=== PATIENT | female | born 1960 | race American Indian/Alaskan Native ===

== ENCOUNTER 2018-06-15 09:24 | Emergency (ER) | payer OTHER ==
[2018-06-15] MEDS ORDERED: LASIX IV ONE (10:03)
--- NOTE | 2018-06-15 10:17 | Emergency Department Report ---
ED Extremity Problem HPI - General Chief complaint: Extremity Injury, Lower Stated complaint: ABD PAIN/GREEN STOOLS Time Seen by Provider: 06/15/18 09:46 Source: patient, old records reviewed (attempted admission in 2016. pt signed out and refused admission at that time) Mode of arrival: Wheelchair Limitations: No Limitations - History of Present Illness Initial comments: 57-year-old female with a past medical history of hypertension, obesity, and CHF presents to the hospital complaining of bilateral leg edema progressively worsening for the last 2 weeks. Patient has been compliant with Lasix 40 mg daily and occasionally takes 20 mg dose when she begins to have symptoms of worsening orthopnea or PND. Patient states that she has had slightly worsening orthopnea the last 2 weeks. She has been sleeping on 4 pillows instead of 3. She is also having worsening dyspnea and exertion is significant bilateral leg edema and abdominal wall edema. Patient has been noncompliant with her hydralazine and metoprolol for the last 3 weeks. She felt like the metoprolol was causing muscle loss/atrophy and that the hydralazine was causing her varicose veins. Pt does have a primary care doctor. Pt does not know her ejection fraction. Pt did take lasix this am. Pt also c/o green stools for last several days. No fever - Related Data Home Medications Medication Instructions Recorded Confirmed Last Taken Furosemide [Lasix] mg PO 05/09/15 Unknown Verapamil [Calan] mg PO 05/09/15 Unknown Allergies Allergy/AdvReac Type Severity Reaction Status Date / Time carvedilol [From Coreg] AdvReac Unknown Verified 06/15/18 09:32 metoprolol AdvReac Unknown Verified 06/15/18 10:05 ED Review of Systems ROS: Stated complaint: ABD PAIN/GREEN STOOLS Other details as noted in HPI Comment: All other systems reviewed and negative ED Past Medical Hx - Past Medical History Hx Hypertension: Yes Hx Congestive Heart Failure: Yes - Surgical History Additional Surgical History: knee surgery - Social History Smoking Status: Never Smoker Substance Use Type: None - Medications Home Medications: Home Medications Medication Instructions Recorded Confirmed Last Taken Type Furosemide [Lasix] mg PO 05/09/15 Unknown History Verapamil [Calan] mg PO 05/09/15 Unknown History ED Physical Exam - General Limitations: No Limitations - Other Other exam information: General: No limitations, patient is alert in no acute distress Head exam: Atraumatic, normocephalic Eyes exam: Normal appearance, pupils equal reactive to light, extraocular movements intact ENT: Moist mucous membrane, normal oropharynx Neck exam: Normal inspection, full range of motion, no meningismus nontender Respiratory exam: Clear to auscultation bilateral, no wheezes, rales, crackles Cardiovascular: Normal rate and rhythm, normal heart sounds Abdomen: Soft, nondistended, and nontender, with normal bowel sounds, no rebound, or guarding Extremity: Left knee replacement surgical scar noted. Bilateral pitting with b/l tense legs. edema extends to abdominal wall Back: Normal Inspection, full range of motion, no tenderness Neurologic: Alert, oriented x3, cranial nerves intact, no motor or sensory deficit Psychiatric: normal affect, normal mood Skin: Warm, dry, intact ED Course Vital Signs 06/15/18 06/15/18 06/15/18 09:35 10:12 11:23 Temperature 97.8 F Pulse Rate 106 H 87 91 H Respiratory 16 17 17 Rate Blood Pressure 195/120 Blood Pressure 163/100 152/95 [Right] O2 Sat by Pulse 95 100 95 Oximetry ED Medical Decision Making - Lab Data Result diagrams: 06/15/18 10:15 06/15/18 10:15 Lab Results 06/15/18 06/15/18 06/15/18 Range/Units 10:15 10:15 10:42 WBC 4.6 (4.5-11.0) K/mm3 RBC 5.12 H (3.65-5.03) M/mm3 Hgb 13.4 (10.1-14.3) gm/dl Hct 42.5 (30.3-42.9) % MCV 83 (79-97) fl MCH 26 L (28-32) pg MCHC 31 (30-34) % RDW 17.3 H (13.2-15.2) % Plt Count 202 (140-440) K/mm3 Lymph % (Auto) 37.7 H (13.4-35.0) % [place] % (Auto) 8.3 H (0.0-7.3) % Eos % (Auto) 1.2 (0.0-4.3) % Baso % (Auto) 1.1 (0.0-1.8) % Lymph # 1.7 (1.2-5.4) K/mm3 [place] # 0.4 (0.0-0.8) K/mm3 Eos # 0.1 (0.0-0.4) K/mm3 Baso # 0.1 (0.0-0.1) K/mm3 Seg Neutrophils % 51.7 (40.0-70.0) % Seg Neutrophils # 2.4 (1.8-7.7) K/mm3 D-Dimer (0-234) ng/mlDDU Sodium 141 (137-145) mmol/L Potassium 4.1 (3.6-5.0) mmol/L Chloride 96.5 L (98-107) mmol/L Carbon Dioxide 35 H (22-30) mmol/L Anion Gap 14 mmol/L BUN 16 (7-17) mg/dL Creatinine 0.7 (0.7-1.2) mg/dL Estimated GFR > 60 ml/min BUN/Creatinine Ratio 23 % Glucose 104 H (65-100) mg/dL Hemoglobin A1c 6.8 H (4-6) % Calcium 8.8 (8.4-10.2) mg/dL Magnesium (1.7-2.3) mg/dL Total Bilirubin 0.50 (0.1-1.2) mg/dL AST 46 H (5-40) units/L ALT 47 (7-56) units/L Alkaline Phosphatase 92 (35-129) units/L Total Creatine Kinase 33 (30-135) units/L CK-MB (CK-2) 2.2 (0.0-4.0) ng/mL CK-MB (CK-2) Rel Index 6.6 H (0-4) Troponin T < 0.010 (0.00-0.029) ng/mL NT-Pro-B Natriuret Pep 6715 H (0-900) pg/mL Total Protein 6.7 (6.3-8.2) g/dL Albumin 3.1 L (3.9-5) g/dL Albumin/Globulin Ratio 0.9 % TSH (0.270-4.200) mlU/mL Free T4 (0.76-1.46) ng/dL 06/15/18 06/15/18 06/15/18 Range/Units 12:34 12:35 12:35 WBC (4.5-11.0) K/mm3 RBC (3.65-5.03) M/mm3 Hgb (10.1-14.3) gm/dl Hct (30.3-42.9) % MCV (79-97) fl MCH (28-32) pg MCHC (30-34) % RDW (13.2-15.2) % Plt Count (140-440) K/mm3 Lymph % (Auto) (13.4-35.0) % [place] % (Auto) (0.0-7.3) % Eos % (Auto) (0.0-4.3) % Baso % (Auto) (0.0-1.8) % Lymph # (1.2-5.4) K/mm3 [place] # (0.0-0.8) K/mm3 Eos # (0.0-0.4) K/mm3 Baso # (0.0-0.1) K/mm3 Seg Neutrophils % (40.0-70.0) % Seg Neutrophils # (1.8-7.7) K/mm3 D-Dimer 875.34 H (0-234) ng/mlDDU Sodium (137-145) mmol/L Potassium (3.6-5.0) mmol/L Chloride (98-107) mmol/L Carbon Dioxide (22-30) mmol/L Anion Gap mmol/L BUN (7-17) mg/dL Creatinine (0.7-1.2) mg/dL Estimated GFR ml/min BUN/Creatinine Ratio % Glucose (65-100) mg/dL Hemoglobin A1c (4-6) % Calcium (8.4-10.2) mg/dL Magnesium 1.90 (1.7-2.3) mg/dL Total Bilirubin (0.1-1.2) mg/dL AST (5-40) units/L ALT (7-56) units/L Alkaline Phosphatase (35-129) units/L Total Creatine Kinase (30-135) units/L CK-MB (CK-2) (0.0-4.0) ng/mL CK-MB (CK-2) Rel Index (0-4) Troponin T (0.00-0.029) ng/mL NT-Pro-B Natriuret Pep (0-900) pg/mL Total Protein (6.3-8.2) g/dL Albumin (3.9-5) g/dL Albumin/Globulin Ratio % TSH 1.940 (0.270-4.200) mlU/mL Free T4 1.13 (0.76-1.46) ng/dL - EKG Data -: EKG Interpreted by Me EKG shows normal: sinus rhythm, axis (qrs -17), QRS complexes (qrsd 104), ST-T waves (no stemi) Rate: tachycardia (100) - EKG Data When compared to previous EKG there are: no significant change - Radiology Data Radiology results: report reviewed PROCEDURE: XR CHEST ROUTINE 2V TECHNIQUE: PA and lateral chest radiographs were obtained. HISTORY: sob, leg edema COMPARISONS: None. FINDINGS: Heart: Prominent cardiac silhouette. Mediastinum/Vessels: Normal. Lungs/Pleural space: No infiltrate, effusion, or pneumothorax. Bony thorax: No acute osseous abnormality. IMPRESSION: Prominent cardiac silhouette. - Medical Decision Making pt tx with lasix 40mg iv and clonidine 0.1 mg PO in ed + uop (mild) + bp reduction Plan to admit for further tx pt seen by Dr Murry hospitalist pt signed ama after discussion with hospitalist and states she will come back after the weekend - Differential Diagnosis chf, liver failure, kidney failure, nephrotic syndrome Critical Care Time: No Critical care attestation.: If time is entered above; I have spent that time in minutes in the direct care of this critically ill patient, excluding procedure time. ED Disposition Clinical Impression: Nonadherence to medication, Obesities, morbid, Hypertension CHF exacerbation Qualifiers: Heart failure type: systolic Qualified Code(s): I50.23 - Acute on chronic systolic (congestive) heart failure Disposition: DC-07 LEFT AGAINST MED ADVICE Is pt being admited?: Yes Condition: Stable Referrals: PRIMARY CARE, [Primary Care Provider] - 3-5 Days Forms: AMA Form Time of Disposition: 12:22
[2018-06-15] MEDS ORDERED: CATAPRES PO ONE (10:18)
[2018-06-15 10:25] LABS: Basophils # (Auto) 0.1 K/mm3 (0.0-0.1); Basophils % (Auto) 1.1 % (0.0-1.8); Eosinophils # (Auto) 0.1 K/mm3 (0.0-0.4); Eosinophils % (Auto) 1.2 % (0.0-4.3); Hematocrit 42.5 % (30.3-42.9); Hemoglobin 13.4 gm/dl (10.1-14.3); Lymphocytes # (Auto) 1.7 K/mm3 (1.2-5.4); Lymphocytes % (Auto) 37.7 % (13.4-35.0); Mean Corpuscular HGB Conc 31 % (30-34); Mean Corpuscular Volume 83 fl (79-97); Monocytes # (Auto) 0.4 K/mm3 (0.0-0.8); Monocytes % (Auto) 8.3 % (0.0-7.3); Platelet Count 202 K/mm3 (140-440); Red Blood Count 5.12 M/mm3 (3.65-5.03); Red Cell Distribution Width 17.3 % (13.2-15.2)
[2018-06-15 10:49] LABS: Creatine Kinase MB 2.2 ng/mL (0.0-4.0)
[2018-06-15 10:50] LABS: Alanine Aminotransferase 47 units/L (7-56); Albumin 3.1 g/dL (3.9-5); BUN/Creatinine Ratio 23; Blood Urea Nitrogen 16 mg/dL (7-17); Calcium 8.8 mg/dL (8.4-10.2); Hemolysis Index 10
[2018-06-15 11:23] VITALS: BP 152/95
--- NOTE | 2018-06-15 12:01 | History and Physical Report ---
History of Present Illness Chief complaint: My legs feel tight History of present illness: 57 YO Female with Systolic CHF, HTN, MO, Obesity Hypoventilation, Nicotine Dependence, Medication Noncompliance presents to ED for evaluation. Pt states that she has experienced leg swelling, shortness of breath, over the past 2 weeks, with worsening symptoms over the past 2 days. Pt acknowledges Orthopnea/PND, Dypsnea on Exertion, Dypsnea at rest, Decreased exercise tolerance, 10-15lbs weight gain over the past 2-3 weeks, as well as elevated blood pressure. Pt acknowledges noncompliance with all her medication for the past 5 weeks. Pt denies fever, chills, CP, Palpitations, NVD, Trauma, prolonged travel/immobility, unilateral leg swelling, calf pain, hemoptysis, productive cough, individual/family history of DVT/PE/Blood Clotting Disorders, or recent ill contacts. Pt also acknowledges dietary noncompliance. Pt transported to [facility] via private vehicle. Pt seen and evaluated in ED and found to have CHF Decompensation, Obesity Hypoventilation, and RLE Cellulitis. Pt admitted to Telemetry and initiated on CHF protocol. Cardiology team consulted in ED. Pt counseled regarding medication/dietary noncompliance. No prior admission for review. All listed medication reconciled at time of admission. Past History Past Medical History: heart failure, hypertension, other (Obesity Hy poventilation) Past Surgical History: , total knee replacement, Other (Breast reduction) Social history: , lives with family, smoking. denies: alcohol abuse, prescription drug abuse Family history: CAD, hypertension Medications and Allergies Allergies Allergy/AdvReac Type Severity Reaction Status Date / Time carvedilol [From Coreg] AdvReac Unknown Verified 06/15/18 09:32 metoprolol AdvReac Unknown Verified 06/15/18 10:05 Home Medications Medication Instructions Recorded Confirmed Last Taken Type Furosemide [Lasix] mg PO 05/09/15 Unknown History Verapamil [Calan] mg PO 05/09/15 Unknown History Review of Systems Constitutional: weight gain, no weight loss, no fever, no chills Ears, nose, mouth and throat: no ear pain, no ear discharge, no tinnitis, no decreased hearing, no nose pain, no nasal congestion Breasts: no change in shape, no swelling, no mass Cardiovascular: orthopnea, edema, shortness of breath, dyspnea on exertion, paroxysmal nocturnal dyspnea, high blood pressure, leg edema, decreased exercise tolerance, no chest pain, no palpitations, no syncope Respiratory: no cough, no cough with sputum, no excessive sputum, no hemoptysis Gastrointestinal: no nausea, no vomiting, no diarrhea, no constipation, no change in bowel habits Genitourinary Female: no pelvic pain, no flank pain, no menorrhagia, no dysuria, no urinary frequency, no post void dribbling, no incomplete emptying, no urge incontinence Rectal: no pain, no incontinence, no bleeding Musculoskeletal: no neck stiffness, no neck pain, no shooting arm pain, no arm numbness/tingling, no low back pain, no shooting leg pain Integumentary: redness, no sores, no wounds, no jaundice, no boils, no dryness Neurological: no transient paralysis, no paralysis, no weakness, no parathesias, no numbness, no tingling, no seizures Psychiatric: no anxiety, no memory loss, no change in sleep habits, no sleep disturbances, no insomnia, no hypersomnia, no change in appetite, no change in libido Endocrine: no cold intolerance, no heat intolerance, no polyphagia, no excessive thirst, no polydipsia Hematologic/Lymphatic: no easy bruising, no easy bleeding, no lymphadenopathy Allergic/Immunologic: no urticaria, no allergic rhinitis, no wheezing, no persistent infections, no anaphylaxis Exam - Constitutional Vitals: Temp Pulse Resp BP Pulse Ox 97.8 F 91 H 17 152/95 95 06/15/18 09:35 06/15/18 11:23 06/15/18 11:23 06/15/18 11:23 06/15/18 11:23 General appearance: Present: mild distress, obese - EENT Eyes: Present: PERRL ENT: hearing intact, clear oral mucosa - Neck Neck: Present: supple, normal ROM - Respiratory Respiratory effort: labored Respiratory: bilateral: diminished, rales - Cardiovascular Heart Sounds: Present: S1 & S2. Absent: rub, click - Extremities Extremities: pulses symmetrical Extremity abnormal: edema Peripheral Pulses: within normal limits - Abdominal General gastrointestinal: Present: soft, non-tender, non-distended, normal bowel sounds Female genitourinary: Present: normal - Integumentary Integumentary: Present: clear, dry, erythema - Musculoskeletal Musculoskeletal: generalized weakness - Psychiatric Psychiatric: appropriate mood/affect, intact judgment & insight - Neurologic Neurologic: CNII-XII intact, moves all extremities Results - Labs CBC & Chem 7: 06/15/18 10:15 06/15/18 10:15 Labs: Abnormal lab results 06/15/18 06/15/18 Range/Units 10:15 10:15 RBC 5.12 H (3.65-5.03) M/mm3 MCH 26 L (28-32) pg RDW 17.3 H (13.2-15.2) % Lymph % (Auto) 37.7 H (13.4-35.0) % [place] % (Auto) 8.3 H (0.0-7.3) % Chloride 96.5 L (98-107) mmol/L Carbon Dioxide 35 H (22-30) mmol/L Glucose 104 H (65-100) mg/dL AST 46 H (5-40) units/L CK-MB (CK-2) Rel Index 6.6 H (0-4) NT-Pro-B Natriuret Pep 6715 H (0-900) pg/mL Albumin 3.1 L (3.9-5) g/dL Assessment and Plan - Patient Problems (1) CHF exacerbation Current Visit: Yes Status: Acute Qualifiers: Heart failure type: systolic Qualified Code(s): I50.23 - Acute on chronic systolic (congestive) heart failure Plan to address problem: Admit to telemetry, Strict I/O, daily weight, blood pressure control with target SBP 125-140, Echo, Thyroid panel, magnesium level, BNP,D dimer, cardiology consulted in ED, Afterload reduction, lipid panel, monitor uop q shift to assess fluid balance. Negative fluid balance. (2) Obesity hypoventilation syndrome Current Visit: Yes Status: Acute Plan to address problem: Supplemental oxygen, pulse oximetry, balanced diet, increased physical activity at discharge, NIPPV as clinically indicated, pulmonary toilet, incentive spirometry. Outpatient sleep study. (3) Cellulitis Current Visit: Yes Status: Acute Qualifiers: Site of cellulitis of extremity: lower extremity Laterality: right Plan to address problem: IV antibiotic therapy, CBC, supportive care. (4) Nicotine dependence with withdrawal Current Visit: Yes Status: Acute Qualifiers: Nicotine product type: cigarettes Qualified Code(s): F17.213 - Nicotine dependence, cigarettes, with withdrawal Plan to address problem: Smoking cessation counseling, supportive care. (5) Hypertensive urgency, malignant Current Visit: Yes Status: Acute Plan to address problem: IV hydralazine q4hrs prn, monitor bp q shift, resume prehospital antihypertensive therapy, (6) Nonadherence to medication Current Visit: Yes Status: Acute Plan to address problem: Pt counseled regarding medication noncompliance, Pt acknowledges understanding risk of worsening symptoms and . (7) DVT prophylaxis Current Visit: Yes Status: Acute Plan to address problem: SCD to BLE while in bed, prophylactic lovenox.
[2018-06-15] MEDS ORDERED: TYLENOL PO PRN (12:23)
[2018-06-15] MEDS ORDERED: SODIUM CHLORIDE FLUSH SYRINGE 10 ML IV PRN (12:23)
[2018-06-15] MEDS ORDERED: PROVENTIL IH PRN (12:23)
[2018-06-15] MEDS ORDERED: NITROSTAT SL PRN (12:23)
[2018-06-15] MEDS ORDERED: ZOFRAN IV PRN (12:23)
[2018-06-15] MEDS ORDERED: APRESOLINE IV PRN (12:42)
[2018-06-15] MEDS ORDERED: VANCOMYCIN/NS 1 GM/250 ML 1 GM/250 ML BAG IV ONE (12:49)
[2018-06-15 13:12] LABS: Free T4 (Free Thyroxine) 1.13 ng/dL (0.76-1.46)
--- NOTE | 2018-06-15 13:24 | XRay Report ---
PROCEDURE: XR CHEST ROUTINE 2V TECHNIQUE: PA and lateral chest radiographs were obtained. HISTORY: sob, leg edema COMPARISONS: None. FINDINGS: Heart: Prominent cardiac silhouette. Mediastinum/Vessels: Normal. Lungs/Pleural space: No infiltrate, effusion, or pneumothorax. Bony thorax: No acute osseous abnormality. IMPRESSION: Prominent cardiac silhouette. This document is electronically signed by Criselda Starr MD., Jun 15 2018 01:21:59 PM ET
[2018-06-15] MEDS ORDERED: VANCOMYCIN 2,000 MG in NACL 0.9% 500 ML 500 ML IV ONE (14:00)
[2018-06-15] MEDS ORDERED: LASIX IV SCH (18:00)
[2018-06-15] MEDS ORDERED: SODIUM CHLORIDE FLUSH SYRINGE 10 ML IV SCH (22:00)
[2018-06-15] MEDS ORDERED: LOVENOX SUB-Q SCH (22:00)
== END 2018-06-15 13:20 | disposition left against medical advice (07) ==
LOC: ED 09:24
DX: I11.0 Hypertensive heart disease with heart failure (principal); I50.23 Acute on chronic systolic (congestive) heart failure; E66.01 Morbid (severe) obesity due to excess calories; Z91.14 Patient's other noncompliance with medication regimen
CPT/HCPCS: 36415; 71046; 80053; 82550; 82553; 83036; 83735; 83880; 84439; 84443; 84484; 85025; 85379; 93005; 93010; 93306; 96374; 99284; J1940; J3370; J7040

== ENCOUNTER 2018-08-09 05:47 | Emergency (ER) | payer MEDICARE, OTHER ==
[2018-08-09] MEDS ORDERED: VICKS SINEX NS ONE (06:20)
[2018-08-09 07:48] LABS: Basophils # (Auto) 0.1 K/mm3 (0.0-0.1); Basophils % (Auto) 1.8 % (0.0-1.8); Eosinophils # (Auto) 0.1 K/mm3 (0.0-0.4); Eosinophils % (Auto) 1.5 % (0.0-4.3); Hematocrit 40.3 % (30.3-42.9); Lymphocytes # (Auto) 1.4 K/mm3 (1.2-5.4); Lymphocytes % (Auto) 30.9 % (13.4-35.0); Mean Corpuscular HGB Conc 32 % (30-34); Mean Corpuscular Volume 81 fl (79-97); Monocytes # (Auto) 0.3 K/mm3 (0.0-0.8); Monocytes % (Auto) 7.1 % (0.0-7.3); Platelet Count 210 K/mm3 (140-440); Red Blood Count 5.01 M/mm3 (3.65-5.03); Red Cell Distribution Width 17.5 % (13.2-15.2)
[2018-08-09 07:57] LABS: INR 1.06 (0.87-1.13)
[2018-08-09 07:58] LABS: Partial Thromboplastin Time 26.9 Sec. (24.2-36.6)
[2018-08-09 07:59] LABS: BUN/Creatinine Ratio 20; Blood Urea Nitrogen 14 mg/dL (7-17); Calcium 8.6 mg/dL (8.4-10.2); Hemolysis Index 13
[2018-08-09] MEDS ORDERED: DILAUDID IV ONE (08:21)
[2018-08-09] MEDS ORDERED: ZOFRAN IV ONE (08:21)
[2018-08-09] MEDS ORDERED: VICKS SINEX ONE (08:27)
[2018-08-09] MEDS ORDERED: WATER FOR INJ Sterile (PF) 30 ML ONE (08:46)
[2018-08-09 09:07] VITALS: BP 124/87
[2018-08-09] MEDS ORDERED: WATER FOR IRRIG STERILE IR ONE ×2 (09:14→09:30)
--- NOTE | 2018-08-09 09:27 | Emergency Department Report ---
ED ENT HPI - General Chief complaint: Nosebleed Stated complaint: NOSE BLEED Time Seen by Provider: 08/09/18 06:19 Source: patient Mode of arrival: Ambulatory Limitations: No Limitations - History of Present Illness Initial comments: 57-year-old female with a past medical history of CHF and hypertension presents to the hospital complaining of epistaxis from left nare that started 1 hour prior to arrival. Patient has a history of chronic joint pain secondary to arthritis. She said ibuprofen, Excedrin which included Tylenol, caffeine, and aspirin, and she took an aspirin after that. She took all the meds within 1 hour of each other. Patient is holding pressure to the nose without relief. No other symptoms reported. No history of nasal trauma. Patient has not yet taken her blood pressure medication. - Related Data Home Medications Medication Instructions Recorded Confirmed Last Taken Furosemide [Lasix] mg PO 05/09/15 Unknown Verapamil [Calan] mg PO 05/09/15 Unknown Previous Rx's Medication Instructions Recorded Last Taken Type cephALEXin [Keflex] 250 mg PO Q6HR #8 capsule 08/09/18 Unknown Rx traMADol [Ultram 50 MG tab] 50 mg PO Q6HR PRN #15 tablet 08/09/18 Unknown Rx Allergies Allergy/AdvReac Type Severity Reaction Status Date / Time carvedilol [From Coreg] AdvReac Unknown Verified 06/15/18 09:32 metoprolol AdvReac Unknown Verified 06/15/18 10:05 ED Dental HPI - General Chief complaint: Nosebleed Stated complaint: NOSE BLEED Time Seen by Provider: 08/09/18 06:19 Source: patient Mode of arrival: Ambulatory Limitations: No Limitations - Related Data Home Medications Medication Instructions Recorded Confirmed Last Taken Furosemide [Lasix] mg PO 05/09/15 Unknown Verapamil [Calan] mg PO 05/09/15 Unknown Previous Rx's Medication Instructions Recorded Last Taken Type cephALEXin [Keflex] 250 mg PO Q6HR #8 capsule 08/09/18 Unknown Rx traMADol [Ultram 50 MG tab] 50 mg PO Q6HR PRN #15 tablet 08/09/18 Unknown Rx Allergies Allergy/AdvReac Type Severity Reaction Status Date / Time carvedilol [From Coreg] AdvReac Unknown Verified 06/15/18 09:32 metoprolol AdvReac Unknown Verified 06/15/18 10:05 ED Review of Systems ROS: Stated complaint: NOSE BLEED Other details as noted in HPI Comment: All other systems reviewed and negative ED Past Medical Hx - Past Medical History Previous Medical History?: Yes Hx Hypertension: Yes Hx Congestive Heart Failure: Yes - Surgical History Past Surgical History?: Yes Additional Surgical History: knee surgery - Social History Smoking Status: Current Every Day Smoker Substance Use Type: None - Medications Home Medications: Home Medications Medication Instructions Recorded Confirmed Last Taken Type Furosemide [Lasix] mg PO 05/09/15 Unknown History Verapamil [Calan] mg PO 05/09/15 Unknown History cephALEXin [Keflex] 250 mg PO Q6HR #8 capsule 08/09/18 Unknown Rx traMADol [Ultram 50 MG tab] 50 mg PO Q6HR PRN #15 tablet 08/09/18 Unknown Rx ED Physical Exam - General Limitations: No Limitations - Other Other exam information: General: No limitations, patient is alert in no acute distress Head exam: Atraumatic, normocephalic Eyes exam: Normal appearance ENT: Patient has a clot in the left nostril. After clot removal mild epistaxis noted which appears to be anterior Neck exam: Normal inspection, full range of motion, no meningismus nontender Respiratory exam: Clear to auscultation bilateral, no wheezes, rales, crackles Cardiovascular: Normal rate and rhythm, normal heart sounds Abdomen: Soft, nondistended, and nontender, with normal bowel sounds, no rebound, or guarding Extremity: Full range of motion normal inspection no deformity Back: Normal Inspection, full range of motion, no tenderness Neurologic: Alert, oriented x3, cranial nerves intact, no motor or sensory deficit Psychiatric: normal affect, normal mood Skin: Warm, dry, intact ED Course Vital Signs 08/09/18 08/09/18 08/09/18 05:59 07:07 07:22 Temperature 97.9 F Pulse Rate 106 H 103 H Respiratory 20 18 Rate Blood Pressure 170/107 185/123 Blood Pressure 181/118 [Left] O2 Sat by Pulse 92 93 Oximetry 08/09/18 08/09/18 08/09/18 08:07 08:48 09:02 Temperature Pulse Rate Respiratory 16 Rate Blood Pressure 192/131 162/96 Blood Pressure 124/87 [Left] O2 Sat by Pulse Oximetry - Procedure Description Procedures done: Nasal packing for epistaxis. Patient blew out the clot that was in the left nostril. Mild bleeding restarted. 2 nasal sprays of Afrin provided. 4.5 cm anterior Rhino Rocket nasal packing placed. 7 mL of air inj ected into Rhino Rocket with cessation of bleeding. Packing string secured with tape to the face ED Medical Decision Making - Lab Data Result diagrams: 08/09/18 07:24 08/09/18 07:24 Lab Results 08/09/18 08/09/18 08/09/18 Range/Units 07:24 07:24 07:24 WBC 4.4 L (4.5-11.0) K/mm3 RBC 5.01 (3.65-5.03) M/mm3 Hgb 13.0 (10.1-14.3) gm/dl Hct 40.3 (30.3-42.9) % MCV 81 (79-97) fl MCH 26 L (28-32) pg MCHC 32 (30-34) % RDW 17.5 H (13.2-15.2) % Plt Count 210 (140-440) K/mm3 Lymph % (Auto) 30.9 (13.4-35.0) % [place] % (Auto) 7.1 (0.0-7.3) % Eos % (Auto) 1.5 (0.0-4.3) % Baso % (Auto) 1.8 (0.0-1.8) % Lymph # 1.4 (1.2-5.4) K/mm3 [place] # 0.3 (0.0-0.8) K/mm3 Eos # 0.1 (0.0-0.4) K/mm3 Baso # 0.1 (0.0-0.1) K/mm3 Seg Neutrophils % 58.7 (40.0-70.0) % Seg Neutrophils # 2.6 (1.8-7.7) K/mm3 PT 13.5 (12.2-14.9) Sec. INR 1.06 (0.87-1.13) APTT 26.9 (24.2-36.6) Sec. Sodium 141 (137-145) mmol/L Potassium 4.2 (3.6-5.0) mmol/L Chloride 98.3 (98-107) mmol/L Carbon Dioxide 33 H (22-30) mmol/L Anion Gap 14 mmol/L BUN 14 (7-17) mg/dL Creatinine 0.7 (0.7-1.2) mg/dL Estimated GFR > 60 ml/min BUN/Creatinine Ratio 20 % Glucose 100 (65-100) mg/dL Calcium 8.6 (8.4-10.2) mg/dL - Medical Decision Making pt observed for 1 hr after packing without recurrent bleeding bp elevated, pt states she did not take her BP meds yesterday. 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 She was noncompliant prior to that He denies headache, chest pain, shortness of breath. States her blood pressures "always high". ENT and PMD follow-up advised - Differential Diagnosis coagulopathy, anemia, epistaxis Critical Care Time: No Critical care attestation.: If time is entered above; I have spent that time in minutes in the direct care of this critically ill patient, excluding procedure time. ED Disposition Clinical Impression: Epistaxis, Uncontrolled hypertension, Noncompliance with medication regimen, Adverse effect of aspirin Disposition: DC- TO HOME OR SELFCARE Is pt being admited?: No Does the pt Need Aspirin: No Condition: Stable Instructions: Epistaxis (ED), Hypertension (ED) Additional Instructions: Do not take aspirin for the next 3 days. Have your nasal packing removed in 2 days. Follow up with ENT for packing removal or you may return to the ER. Return if symptoms worsen as indicated by your discharge instructions. Make sure that nasal packing is secured with tape to your face especially while sleeping to prevent it from slipping backwards towards your throat. Take your blood pressure medicine as prescribed and try not to miss any doses. It is very important that you take the antibiotics prescribed while the packing is in place. Prescriptions: cephALEXin [Keflex] 250 mg PO Q6HR #8 capsule traMADol [Ultram 50 MG tab] 50 mg PO Q6HR PRN #15 tablet PRN Reason: Pain Referrals: MIGUEL STEPHENS MD [Staff Physician] - 3-5 Days HORTENCIA ROJAS MD [Staff Physician] - 2-3 Days (ENT) JOHANNY HANCOCK MD [Staff Physician] - 2-3 Days (ENT) Time of Disposition: 10:12
[2018-08-09] MEDS ORDERED: WATER FOR INJ Sterile (PF) IV ONE (09:30)
== END 2018-08-09 10:24 | disposition home or self-care (01) ==
LOC: ED 05:47
DX: R04.0 Epistaxis (principal); T39.015A Adverse effect of aspirin, initial encounter; Z91.14 Patient's other noncompliance with medication regimen; I11.0 Hypertensive heart disease with heart failure; I50.9 Heart failure, unspecified; F17.200 Nicotine dependence, unspecified, uncomplicated; Z98.890 Other specified postprocedural states; Z79.899 Other long term (current) drug therapy; Z88.8 Allergy status to other drugs, medicaments and biological substances; Y92.89 Other specified places as the place of occurrence of the external cause
CPT/HCPCS: 30901; 36415; 80048; 85025; 85610; 85730; 96374; 96375; 99284; J1170; J2405

== ENCOUNTER 2018-08-12 09:04 | Emergency (ER) | payer OTHER, MEDICARE ==
--- NOTE | 2018-08-12 10:27 | Emergency Department Report ---
ED ENT HPI - General Chief complaint: Nosebleed Stated complaint: NASAL DEPACKING Time Seen by Provider: 08/12/18 09:57 Source: patient Mode of arrival: Wheelchair Limitations: No Limitations - History of Present Illness Initial comments: 57-year-old female with a past medical history of hypertension and CHF is the hospital for nasal tampon removed. I saw patient on August 09 for epistaxis requiring nasal packing. Patient was supposed to return in 2 days which shows up today requesting nasal packing removal. She has been compliant with her blood pressure medication was last dosed this a.m. She denies any persistent bleeding or pain. - Related Data Home Medications Medication Instructions Recorded Confirmed Last Taken Furosemide [Lasix] mg PO 05/09/15 Unknown Verapamil [Calan] mg PO 05/09/15 Unknown Previous Rx's Medication Instructions Recorded Last Taken Type cephALEXin [Keflex] 250 mg PO Q6HR #8 capsule 08/09/18 Unknown Rx traMADol [Ultram 50 MG tab] 50 mg PO Q6HR PRN #15 tablet 08/09/18 Unknown Rx Allergies Allergy/AdvReac Type Severity Reaction Status Date / Time latex Allergy Rash Verified 08/12/18 09:10 carvedilol [From Coreg] AdvReac Unknown Verified 06/15/18 09:32 metoprolol AdvReac Unknown Verified 06/15/18 10:05 ED Dental HPI - General Chief complaint: Nosebleed Stated complaint: NASAL DEPACKING Time Seen by Provider: 08/12/18 09:57 Source: patient Mode of arrival: Wheelchair Limitations: No Limitations - Related Data Home Medications Medication Instructions Recorded Confirmed Last Taken Furosemide [Lasix] mg PO 05/09/15 Unknown Verapamil [Calan] mg PO 05/09/15 Unknown Previous Rx's Medication Instructions Recorded Last Taken Type cephALEXin [Keflex] 250 mg PO Q6HR #8 capsule 08/09/18 Unknown Rx traMADol [Ultram 50 MG tab] 50 mg PO Q6HR PRN #15 tablet 08/09/18 Unknown Rx Allergies Allergy/AdvReac Type Severity Reaction Status Date / Time latex Allergy Rash Verified 08/12/18 09:10 carvedilol [From Coreg] AdvReac Unknown Verified 06/15/18 09:32 metoprolol AdvReac Unknown Verified 06/15/18 10:05 ED Review of Systems ROS: Stated complaint: NASAL DEPACKING Other details as noted in HPI Comment: All other systems reviewed and negative ED Past Medical Hx - Past Medical History Previous Medical History?: Yes Hx Hypertension: Yes Hx Congestive Heart Failure: Yes - Surgical History Past Surgical History?: Yes Additional Surgical History: knee surgery - Social History Smoking Status: Current Some Day Smoker Substance Use Type: None - Medications Home Medications: Home Medications Medication Instructions Recorded Confirmed Last Taken Type Furosemide [Lasix] mg PO 05/09/15 Unknown History Verapamil [Calan] mg PO 05/09/15 Unknown History cephALEXin [Keflex] 250 mg PO Q6HR #8 capsule 08/09/18 Unknown Rx traMADol [Ultram 50 MG tab] 50 mg PO Q6HR PRN #15 tablet 08/09/18 Unknown Rx ED Physical Exam - General Limitations: No Limitations - Other Other exam information: General: No limitations, patient is alert in no acute distress Head exam: Atraumatic, normocephalic Eyes exam: Normal appearance, pupils equal reactive to light, extraocular movements intact ENT: Moist mucous membrane, left nasal packing Neck exam: Normal inspection, full range of motion, no meningismus nontender Respiratory exam: Clear to auscultation bilateral, no wheezes, rales, crackles Cardiovascular: Normal rate and rhythm, normal heart sounds Abdomen: Soft, nondistended, and nontender, with normal bowel sounds, no rebound, or guarding Extremity: Full range of motion normal inspection no deformity Back: Normal Inspection, full range of motion, no tenderness Neurologic: Alert, oriented x3, cranial nerves intact, no motor or sensory deficit Psychiatric: normal affect, normal mood Skin: Warm, dry, intact ED Course Vital Signs 08/12/18 08/12/18 09:10 09:51 Temperature 98.3 F Pulse Rate 98 H Respiratory 18 18 Rate Blood Pressure 144/68 O2 Sat by Pulse 94 100 Oximetry ED Medical Decision Making - Medical Decision Making Patient had left nasal packing removed without incidence. No further bleeding noted. Blood pressure is good today. Patient will be discharged home and ENT follow-up will be encouraged - Differential Diagnosis epistaxis Critical Care Time: No Critical care attestation.: If time is entered above; I have spent that time in minutes in the direct care of this critically ill patient, excluding procedure time. ED Disposition Clinical Impression: Epistaxis, Encounter for removal of nasal packing Disposition: DC-01 TO HOME OR SELFCARE Is pt being admited?: No Condition: Stable Instructions: Epistaxis (ED) Additional Instructions: It is still very important that you follow up with the ear nose and throat doc tor for further evaluation of your nasal bleeding. Your packing was removed here today. Please return if symptoms worsen as indicated by your discharge instructions. Referrals: SEE MEJIA MD [Primary Care Provider] - 3-5 Days HORTENCIA ROJAS MD [Staff Physician] - 3-5 Days (ent ) JOHANNY HANCOCK MD [Staff Physician] - 3-5 Days Time of Disposition: 10:28
[2018-08-12 12:19] VITALS: BP 142/88
== END 2018-08-12 10:42 | disposition home or self-care (01) ==
LOC: ED 09:04
DX: Z48.00 Encounter for change or removal of nonsurgical wound dressing (principal); R04.0 Epistaxis; I11.0 Hypertensive heart disease with heart failure; I50.9 Heart failure, unspecified; F17.200 Nicotine dependence, unspecified, uncomplicated; Z91.040 Latex allergy status; Z88.5 Allergy status to narcotic agent; Z79.899 Other long term (current) drug therapy

== ENCOUNTER 2018-08-13 12:11 | Emergency (ER) | payer MEDICARE, OTHER ==
[2018-08-13 12:30] VITALS: BP 182/95
--- NOTE | 2018-08-13 12:38 | Emergency Department Report ---
ED Rash HPI - HPI Chief Complaint: Skin Rash Stated Complaint: RASH Time Seen by Provider: 08/13/18 12:27 Duration: 2 weeks Location: Upper Extremities Rash Symptoms: Yes Itching, No Facial Swelling, No Tongue/Oral Swelling, No Breathing Difficulties, No Choking Sensation, No Wheezing/Dyspnea, No Peeling, No Blistering, No Fever, No Lightheaded, No Malaise, No Myalgias Severity: mild Other History: This is a 57-year-old female that presents with itching with some redness and crusting scabies. PAtient stated has been for 2 weeks and itching it. Denies any fever, chills, headache, numbness, tingling, chest pain or SOB. Deneis any recent travels. ED Review of Systems ROS: Stated complaint: RASH Other details as noted in HPI Constitutional: denies: chills, fever Eyes: denies: eye pain, eye discharge, vision change ENT: denies: ear pain, throat pain Respiratory: denies: cough, shortness of breath, wheezing Cardiovascular: denies: chest pain, palpitations Endocrine: no symptoms reported Gastrointestinal: denies: abdominal pain, nausea, diarrhea Genitourinary: denies: urgency, dysuria, discharge Musculoskeletal: denies: back pain, joint swelling, arthralgia Skin: rash. denies: lesions Neurological: denies: headache, weakness, paresthesias Psychiatric: denies: anxiety, depression Hematological/Lymphatic: denies: easy bleeding, easy bruising ED Past Medical Hx - Past Medical History Previous Medical History?: Yes Hx Hypertension: Yes Hx Congestive Heart Failure: Yes - Surgical History Past Surgical History?: Yes Additional Surgical History: knee surgery - Social History Smoking Status: Current Every Day Smoker Substance Use Type: None - Medications Home Medications: Home Medications Medication Instructions Recorded Confirmed Last Taken Type Furosemide [Lasix] mg PO 05/09/15 Unknown History Verapamil [Calan] mg PO 05/09/15 Unknown History cephALEXin [Keflex] 250 mg PO Q6HR #8 capsule 08/09/18 Unknown Rx traMADol [Ultram 50 MG tab] 50 mg PO Q6HR PRN #15 tablet 08/09/18 Unknown Rx Clindamycin [Clindamycin CAP] 300 mg PO Q8H #21 cap 08/13/18 Unknown Rx Prednisone [predniSONE 10 mg 10 mg PO .TAPER #1 tab.ds.pk 08/13/18 Unknown Rx (6-Day Pack, 21 Tabs)] diphenhydrAMINE [Benadryl CAP] 25 mg PO Q6HR PRN #20 capsule 08/13/18 Unknown R x Rash Exam - Exam General: Vital signs noted. No distress. Alert and acting appropriately. HEENT: No Periorbital Edema, No Conjuctival Injection, No Chemosis, No Perioral Edema, No Tongue Edema, No Uvular Edema, No Compromised Airway, No Drooling Lungs: Yes Good Air Exchange (Normal Breath Sounds), No Wheezes, No Ronchi, No Stridor, No Cough, No Labored Respirations, No Retractions, No Use of Accessory Muscles, No Other Abnormal Lung Sounds Heart: Yes Regular, No Murmur Skin: Yes Other (crusting with itching and redness), No Urticarial Rash, No Maculopapular Rash, No Morbilliform rash, No Bulla(e), No Excoriations, No We eping, No Tenderness, No Erythema, No Edema, No Encrustations Other: Positive: Abdomen Normal, Neurologic Normal, Musculoskeletal Normal ED Course Vital Signs 08/13/18 12:28 Temperature 98 F Pulse Rate 101 H Respiratory 16 Rate Blood Pressure 182/95 O2 Sat by Pulse 95 Oximetry - Reevaluation(s) Reevaluation #1: 08/13/18 12:37 Patient is speaking in full sentences witih no signs of distress noted. ED Medical Decision Making - Medical Decision Making 57-year-old female that presents with cellulitis from scrashing the area which now has scabies with crusting. Patient will be discharged with Clinda. Patient was instructed to Follow-up with a primary care doctor in 3-5 days or if symptoms worsen and continue return to emergency room as soon as possible. At time of discharge, the patient does not seem toxic or ill in appearance. No acute signs of distress noted. Patient agrees to discharge treatment plan of care. No further questions noted by the patient. Critical care attestation.: If time is entered above; I have spent that time in minutes in the direct care of this critically ill patient, excluding procedure time. ED Disposition Clinical Impression: Cellulitis Qualifiers: Site of cellulitis: extremity Site of cellulitis of extremity: upper extremity Laterality: right Qualified Code(s): L03.113 - Cellulitis of right upper limb Disposition: DC-01 TO HOME OR SELFCARE Is pt being admited?: No Does the pt Need Aspirin: No Condition: Stable Instructions: Cellulitis (ED), Diphenhydramine (By mouth) Additional Instructions: Follow-up with a primary care doctor in 3-5 days or if symptoms worsen and continue return to emergency room as soon as possible. Prescriptions: diphenhydrAMINE [Benadryl CAP] 25 mg PO Q6HR PRN #20 capsule PRN Reason: Itching Clindamycin [Clindamycin CAP] 300 mg PO Q8H #21 cap Prednisone [predniSONE 10 mg (6-Day Pack, 21 Tabs)] 10 mg PO .TAPER #1 tab.ds.pk Referrals: PRIMARY CARE, [Referring] - 3-5 Days AYESHA LYNN MD [Staff Physician] - 3-5 Days [facility] [Outside] - 3-5 Days
== END 2018-08-13 13:02 | disposition home or self-care (01) ==
LOC: ED 12:11
DX: L03.113 Cellulitis of right upper limb (principal); I11.0 Hypertensive heart disease with heart failure; I50.9 Heart failure, unspecified; F17.200 Nicotine dependence, unspecified, uncomplicated; Z98.890 Other specified postprocedural states; Z88.8 Allergy status to other drugs, medicaments and biological substances; Z91.040 Latex allergy status
CPT/HCPCS: 99281

== ENCOUNTER 2018-11-10 03:20 | Emergency (ER) | payer OTHER ==
[2018-11-10] MEDS ORDERED: cloNIDine 0.2 MG TAB PO ONE (04:37)
[2018-11-10 04:39] LABS: Basophils # (Auto) 0.1 K/mm3 (0.0-0.1); Basophils % (Auto) 1.1 % (0.0-1.8); Eosinophils # (Auto) 0.2 K/mm3 (0.0-0.4); Lymphocytes # (Auto) 1.8 K/mm3 (1.2-5.4); Lymphocytes % (Auto) 32.1 % (13.4-35.0); Mean Corpuscular HGB Conc 31 % (30-34); Mean Corpuscular Volume 82 fl (79-97); Monocytes # (Auto) 0.4 K/mm3 (0.0-0.8); Monocytes % (Auto) 6.9 % (0.0-7.3); Red Blood Count 5.42 M/mm3 (3.65-5.03); Red Cell Distribution Width 19.5 % (13.2-15.2)
[2018-11-10 04:40] LABS: Hematocrit 44.3 % (30.3-42.9); Hemoglobin 13.7 gm/dl (10.1-14.3); Platelet Count 224 K/mm3 (140-440)
[2018-11-10 04:48] LABS: INR 1.14 (0.87-1.13)
[2018-11-10 04:54] LABS: Creatine Kinase MB 2.2 ng/mL (0.0-4.0)
[2018-11-10 04:56] LABS: BUN/Creatinine Ratio 20; Blood Urea Nitrogen 14 mg/dL (7-17); Calcium 8.7 mg/dL (8.4-10.2); Hemolysis Index 13
--- NOTE | 2018-11-10 06:22 | Emergency Department Report ---
ED Shortness of Breath HPI - General Chief Complaint: Dyspnea/Respdistress Stated Complaint: AMANDA Time Seen by Provider: 11/10/18 06:15 Source: patient Mode of arrival: Ambulatory Limitations: No Limitations - History of Present Illness Initial Comments: 57-year-old female with history of CHF presents to ED with shortness of breath, bilateral lower extremity edema. Patient states she has experienced worsening edema over the last 2 weeks. Patient reports difficulty breathing times one day. Patient states it feels as if she has fluid on her lungs. Patient reports taken Lasix 40 mg once a day. MD Complaint: shortness of breath -: days(s) (1) Severity: moderate Consistency: intermittent Improves With: rest, upright position Worsens With: lying flat, exertion Known History Of: congestive heart failure Treatments Prior to Arrival: none - Related Data Home Oxygen Therapy: No Home Medications Medication Instructions Recorded Confirmed Last Taken Furosemide [Lasix] mg PO 05/09/15 Unknown Verapamil [Calan] mg PO 05/09/15 Unknown Previous Rx's Medication Instructions Recorded Last Taken Type cephALEXin [Keflex] 250 mg PO Q6HR #8 capsule 08/09/18 Unknown Rx traMADol [Ultram 50 MG tab] 50 mg PO Q6HR PRN #15 tablet 08/09/18 Unknown Rx Clindamycin [Clindamycin CAP] 300 mg PO Q8H #21 cap 08/13/18 Unknown Rx Prednisone [predniSONE 10 mg 10 mg PO .TAPER #1 tab.ds.pk 08/13/18 Unknown Rx (6-Day Pack, 21 Tabs)] diphenhydrAMINE [Benadryl CAP] 25 mg PO Q6HR PRN #20 capsule 08/13/18 Unknown Rx Allergies Allergy/AdvReac Type Severity Reaction Status Date / Time latex Allergy Rash Verified 08/12/18 09:10 carvedilol [From Coreg] AdvReac Unknown Verified 06/15/18 09:32 metoprolol AdvReac Unknown Verified 06/15/18 10:05 ED Review of Systems ROS: Stated complaint: AMANDA Other details as noted in HPI Comment: All other systems reviewed and negative Constitutional: denies: chills, fever Respiratory: shortness of breath, SOB with exertion Cardiovascular: dyspnea on exertion, orthopnea, edema. denies: chest pain ED Past Medical Hx - Past Medical History Previous Medical History?: Yes Hx Hypertension: Yes Hx Congestive Heart Failure: Yes - Surgical History Past Surgical History?: Yes Additional Surgical History: knee surgery - Social History Smoking Status: Current Every Day Smoker Substance Use Type: None - Medications Home Medications: Home Medications Medication Instructions Recorded Confirmed Last Taken Type Furosemide [Lasix] mg PO 05/09/15 Unknown History Verapamil [Calan] mg PO 05/09/15 Unknown History cephALEXin [Keflex] 250 mg PO Q6HR #8 capsule 08/09/18 Unknown Rx traMADol [Ultram 50 MG tab] 50 mg PO Q6HR PRN #15 tablet 08/09/18 Unknown Rx Clindamycin [Clindamycin CAP] 300 mg PO Q8H #21 cap 08/13/18 Unknown Rx Prednisone [predniSONE 10 mg 10 mg PO .TAPER #1 tab.ds.pk 08/13/18 Unknown Rx (6-Day Pack, 21 Tabs)] diphenhydrAMINE [Benadryl CAP] 25 mg PO Q6HR PRN #20 capsule 08/13/18 Unknown Rx ED Physical Exam - General Limitations: No Limitations General appearance: alert, in no apparent distress - Head Head exam: Present: atraumatic, normocephalic - Eye Eye exam: Present: normal appearance - ENT ENT exam: Present: mucous membranes moist - Neck Neck exam: Present: normal inspection - Respiratory Respiratory exam: Present: rales - Cardiovascular Cardiovascular Exam: Present: normal rhythm, tachycardia - GI/Abdominal GI/Abdominal exam: Present: soft. Absent: distended, tenderness - Extremities Exam Extremities exam: Present: other (3+ pitting edema BLE) - Neurological Exam Neurological exam: Present: alert, oriented X3 - Psychiatric Psychiatric exam: Present: normal affect, normal mood - Skin Skin exam: Present: warm, dry, intact, normal color ED Course Vital Signs 11/10/18 11/10/18 11/10/18 03:23 04:15 04:40 Temperature 97.8 F 97.8 F Pulse Rate 112 H 113 H 109 H Respiratory 18 18 Rate Blood Pressure 171/121 175/110 Blood Pressure 170/113 [Left] O2 Sat by Pulse 95 97 Oximetry 11/10/18 11/10/18 11/10/18 05:01 05:30 05:45 Temperature Pulse Rate 109 H 106 H 105 H Respiratory 20 21 15 Rate Blood Pressure 168/117 150/109 153/111 Blood Pressure [Left] O2 Sat by Pulse 96 92 94 Oximetry 11/10/18 11/10/18 11/10/18 05:50 06:00 06:15 Temperature Pulse Rate 105 H 102 H 101 H Respiratory 16 15 18 Rate Blood Pressure 152/110 147/97 Blood Pressure 150/100 [Left] O2 Sat by Pulse 88 96 99 Oximetry 11/10/18 11/10/18 11/10/18 06:45 07:15 07:30 Temperature Pulse Rate 102 H 98 H 94 H Respiratory 17 20 15 Rate Blood Pressure 151/105 145/101 152/104 Blood Pressure [Left] O2 Sat by Pulse 100 100 100 Oximetry ED Medical Decision Making - Lab Data Result diagrams: 11/10/18 04:17 11/10/18 04:17 - EKG Data -: EKG Interpreted by Me EKG shows normal: sinus rhythm, intervals, QRS complexes, ST-T waves Rate: normal - EKG Data Interpretation: no acute changes, other (right axis deviation) - Radiology Data Radiology results: report reviewed, image reviewed - Medical Decision Making Pt w/ CHF exacerbation. EKG, troponin normal. Refusing admission for diuresis. Pt reports orthopnea, dyspnea on exertion, has BLE pitting edema, elevated BNP, congestion which appears to be edema on CXR and O2 sats as low as 88% RA. Risks of leaving, including , worsening respiratory status, discussed with patient. Patient states, "I've had CHF for 13 years, I don't need to be admitted." Pt instructed to double her lasix for a total of 40 mg BID. Outpt f/u advised. Return precautions given. Critical Care Time: Yes Critical care time in (mins) excluding proc time.: 35 Critical care attestation.: If time is entered above; I have spent that time in minutes in the direct care of this critically ill patient, excluding procedure time. Critical Care Time: 35 min ED Disposition Clinical Impression: CHF exacerbation, Hypoxia Disposition: LEFT AGAINST MED ADVICE Is pt being admited?: No Condition: Stable Instructions: Heart Failure (ED) Additional Instructions: Take your lasix twice a day over the next 3-4 days. Return to the ER if symptoms worsen. Referrals: MIGUEL YATES MD [Staff Physician] - 24 Hours PRIMARY CARE, [Referring] - 3-5 Days Forms: AMA Form Time of Disposition: 07:42
--- NOTE | 2018-11-10 06:45 | XRay Report ---
CHEST 1 VIEW 11/10/2018 6:23 AM INDICATION / CLINICAL INFORMATION: shortness of breath. COMPARISON: 06/15/18 FINDINGS: SUPPORT DEVICES: None. HEART / MEDIASTINUM: Heart is enlarged but stable. Mild pulmonary venous congestion is unchanged. LUNGS / PLEURA: No significant pulmonary or pleural abnormality. No pneumothorax. ADDITIONAL FINDINGS: No significant additional findings. IMPRESSION: 1. Cardiac megaly with mild pulmonary venous congestion. No overt pulmonary edema or pneumonia. Signer Name: Darin Brown MD Signed: 11/10/2018 6:40 AM Workstation Name: [id number]
[2018-11-10] MEDS ORDERED: FUROSEMIDE 40 MG/4 ML INJ IV ONE (07:05)
[2018-11-10 07:36] VITALS: BP 152/104
== END 2018-11-10 08:03 | disposition left against medical advice (07) ==
LOC: ED 03:20
DX: R09.02 Hypoxemia (principal); I11.0 Hypertensive heart disease with heart failure; I50.9 Heart failure, unspecified; R60.0 Localized edema; F17.200 Nicotine dependence, unspecified, uncomplicated; Z98.890 Other specified postprocedural states; Z79.899 Other long term (current) drug therapy; Z91.040 Latex allergy status; Z88.8 Allergy status to other drugs, medicaments and biological substances
CPT/HCPCS: 36415; 71045; 80048; 82550; 82553; 83880; 84484; 85025; 85610; 93005; 93010; 96374; 99284; J1940

== ENCOUNTER 2018-12-10 08:13 | Outpatient (CLI) | payer OTHER ==
--- NOTE | 2018-12-10 10:10 | Mammography Report ---
BILATERAL DIGITAL DIAGNOSTIC MAMMOGRAM WITH CAD -- 12/10/2018 LEFT COMPLETE BREAST ULTRASOUND INDICATION: Left breast swelling and lump. 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 TECHNIQUE: Digital bilateral mammographic imaging was performed. Spot compression views were obtaine d. This examination was interpreted with the benefit of Computer-Aided Detection (CAD) analysis. COMPARISON: None available. FINDINGS: Breast Density: The breasts are heterogeneously dense, which may obscure small masses. MAMMOGRAPHIC FINDINGS: Bilateral pronounced skin thickening, greater on the left side than the right. The left breast is more dense than the right. Bilateral benign calcifications with morphology typica l of benign fat process. A large mass of benign fat necrosis with calcifications in the inner left br east correlates with the palpable lump and it measures approximately 8 x 5 x 2 cm. ULTRASOUND FINDINGS: Complete sonographic evaluation of all 4 quadrants and retroareolar region was p erformed. A solid heterogeneous hypoechoic shadowing mass with an irregular margin at 12:30 o'clock 6 cm from the nipple measures 1.9 x 1.4 x 1.6 cm. A calcified mass at 11:00 7 cm from the nipple is only imaged in the near field and correlates with the large calcified mass on the mammogram. No other suspicious mass. Ultrasound of the left axilla demonstrated at least one abnormal lymph node with th ickened cortex. IMPRESSION: 1. A suspicious 1.9 cm left breast mass at 12:30 o'clock 6 cm from the nipple and a suspicious left a xillary lymph node. Recommend ultrasound-guided needle biopsies. 2. An 8 cm heavily calcified mass of the left breast is consistent with benign fat necrosis and corre lates with the palpable lump. 3. Bilateral nonspecific skin thickening and breast edema, worse on the left than the right. Follow up recommendation: Routine yearly BI-RADS Category 4: Suspicious for Malignancy. A "normal" or negative report should not discourage follow up or biopsy of a clinically significant f inding. A written summary of these findings will be mailed to the patient. The patient will be entered into a mammography reporting system which will generate a reminder letter for the patient's next appointmen t at the appropriate interval. According to the [employer], yearly mammograms are recommended starting at age 40 and continuing as long as a woman is in good health. Breast MRI is recommended for women with an sandee roximately 20-25% or greater lifetime risk of breast cancer, including women with a strong family his tory of breast or ovarian cancer and women who have been treated for Hodgkin's disease. Signer Name: Young Garcia MD Signed: 12/10/2018 10:06 AM Workstation Name: [id number]
== END 2018-12-10 08:14 | disposition home or self-care (01) ==
LOC: SPVWC 08:13
PROVIDERS: ATTEND Surgery
DX: N63.22 Unspecified lump in the left breast, upper inner quadrant (principal); R92.1 Mammographic calcification found on diagnostic imaging of breast; I11.0 Hypertensive heart disease with heart failure; I50.9 Heart failure, unspecified
CPT/HCPCS: 77066

== ENCOUNTER 2018-12-30 14:46 | Outpatient (CLI) | payer OTHER ==
--- NOTE | 2018-12-30 16:27 | Ultrasound Report ---
ULTRASOUND-GUIDED NEEDLE CORE BIOPSY LEFT BREAST WITH CLIP PLACEMENT CLINICAL: Diffuse left breast swelling and shadowing mass at 12:30 o'clock 6 cm from the nipple. COMPARISON: 12/10/2018 FINDINGS: The procedure was explained to the patient and informed consent was obtained. Ultrasound demonstrated the previously identified shadowing mass.. I marked the breast with a felt tip marker and a timeout was called. The skin was prepped with Chloro -Prep and anesthetized with 1% lidocaine. Needle core biopsy was performed through small dermatotomy using ultrasound guidance, 2% lidocaine wi th epinephrine for deep anesthesia and a 14-gauge Achieve biopsy device. 5 cores were obtained and pl aced in formalin. A clip was deployed within the lesion. The patient tolerated the procedure well and there were no apparent complications. Hemostasis was ach ieved with minimal effort and a sterile dressing was applied. A post procedure mammogram demonstrated concordant clip deployment. She left the department in good c ondition and was given instructions for wound care and follow-up. IMPRESSION: Uncomplicated ultrasound guided needle core biopsy with clip placement left breast. Signer Name: Young Garcia MD Signed: 12/30/2018 4:23 PM Workstation Name: [id number]
--- NOTE | 2018-12-30 16:28 | Mammography Report ---
LEFT DIGITAL DIAGNOSTIC MAMMOGRAM CLINICAL: For clip placement after ultrasound guided needle biopsy. COMPARISON: 12/10/2018 FINDINGS: A HIDA mihaela clip is identified in the upper outer quadrant and correlates with the site of biopsy. Diffuse skin edema is unchanged compared to the last mammogram. IMPRESSION: Concordant clip deployment. Signer Name: Young Garcia MD Signed: 12/30/2018 4:23 PM Workstation Name: [id number]
--- NOTE | 2018-12-30 16:29 | Ultrasound Report ---
ULTRASOUND-GUIDED NEEDLE CORE BIOPSY LEFT AXILLARY LYMPH NODE WITH CLIP PLACEMENT CLINICAL: Left breast mass and abnormal axillary lymph node. FINDINGS: The procedure was explained to the patient and informed consent was obtained. Ultrasound demonstrated an abnormal lymph node. I marked the breast with a felt tip marker and a timeout was called. The skin was prepped with Chloro -Prep and anesthetized with 1% lidocaine. Needle core biopsy was performed through small dermatotomy using ultrasound guidance, 2% lidocaine wi th epinephrine for deep anesthesia and a 18-gauge Achieve biopsy device. 2 cores were obtained and pl aced in formalin. A clip was deployed within the lymph node. The patient tolerated the procedure well and there were no apparent complications. Hemostasis was ach ieved with minimal effort and a sterile dressing was applied. IMPRESSION: Uncomplicated ultrasound guided needle core biopsy with clip placement left axillary lymp h node. Signer Name: Young Garcia MD Signed: 12/30/2018 4:25 PM Workstation Name: [id number]
== END 2018-12-30 14:47 | disposition home or self-care (01) ==
LOC: SPVWC 14:46
PROVIDERS: ATTEND Surgery
DX: N63.21 Unspecified lump in the left breast, upper outer quadrant (principal); I89.8 Other specified noninfective disorders of lymphatic vessels and lymph nodes; N60.32 Fibrosclerosis of left breast; R92.8 Other abnormal and inconclusive findings on diagnostic imaging of breast; I11.0 Hypertensive heart disease with heart failure; I50.9 Heart failure, unspecified; F17.210 Nicotine dependence, cigarettes, uncomplicated; E66.2 Morbid (severe) obesity with alveolar hypoventilation; Z79.899 Other long term (current) drug therapy; Z91.040 Latex allergy status; Z88.8 Allergy status to other drugs, medicaments and biological substances
CPT/HCPCS: 38505; 76942; 88305

== ENCOUNTER 2019-01-05 22:41 | Inpatient (IN) | payer OTHER, MEDICARE ==
[2019-01-05] MEDS ORDERED: CLINDAMYCIN 600 MG/50 mL 600 MG/50 ML BAG IV SCH (23:45)
[2019-01-05] MEDS ORDERED: oxyCODONE /ACETAMINOPHEN 5-325MG TAB PO ONE (23:49)
--- NOTE | 2019-01-05 23:56 | XRay Report ---
CHEST 2 VIEWS INDICATION / CLINICAL INFORMATION: shortness of breath. COMPARISON: 11/10/2018 chest FINDINGS: SUPPORT DEVICES: None. HEART / MEDIASTINUM: Stable, marked cardiomegaly. LUNGS / PLEURA: No identifiable parenchymal consolidation. No pleural fluid. Prominence of the centra l pulmonary vasculature is unchanged. No pneumothorax. ADDITIONAL FINDINGS: No significant additional findings. IMPRESSION: 1. No significant change. Cardiomegaly with chronic pulmonary venous hypertension. No overt pulmonary edema. Signer Name: Terell Sanchez MD Signed: 01/05/2019 11:51 PM Workstation Name: [id number]
--- NOTE | 2019-01-06 | Emergency Department Report ---
ED General Adult HPI - General Chief complaint: Dyspnea/Respdistress Stated complaint: ABD PAIN,AMANDA Time Seen by Provider: 01/05/19 23:11 Source: patient Mode of arrival: Ambulatory Limitations: No Limitations - History of Present Illness Initial comments: 58-year-old -[place] female patient with history of CHF, hypertension, and obesity with complaints of diffuse abdominal and bilateral upper thigh skin pain and swelling 1 week. Patient also states worsening shortness of breath for the past 3 days. She denies any fever/chills/sweats. She denies any stool changes, but admits to pressure with urination. Severity scale (0 -10): 10 - Related Data Home Medications Medication Instructions Recorded Confirmed Last Taken Furosemide [Lasix] mg PO 05/09/15 Unknown Verapamil [Calan] mg PO 05/09/15 Unknown Previous Rx's Medication Instructions Recorded Last Taken Type cephALEXin [Keflex] 250 mg PO Q6HR #8 capsule 08/09/18 Unknown Rx traMADoL [Ultram 50 MG tab] 50 mg PO Q6HR PRN #15 tablet 08/09/18 Unknown Rx Clindamycin [Clindamycin CAP] 300 mg PO Q8H #21 cap 08/13/18 Unknown Rx Prednisone [predniSONE 10 mg 10 mg PO .TAPER #1 tab.ds.pk 08/13/18 Unknown Rx (6-Day Pack, 21 Tabs)] diphenhydrAMINE [Benadryl CAP] 25 mg PO Q6HR PRN #20 capsule 08/13/18 Unknown Rx Allergies Allergy/AdvReac Type Severity Reaction Status Date / Time latex Allergy Rash Verified 08/12/18 09:10 carvedilol [From Coreg] AdvReac Unknown Verified 06/15/18 09:32 metoprolol AdvReac Unknown Verified 06/15/18 10:05 ED Review of Systems ROS: Stated complaint: ABD PAIN,AMANDA Other details as noted in HPI ED Past Medical Hx - Past Medical History Previous Medical History?: Yes Hx Hypertension: Yes Hx Congestive Heart Failure: Yes - Surgical History Past Surgical History?: Yes Additional Surgical History: knee surgery - Social History Smoking Status: Never Smoker Substance Use Type: None - Medications Home Medications: Home Medications Medication Instructions Recorded Confirmed Last Taken Type Furosemide [Lasix] mg PO 05/09/15 Unknown History Verapamil [Calan] mg PO 03/27/16 Unknown History cephALEXin [Keflex] 250 mg PO Q6HR #8 capsule 08/09/18 Unknown Rx traMADoL [Ultram 50 MG tab] 50 mg PO Q6HR PRN #15 tablet 08/09/18 Unknown Rx Clindamycin [Clindamycin CAP] 300 mg PO Q8H #21 cap 08/13/18 Unknown Rx Prednisone [predniSONE 10 mg 10 mg PO .TAPER #1 tab.ds.pk 08/13/18 Unknown Rx (6-Day Pack, 21 Tabs)] diphenhydrAMINE [Benadryl CAP] 25 mg PO Q6HR PRN #20 capsule 08/13/18 Unknown Rx ED Physical Exam - General Limitations: No Limitations General appearance: alert, in no apparent distress - Head Head exam: Present: atraumatic, normocephalic - Eye Eye exam: Present: normal appearance - Neck Neck exam: Present: full ROM - Respiratory Respiratory exam: Present: decreased breath sounds. Absent: respiratory distress, wheezes, rales, rhonchi, chest wall tenderness - Cardiovascular Cardiovascular Exam: Present: normal rhythm, tachycardia - GI/Abdominal GI/Abdominal exam: Present: tenderness (generalized superficial tenderness of skin with induration, erythema, and warmth noted to touch). Absent: guarding, rebound - Neurological Exam Neurological exam: Present: alert, oriented X3 - Psychiatric Psychiatric exam: Present: normal affect, normal mood - Skin Skin exam: Present: dry, intact, erythema. Absent: cyanosis, diaphoretic, ecchymosis ED Course Vital Signs 01/05/19 01/05/19 01/05/19 22:52 22:58 23:52 Temperature 98.4 F 98.4 F Pulse Rate 116 H 116 H 120 H Respiratory 24 22 22 Rate Blood Pressure 141/89 Blood Pressure 141/89 117/86 [Left] O2 Sat by Pulse 89 88 98 Oximetry 01/06/19 01:26 Temperature Pulse Rate 105 H Respiratory 20 Rate Blood Pressure Blood Pressure 139/79 [Left] O2 Sat by Pulse 98 Oximetry ED Medical Decision Making - Lab Data Result diagrams: 01/05/19 23:41 01/06/19 00:12 Lab Results 01/05/19 01/05/19 01/05/19 Range/Units 23:41 23:41 23:41 WBC 5.1 (4.5-11.0) K/mm3 RBC 5.00 (3.65-5.03) M/mm3 Hgb 14.1 (10.1-14.3) gm/dl Hct 44.7 H (30.3-42.9) % MCV 89 (79-97) fl MCH 28 (28-32) pg MCHC 32 (30-34) % RDW 23.7 H (13.2-15.2) % Plt Count 163 (140-440) K/mm3 Add Manual Diff Complete Total Counted 100 Seg Neuts % (Manual) 72.0 H (40.0-70.0) % Band Neutrophils % 0 % Lymphocytes % (Manual) 16.0 (13.4-35.0) % Reactive Lymphs % (Man) 0 % Monocytes % (Manual) 9.0 H (0.0-7.3) % Eosinophils % (Manual) 2.0 (0.0-4.3) % Basophils % (Manual) 1.0 (0.0-1.8) % Metamyelocytes % 0 % Myelocytes % 0 % Promyelocytes % 0 % Blast Cells % 0 % Nucleated RBC % Not Reportable Seg Neutrophils # Man 3.7 (1.8-7.7) K/mm3 Band Neutrophils # 0.0 K/mm3 Lymphocytes # (Manual) 0.8 L (1.2-5.4) K/mm3 Abs React Lymphs (Man) 0.0 K/mm3 Monocytes # (Manual) 0.5 (0.0-0.8) K/mm3 Eosinophils # (Manual) 0.1 (0.0-0.4) K/mm3 Basophils # (Manual) 0.1 (0.0-0.1) K/mm3 Metamyelocytes # 0.0 K/mm3 Myelocytes # 0.0 K/mm3 Promyelocytes # 0.0 K/mm3 Blast Cells # 0.0 K/mm3 WBC Morphology Not Reportable Hypersegmented Neuts Not Reportable Hyposegmented Neuts Not Reportable Hypogranular Neuts Not Reportable Smudge Cells Not Reportable Toxic Granulation Not Reportable Toxic Vacuolation Not Reportable Dohle Bodies Not Reportable Pelger-Huet Anomaly Not Reportable Clarissa Rods Not Reportable Platelet Estimate Not Reportable Clumped Platelets Not Reportable Plt Clumps, EDTA Not Reportable Large Platelets Not Reportable Giant Platelets Not Reportable Platelet Satelliting Not Reportable Plt Morphology Comment Not Reportable RBC Morphology Not Reportable Dimorphic RBCs Not Reportable Polychromasia Not Reportable Hypochromasia Not Reportable Poikilocytosis Not Reportable Anisocytosis 2+ Microcytosis Not Reportable Macrocytosis Not Reportable Spherocytes Not Reportable Pappenheimer Bodies Not Reportable Sickle Cells Not Reportable Target Cells Not Reportable Tear Drop Cells Not Reportable Ovalocytes Not Reportable Helmet Cells Not Reportable Boudreaux-Ringling Bodies Not Reportable [place] Rings Not Reportable [place] Cells Not Reportable Bite Cells Not Reportable Crenated Cell Not Reportable Elliptocytes Not Reportable Acanthocytes (Spur) Not Reportable Rouleaux Not Reportable Hemoglobin C Crystals Not Reportable Schistocytes Not Reportable Malaria parasites Not Reportable Dieter Bodies Not Reportable Hem Pathologist Commnt No Sodium (137-145) mmol/L Potassium (3.6-5.0) mmol/L Chloride (98-107) mmol/L Carbon Dioxide (22-30) mmol/L Anion Gap mmol/L BUN (7-17) mg/dL Creatinine (0.7-1.2) mg/dL Estimated GFR ml/min BUN/Creatinine Ratio % Glucose (65-100) mg/dL Lactic Acid (0.7-2.0) mmol/L Calcium (8.4-10.2) mg/dL Total Bilirubin (0.1-1.2) mg/dL AST (5-40) units/L ALT (7-56) units/L Alkaline Phosphatase (35-129) units/L Troponin T < 0.010 (0.00-0.029) ng/mL NT-Pro-B Natriuret Pep 4050 H (0-900) pg/mL Total Protein (6.3-8.2) g/dL Albumin (3.9-5) g/dL Albumin/Globulin Ratio % 01/06/19 01/06/19 Range/Units 00:12 00:12 WBC (4.5-11.0) K/mm3 RBC (3.65-5.03) M/mm3 Hgb (10.1-14.3) gm/dl Hct (30.3-42.9) % MCV (79-97) fl MCH (28-32) pg MCHC (30-34) % RDW (13.2-15.2) % Plt Count (140-440) K/mm3 Add Manual Diff Total Counted Seg Neuts % (Manual) (40.0-70.0) % Band Neutrophils % % Lymphocytes % (Manual) (13.4-35.0) % Reactive Lymphs % (Man) % Monocytes % (Manual) (0.0-7.3) % Eosinophils % (Manual) (0.0-4.3) % Basophils % (Manual) (0.0-1.8) % Metamyelocytes % % Myelocytes % % Promyelocytes % % Blast Cells % % Nucleated RBC % Seg Neutrophils # Man (1.8-7.7) K/mm3 Band Neutrophils # K/mm3 Lymphocytes # (Manual) (1.2-5.4) K/mm3 Abs React Lymphs (Man) K/mm3 Monocytes # (Manual) (0.0-0.8) K/mm3 Eosinophils # (Manual) (0.0-0.4) K/mm3 Basophils # (Manual) (0.0-0.1) K/mm3 Metamyelocytes # K/mm3 Myelocytes # K/mm3 Promyelocytes # K/mm3 Blast Cells # K/mm3 WBC Morphology Hypersegmented Neuts Hyposegmented Neuts Hypogranular Neuts Smudge Cells Toxic Granulation Toxic Vacuolation Dohle Bodies Pelger-Huet Anomaly Clarissa Rods Platelet Estimate Clumped Platelets Plt Clumps, EDTA Large Platelets Giant Platelets Platelet Satelliting Plt Morphology Comment RBC Morphology Dimorphic RBCs Polychromasia Hypochromasia Poikilocytosis Anisocytosis Microcytosis Macrocytosis Spherocytes Pappenheimer Bodies Sickle Cells Target Cells Tear Drop Cells Ovalocytes Helmet Cells Boudreaux-Ringling Bodies [place] Rings Ramesh Cells Bite Cells Crenated Cell Elliptocytes Acanthocytes (Spur) Rouleaux Hemoglobin C Crystals Schistocytes Malaria parasites Dieter Bodies Hem Pathologist Commnt Sodium 144 (137-145) mmol/L Potassium 3.7 (3.6-5.0) mmol/L Chloride 98.0 (98-107) mmol/L Carbon Dioxide 34 H (22-30) mmol/L Anion Gap 16 mmol/L BUN 16 (7-17) mg/dL Creatinine 0.7 (0.7-1.2) mg/dL Estimated GFR > 60 ml/min BUN/Creatinine Ratio 23 % Glucose 86 (65-100) mg/dL Lactic Acid 1.00 (0.7-2.0) mmol/L Calcium 8.7 (8.4-10.2) mg/dL Total Bilirubin 0.80 (0.1-1.2) mg/dL AST 46 H (5-40) units/L ALT 35 (7-56) units/L Alkaline Phosphatase 140 H (35-129) units/L Troponin T (0.00-0.029) ng/mL NT-Pro-B Natriuret Pep (0-900) pg/mL Total Protein 7.3 (6.3-8.2) g/dL Albumin 2.8 L (3.9-5) g/dL Albumin/Globulin Ratio 0.6 % - Radiology Data Radiology results: report reviewed CHEST 2 VIEWS INDICATION / CLINICAL INFORMATION: shortness of breath. COMPARISON: 11/10/2018 chest FINDINGS: SUPPORT DEVICES: None. HEART / MEDIASTINUM: Stable, marked cardiomegaly. LUNGS / PLEURA: No identifiable parenchymal consolidation. No pleural fluid. Prominence of the central pulmonary vasculature is unchanged. No pneumothorax. ADDITIONAL FINDINGS: No significant additional findings. IMPRESSION: 1. No significant change. Cardiomegaly with chronic pulmonary venous hypert ension. No overt pulmonary edema. - Medical Decision Making 58-year-old female patient with history of CHF and hypertension here today with complaints of skin pain and swelling across her abdomen and upper thighs. Patient is afebrile. She also states shortness of breath for the past few days. Patient was initially 88% on room air, now satting 97% with 2 L oxygen nasal cannula. Wbc's are normal. Chest x-ray is without acute findings. Lactic acid is negative. Patient given dose of clindamycin IV. BNP is 4000. Lasix 40 mg IV ordered. Discussed patient with Dr. Zavaleta, hospitalist, who will admit for further treatment and evaluation. Critical care attestation.: If time is entered above; I have spent that time in minutes in the direct care of this critically ill patient, excluding procedure time. ED Disposition Clinical Impression: CHF exacerbation Qualifiers: Heart failure type: unspecified Qualified Code(s): I50.9 - Heart failure, unspecified Cellulitis Qualifiers: Site of cellulitis: trunk Site of cellulitis of trunk: abdominal wall Qualified Code(s): L03.311 - Cellulitis of abdominal wall Disposition: - OP ADMIT IP TO THIS HOSP Is pt being admited?: Yes Condition: Stable Referrals: SEE MEJIA MD [Primary Care Provider] - 3-5 Days
[2019-01-06 00:18] LABS: Hematocrit 44.7 % (30.3-42.9); Hemoglobin 14.1 gm/dl (10.1-14.3); Mean Corpuscular HGB Conc 32 % (30-34); Mean Corpuscular Volume 89 fl (79-97); Platelet Count 163 K/mm3 (140-440)
[2019-01-06 00:21] LABS: Red Cell Distribution Width 23.7 % (13.2-15.2)
[2019-01-06 01:02] LABS: Alanine Aminotransferase 35 units/L (7-56); Albumin 2.8 g/dL (3.9-5); BUN/Creatinine Ratio 23; Blood Urea Nitrogen 16 mg/dL (7-17); Calcium 8.7 mg/dL (8.4-10.2); Hemolysis Index 8
[2019-01-06 01:55] LABS: Anisocytosis 2+; Total Cells Counted 100
[2019-01-06] MEDS ORDERED: FUROSEMIDE 40 MG/4 ML INJ IV ONE (02:17)
[2019-01-06] MEDS ORDERED: ONDANSETRON 4 MG/2 ML INJ IV PRN (02:30)
[2019-01-06] MEDS ORDERED: ALBUTEROL 2.5 MG/3 ML NEBU IH PRN (02:30)
--- NOTE | 2019-01-06 03:11 | History and Physical Report ---
<DESTINY BARNEY - Last Filed: 01/06/19 03:06> History of Present Illness Date of examination: 01/06/19 Date of admission: 01/06/2019 Chief complaint: SOB, abdominal pain History of present illness: 58-year-old -[place] female with history of CHF with EF 20-25%, hypertension, obesity, and nicotine dependence who presents to [facility] ED with complaints worsening SOB, edema, abdominal pain, and BLE wounds. Pt states that she has been experiencing worsening SOB over the past 3 days. She is unable to walk more than 5 steps without becoming SOB. At baseline pt does not use home oxygen. Additional pt complains of worsening BLE pitting edema which has begun to move up her legs to her abdomen. She complains of diffuse abdominal pain with ??mass (hardened large knots to RLQ and LUQ). She rates her pain 7/10 and describes it as achy. Pt has erythema to BLE with wounds. Pt states she is complaint with HR meds and follows Dr. Stephens (technical training manager) as outpatients.Denies n/v//d, fever, cough, or hemoptysis. Past History Past Medical History: heart failure (EF 20-25% seen on Echo 06/15/18), hypertension, other (obesity, cellulitis BLE) Past Surgical History: Other (right knee surgery) Social history: , smoking Family history: no significant family history Medications and Allergies Allergies Allergy/AdvReac Type Severity Reaction Status Date / Time latex Allergy Rash Verified 08/12/18 09:10 carvedilol [From Coreg] AdvReac Unknown Verified 06/15/18 09:32 metoprolol AdvReac Unknown Verified 06/15/18 10:05 Home Medications Medication Instructions Recorded Confirmed Last Taken Type Furosemide [Lasix] 40 mg PO BID 05/09/15 01/06/19 01/05/19 History Verapamil [Calan] mg PO 05/09/15 Unknown History cephALEXin [Keflex] 250 mg PO Q6HR #8 capsule 08/09/18 01/06/19 01/05/19 Rx traMADoL [Ultram 50 MG tab] 50 mg PO Q6HR PRN #15 tablet 08/09/18 01/06/19 Unknown Rx Clindamycin [Clindamycin CAP] 300 mg PO Q8H #21 cap 08/13/18 01/06/19 01/05/19 Rx diphenhydrAMINE [Benadryl CAP] 25 mg PO Q6HR PRN #20 capsule 08/13/18 01/06/19 Unknown Rx Active Meds: Active Medications Acetaminophen (Tylenol) 650 mg PO Q4H PRN PRN Reason: Pain MILD(1-3)/Fever >100.5/BENITEZ Albuterol (Proventil) 2.5 mg IH Q3HRT PRN PRN Reason: Shortness Of Breath Docusate Sodium (Colace) 100 mg PO BID JIMI Furosemide (Lasix) 40 mg IV 0600,1800 [facility] Heparin Sodium (Porcine) (Heparin) 5,000 unit SUB-Q Q12HR JIMI Clindamycin HCl (Cleocin 600 Mg/50 Ml) 600 mg in 50 mls @ 100 mls/hr IV Q8HR [facility]; Protocol Last Admin: 01/06/19 00:18 Dose: 100 mls/hr Documented by: Ampicillin Sodium/Sulbactam Sodium (Unasyn/Ns 1.5 Gm/50 Ml) 1.5 gm in 50 mls @ 100 mls/hr IV Q6HR [facility]; Protocol Ondansetron HCl (Zofran) 4 mg IV Q8H PRN PRN Reason: Nausea And Vomiting Oxycodone/Acetaminophen (Percocet 5/325) 1 tab PO Q6H PRN PRN Reason: Pain, Moderate (4-6) Sodium Chloride (Sodium Chloride Flush Syringe 10 Ml) 10 ml IV BID JIMI Sodium Chloride (Sodium Chloride Flush Syringe 10 Ml) 10 ml IV PRN PRN PRN Reason: LINE FLUSH Review of Systems All systems: negative Cardiovascular: shortness of breath, leg edema Gastrointestinal: abdominal pain Integumentary: sores, wounds (scattered sores in various stages of healing process to chest, arms and ble) Exam - Physical Exam Narrative exam: Physical exam General appearance: Present: No acute distress, alert and oriented 3, obese, anxious, adult female - EENT Eyes: Present: PERRL, EOM intact ENT: hearing intact, normal dentition - Neck Neck: Present: supple, normal ROM - Respiratory Respiratory effort: Non-labored, on supplemental oxygen Respiratory: Diminished bases - Cardiovascular Heart rate: 105 (bpm) Rhythm: Sinus tachycardia Heart Sounds: Present: S1 & S2. Absent: rub, click - Extremities Extremities: no ischemia, pulses intact, bilateral lower extremity erythema scattered bruises in various raises of the healing stage - Peripheral Assessment Peripheral Pulses: within normal limits - Abdominal General gastrointestinal: hardened, non-tender, normal bowel sounds - Integumentary Integumentary: Present: warm, dry, scattered bruising to chest bilateral upper extremities - Musculoskeletal Musculoskeletal: Able to move all extremities -Neurological Neurological: CN II-XII intact - Psychiatric Psychiatric: Appropriate for situation ,cooperative - Constitutional Vitals: Temp Pulse Resp BP Pulse Ox 98.4 F 105 H 20 139/79 98 01/05/19 22:58 01/06/19 01:26 01/06/19 01:26 01/06/19 01:26 01/06/19 01:26 Results - Labs CBC & Chem 7: 01/05/19 23:41 01/06/19 00:12 Labs: Laboratory Last Values WBC 5.1 K/mm3 (4.5-11.0) 01/05/19 23:41 RBC 5.00 M/mm3 (3.65-5.03) 01/05/19 23:41 Hgb 14.1 gm/dl (10.1-14.3) 01/05/19 23:41 Hct 44.7 % (30.3-42.9) H 01/05/19 23:41 MCV 89 fl (79-97) 01/05/19 23:41 MCH 28 pg (28-32) 01/05/19 23:41 MCHC 32 % (30-34) 01/05/19 23:41 RDW 23.7 % (13.2-15.2) H 01/05/19 23:41 Plt Count 163 K/mm3 (140-440) 01/05/19 23:41 Add Manual Diff Complete 01/05/19 23:41 Total Counted 100 01/05/19 23:41 Seg Neuts % (Manual) 72.0 % (40.0-70.0) H 01/05/19 23:41 Band Neutrophils % 0 % 01/05/19 23:41 Lymphocytes % (Manual) 16.0 % (13.4-35.0) 01/05/19 23:41 Reactive Lymphs % (Man) 0 % 01/05/19 23:41 Monocytes % (Manual) 9.0 % (0.0-7.3) H 01/05/19 23:41 Eosinophils % (Manual) 2.0 % (0.0-4.3) 01/05/19 23:41 Basophils % (Manual) 1.0 % (0.0-1.8) 01/05/19 23:41 Metamyelocytes % 0 % 01/05/19 23:41 Myelocytes % 0 % 01/05/19 23:41 Promyelocytes % 0 % 01/05/19 23:41 Blast Cells % 0 % 01/05/19 23:41 Nucleated RBC % Not Reportable 01/05/19 23:41 Seg Neutrophils # Man 3.7 K/mm3 (1.8-7.7) 01/05/19 23:41 Band Neutrophils # 0.0 K/mm3 01/05/19 23:41 Lymphocytes # (Manual) 0.8 K/mm3 (1.2-5.4) L 01/05/19 23:41 Abs React Lymphs (Man) 0.0 K/mm3 01/05/19 23:41 Monocytes # (Manual) 0.5 K/mm3 (0.0-0.8) 01/05/19 23:41 Eosinophils # (Manual) 0.1 K/mm3 (0.0-0.4) 01/05/19 23:41 Basophils # (Manual) 0.1 K/mm3 (0.0-0.1) 01/05/19 23:41 Metamyelocytes # 0.0 K/mm3 01/05/19 23:41 Myelocytes # 0.0 K/mm3 01/05/19 23:41 Promyelocytes # 0.0 K/mm3 01/05/19 23:41 Blast Cells # 0.0 K/mm3 01/05/19 23:41 WBC Morphology Not Reportable 01/05/19 23:41 Hypersegmented Neuts Not Reportable 01/05/19 23:41 Hyposegmented Neuts Not Reportable 01/05/19 23:41 Hypogranular Neuts Not Reportable 01/05/19 23:41 Smudge Cells Not Reportable 01/05/19 23:41 Toxic Granulation Not Reportable 01/05/19 23:41 Toxic Vacuolation Not Reportable 01/05/19 23:41 Dohle Bodies Not Reportable 01/05/19 23:41 Pelger-Huet Anomaly Not Reportable 01/05/19 23:41 Clarissa Rods Not Reportable 01/05/19 23:41 Platelet Estimate Not Reportable 01/05/19 23:41 Clumped Platelets Not Reportable 01/05/19 23:41 Plt Clumps, EDTA Not Reportable 01/05/19 23:41 Large Platelets Not Reportable 01/05/19 23:41 Giant Platelets Not Reportable 01/05/19 23:41 Platelet Satelliting Not Reportable 01/05/19 23:41 Plt Morphology Comment Not Reportable 01/05/19 23:41 RBC Morphology Not Reportable 01/05/19 23:41 Dimorphic RBCs Not Reportable 01/05/19 23:41 Polychromasia Not Reportable 01/05/19 23:41 Hypochromasia Not Reportable 01/05/19 23:41 Poikilocytosis Not Reportable 01/05/19 23:41 Anisocytosis 2+ 01/05/19 23:41 Microcytosis Not Reportable 01/05/19 23:41 Macrocytosis Not Reportable 01/05/19 23:41 Spherocytes Not Reportable 01/05/19 23:41 Pappenheimer Bodies Not Reportable 01/05/19 23:41 Sickle Cells Not Reportable 01/05/19 23:41 Target Cells Not Reportable 01/05/19 23:41 Tear Drop Cells Not Reportable 01/05/19 23:41 Ovalocytes Not Reportable 01/05/19 23:41 Helmet Cells Not Reportable 01/05/19 23:41 Boudreaux-Mcgrew Bodies Not Reportable 01/05/19 23:41 [place] Rings Not Reportable 01/05/19 23:41 Vivian Cells Not Reportable 01/05/19 23:41 Bite Cells Not Reportable 01/05/19 23:41 Crenated Cell Not Reportable 01/05/19 23:41 Elliptocytes Not Reportable 01/05/19 23:41 Acanthocytes (Spur) Not Reportable 01/05/19 23:41 Rouleaux Not Reportable 01/05/19 23:41 Hemoglobin C Crystals Not Reportable 01/05/19 23:41 Schistocytes Not Reportable 01/05/19 23:41 Malaria parasites Not Reportable 01/05/19 23:41 Dieter Bodies Not Reportable 01/05/19 23:41 Hem Pathologist Commnt No 01/05/19 23:41 POC ABG pH 7.337 (7.35-7.45) L 01/06/19 02:31 POC ABG pCO2 63.5 (35-45) H 01/06/19 02:31 POC ABG pO2 52 (80-105) L 01/06/19 02:31 POC ABG HCO3 34.0 (22-26 mml/L) 01/06/19 02:31 POC ABG Total CO2 36 (23-27mmol/L) 01/06/19 02:31 POC ABG O2 Sat 83 01/06/19 02:31 POC ABG Base Excess 8 ((-2) - (+3)mmol/L) 01/06/19 02:31 FiO2 21 % 01/06/19 02:31 Sodium 144 mmol/L (137-145) 01/06/19 00:12 Potassium 3.7 mmol/L (3.6-5.0) 01/06/19 00:12 Chloride 98.0 mmol/L (98-107) 01/06/19 00:12 Carbon Dioxide 34 mmol/L (22-30) H 01/06/19 00:12 Anion Gap 16 mmol/L 01/06/19 00:12 BUN 16 mg/dL (7-17) 01/06/19 00:12 Creatinine 0.7 mg/dL (0.7-1.2) 01/06/19 00:12 Estimated GFR > 60 ml/min 01/06/19 00:12 BUN/Creatinine Ratio 23 % 01/06/19 00:12 Glucose 86 mg/dL (65-100) 01/06/19 00:12 Lactic Acid 1.00 mmol/L (0.7-2.0) 01/06/19 00:12 Calcium 8.7 mg/dL (8.4-10.2) 01/06/19 00:12 Total Bilirubin 0.80 mg/dL (0.1-1.2) 01/06/19 00:12 AST 46 units/L (5-40) H 01/06/19 00:12 ALT 35 units/L (7-56) 01/06/19 00:12 Alkaline Phosphatase 140 units/L (35-129) H 01/06/19 00:12 Troponin T < 0.010 ng/mL (0.00-0.029) 01/05/19 23:41 NT-Pro-B Natriuret Pep 4050 pg/mL (0-900) H 01/05/19 23:41 Total Protein 7.3 g/dL (6.3-8.2) 01/06/19 00:12 Albumin 2.8 g/dL (3.9-5) L 01/06/19 00:12 Albumin/Globulin Ratio 0.6 % 01/06/19 00:12 - Imaging and Cardiology Imaging and Cardiology: CXR: FINDINGS: SUPPORT DEVICES: None. HEART / MEDIASTINUM: Stable, marked cardiomegaly. LUNGS / PLEURA: No identifiable parenchymal consolidation. No pleural fluid. Prominence of the central pulmonary vasculature is unchanged. No pneumothorax. ADDITIONAL FINDINGS: No significant additional findings. IMPRESSION: 1. No significant change. Cardiomegaly with chronic pulmonary venous hypertension. No overt pulmonary edema. Assessment and Plan Assessment and plan: 58-year-old -[place] female with history of CHF with EF 20-25%, hypertension, obesity, and nicotine dependence who presents to [facility] ED with complaints worsening SOB, edema, abdominal pain, and BLE wounds. Pt states that she has been experiencing worsening SOB over the past 3 days. She is unable to walk more than 5 steps without becoming SOB. At baseline pt does not use home oxygen. Additional pt complains of worsening BLE pitting edema which has begun to move up her legs to her abdomen. She complains of diffuse abdominal pain with ??mass (hardened large knots to RLQ and LUQ). She rates her pain 7/10 and describes it as achy. Pt has erythema to BLE with wounds. Pt states she is complaint with HR meds and follows Dr. Stephens (technical training manager) as outpatients. Acute Exacerbation CHF -EF 20-25% seen on Echo (06/15/18) -BNP elevated at 4050 -Troponin negative -CXR revealed for acute cardiopulmonary abnormalities -Continue IV Lasix twice a day -Follows Dr. Stephens as outpatient -Cardiology consulted Bilateral lower extremity cellulitis - Erythema with weeping wounds -On IV ABX Abdominal pain -C/O of mass like feeling to RLQ and LUQ -CT abdomen pelvis pending; follow up on results -Continue supportive care Tobacco abuse -Current every day smoker -Counseled for cessation -Nicotine patch when necessary Obesity -BMI 47.okg -Diet and lifestyle modifications -May benefit from OP weight mgmt program DVT PPX -On heparin Advance Directives: No VTE prophylaxis?: Chemical Plan of care discussed with patient/family: Yes <PAUL GALICIA - Last Filed: 01/06/19 05:56> History of Present Illness Date of admission: 01/06/19 02:30 Medications and Allergies Active Meds: Active Medications Acetaminophen (Tylenol) 650 mg PO Q4H PRN PRN Reason: Pain MILD(1-3)/Fever >100.5/BENITEZ Albuterol (Proventil) 2.5 mg IH Q3HRT PRN PRN Reason: Shortness Of Breath Docusate Sodium (Colace) 100 mg PO BID JIMI Furosemide (Lasix) 40 mg IV 0600,1800 JIMI Heparin Sodium (Porcine) (Heparin) 5,000 unit SUB-Q Q12HR JIMI Clindamycin HCl (Cleocin 600 Mg/50 Ml) 600 mg in 50 mls @ 100 mls/hr IV Q8HR [facility]; Protocol Last Admin: 01/06/19 00:18 Dose: 100 mls/hr Documented by: Ampicillin Sodium/Sulbactam Sodium (Unasyn/Ns 1.5 Gm/50 Ml) 1.5 gm in 50 mls @ 100 mls/hr IV Q6HR [facility]; Protocol Nicotine (Habitrol) 14 mg TD QDAY JIMI Ondansetron HCl (Zofran) 4 mg IV Q8H PRN PRN Reason: Nausea And Vomiting Oxycodone/Acetaminophen (Percocet 5/325) 1 tab PO Q6H PRN PRN Reason: Pain, Moderate (4-6) Sodium Chloride (Sodium Chloride Flush Syringe 10 Ml) 10 ml IV BID JIMI Sodium Chloride (Sodium Chloride Flush Syringe 10 Ml) 10 ml IV PRN PRN PRN Reason: LINE FLUSH Exam - Constitutional Vitals: Temp Pulse Resp BP Pulse Ox 98.0 F 114 H 18 137/71 95 01/06/19 05:00 01/06/19 05:00 01/06/19 05:00 01/06/19 05:00 01/06/19 05:00 Results - Labs CBC & Chem 7: 01/05/19 23:41 01/06/19 00:12 Labs: Laboratory Last Values WBC 5.1 K/mm3 (4.5-11.0) 01/05/19 23:41 RBC 5.00 M/mm3 (3.65-5.03) 01/05/19 23:41 Hgb 14.1 gm/dl (10.1-14.3) 01/05/19 23:41 Hct 44.7 % (30.3-42.9) H 01/05/19 23:41 MCV 89 fl (79-97) 01/05/19 23:41 MCH 28 pg (28-32) 01/05/19 23:41 MCHC 32 % (30-34) 01/05/19 23:41 RDW 23.7 % (13.2-15.2) H 01/05/19 23:41 Plt Count 163 K/mm3 (140-440) 01/05/19 23:41 Add Manual Diff Complete 01/05/19 23:41 Total Counted 100 01/05/19 23:41 Seg Neuts % (Manual) 72.0 % (40.0-70.0) H 01/05/19 23:41 Band Neutrophils % 0 % 01/05/19 23:41 Lymphocytes % (Manual) 16.0 % (13.4-35.0) 01/05/19 23:41 Reactive Lymphs % (Man) 0 % 01/05/19 23:41 Monocytes % (Manual) 9.0 % (0.0-7.3) H 01/05/19 23:41 Eosinophils % (Manual) 2.0 % (0.0-4.3) 01/05/19 23:41 Basophils % (Manual) 1.0 % (0.0-1.8) 01/05/19 23:41 Metamyelocytes % 0 % 01/05/19 23:41 Myelocytes % 0 % 01/05/19 23:41 Promyelocytes % 0 % 01/05/19 23:41 Blast Cells % 0 % 01/05/19 23:41 Nucleated RBC % Not Reportable 01/05/19 23:41 Seg Neutrophils # Man 3.7 K/mm3 (1.8-7.7) 01/05/19 23:41 Band Neutrophils # 0.0 K/mm3 01/05/19 23:41 Lymphocytes # (Manual) 0.8 K/mm3 (1.2-5.4) L 01/05/19 23:41 Abs React Lymphs (Man) 0.0 K/mm3 01/05/19 23:41 Monocytes # (Manual) 0.5 K/mm3 (0.0-0.8) 01/05/19 23:41 Eosinophils # (Manual) 0.1 K/mm3 (0.0-0.4) 01/05/19 23:41 Basophils # (Manual) 0.1 K/mm3 (0.0-0.1) 01/05/19 23:41 Metamyelocytes # 0.0 K/mm3 01/05/19 23:41 Myelocytes # 0.0 K/mm3 01/05/19 23:41 Promyelocytes # 0.0 K/mm3 01/05/19 23:41 Blast Cells # 0.0 K/mm3 01/05/19 23:41 WBC Morphology Not Reportable 01/05/19 23:41 Hypersegmented Neuts Not Reportable 01/05/19 23:41 Hyposegmented Neuts Not Reportable 01/05/19 23:41 Hypogranular Neuts Not Reportable 01/05/19 23:41 Smudge Cells Not Reportable 01/05/19 23:41 Toxic Granulation Not Reportable 01/05/19 23:41 Toxic Vacuolation Not Reportable 01/05/19 23:41 Dohle Bodies Not Reportable 01/05/19 23:41 Pelger-Huet Anomaly Not Reportable 01/05/19 23:41 Clarissa Rods Not Reportable 01/05/19 23:41 Platelet Estimate Not Reportable 01/05/19 23:41 Clumped Platelets Not Reportable 01/05/19 23:41 Plt Clumps, EDTA Not Reportable 01/05/19 23:41 Large Platelets Not Reportable 01/05/19 23:41 Giant Platelets Not Reportable 01/05/19 23:41 Platelet Satelliting Not Reportable 01/05/19 23:41 Plt Morphology Comment Not Reportable 01/05/19 23:41 RBC Morphology Not Reportable 01/05/19 23:41 Dimorphic RBCs Not Reportable 01/05/19 23:41 Polychromasia Not Reportable 01/05/19 23:41 Hypochromasia Not Reportable 01/05/19 23:41 Poikilocytosis Not Reportable 01/05/19 23:41 Anisocytosis 2+ 01/05/19 23:41 Microcytosis Not Reportable 01/05/19 23:41 Macrocytosis Not Reportable 01/05/19 23:41 Spherocytes Not Reportable 01/05/19 23:41 Pappenheimer Bodies Not Reportable 01/05/19 23:41 Sickle Cells Not Reportable 01/05/19 23:41 Target Cells Not Reportable 01/05/19 23:41 Tear Drop Cells Not Reportable 01/05/19 23:41 Ovalocytes Not Reportable 01/05/19 23:41 Helmet Cells Not Reportable 01/05/19 23:41 Boudreaux-Mcgrew Bodies Not Reportable 01/05/19 23:41 [place] Rings Not Reportable 01/05/19 23:41 Vivian Cells Not Reportable 01/05/19 23:41 Bite Cells Not Reportable 01/05/19 23:41 Crenated Cell Not Reportable 01/05/19 23:41 Elliptocytes Not Reportable 01/05/19 23:41 Acanthocytes (Spur) Not Reportable 01/05/19 23:41 Rouleaux Not Reportable 01/05/19 23:41 Hemoglobin C Crystals Not Reportable 01/05/19 23:41 Schistocytes Not Reportable 01/05/19 23:41 Malaria parasites Not Reportable 01/05/19 23:41 Dieter Bodies Not Reportable 01/05/19 23:41 Hem Pathologist Commnt No 01/05/19 23:41 POC ABG pH 7.337 (7.35-7.45) L 01/06/19 02:31 POC ABG pCO2 63.5 (35-45) H 01/06/19 02:31 POC ABG pO2 52 (80-105) L 01/06/19 02:31 POC ABG HCO3 34.0 (22-26 mml/L) 01/06/19 02:31 POC ABG Total CO2 36 (23-27mmol/L) 01/06/19 02:31 POC ABG O2 Sat 83 01/06/19 02:31 POC ABG Base Excess 8 ((-2) - (+3)mmol/L) 01/06/19 02:31 FiO2 21 % 01/06/19 02:31 Sodium 144 mmol/L (137-145) 01/06/19 00:12 Potassium 3.7 mmol/L (3.6-5.0) 01/06/19 00:12 Chloride 98.0 mmol/L (98-107) 01/06/19 00:12 Carbon Dioxide 34 mmol/L (22-30) H 01/06/19 00:12 Anion Gap 16 mmol/L 01/06/19 00:12 BUN 16 mg/dL (7-17) 01/06/19 00:12 Creatinine 0.7 mg/dL (0.7-1.2) 01/06/19 00:12 Estimated GFR > 60 ml/min 01/06/19 00:12 BUN/Creatinine Ratio 23 % 01/06/19 00:12 Glucose 86 mg/dL (65-100) 01/06/19 00:12 Lactic Acid 1.30 mmol/L (0.7-2.0) 01/06/19 03:20 Calcium 8.7 mg/dL (8.4-10.2) 01/06/19 00:12 Total Bilirubin 0.80 mg/dL (0.1-1.2) 01/06/19 00:12 AST 46 units/L (5-40) H 01/06/19 00:12 ALT 35 units/L (7-56) 01/06/19 00:12 Alkaline Phosphatase 140 units/L (35-129) H 01/06/19 00:12 Troponin T < 0.010 ng/mL (0.00-0.029) 01/05/19 23:41 NT-Pro-B Natriuret Pep 4050 pg/mL (0-900) H 01/05/19 23:41 Total Protein 7.3 g/dL (6.3-8.2) 01/06/19 00:12 Albumin 2.8 g/dL (3.9-5) L 01/06/19 00:12 Albumin/Globulin Ratio 0.6 % 01/06/19 00:12 Urine Color Yellow (Yellow) 01/06/19 05:00 Urine Turbidity Clear (Clear) 01/06/19 05:00 Urine pH 5.0 (5.0-7.0) 01/06/19 05:00 Ur Specific [place] 1.011 (1.003-1.030) 01/06/19 05:00 Urine Protein 30 mg/dl mg/dL (Negative) 01/06/19 05:00 Urine Glucose (UA) Neg mg/dL (Negative) 01/06/19 05:00 Urine Ketones Neg mg/dL (Negative) 01/06/19 05:00 Urine Blood Sm (Negative) 01/06/19 05:00 Urine Nitrite Neg (Negative) 01/06/19 05:00 Urine Bilirubin Neg (Negative) 01/06/19 05:00 Urine Urobilinogen < 2.0 mg/dL (<2.0) 01/06/19 05:00 Ur Leukocyte Esterase Sm (Negative) 01/06/19 05:00 Urine WBC (Auto) 4.0 /HPF (0.0-6.0) 01/06/19 05:00 Urine RBC (Auto) 4.0 /HPF (0.0-6.0) 01/06/19 05:00 U Epithel Cells (Auto) 2.0 /HPF (0-13.0) 01/06/19 05:00 Urine Bacteria (Auto) 2+ /HPF (Negative) 01/06/19 05:00 Urine Mucus Few /HPF 01/06/19 05:00 Assessment and Plan Assessment and plan: 58 year old woman with history of CHF, hypertension comes emergency room with complaints of shortness of breath, increased edema in her legs, thighs and stomach. She was seen at [facility] 2 weeks ago for the same, she was given increase dose of Lasix, unknown antibiotic for 10 days, prednisone. She some blisters on the legs also, evaluated by improvement spec. She complain of abdominal pain this is most likely secondary to anasarca. Patient with acute on chronic systolic heart failure, cellulitis. Agree weight IV Lasix and cardiology consult, a dose of vancomycin. Patient had a biopsy done on the left breast, the results were benign. D/c clindamycin. Add aspirin, ACEi, patient allergic to BB
--- NOTE | 2019-01-06 04:28 | Cat Scan Report ---
CT ABDOMEN AND PELVIS WITHOUT CONTRAST INDICATION: Generalized abdominal pain. TECHNICAL: Multiple axial CT images of the abdomen were acquired without intravenous contrast. Sagit devan and coronal reformats were obtained. All CTs at this facility utilize dose reduction techniques including automated exposure control, iterative reconstruction and weight based dosing when appropria te to reduce patient radiation dose to as low as reasonable achievable. COMPARISON: No prior abdominal imaging is available for comparison. FINDINGS: Limited imaging of the bilateral lung bases demonstrates diffuse edema of the visualized left chest a nd breast. The heart is enlarged. Abdomen: There is a trace amount of free fluid throughout the upper abdomen. Given the limitations of today's noncontrast study, the liver, gallbladder, spleen, pancreas and bilateral kidneys show no ev idence of acute abnormality. The visualized large and small bowel appear grossly normal in caliber. Bones and Soft Tissues: Evaluation of bony structures demonstrates no evidence of destructive bony l esion. There are degenerative changes of the lumbar spine. Evaluation of soft tissue structures demon strates diffuse generalized anasarca. IMPRESSION: 1. Small amount of free fluid throughout the upper abdomen which may be secondary to a volume overloa ded state. 2. Cardiomegaly. 3. Diffuse body wall edema/anasarca. This edema appears to significantly involve the left breast and clinical correlation is recommended. Please note that imaging of the pelvis was not performed nor requested. Signer Name: Dalia Abraham MD Signed: 01/06/2019 4:24 AM Workstation Name: [id number]
[2019-01-06 05:33] LABS: Bacteria,Urine 2+ /HPF (Negative); Bilirubin,Urine NEG (Negative); Blood,Urine SM (Negative); Color,Urine Yellow (Yellow); Mucus,Urine FEW /HPF; Urobilinogen,Urine < 2.0 mg/dL (<2.0)
[2019-01-06] MEDS ORDERED: VANCOMYCIN/NS 1 GM/250 ML 1 GM/250 ML BAG IV ONE (05:49)
[2019-01-06] MEDS ORDERED: VANCOMYCIN 2,000 MG in SODIUM CHLORIDE 0.9% 500 ML 500 ML IV ONE (06:00)
[2019-01-06] MEDS: oxyCODONE /ACETAMINOPHEN 5-325MG TAB PO PRN ×2 (06:12→21:07)
[2019-01-06] MEDS: AMPICILLIN/SULBACTA 1.5GM/50ML 1.5 GM/50 ML BAG IV SCH ×4 (06:19→23:05)
[2019-01-06 10:02] LABS: Creatine Kinase MB 3.4 ng/mL (0.0-4.0)
[2019-01-06] MEDS: NICOTINE 14 MG/24 HR PATCH TD SCH ×2 (10:51→10:54)
[2019-01-06] MEDS: LISINOPRIL 5 MG TAB PO SCH ×2 (10:54→10:58)
[2019-01-06] MEDS: HEPARIN 5,000 UNIT/1 ML VIAL SUB-Q SCH ×2 (10:54→23:06)
[2019-01-06] MEDS: DOCUSATE SODIUM 100 MG CAP PO SCH ×2 (10:54→23:05)
[2019-01-06 13:53] LABS: Creatine Kinase MB 3.1 ng/mL (0.0-4.0)
[2019-01-06] MEDS ORDERED: LORazepam 2 MG/ML VIAL IV ONE (14:11)
--- NOTE | 2019-01-06 14:30 | Consultation ---
History of Present Illness Consult date: 01/06/19 Requesting physician: DESTINY BARNEY Consult reason: congestive heart failure History of present illness: The pt is a 58 YO female with a past medical history of HFrEF, HTN, HLP, morbid obesity. She was seen once in our office in 07/2018 for evaluation of SOB and palpitations by Dr. Stephens. She presented with c/o progressively worsening SOB, generalized edema, BUE and BLE wounds. Pt states that she has been experiencing progressively worsening SOB and orthopnea over the past 3 days. She is unable to walk more than 5 steps without becoming SOB. At baseline pt does not use home oxygen. Additional pt complains of worsening BLE pitting edema which has begun to move up her legs to her abdomen. Pt has erythema and scattered wounds to BLE and has subsequently been diagnosed with cellulitis. She recently underwent biopsy of left breast mass per Dr. Shukla and she states the biopsy results were negative. She denies any chest pain, palpitations, n/v, diaphoresis, dizziness or syncope. Echo done at [facility] in 06/2018 showed EF 20-25%, mild LVH, LA mod dilated, RV systolic function mod reduced. Past History Past Medical History: heart failure (EF 20-25% seen on Echo 06/15/18), hypertension, hyperlipidemia, other (obesity, cellulitis BLE) Past Surgical History: Other (right knee surgery) Social history: , smoking Family history: no significant family history Medications and Allergies Allergies Allergy/AdvReac Type Severity Reaction Status Date / Time latex Allergy Rash Verified 08/12/18 09:10 carvedilol [From Coreg] AdvReac Unknown Verified 06/15/18 09:32 metoprolol AdvReac Unknown Verified 06/15/18 10:05 Home Medications Medication Instructions Recorded Confirmed Last Taken Type Furosemide [Lasix] 40 mg PO BID 05/09/15 01/06/19 01/05/19 History cephALEXin [Keflex] 250 mg PO Q6HR #8 capsule 08/09/18 01/06/19 01/05/19 Rx traMADoL [Ultram 50 MG tab] 50 mg PO Q6HR PRN #15 tablet 08/09/18 01/06/19 Unknown Rx Clindamycin [Clindamycin CAP] 300 mg PO Q8H #21 cap 08/13/18 01/06/19 01/05/19 Rx diphenhydrAMINE [Benadryl CAP] 25 mg PO Q6HR PRN #20 capsule 08/13/18 01/06/19 Unknown Rx Benicar 40 mg PO DAILY 01/06/19 01/06/19 01/05/19 10:00 History Active Meds: Active Medications Acetaminophen (Tylenol) 650 mg PO Q4H PRN PRN Reason: Pain MILD(1-3)/Fever >100.5/BENITEZ Albuterol (Proventil) 2.5 mg IH Q3HRT PRN PRN Reason: Shortness Of Breath Docusate Sodium (Colace) 100 mg PO BID [facility] Last Admin: 01/06/19 10:54 Dose: 100 mg Documented by: Furosemide (Lasix) 40 mg IV 0600,1800 [facility] Heparin Sodium (Porcine) (Heparin) 5,000 unit SUB-Q Q12HR [facility] Last Admin: 01/06/19 10:54 Dose: 5,000 unit Documented by: Ampicillin Sodium/Sulbactam Sodium (Unasyn/Ns 1.5 Gm/50 Ml) 1.5 gm in 50 mls @ 100 mls/hr IV Q6HR [facility]; Protocol Last Admin: 01/06/19 13:30 Dose: 100 mls/hr Documented by: Lisinopril (Zestril) 2.5 mg PO QDAY [facility] Last Admin: 01/06/19 10:58 Dose: Not Given Documented by: Nicotine (Habitrol) 14 mg TD QDAY [facility] Last Admin: 01/06/19 10:54 Dose: Not Given Documented by: Ondansetron HCl (Zofran) 4 mg IV Q8H PRN PRN Reason: Nausea And Vomiting Oxycodone/Acetaminophen (Percocet 5/325) 1 tab PO Q6H PRN PRN Reason: Pain, Moderate (4-6) Last Admin: 01/06/19 06:12 Dose: 1 tab Documented by: Sodium Chloride (Sodium Chloride Flush Syringe 10 Ml) 10 ml IV BID [facility] Last Admin: 01/06/19 10:55 Dose: 10 ml Documented by: Sodium Chloride (Sodium Chloride Flush Syringe 10 Ml) 10 ml IV PRN PRN PRN Reason: LINE FLUSH Review of Systems Constitutional: weight gain, no fever, no chills, no sweats Ears, nose, mouth and throat: no ear pain, no nose pain, no sinus pressure, no sinus pain Cardiovascular: orthopnea, edema, shortness of breath, dyspnea on exertion, paroxysmal nocturnal dyspnea, high blood pressure, leg edema, decreased exercise tolerance, no chest pain, no palpitations, no rapid/irregular heart beat, no syncope, no lightheadedness Respiratory: shortness of breath, dyspnea on exertion, no cough, no congestion, no wheezing, no pain on inspiration Gastrointestinal: no abdominal pain, no nausea, no vomiting, no diarrhea, no constipation, no change in bowel habits Genitourinary Female: no pelvic pain, no flank pain, no dysuria, no urinary frequency, no urgency Musculoskeletal: no neck stiffness, no neck pain, no shooting arm pain, no arm numbness/tingling, no low back pain, no shooting leg pain Integumentary: rash, pruritis, redness, sores, wounds Neurological: no head injury, no paralysis, no weakness, no parathesias, no numbness, no tingling, no seizures, no syncope Psychiatric: anxiety Endocrine: no cold intolerance, no heat intolerance Hematologic/Lymphatic: no easy bruising, no easy bleeding Allergic/Immunologic: no urticaria, no wheezing Physical Examination Vital Signs Temp Pulse Resp BP Pulse Ox 98.4 F 116 H 24 141/89 89 01/05/19 22:52 01/05/19 22:52 01/05/19 22:52 01/05/19 22:52 01/05/19 22:52 General appearance: no acute distress HEENT: Positive: PERRL, Normocephaly, Mucus Membranes Moist Neck: Positive: neck supple, trachea midline Cardiac: Positive: Reg Rate and Rhythm, S1/S2 Lungs: Positive: Decreased Breath Sounds Neuro: Positive: Grossly Intact Abdomen: Negative: Tender Skin: Positive: Other (BUE and BLE scattered wounds) Extremities: Present: +4 Edema (BLE into thighs and buttocks) Results 01/05/19 23:41 01/06/19 00:12 Cardiac Enzymes 01/06/19 01/06/19 01/06/19 Range/Units 00:12 07:53 13:18 AST 46 H (5-40) units/L CK-MB (CK-2) 3.4 3.1 (0.0-4.0) ng/mL CBC 01/05/19 Range/Units 23:41 WBC 5.1 (4.5-11.0) K/mm3 RBC 5.00 (3.65-5.03) M/mm3 Hgb 14.1 (10.1-14.3) gm/dl Hct 44.7 H (30.3-42.9) % Plt Count 163 (140-440) K/mm3 Comprehensive Metabolic Panel 01/06/19 Range/Units 00:12 Sodium 144 (137-145) mmol/L Potassium 3.7 (3.6-5.0) mmol/L Chloride 98.0 (98-107) mmol/L Carbon Dioxide 34 H (22-30) mmol/L BUN 16 (7-17) mg/dL Creatinine 0.7 (0.7-1.2) mg/dL Glucose 86 (65-100) mg/dL Calcium 8.7 (8.4-10.2) mg/dL AST 46 H (5-40) units/L ALT 35 (7-56) units/L Alkaline Phosphatase 140 H (35-129) units/L Total Protein 7.3 (6.3-8.2) g/dL Albumin 2.8 L (3.9-5) g/dL - Imaging and Cardiology Echo: report reviewed (06/2018 showed EF 20-25%, mild LVH, LA mod dilated, RV systolic function mod reduced. ) EKG: report reviewed, image reviewed EKG interpretations - Telemetry EKG Rhythm: Sinus Rhythm - EKG Sinus rhythms and dysrhythmias: sinus rhythm Assessment and Plan Agree with GDMT and IV diuretics as tolerated. Will add low dose zaroxolyn. Treatment of cellulitis per primary team. Pt is noted to have EF 20-25%. She states that she has had "heart failure" since 1997 with no prior ischemic evaluation. We will consider ischemic evaluation to r/o ischemic CMP once medically stabilized. The patient has been seen in conjunction with Dr. Gordon who agrees with the assessment and plan of care. - Patient Problems (1) Acute HFrEF (heart failure with reduced ejection fraction) Current Visit: Yes Status: Acute (2) Cellulitis Current Visit: Yes Status: Acute Qualifiers: Site of cellulitis: trunk Site of cellulitis of trunk: abdominal wall Qualified Code(s): L03.311 - Cellulitis of abdominal wall (3) HTN (hypertension) Current Visit: Yes Status: Chronic (4) Morbid obesity Current Visit: Yes Status: Chronic
[2019-01-06] MEDS: FUROSEMIDE 40 MG/4 ML INJ IV SCH (17:46)
[2019-01-06] MEDS: carvediloL 6.25 MG TAB PO SCH ×2 (17:49→23:05)
--- NOTE | 2019-01-06 18:56 | Progress Note ---
Assessment and Plan Assessment and plan: 58 years old presents with profound edema and ascites most likely secondary to congestive heart failure. - Patient Problems (1) Acute HFrEF (heart failure with reduced ejection fraction) Current Visit: Yes Status: Acute Plan to address problem: Patient last known ejection fraction several months ago 20%. Patient has marked ascites bilateral lower extremities as well as abdomen, breast, back, thighs appears this ascites has progressively gotten worse. I think patient will need more than 40 Lasix IV daily. Zaroxolyn has been added will see us she responds to this. I think hospitalization maybe longer than previously thought secondary to the amount of ascites. Patient clearly is uncomfortable. An ascites is the reason patient has shortness of breath and the breast edema and the cellulitis as well. (2) Cellulitis Current Visit: Yes Status: Acute Qualifiers: Site of cellulitis: trunk Site of cellulitis of trunk: abdominal wall Qualified Code(s): L03.311 - Cellulitis of abdominal wall Plan to address problem: Secondary to severe ascites and lower extremity edema. Will require diuresis. Treat cellulitis with IV antibiotics. Follow culture data. Strict elevation of legs bed rest for the most part with leg elevation for the next several days. (3) Nicotine dependence with withdrawal Current Visit: No Status: Acute Qualifiers: Nicotine product type: cigarettes Qualified Code(s): F17.213 - Nicotine dependence, cigarettes, with withdrawal Plan to address problem: Add nicotine patch. (4) Obesity hypoventilation syndrome Current Visit: No Status: Acute Plan to address problem: Patient with obesity hypertension syndrome. Weight loss dietary modifications have been discussed. (5) Ascites Current Visit: Yes Status: Acute Plan to address problem: Marked ascites no clear etiology. I 3 with ischemic evaluation right discharge. (6) HTN (hypertension) Current Visit: Yes Status: Chronic Plan to address problem: Patient very well-controlled on current antihypertensives. (7) Morbid obesity Current Visit: Yes Status: Chronic Plan to address problem: Diet weight education History Interval history: Patient 58 years old with a history of CHF last known ejection fraction 20-25%, hypertension, obesity, tobacco dependency presents with worsening shortness of breath and edema with abdominal pain and lower extremity wounds over approximate 2 week period of time. Patient states she swallow also much that she can only walk a few steps without becoming short of breath. During evaluation today patient was found to be miserable very upset agitated because of condition. Was able to talk to me clearly and tell me how everything transpired. Patient initially started with soreness on the neck back arms and over approximately 2 months. He time started developed swelling on the legs with abdomen. Patient also developed what appeared to be a breast lesion breast swelling had a biopsy which was negative. Patient today mild to moderate distress Hospitalist Physical - Constitutional Vitals: Temp Pulse Resp BP Pulse Ox 97.9 F 128 H 18 119/76 99 01/06/19 17:09 01/06/19 17:49 01/06/19 17:09 01/06/19 17:49 01/06/19 17:09 General appearance: Present: mild distress - EENT Eyes: Present: PERRL, EOM intact ENT: hearing intact, clear oral mucosa, dentition normal, oropharyngeal erythema, no poor dentition, no thrush - Neck Neck: Present: supple, normal ROM - Respiratory Respiratory: bilateral: diminished, rhonchi - Cardiovascular Rhythm: regular Heart Sounds: Present: S1 & S2 - Extremities Extremities: no ischemia, Full ROM Extremity abnormal: edema, erythema, tenderness Peripheral Pulses: within normal limits - Abdominal General gastrointestinal: soft, tender, non-distended, hypoactive bowel sounds, other (marked ascites), no hepatomegaly, no splenomegaly - Integumentary Integumentary: Present: erythema. Absent: jaundice, rash, clammy, normal turgor - Psychiatric Psychiatric: appropriate mood/affect, intact judgment & insight, cooperative - Neurologic Neurologic: CNII-XII intact, moves all extremities Results - Labs CBC & Chem 7: 01/05/19 23:41 01/06/19 00:12 Labs: Laboratory Last Values WBC 5.1 K/mm3 (4.5-11.0) 01/05/19 23:41 RBC 5.00 M/mm3 (3.65-5.03) 01/05/19 23:41 Hgb 14.1 gm/dl (10.1-14.3) 01/05/19 23:41 Hct 44.7 % (30.3-42.9) H 01/05/19 23:41 MCV 89 fl (79-97) 01/05/19 23:41 MCH 28 pg (28-32) 01/05/19 23:41 MCHC 32 % (30-34) 01/05/19 23:41 RDW 23.7 % (13.2-15.2) H 01/05/19 23:41 Plt Count 163 K/mm3 (140-440) 01/05/19 23:41 Add Manual Diff Complete 01/05/19 23:41 Total Counted 100 01/05/19 23:41 Seg Neuts % (Manual) 72.0 % (40.0-70.0) H 01/05/19 23:41 Band Neutrophils % 0 % 01/05/19 23:41 Lymphocytes % (Manual) 16.0 % (13.4-35.0) 01/05/19 23:41 Reactive Lymphs % (Man) 0 % 01/05/19 23:41 Monocytes % (Manual) 9.0 % (0.0-7.3) H 01/05/19 23:41 Eosinophils % (Manual) 2.0 % (0.0-4.3) 01/05/19 23:41 Basophils % (Manual) 1.0 % (0.0-1.8) 01/05/19 23:41 Metamyelocytes % 0 % 01/05/19 23:41 Myelocytes % 0 % 01/05/19 23:41 Promyelocytes % 0 % 01/05/19 23:41 Blast Cells % 0 % 01/05/19 23:41 Nucleated RBC % Not Reportable 01/05/19 23:41 Seg Neutrophils # Man 3.7 K/mm3 (1.8-7.7) 01/05/19 23:41 Band Neutrophils # 0.0 K/mm3 01/05/19 23:41 Lymphocytes # (Manual) 0.8 K/mm3 (1.2-5.4) L 01/05/19 23:41 Abs React Lymphs (Man) 0.0 K/mm3 01/05/19 23:41 Monocytes # (Manual) 0.5 K/mm3 (0.0-0.8) 01/05/19 23:41 Eosinophils # (Manual) 0.1 K/mm3 (0.0-0.4) 01/05/19 23:41 Basophils # (Manual) 0.1 K/mm3 (0.0-0.1) 01/05/19 23:41 Metamyelocytes # 0.0 K/mm3 01/05/19 23:41 Myelocytes # 0.0 K/mm3 01/05/19 23:41 Promyelocytes # 0.0 K/mm3 01/05/19 23:41 Blast Cells # 0.0 K/mm3 01/05/19 23:41 WBC Morphology Not Reportable 01/05/19 23:41 Hypersegmented Neuts Not Reportable 01/05/19 23:41 Hyposegmented Neuts Not Reportable 01/05/19 23:41 Hypogranular Neuts Not Reportable 01/05/19 23:41 Smudge Cells Not Reportable 01/05/19 23:41 Toxic Granulation Not Reportable 01/05/19 23:41 Toxic Vacuolation Not Reportable 01/05/19 23:41 Dohle Bodies Not Reportable 01/05/19 23:41 Pelger-Huet Anomaly Not Reportable 01/05/19 23:41 Clarissa Rods Not Reportable 01/05/19 23:41 Platelet Estimate Not Reportable 01/05/19 23:41 Clumped Platelets Not Reportable 01/05/19 23:41 Plt Clumps, EDTA Not Reportable 01/05/19 23:41 Large Platelets Not Reportable 01/05/19 23:41 Giant Platelets Not Reportable 01/05/19 23:41 Platelet Satelliting Not Reportable 01/05/19 23:41 Plt Morphology Comment Not Reportable 01/05/19 23:41 RBC Morphology Not Reportable 01/05/19 23:41 Dimorphic RBCs Not Reportable 01/05/19 23:41 Polychromasia Not Reportable 01/05/19 23:41 Hypochromasia Not Reportable 01/05/19 23:41 Poikilocytosis Not Reportable 01/05/19 23:41 Anisocytosis 2+ 01/05/19 23:41 Microcytosis Not Reportable 01/05/19 23:41 Macrocytosis Not Reportable 01/05/19 23:41 Spherocytes Not Reportable 01/05/19 23:41 Pappenheimer Bodies Not Reportable 01/05/19 23:41 Sickle Cells Not Reportable 01/05/19 23:41 Target Cells Not Reportable 01/05/19 23:41 Tear Drop Cells Not Reportable 01/05/19 23:41 Ovalocytes Not Reportable 01/05/19 23:41 Helmet Cells Not Reportable 01/05/19 23:41 [place] Bodies Not Reportable 01/05/19 23:41 [place] Rings Not Reportable 01/05/19 23:41 Ramesh Cells Not Reportable 01/05/19 23:41 Bite Cells Not Reportable 01/05/19 23:41 Crenated Cell Not Reportable 01/05/19 23:41 Elliptocytes Not Reportable 01/05/19 23:41 Acanthocytes (Spur) Not Reportable 01/05/19 23:41 Rouleaux Not Reportable 01/05/19 23:41 Hemoglobin C Crystals Not Reportable 01/05/19 23:41 Schistocytes Not Reportable 01/05/19 23:41 Malaria parasites Not Reportable 01/05/19 23:41 Dieter Bodies Not Reportable 01/05/19 23:41 Hem Pathologist Commnt No 01/05/19 23:41 POC ABG pH 7.337 (7.35-7.45) L 01/06/19 02:31 POC ABG pCO2 63.5 (35-45) H 01/06/19 02:31 POC ABG pO2 52 (80-105) L 01/06/19 02:31 POC ABG HCO3 34.0 (22-26 mml/L) 01/06/19 02:31 POC ABG Total CO2 36 (23-27mmol/L) 01/06/19 02:31 POC ABG O2 Sat 83 01/06/19 02:31 POC ABG Base Excess 8 ((-2) - (+3)mmol/L) 01/06/19 02:31 FiO2 21 % 01/06/19 02:31 Sodium 144 mmol/L (137-145) 01/06/19 00:12 Potassium 3.7 mmol/L (3.6-5.0) 01/06/19 00:12 Chloride 98.0 mmol/L (98-107) 01/06/19 00:12 Carbon Dioxide 34 mmol/L (22-30) H 01/06/19 00:12 Anion Gap 16 mmol/L 01/06/19 00:12 BUN 16 mg/dL (7-17) 01/06/19 00:12 Creatinine 0.7 mg/dL (0.7-1.2) 01/06/19 00:12 Estimated GFR > 60 ml/min 01/06/19 00:12 BUN/Creatinine Ratio 23 % 01/06/19 00:12 Glucose 86 mg/dL (65-100) 01/06/19 00:12 Lactic Acid 1.30 mmol/L (0.7-2.0) 01/06/19 03:20 Calcium 8.7 mg/dL (8.4-10.2) 01/06/19 00:12 Total Bilirubin 0.80 mg/dL (0.1-1.2) 01/06/19 00:12 AST 46 units/L (5-40) H 01/06/19 00:12 ALT 35 units/L (7-56) 01/06/19 00:12 Alkaline Phosphatase 140 units/L (35-129) H 01/06/19 00:12 Total Creatine Kinase 117 units/L (30-135) 01/06/19 13:18 CK-MB (CK-2) 3.1 ng/mL (0.0-4.0) 01/06/19 13:18 CK-MB (CK-2) Rel Index 2.6 (0-4) 01/06/19 13:18 Troponin T < 0.010 ng/mL (0.00-0.029) 01/06/19 13:18 NT-Pro-B Natriuret Pep 4050 pg/mL (0-900) H 01/05/19 23:41 Total Protein 7.3 g/dL (6.3-8.2) 01/06/19 00:12 Albumin 2.8 g/dL (3.9-5) L 01/06/19 00:12 Albumin/Globulin Ratio 0.6 % 01/06/19 00:12 Urine Color Yellow (Yellow) 01/06/19 05:00 Urine Turbidity Clear (Clear) 01/06/19 05:00 Urine pH 5.0 (5.0-7.0) 01/06/19 05:00 Ur Specific [place] 1.011 (1.003-1.030) 01/06/19 05:00 Urine Protein 30 mg/dl mg/dL (Negative) 01/06/19 05:00 Urine Glucose (UA) Neg mg/dL (Negative) 01/06/19 05:00 Urine Ketones Neg mg/dL (Negative) 01/06/19 05:00 Urine Blood Sm (Negative) 01/06/19 05:00 Urine Nitrite Neg (Negative) 01/06/19 05:00 Urine Bilirubin Neg (Negative) 01/06/19 05:00 Urine Urobilinogen < 2.0 mg/dL (<2.0) 01/06/19 05:00 Ur Leukocyte Esterase Sm (Negative) 01/06/19 05:00 Urine WBC (Auto) 4.0 /HPF (0.0-6.0) 01/06/19 05:00 Urine RBC (Auto) 4.0 /HPF (0.0-6.0) 01/06/19 05:00 U Epithel Cells (Auto) 2.0 /HPF (0-13.0) 01/06/19 05:00 Urine Bacteria (Auto) 2+ /HPF (Negative) 01/06/19 05:00 Urine Mucus Few /HPF 01/06/19 05:00 - Imaging and Cardiology Chest x-ray: report reviewed, image reviewed CT scan - abdomen: report reviewed, image reviewed CT scan - chest: report reviewed, image reviewed Active Medications - Current Medications Current Medications: Generic Name Dose Route Start Last Admin Trade Name Freq PRN Reason Stop Dose Admin Acetaminophen 650 mg 01/06/19 02:30 Tylenol PO Q4H PRN Pain MILD(1-3)/Fever >100.5/BENITEZ Albuterol 2.5 mg 01/06/19 02:30 Proventil IH Q3HRT PRN Shortness Of Breath Carvedilol 6.25 mg 01/06/19 16:00 01/06/19 17:49 Coreg PO Not Given BID JIMI Docusate Sodium 100 mg 01/06/19 10:00 01/06/19 10:54 Colace PO 100 mg BID JIMI Administration Furosemide 40 mg 01/06/19 18:00 01/06/19 17:46 Lasix IV 40 mg 0600,1800 JIMI Administration Heparin Sodium (Porcine) 5,000 unit 01/06/19 10:00 01/06/19 10:54 Heparin SUB-Q 5,000 unit Q12HR JIMI Administration Ampicillin Sodium/Sulbactam Sodium 1.5 gm in 50 mls @ 100 mls/hr 01/06/19 06:00 01/06/19 17:46 Unasyn/Ns 1.5 Gm/50 Ml IV 100 mls/hr Q6HR JIMI Administration Protocol Lisinopril 2.5 mg 01/06/19 10:00 01/06/19 10:58 Zestril PO Not Given QDAY JIMI Metolazone 2.5 mg 01/07/19 05:30 Zaroxolyn PO QDAY [facility] Nicotine 14 mg 01/06/19 10:00 01/06/19 10:54 Habitrol TD Not Given QDAY [facility] Ondansetron HCl 4 mg 01/06/19 02:30 Zofran IV Q8H PRN Nausea And Vomiting Oxycodone/Acetaminophen 1 tab 01/06/19 02:30 01/06/19 06:12 Percocet 5/325 PO 1 tab Q6H PRN Administration Pain, Moderate (4-6) Sodium Chloride 10 ml 01/06/19 10:00 01/06/19 10:55 Sodium Chloride Flush Syringe 10 Ml IV 10 ml BID JIMI Administration Sodium Chloride 10 ml 01/06/19 02:30 Sodium Chloride Flush Syringe 10 Ml IV PRN PRN LINE FLUSH
[2019-01-06] MEDS ORDERED: carvediloL 3.125 MG TAB PO SCH (22:00)
[2019-01-07 05:56] LABS: Hematocrit 41.5 % (30.3-42.9); Hemoglobin 13.2 gm/dl (10.1-14.3); Mean Corpuscular HGB Conc 32 % (30-34); Mean Corpuscular Volume 89 fl (79-97); Platelet Count 165 K/mm3 (140-440); Red Blood Count 4.64 M/mm3 (3.65-5.03)
[2019-01-07 06:07] LABS: BUN/Creatinine Ratio 19; Blood Urea Nitrogen 17 mg/dL (7-17); Hemolysis Index 3
[2019-01-07 06:13] LABS: Calcium 8.3 mg/dL (8.4-10.2)
[2019-01-07 06:33] LABS: Red Cell Distribution Width 22.8 % (13.2-15.2)
[2019-01-07] MEDS: metOLazone 2.5 MG TAB PO SCH ×2 (06:37→11:31)
[2019-01-07] MEDS: AMPICILLIN/SULBACTA 1.5GM/50ML 1.5 GM/50 ML BAG IV SCH ×4 (06:37→22:59)
[2019-01-07] MEDS: FUROSEMIDE 40 MG/4 ML INJ IV SCH ×2 (06:37→17:56)
[2019-01-07 07:48] LABS: Basophils % (Manual) 0 % (0.0-1.8); Total Cells Counted 100
[2019-01-07 07:49] LABS: Anisocytosis 1+; Platelet Estimate Consistent w Auto
[2019-01-07 09:44] LABS: Hemoglobin 12.7 gm/dl (10.1-14.3); Mean Corpuscular HGB Conc 31 % (30-34); Mean Corpuscular Volume 91 fl (79-97); Platelet Count 165 K/mm3 (140-440); Red Blood Count 4.49 M/mm3 (3.65-5.03)
[2019-01-07 09:52] LABS: Red Cell Distribution Width 23.3 % (13.2-15.2)
[2019-01-07 10:01] LABS: BUN/Creatinine Ratio 21; Blood Urea Nitrogen 19 mg/dL (7-17); Calcium 8.1 mg/dL (8.4-10.2); Hemolysis Index 30
[2019-01-07 11:23] LABS: Total Cells Counted 100
[2019-01-07 11:24] LABS: Basophils % (Manual) 0 % (0.0-1.8); Eosinophils % (Manual) 0 % (0.0-4.3)
[2019-01-07] MEDS: carvediloL 6.25 MG TAB PO SCH (11:27)
[2019-01-07 11:28] LABS: Anisocytosis 2+; Poikilocytosis Few
[2019-01-07 11:29] LABS: Large Platelets Few; Platelet Estimate Consistent w Auto
[2019-01-07] MEDS: DOCUSATE SODIUM 100 MG CAP PO SCH ×2 (11:29→21:59)
[2019-01-07] MEDS: NICOTINE 14 MG/24 HR PATCH TD SCH (11:29)
[2019-01-07] MEDS: LISINOPRIL 5 MG TAB PO SCH (11:30)
[2019-01-07] MEDS: HEPARIN 5,000 UNIT/1 ML VIAL SUB-Q SCH ×2 (11:32→22:05)
--- NOTE | 2019-01-07 11:58 | Progress Note ---
Assessment and Plan Pt reports an allergy to coreg - states it causes muscle spasms. We will initiate lopressor and observe response. Pt is agreeable. Cont IV diuretics and zaroxolyn. Obtain strict I&Os and daily weights. Initiate 1500mL fluid restriction. Treatment of cellulitis per primary team. Pt is noted to have EF 20-25%. She states that she has had "heart failure" since 1997 with no prior ischemic evaluation. We will consider ischemic evaluation to r/o ischemic CMP once medically stabilized. The patient has been seen in conjunction with Dr. Gordon who agrees with the assessment and plan of care. - Patient Problems (1) Acute HFrEF (heart failure with reduced ejection fraction) Current Visit: Yes Status: Acute (2) Cardiomyopathy Current Visit: Yes Status: Chronic (3) Anasarca Current Visit: Yes Status: Acute (4) Cellulitis Current Visit: Yes Status: Acute Qualifiers: Site of cellulitis: trunk Site of cellulitis of trunk: abdominal wall Qualified Code(s): L03.311 - Cellulitis of abdominal wall (5) HTN (hypertension) Current Visit: Yes Status: Chronic (6) Morbid obesity Current Visit: Yes Status: Chronic Subjective Date of service: 01/07/19 Principal diagnosis: hf Interval history: pt resting in bed, feeling a little better, edema gradually improving. in ST on tele with HR 100s. Objective Last Vital Signs Temp 98.3 F 01/07/19 03:56 Pulse 101 H 01/07/19 11:30 Resp 20 01/07/19 03:56 BP 114/61 01/07/19 11:30 Pulse Ox 94 01/07/19 03:56 - Physical Examination General: No Apparent Distress HEENT: Positive: PERRL, Normocephaly, Mucus Membranes Moist Neck: Positive: neck supple, trachea midline Cardiac: Positive: Regular Rhythm, S1/S2 Lungs: Positive: Decreased Breath Sounds Neuro: Positive: Grossly Intact Abdomen: Negative: Tender Skin: Positive: Other (BUE and BLE scattered wounds) Extremities: Present: +4 Edema (BLE into thighs and buttocks) - Labs and Meds Cardiac Enzymes 01/06/19 Range/Units 13:18 CK-MB (CK-2) 3.1 (0.0-4.0) ng/mL CBC 01/07/19 01/07/19 Range/Units 04:43 08:50 WBC 4.8 5.1 (4.5-11.0) K/mm3 RBC 4.64 4.49 (3.65-5.03) M/mm3 Hgb 13.2 12.7 (10.1-14.3) gm/dl Hct 41.5 41.0 (30.3-42.9) % Plt Count 165 165 (140-440) K/mm3 Comprehensive Metabolic Panel 01/07/19 01/07/19 Range/Units 04:43 08:50 Sodium 139 141 (137-145) mmol/L Potassium 3.9 4.0 (3.6-5.0) mmol/L Chloride 96.1 L 97.5 L (98-107) mmol/L Carbon Dioxide 30 27 (22-30) mmol/L BUN 17 19 H (7-17) mg/dL Creatinine 0.9 0.9 (0.7-1.2) mg/dL Glucose 82 125 H (65-100) mg/dL Calcium 8.3 L 8.1 L (8.4-10.2) mg/dL - Imaging and Cardiology EKG: report reviewed, image reviewed Echo: report reviewed (06/2018 showed EF 20-25%, mild LVH, LA mod dilated, RV systolic function mod reduced. ) - Telemetry EKG Rhythm: Sinus Rhythm - EKG Sinus rhythms and dysrhythmias: sinus rhythm
[2019-01-07] MEDS: METOPROLOL TARTRATE 25 MG TAB PO SCH ×2 (12:26→21:59)
--- NOTE | 2019-01-07 18:36 | Progress Note ---
Assessment and Plan Assessment and plan: 58 years old presents with profound edema and ascites most likely secondary to congestive heart failure. - Patient Problems (1) Acute HFrEF (heart failure with reduced ejection fraction) Current Visit: Yes Status: Acute Plan to address problem: Patient last known ejection fraction several months ago 20%. Patient has marked edema bilateral lower extremities as well as abdomen, breast, back, thighs appears this edema has progressively gotten worse. LASIX 60MG IV BID. PER PATIENT THIS HELPS WHENEVER SHE IS HOSPITALIZED. Zaroxolyn has been added will see us she responds to this. I think hospitalization maybe longer than previously thought secondary to the amount of edema Patient clearly is uncomfortable. An ascites is the reason patient has shortness of breath and the breast edema and the cellulitis as well. Ischemic work up planned by cardiology for the am (2) Cellulitis Current Visit: Yes Status: Acute Qualifiers: Site of cellulitis: trunk Site of cellulitis of trunk: abdominal wall Qualified Code(s): L03.311 - Cellulitis of abdominal wall Plan to address problem: Secondary to severe ascites and lower extremity edema. Will require diuresis. Treat cellulitis with IV antibiotics. Follow culture data. Strict elevation of legs bed rest for the most part with leg elevation for the next several days. (3) Nicotine dependence with withdrawal Current Visit: No Status: Acute Qualifiers: Nicotine product type: cigarettes Qualified Code(s): F17.213 - Nicotine dependence, cigarettes, with withdrawal Plan to address problem: Add nicotine patch. (4) Obesity hypoventilation syndrome Current Visit: No Status: Acute Plan to address problem: Patient with obesity hypertension syndrome. Weight loss dietary modifications have been discussed. (5) ANASCAR/Ascites Current Visit: Yes Status: Acute Plan to address problem: ANASCAR LIKELY SECONDARY TO SEVERE FLUID OVERLOAD. SMALL ASCITES IS NOTED (6) HTN (hypertension) Current Visit: Yes Status: Chronic Plan to address problem: Patient very well-controlled on current antihypertensives. (7) Morbid obesity Current Visit: Yes Status: Chronic Plan to address problem: Diet weight education History Interval history: Patient 58 years old with a history of CHF last known ejection fraction 20-25%, hypertension, obesity, tobacco dependency presents with worsening shortness of breath and edema with abdominal pain and lower extremity wounds over approximate 2 week period of time. Patient states she swallow also much that she can only walk a few steps without becoming short of breath. Patient initially started with soreness on the neck back arms and over approximately 2 months. He time started developed swelling on the legs with abdomen. Patient also developed wh at appeared to be a breast lesion breast swelling had a biopsy which was negative. Patient today mild to moderate distress Hospitalist Physical - Physical exam Narrative exam: General appearance: Present: mild distress, Otherwise stable - EENT Eyes: Present: PERRL, EOM intact ENT: hearing intact, clear oral mucosa, dentition normal, oropharyngeal erythema, no poor dentition, no thrush - Neck Neck: Present: supple, normal ROM - Respiratory Respiratory: bilateral: diminished, rhonchi - Cardiovascular Rhythm: regular Heart Sounds: Present: S1 & S2 - Extremities Extremities: no ischemia, Full ROM Extremity abnormal: edema, erythema, tenderness Peripheral Pulses: within normal limits - Abdominal General gastrointestinal: soft, tender, non-distended, hypoactive bowel sounds, other (marked edema), no hepatomegaly, no splenomegaly - Integumentary Integumentary: Present: erythema. Absent: jaundice, rash, clammy, normal turgor +3 pitting edema and generalized anasacar - Psychiatric Psychiatric: appropriate mood/affect, intact judgment & insight, cooperative - Neurologic Neurologic: CNII-XII intact, moves all extremities - Constitutional Vitals: Temp Pulse Resp BP Pulse Ox 99.8 F H 107 H 18 114/61 92 01/07/19 11:22 01/07/19 13:00 01/07/19 11:22 01/07/19 12:26 01/07/19 13:56 General appearance: Present: mild distress Results - Labs CBC & Chem 7: 01/07/19 08:50 01/07/19 08:50 Labs: Laboratory Last Values WBC 5.1 K/mm3 (4.5-11.0) 01/07/19 08:50 RBC 4.49 M/mm3 (3.65-5.03) 01/07/19 08:50 Hgb 12.7 gm/dl (10.1-14.3) 01/07/19 08:50 Hct 41.0 % (30.3-42.9) 01/07/19 08:50 MCV 91 fl (79-97) 01/07/19 08:50 MCH 28 pg (28-32) 01/07/19 08:50 MCHC 31 % (30-34) 01/07/19 08:50 RDW 23.3 % (13.2-15.2) H 01/07/19 08:50 Plt Count 165 K/mm3 (140-440) 01/07/19 08:50 Baso % (Auto) Electrolysis Operator 01/07/19 08:50 Add Manual Diff Complete 01/07/19 08:50 Total Counted 100 01/07/19 08:50 Seg Neuts % (Manual) 84.0 % (40.0-70.0) H 01/07/19 08:50 Band Neutrophils % 0 % 01/07/19 08:50 Lymphocytes % (Manual) 15.0 % (13.4-35.0) 01/07/19 08:50 Reactive Lymphs % (Man) 0 % 01/07/19 08:50 Monocytes % (Manual) 1.0 % (0.0-7.3) 01/07/19 08:50 Eosinophils % (Manual) 0 % (0.0-4.3) 01/07/19 08:50 Basophils % (Manual) 0 % (0.0-1.8) 01/07/19 08:50 Metamyelocytes % 0 % 01/07/19 08:50 Myelocytes % 0 % 01/07/19 08:50 Promyelocytes % 0 % 01/07/19 08:50 Blast Cells % 0 % 01/07/19 08:50 Nucleated RBC % 5.0 % (0.0-0.9) H 01/07/19 08:50 Seg Neutrophils # Man 4.3 K/mm3 (1.8-7.7) 01/07/19 08:50 Band Neutrophils # 0.0 K/mm3 01/07/19 08:50 Lymphocytes # (Manual) 0.8 K/mm3 (1.2-5.4) L 01/07/19 08:50 Abs React Lymphs (Man) 0.0 K/mm3 01/07/19 08:50 Monocytes # (Manual) 0.1 K/mm3 (0.0-0.8) 01/07/19 08:50 Eosinophils # (Manual) 0.0 K/mm3 (0.0-0.4) 01/07/19 08:50 Basophils # (Manual) 0.0 K/mm3 (0.0-0.1) 01/07/19 08:50 Metamyelocytes # 0.0 K/mm3 01/07/19 08:50 Myelocytes # 0.0 K/mm3 01/07/19 08:50 Promyelocytes # 0.0 K/mm3 01/07/19 08:50 Blast Cells # 0.0 K/mm3 01/07/19 08:50 WBC Morphology Not Reportable 01/07/19 08:50 Hypersegmented Neuts Not Reportable 01/07/19 08:50 Hyposegmented Neuts Not Reportable 01/07/19 08:50 Hypogranular Neuts Not Reportable 01/07/19 08:50 Smudge Cells Not Reportable 01/07/19 08:50 Toxic Granulation Not Reportable 01/07/19 08:50 Toxic Vacuolation Not Reportable 01/07/19 08:50 Dohle Bodies Not Reportable 01/07/19 08:50 Pelger-Huet Anomaly Not Reportable 01/07/19 08:50 Clarissa Rods Not Reportable 01/07/19 08:50 Platelet Estimate Consistent w auto 01/07/19 08:50 Clumped Platelets Not Reportable 01/07/19 08:50 Plt Clumps, EDTA Not Reportable 01/07/19 08:50 Large Platelets Few 01/07/19 08:50 Giant Platelets Not Reportable 01/07/19 08:50 Platelet Satelliting Not Reportable 01/07/19 08:50 Plt Morphology Comment Not Reportable 01/07/19 08:50 RBC Morphology Not Reportable 01/07/19 08:50 Dimorphic RBCs Not Reportable 01/07/19 08:50 Polychromasia Not Reportable 01/07/19 08:50 Hypochromasia Not Reportable 01/07/19 08:50 Poikilocytosis Few 01/07/19 08:50 Anisocytosis 2+ 01/07/19 08:50 Microcytosis Rare 01/07/19 08:50 Macrocytosis Not Reportable 01/07/19 08:50 Spherocytes Not Reportable 01/07/19 08:50 Pappenheimer Bodies Not Reportable 01/07/19 08:50 Sickle Cells Not Reportable 01/07/19 08:50 Target Cells Not Reportable 01/07/19 08:50 Tear Drop Cells Not Reportable 01/07/19 08:50 Ovalocytes Not Reportable 01/07/19 08:50 Helmet Cells Not Reportable 01/07/19 08:50 Boudreaux[employer] Bodies Not Reportable 01/07/19 08:50 [place] Rings Not Reportable 01/07/19 08:50 [place] Cells Not Reportable 01/07/19 08:50 Bite Cells Not Reportable 01/07/19 08:50 Crenated Cell Not Reportable 01/07/19 08:50 Elliptocytes Not Reportable 01/07/19 08:50 Acanthocytes (Spur) Not Reportable 01/07/19 08:50 Rouleaux Not Reportable 01/07/19 08:50 Hemoglobin C Crystals Not Reportable 01/07/19 08:50 Schistocytes Not Reportable 01/07/19 08:50 Malaria parasites Not Reportable 01/07/19 08:50 Dieter Bodies Not Reportable 01/07/19 08:50 Hem Pathologist Commnt No 01/07/19 08:50 POC ABG pH 7.337 (7.35-7.45) L 01/06/19 02:31 POC ABG pCO2 63.5 (35-45) H 01/06/19 02:31 POC ABG pO2 52 (80-105) L 01/06/19 02:31 POC ABG HCO3 34.0 (22-26 mml/L) 01/06/19 02:31 POC ABG Total CO2 36 (23-27mmol/L) 01/06/19 02:31 POC ABG O2 Sat 83 01/06/19 02:31 POC ABG Base Excess 8 ((-2) - (+3)mmol/L) 01/06/19 02:31 FiO2 21 % 01/06/19 02:31 Sodium 141 mmol/L (137-145) 01/07/19 08:50 Potassium 4.0 mmol/L (3.6-5.0) 01/07/19 08:50 Chloride 97.5 mmol/L (98-107) L 01/07/19 08:50 Carbon Dioxide 27 mmol/L (22-30) 01/07/19 08:50 Anion Gap 21 mmol/L 01/07/19 08:50 BUN 19 mg/dL (7-17) H 01/07/19 08:50 Creatinine 0.9 mg/dL (0.7-1.2) 01/07/19 08:50 Estimated GFR > 60 ml/min 01/07/19 08:50 BUN/Creatinine Ratio 21 % 01/07/19 08:50 Glucose 125 mg/dL (65-100) H 01/07/19 08:50 Lactic Acid 1.30 mmol/L (0.7-2.0) 01/06/19 03:20 Calcium 8.1 mg/dL (8.4-10.2) L 01/07/19 08:50 Total Bilirubin 0.80 mg/dL (0.1-1.2) 01/06/19 00:12 AST 46 units/L (5-40) H 01/06/19 00:12 ALT 35 units/L (7-56) 01/06/19 00:12 Alkaline Phosphatase 140 units/L (35-129) H 01/06/19 00:12 Total Creatine Kinase 117 units/L (30-135) 01/06/19 13:18 CK-MB (CK-2) 3.1 ng/mL (0.0-4.0) 01/06/19 13:18 CK-MB (CK-2) Rel Index 2.6 (0-4) 01/06/19 13:18 Troponin T < 0.010 ng/mL (0.00-0.029) 01/06/19 13:18 NT-Pro-B Natriuret Pep 4050 pg/mL (0-900) H 01/05/19 23:41 Total Protein 7.3 g/dL (6.3-8.2) 01/06/19 00:12 Albumin 2.8 g/dL (3.9-5) L 01/06/19 00:12 Albumin/Globulin Ratio 0.6 % 01/06/19 00:12 Urine Color Yellow (Yellow) 01/06/19 05:00 Urine Turbidity Clear (Clear) 01/06/19 05:00 Urine pH 5.0 (5.0-7.0) 01/06/19 05:00 Ur Specific [place] 1.011 (1.003-1.030) 01/06/19 05:00 Urine Protein 30 mg/dl mg/dL (Negative) 01/06/19 05:00 Urine Glucose (UA) Neg mg/dL (Negative) 01/06/19 05:00 Urine Ketones Neg mg/dL (Negative) 01/06/19 05:00 Urine Blood Sm (Negative) 01/06/19 05:00 Urine Nitrite Neg (Negative) 01/06/19 05:00 Urine Bilirubin Neg (Negative) 01/06/19 05:00 Urine Urobilinogen < 2.0 mg/dL (<2.0) 01/06/19 05:00 Ur Leukocyte Esterase Sm (Negative) 01/06/19 05:00 Urine WBC (Auto) 4.0 /HPF (0.0-6.0) 01/06/19 05:00 Urine RBC (Auto) 4.0 /HPF (0.0-6.0) 01/06/19 05:00 U Epithel Cells (Auto) 2.0 /HPF (0-13.0) 01/06/19 05:00 Urine Bacteria (Auto) 2+ /HPF (Negative) 01/06/19 05:00 Urine Mucus Few /HPF 01/06/19 05:00 Active Medications - Current Medications Current Medications: Generic Name Dose Route Start Last Admin Trade Name Freq PRN Reason Stop Dose Admin Acetaminophen 650 mg 01/06/19 02:30 Tylenol PO Q4H PRN Pain MILD(1-3)/Fever >100.5/BENITEZ Albuterol 2.5 mg 01/06/19 02:30 Proventil IH Q3HRT PRN Shortness Of Breath Docusate Sodium 100 mg 01/06/19 10:00 01/07/19 11:29 Colace PO 100 mg BID IJMI Administration Furosemide 60 mg 01/07/19 12:47 01/07/19 17:56 Lasix IV 60 mg 0600,1800 JIMI Administration Heparin Sodium (Porcine) 5,000 unit 01/06/19 10:00 01/07/19 11:32 Heparin SUB-Q 5,000 unit Q12HR JIMI Administration Ampicillin Sodium/Sulbactam Sodium 1.5 gm in 50 mls @ 100 mls/hr 01/06/19 06:00 01/07/19 17:56 Unasyn/Ns 1.5 Gm/50 Ml IV 100 mls/hr Q6HR JIMI Administration Protocol Lisinopril 2.5 mg 01/06/19 10:00 01/07/19 11:30 Zestril PO Not Given QDAY JIMI Metolazone 2.5 mg 01/08/19 05:30 Zaroxolyn PO 0530 [facility] Metoprolol Tartrate 12.5 mg 01/07/19 12:00 01/07/19 12:26 Metoprolol PO 12.5 mg BID [facility] Administration Nicotine 14 mg 01/06/19 10:00 01/07/19 11:29 Habitrol TD Not Given QDAY [facility] Ondansetron HCl 4 mg 01/06/19 02:30 Zofran IV Q8H PRN Nausea And Vomiting Oxycodone/Acetaminophen 1 tab 01/06/19 02:30 01/06/19 21:07 Percocet 5/325 PO 1 tab Q6H PRN Administration Pain, Moderate (4-6) Sodium Chloride 10 ml 01/06/19 10:00 01/07/19 11:32 Sodium Chloride Flush Syringe 10 Ml IV 10 ml BID JIMI Administration Sodium Chloride 10 ml 01/06/19 02:30 Sodium Chloride Flush Syringe 10 Ml IV PRN PRN LINE FLUSH
[2019-01-07 19:50] LABS: INR 1.2 (0.87-1.13)
[2019-01-08] MEDS: AMPICILLIN/SULBACTA 1.5GM/50ML 1.5 GM/50 ML BAG IV SCH ×4 (05:19→23:05)
[2019-01-08] MEDS ORDERED: metOLazone 2.5 MG TAB PO SCH (05:30)
[2019-01-08] MEDS: FUROSEMIDE 40 MG/4 ML INJ IV SCH ×2 (06:09→17:32)
[2019-01-08 06:18] LABS: BUN/Creatinine Ratio 20; Blood Urea Nitrogen 20 mg/dL (7-17); Calcium 8.2 mg/dL (8.4-10.2); Hemolysis Index 18
[2019-01-08] MEDS: oxyCODONE /ACETAMINOPHEN 5-325MG TAB PO PRN ×2 (08:05→15:30)
[2019-01-08] MEDS: DOCUSATE SODIUM 100 MG CAP PO SCH ×2 (09:27→21:36)
[2019-01-08] MEDS: HEPARIN 5,000 UNIT/1 ML VIAL SUB-Q SCH ×2 (09:28→21:36)
[2019-01-08] MEDS: LISINOPRIL 5 MG TAB PO SCH (09:30)
[2019-01-08] MEDS: METOPROLOL TARTRATE 25 MG TAB PO SCH ×2 (09:32→21:37)
[2019-01-08] MEDS: NICOTINE 14 MG/24 HR PATCH TD SCH (09:32)
--- NOTE | 2019-01-08 09:48 | Cat Scan Report ---
CT BRAIN: 01/07/2019 INDICATION / CLINICAL INFORMATION: Fall. COMPARISON: None available. FINDINGS: BRAIN/INTRACRANIAL STRUCTURES: Unenhanced CT images of the brain demonstrate no evidence of acute int racranial abnormality. Ventricles and sulci are prominent in size, consistent with some mild diffuse cerebral atrophy for ag e. There is no evidence of acute hemorrhage or mass. There are no abnormal extra-axial fluid collections . EXTRACRANIAL STRUCTURES: Unremarkable. IMPRESSION: No acute abnormality. All CT scans at this location are performed using dose reduction to ALARA by means of automated expos ure control. Signer Name: Mk Mary MD Signed: 01/07/2019 10:01 PM Workstation Name: [id number]
--- NOTE | 2019-01-08 11:24 | Progress Note ---
Assessment and Plan Cont present cardiac management. Cont IV diuretics and increase zaroxolyn dosage. Cont strict I&Os and daily weights and 1500mL fluid restriction. Treatment of cellulitis per primary team. Pt is noted to have EF 20-25%. She states that she has had "heart failure" since 1997 with no prior ischemic evaluation. We will consider ischemic evaluation to r/o ischemic CMP once medically stabilized. The patient has been seen in conjunction with Dr. Gordon who agrees with the assessment and plan of care. - Patient Problems (1) Acute HFrEF (heart failure with reduced ejection fraction) Current Visit: Yes Status: Acute (2) Cardiomyopathy Current Visit: Yes Status: Chronic (3) Anasarca Current Visit: Yes Status: Acute (4) Cellulitis Current Visit: Yes Status: Acute Qualifiers: Site of cellulitis: trunk Site of cellulitis of trunk: abdominal wall Qualified Code(s): L03.311 - Cellulitis of abdominal wall (5) HTN (hypertension) Current Visit: Yes Status: Chronic (6) Morbid obesity Current Visit: Yes Status: Chronic Subjective Date of service: 01/08/19 Principal diagnosis: hf Interval history: pt resting in bed, feeling a little better, edema gradually improving. in ST on tele with HR 100s. Objective Last Vital Signs Temp 98.7 F 01/08/19 07:53 Pulse 74 01/08/19 09:44 Resp 18 01/08/19 07:53 BP 115/73 01/08/19 07:53 Pulse Ox 98 01/08/19 07:53 - Physical Examination General: No Apparent Distress HEENT: Positive: PERRL, Normocephaly, Mucus Membranes Moist Neck: Positive: neck supple, trachea midline Cardiac: Positive: Regular Rhythm, S1/S2 Lungs: Positive: Decreased Breath Sounds Neuro: Positive: Grossly Intact Abdomen: Negative: Tender Skin: Positive: Other (BUE and BLE scattered wounds) Extremities: Present: +4 Edema (BLE into thighs and buttocks) - Labs and Meds Coagulation 01/07/19 Range/Units 19:15 PT 15.1 H (12.2-14.9) Sec. INR 1.20 H (0.87-1.13) Comprehensive Metabolic Panel 01/08/19 Range/Units 04:27 Sodium 141 (137-145) mmol/L Potassium 3.6 (3.6-5.0) mmol/L Chloride 93.5 L (98-107) mmol/L Carbon Dioxide 32 H (22-30) mmol/L BUN 20 H (7-17) mg/dL Creatinine 1.0 (0.7-1.2) mg/dL Glucose 78 (65-100) mg/dL Calcium 8.2 L (8.4-10.2) mg/dL - Imaging and Cardiology EKG: report reviewed, image reviewed Echo: report reviewed (06/2018 showed EF 20-25%, mild LVH, LA mod dilated, RV systolic function mod reduced. ) - Telemetry EKG Rhythm: Sinus Rhythm - EKG Sinus rhythms and dysrhythmias: sinus rhythm
--- NOTE | 2019-01-08 12:10 | Progress Note ---
Assessment and Plan Assessment and plan: 58 years old presents with profound edema and ascites most likely secondary to congestive heart failure. - Patient Problems (1) Acute HFrEF (heart failure with reduced ejection fraction) Current Visit: Yes Status: Acute Plan to address problem: Patient last known ejection fraction several months ago 20%. Patient has marked edema bilateral lower extremities as well as abdomen, breast, back, thighs appears this edema has progressively gotten worse. LASIX 60MG IV BID. PER PATIENT THIS HELPS WHENEVER SHE IS HOSPITALIZED. Zaroxolyn has been added will see us she responds to this. I think hospitalization maybe longer than previously thought secondary to the amount of edema Patient clearly is uncomfortable. An ascites is the reason patient has shortness of breath and the breast edema and the cellulitis as well. Ischemic work up planned by cardiology for the am * Fell overnight * Some confusion reported but now resloved * Complains of Itch in the leg (2) Cellulitis Current Visit: Yes Status: Acute Qualifiers: Site of cellulitis: trunk Site of cellulitis of trunk: abdominal wall Qualified Code(s): L03.311 - Cellulitis of abdominal wall Plan to address problem: Secondary to severe ascites and lower extremity edema. Will require diuresis. Treat cellulitis with IV antibiotics. Follow culture data. Strict elevation of legs bed rest for the most part with leg elevation for the next several days. (3) Nicotine dependence with withdrawal Current Visit: No Status: Acute Qualifiers: Nicotine product type: cigarettes Qualified Code(s): F17.213 - Nicotine dependence, cigarettes, with withdrawal Plan to address problem: Add nicotine patch. (4) Obesity hypoventilation syndrome Current Visit: No Status: Acute Plan to address problem: Patient with obesity hypertension syndrome. Weight loss dietary modifications have been discussed. (5) ANASCAR/Ascites Current Visit: Yes Status: Acute Plan to address problem: ANASCAR LIKELY SECONDARY TO SEVERE FLUID OVERLOAD. SMALL ASCITES IS NOTED (6) HTN (hypertension) Current Visit: Yes Status: Chronic Plan to address problem: Patient very well-controlled on current antihypertensives. (7) Morbid obesity Current Visit: Yes Status: Chronic Plan to address problem: Diet weight education Multiple ulceration in the bilateral legs. POA. wound care consult FALL- HEAD CT PENDING History Interval history: Patient 58 years old with a history of CHF last known ejection fraction 20-25%, hypertension, obesity, tobacco dependency presents with worsening shortness of breath and edema with abdominal pain and lower extremity wounds over approximate 2 week period of time. some improvement but overnight was reported to have had a fall and was intermittently confused although prior to the fall. The patient at this time shows no changes in mental status, and reports itiching bilateral lower ext. Hospitalist Physical - Physical exam Narrative exam: General appearance: Present: mild distress, Otherwise stable - EENT Eyes: Present: PERRL, EOM intact ENT: hearing intact, clear oral mucosa, dentition normal, oropharyngeal erythema, no poor dentition, no thrush - Neck Neck: Present: supple, normal ROM - Respiratory Respiratory: bilateral: diminished, rhonchi - Cardiovascular Rhythm: regular Heart Sounds: Present: S1 & S2 - Extremities Extremities: no ischemia, Full ROM Extremity abnormal: edema, erythema, tenderness Peripheral Pulses: within normal limits - Abdominal General gastrointestinal: soft, tender, non-distended, hypoactive bowel sounds, other (marked edema), no hepatomegaly, no splenomegaly - Integumentary Integumentary: Present: erythema. Absent: jaundice, rash, clammy, normal turgor +3 pitting edema and generalized anasacar with ulceration - Psychiatric Psychiatric: appropriate mood/affect, intact judgment & insight, cooperative - Neurologic Neurologic: CNII-XII intact, moves all extremities - Constitutional Vitals: Temp Pulse Resp BP Pulse Ox 98.7 F 74 18 115/73 98 01/08/19 07:53 01/08/19 09:44 01/08/19 07:53 01/08/19 07:53 01/08/19 07:53 General appearance: Present: mild distress Results - Labs CBC & Chem 7: 01/09/19 04:19 01/09/19 04:19 Labs: Laboratory Last Values WBC 5.1 K/mm3 (4.5-11.0) 01/07/19 08:50 RBC 4.49 M/mm3 (3.65-5.03) 01/07/19 08:50 Hgb 12.7 gm/dl (10.1-14.3) 01/07/19 08:50 Hct 41.0 % (30.3-42.9) 01/07/19 08:50 MCV 91 fl (79-97) 01/07/19 08:50 MCH 28 pg (28-32) 01/07/19 08:50 MCHC 31 % (30-34) 01/07/19 08:50 RDW 23.3 % (13.2-15.2) H 01/07/19 08:50 Plt Count 165 K/mm3 (140-440) 01/07/19 08:50 Baso % (Auto) Accounts Payable Bookkeeper 01/07/19 08:50 Add Manual Diff Complete 01/07/19 08:50 Total Counted 100 01/07/19 08:50 Seg Neuts % (Manual) 84.0 % (40.0-70.0) H 01/07/19 08:50 Band Neutrophils % 0 % 01/07/19 08:50 Lymphocytes % (Manual) 15.0 % (13.4-35.0) 01/07/19 08:50 Reactive Lymphs % (Man) 0 % 01/07/19 08:50 Monocytes % (Manual) 1.0 % (0.0-7.3) 01/07/19 08:50 Eosinophils % (Manual) 0 % (0.0-4.3) 01/07/19 08:50 Basophils % (Manual) 0 % (0.0-1.8) 01/07/19 08:50 Metamyelocytes % 0 % 01/07/19 08:50 Myelocytes % 0 % 01/07/19 08:50 Promyelocytes % 0 % 01/07/19 08:50 Blast Cells % 0 % 01/07/19 08:50 Nucleated RBC % 5.0 % (0.0-0.9) H 01/07/19 08:50 Seg Neutrophils # Man 4.3 K/mm3 (1.8-7.7) 01/07/19 08:50 Band Neutrophils # 0.0 K/mm3 01/07/19 08:50 Lymphocytes # (Manual) 0.8 K/mm3 (1.2-5.4) L 01/07/19 08:50 Abs React Lymphs (Man) 0.0 K/mm3 01/07/19 08:50 Monocytes # (Manual) 0.1 K/mm3 (0.0-0.8) 01/07/19 08:50 Eosinophils # (Manual) 0.0 K/mm3 (0.0-0.4) 01/07/19 08:50 Basophils # (Manual) 0.0 K/mm3 (0.0-0.1) 01/07/19 08:50 Metamyelocytes # 0.0 K/mm3 01/07/19 08:50 Myelocytes # 0.0 K/mm3 01/07/19 08:50 Promyelocytes # 0.0 K/mm3 01/07/19 08:50 Blast Cells # 0.0 K/mm3 01/07/19 08:50 WBC Morphology Not Reportable 01/07/19 08:50 Hypersegmented Neuts Not Reportable 01/07/19 08:50 Hyposegmented Neuts Not Reportable 01/07/19 08:50 Hypogranular Neuts Not Reportable 01/07/19 08:50 Smudge Cells Not Reportable 01/07/19 08:50 Toxic Granulation Not Reportable 01/07/19 08:50 Toxic Vacuolation Not Reportable 01/07/19 08:50 Dohle Bodies Not Reportable 01/07/19 08:50 Pelger-Huet Anomaly Not Reportable 01/07/19 08:50 Clarissa Rods Not Reportable 01/07/19 08:50 Platelet Estimate Consistent w auto 01/07/19 08:50 Clumped Platelets Not Reportable 01/07/19 08:50 Plt Clumps, EDTA Not Reportable 01/07/19 08:50 Large Platelets Few 01/07/19 08:50 Giant Platelets Not Reportable 01/07/19 08:50 Platelet Satelliting Not Reportable 01/07/19 08:50 Plt Morphology Comment Not Reportable 01/07/19 08:50 RBC Morphology Not Reportable 01/07/19 08:50 Dimorphic RBCs Not Reportable 01/07/19 08:50 Polychromasia Not Reportable 01/07/19 08:50 Hypochromasia Not Reportable 01/07/19 08:50 Poikilocytosis Few 01/07/19 08:50 Anisocytosis 2+ 01/07/19 08:50 Microcytosis Rare 01/07/19 08:50 Macrocytosis Not Reportable 01/07/19 08:50 Spherocytes Not Reportable 01/07/19 08:50 Pappenheimer Bodies Not Reportable 01/07/19 08:50 Sickle Cells Not Reportable 01/07/19 08:50 Target Cells Not Reportable 01/07/19 08:50 Tear Drop Cells Not Reportable 01/07/19 08:50 Ovalocytes Not Reportable 01/07/19 08:50 Helmet Cells Not Reportable 01/07/19 08:50 [place] Bodies Not Reportable 01/07/19 08:50 [place] Rings Not Reportable 01/07/19 08:50 [place] Cells Not Reportable 01/07/19 08:50 Bite Cells Not Reportable 01/07/19 08:50 Crenated Cell Not Reportable 01/07/19 08:50 Elliptocytes Not Reportable 01/07/19 08:50 Acanthocytes (Spur) Not Reportable 01/07/19 08:50 Rouleaux Not Reportable 01/07/19 08:50 Hemoglobin C Crystals Not Reportable 01/07/19 08:50 Schistocytes Not Reportable 01/07/19 08:50 Malaria parasites Not Reportable 01/07/19 08:50 Dieter Bodies Not Reportable 01/07/19 08:50 Hem Pathologist Commnt No 01/07/19 08:50 PT 15.1 Sec. (12.2-14.9) H 01/07/19 19:15 INR 1.20 (0.87-1.13) H 01/07/19 19:15 POC ABG pH 7.337 (7.35-7.45) L 01/06/19 02:31 POC ABG pCO2 63.5 (35-45) H 01/06/19 02:31 POC ABG pO2 52 (80-105) L 01/06/19 02:31 POC ABG HCO3 34.0 (22-26 mml/L) 01/06/19 02:31 POC ABG Total CO2 36 (23-27mmol/L) 01/06/19 02:31 POC ABG O2 Sat 83 01/06/19 02:31 POC ABG Base Excess 8 ((-2) - (+3)mmol/L) 01/06/19 02:31 FiO2 21 % 01/06/19 02:31 Sodium 141 mmol/L (137-145) 01/08/19 04:27 Potassium 3.6 mmol/L (3.6-5.0) 01/08/19 04:27 Chloride 93.5 mmol/L (98-107) L 01/08/19 04:27 Carbon Dioxide 32 mmol/L (22-30) H 01/08/19 04:27 Anion Gap 19 mmol/L 01/08/19 04:27 BUN 20 mg/dL (7-17) H 01/08/19 04:27 Creatinine 1.0 mg/dL (0.7-1.2) 01/08/19 04:27 Estimated GFR > 60 ml/min 01/08/19 04:27 BUN/Creatinine Ratio 20 % 01/08/19 04:27 Glucose 78 mg/dL (65-100) 01/08/19 04:27 Lactic Acid 1.30 mmol/L (0.7-2.0) 01/06/19 03:20 Calcium 8.2 mg/dL (8.4-10.2) L 01/08/19 04:27 Total Bilirubin 0.80 mg/dL (0.1-1.2) 01/06/19 00:12 AST 46 units/L (5-40) H 01/06/19 00:12 ALT 35 units/L (7-56) 01/06/19 00:12 Alkaline Phosphatase 140 units/L (35-129) H 01/06/19 00:12 Total Creatine Kinase 117 units/L (30-135) 01/06/19 13:18 CK-MB (CK-2) 3.1 ng/mL (0.0-4.0) 01/06/19 13:18 CK-MB (CK-2) Rel Index 2.6 (0-4) 01/06/19 13:18 Troponin T < 0.010 ng/mL (0.00-0.029) 01/06/19 13:18 NT-Pro-B Natriuret Pep 4050 pg/mL (0-900) H 01/05/19 23:41 Total Protein 7.3 g/dL (6.3-8.2) 01/06/19 00:12 Albumin 2.8 g/dL (3.9-5) L 01/06/19 00:12 Albumin/Globulin Ratio 0.6 % 01/06/19 00:12 Urine Color Yellow (Yellow) 01/06/19 05:00 Urine Turbidity Clear (Clear) 01/06/19 05:00 Urine pH 5.0 (5.0-7.0) 01/06/19 05:00 Ur Specific Sharps 1.011 (1.003-1.030) 01/06/19 05:00 Urine Protein 30 mg/dl mg/dL (Negative) 01/06/19 05:00 Urine Glucose (UA) Neg mg/dL (Negative) 01/06/19 05:00 Urine Ketones Neg mg/dL (Negative) 01/06/19 05:00 Urine Blood Sm (Negative) 01/06/19 05:00 Urine Nitrite Neg (Negative) 01/06/19 05:00 Urine Bilirubin Neg (Negative) 01/06/19 05:00 Urine Urobilinogen < 2.0 mg/dL (<2.0) 01/06/19 05:00 Ur Leukocyte Esterase Sm (Negative) 01/06/19 05:00 Urine WBC (Auto) 4.0 /HPF (0.0-6.0) 01/06/19 05:00 Urine RBC (Auto) 4.0 /HPF (0.0-6.0) 01/06/19 05:00 U Epithel Cells (Auto) 2.0 /HPF (0-13.0) 01/06/19 05:00 Urine Bacteria (Auto) 2+ /HPF (Negative) 01/06/19 05:00 Urine Mucus Few /HPF 01/06/19 05:00 Active Medications - Current Medications Current Medications: Generic Name Dose Route Start Last Admin Trade Name Freq PRN Reason Stop Dose Admin Acetaminophen 650 mg 01/06/19 02:30 Tylenol PO Q4H PRN Pain MILD(1-3)/Fever >100.5/BENITEZ Albuterol 2.5 mg 01/06/19 02:30 Proventil IH Q3HRT PRN Shortness Of Breath Docusate Sodium 100 mg 01/06/19 10:00 01/08/19 09:27 Colace PO 100 mg BID JIMI Administration Furosemide 60 mg 01/07/19 12:47 01/08/19 06:09 Lasix IV 60 mg 0600,1800 JIMI Administration Heparin Sodium (Porcine) 5,000 unit 01/06/19 10:00 01/08/19 09:28 Heparin SUB-Q 5,000 unit Q12HR JIMI Administration Ampicillin Sodium/Sulbactam Sodium 1.5 gm in 50 mls @ 100 mls/hr 01/06/19 06:00 01/08/19 05:19 Unasyn/Ns 1.5 Gm/50 Ml IV 100 mls/hr Q6HR JIMI Administration Protocol Lisinopril 2.5 mg 01/06/19 10:00 01/08/19 09:30 Zestril PO Not Given QDAY [facility] Metolazone 5 mg 01/09/19 05:[address] [facility] Metoprolol Tartrate 12.5 mg 01/07/19 12:00 01/08/19 09:32 Metoprolol PO Not Given BID [facility] Nicotine 14 mg 01/06/19 10:00 01/08/19 09:32 Habitrol TD Not Given QDAY [facility] Ondansetron HCl 4 mg 01/06/19 02:30 Zofran IV Q8H PRN Nausea And Vomiting Oxycodone/Acetaminophen 1 tab 01/06/19 02:30 01/08/19 08:05 Percocet 5/325 PO 1 tab Q6H PRN Administration Pain, Moderate (4-6) Sodium Chloride 10 ml 01/06/19 10:00 01/08/19 09:44 Sodium Chloride Flush Syringe 10 Ml IV Not Given BID JIMI Sodium Chloride 10 ml 01/06/19 02:30 Sodium Chloride Flush Syringe 10 Ml IV PRN PRN LINE FLUSH
[2019-01-08] MEDS: diphenhydrAMINE/ZINC ACET 2% CREAM 28.4 GM TP PRN (13:56)
[2019-01-09] MEDS: diphenhydrAMINE 25 MG CAP PO PRN (00:17)
[2019-01-09 04:41] LABS: Hematocrit 40.7 % (30.3-42.9); Hemoglobin 12.6 gm/dl (10.1-14.3); Mean Corpuscular HGB Conc 31 % (30-34); Mean Corpuscular Volume 92 fl (79-97); Platelet Count 187 K/mm3 (140-440); Red Blood Count 4.45 M/mm3 (3.65-5.03)
[2019-01-09 04:43] LABS: Red Cell Distribution Width 22.3 % (13.2-15.2)
[2019-01-09] MEDS: metOLazone 2.5 MG TAB PO SCH (05:05)
[2019-01-09 05:06] LABS: BUN/Creatinine Ratio 22; Blood Urea Nitrogen 24 mg/dL (7-17); Calcium 8.2 mg/dL (8.4-10.2); Hemolysis Index 44
[2019-01-09] MEDS: AMPICILLIN/SULBACTA 1.5GM/50ML 1.5 GM/50 ML BAG IV SCH ×3 (05:06→17:49)
[2019-01-09] MEDS: FUROSEMIDE 40 MG/4 ML INJ IV SCH ×2 (05:06→17:42)
[2019-01-09] MEDS: LISINOPRIL 5 MG TAB PO SCH (09:43)
[2019-01-09] MEDS: DOCUSATE SODIUM 100 MG CAP PO SCH ×2 (09:43→21:10)
[2019-01-09] MEDS: NICOTINE 14 MG/24 HR PATCH TD SCH (09:44)
[2019-01-09] MEDS: METOPROLOL TARTRATE 25 MG TAB PO SCH (09:45)
[2019-01-09] MEDS: HEPARIN 5,000 UNIT/1 ML VIAL SUB-Q SCH ×2 (09:46→21:10)
--- NOTE | 2019-01-09 10:43 | Progress Note ---
Assessment and Plan The patient remains fluid overloaded. Encouraged compliance with prescribed medication regimen, and patient agreed. Tachycardia likely physiologic. Continue current management - avoid beta blockers d/t allergy. The patient has been seen in conjunction with Dr. Cyndi Isbell, who agrees with the assessment and plan. - Patient Problems (1) Acute HFrEF (heart failure with reduced ejection fraction) Current Visit: Yes Status: Acute (2) Anasarca Current Visit: Yes Status: Acute (3) Cellulitis Current Visit: Yes Status: Acute Qualifiers: Qualified Code(s): L03.311 - Cellulitis of abdominal wall (4) Cardiomyopathy Current Visit: Yes Status: Chronic (5) HTN (hypertension) Current Visit: Yes Status: Chronic (6) Morbid obesity Current Visit: Yes Status: Chronic Subjective Date of service: 01/09/19 Principal diagnosis: hf Interval history: The patient is sitting up in bed in NAD. She c/o fluid overload. Per RN, she refused zaroxolyn this morning. Telemetry reviewed - ST in 100s with PACs. Objective Last Vital Signs Temp 98.7 F 01/09/19 07:35 Pulse 102 H 01/09/19 10:00 Resp 18 01/09/19 07:35 BP 105/64 01/09/19 07:35 Pulse Ox 96 01/09/19 09:04 - Physical Examination General: Appears Well, No Apparent Distress HEENT: Positive: PERRL, Normocephaly, Mucus Membranes Moist Neck: Positive: neck supple, trachea midline Cardiac: Positive: Regular Rhythm Lungs: Positive: Normal Exam Neuro: Positive: Grossly Intact Abdomen: Positive: Unremarkable. Negative: Tender /Rectal: Other (deferred) Skin: Positive: Other (BUE and BLE scattered wounds) Musculoskeletal: No Pain Extremities: Present: +3 Edema - Labs and Meds CBC 01/09/19 Range/Units 04:19 WBC 6.0 (4.5-11.0) K/mm3 RBC 4.45 (3.65-5.03) M/mm3 Hgb 12.6 (10.1-14.3) gm/dl Hct 40.7 (30.3-42.9) % Plt Count 187 (140-440) K/mm3 Comprehensive Metabolic Panel 01/09/19 Range/Units 04:19 Sodium 134 L (137-145) mmol/L Potassium 4.2 (3.6-5.0) mmol/L Chloride 95.2 L (98-107) mmol/L Carbon Dioxide 27 (22-30) mmol/L BUN 24 H (7-17) mg/dL Creatinine 1.1 (0.7-1.2) mg/dL Glucose 98 (65-100) mg/dL Calcium 8.2 L (8.4-10.2) mg/dL - Imaging and Cardiology EKG: report reviewed, image reviewed Echo: report reviewed (06/2018 showed EF 20-25%, mild LVH, LA mod dilated, RV systolic function mod reduced. ) - Telemetry EKG Rhythm: Sinus Tachycardia (with PACs) - EKG Sinus rhythms and dysrhythmias: sinus rhythm
--- NOTE | 2019-01-09 12:32 | Progress Note ---
Assessment and Plan Assessment and plan: 58 years old presents with profound edema and ascites most likely secondary to congestive heart failure. - Patient Problems (1) Acute HFrEF (heart failure with reduced ejection fraction) Current Visit: Yes Status: Acute Plan to address problem: Patient last known ejection fraction several months ago 20%. Patient has marked edema bilateral lower extremities as well as abdomen, breast, back, thighs appears this edema has progressively gotten worse. LASIX 60MG IV BID. PER PATIENT THIS HELPS WHENEVER SHE IS HOSPITALIZED. Zaroxolyn has been added will see us she responds to this. I think hospitalization maybe longer than previously thought secondary to the amount of edema Patient clearly is uncomfortable. An ascites is the reason patient has shortness of breath and the breast edema and the cellulitis as well. Ischemic work up planned by cardiology for the am * Fell overnight 01/08/19 * Some confusion reported but now resolved * Complains of Itch in the leg * BB stopped due to allergy * ischemic work up prior to discharged (2) Cellulitis Current Visit: Yes Status: Acute Qualifiers: Site of cellulitis: trunk Site of cellulitis of trunk: abdominal wall Qualified Code(s): L03.311 - Cellulitis of abdominal wall Plan to address problem: Secondary to severe ascites and lower extremity edema. Will require diuresis. Treat cellulitis with IV antibiotics. Follow culture data. Strict elevation of legs bed rest for the most part with leg elevation for the next several days. (3) Nicotine dependence with withdrawal Current Visit: No Status: Acute Qualifiers: Nicotine product type: cigarettes Qualified Code(s): F17.213 - Nicotine dependence, cigarettes, with withdrawal Plan to address problem: Add nicotine patch. (4) Obesity hypoventilation syndrome Current Visit: No Status: Acute Plan to address problem: Patient with obesity hypertension syndrome. Weight loss dietary modifications have been discussed. (5) ANASCAR/Ascites Current Visit: Yes Status: Acute Plan to address problem: ANASCAR LIKELY SECONDARY TO SEVERE FLUID OVERLOAD. SMALL ASCITES IS NOTED (6) HTN (hypertension) Current Visit: Yes Status: Chronic Plan to address problem: Patient very well-controlled on current antihypertensives. (7) Morbid obesity Current Visit: Yes Status: Chronic Plan to address problem: Diet weight education Multiple ulceration in the bilateral legs. POA. wound care consult FALL- HEAD CT PENDING History Interval history: Patient 58 years old with a history of CHF last known ejection fraction 20-25%, hypertension, obesity, tobacco dependency presents with worsening shortness of breath and edema with abdominal pain and lower extremity wounds over approximate 2 week period of time. No new complaints Hospitalist Physical - Physical exam Narrative exam: General appearance: Present: mild distress, Otherwise stable - EENT Eyes: Present: PERRL, EOM intact ENT: hearing intact, clear oral mucosa, dentition normal, oropharyngeal erythema, no poor dentition, no thrush - Neck Neck: Present: supple, normal ROM - Respiratory Respiratory: bilateral: diminished, rhonchi - Cardiovascular Rhythm: regular Heart Sounds: Present: S1 & S2 - Extremities Extremities: no ischemia, Full ROM Extremity abnormal: edema, erythema, tenderness Peripheral Pulses: within normal limits - Abdominal General gastrointestinal: soft, tender, non-distended, hypoactive bowel sounds, other (marked edema), no hepatomegaly, no splenomegaly - Integumentary Integumentary: Present: erythema. Absent: jaundice, rash, clammy, normal turgor +3 pitting edema and generalized anasacar with ulceration - Psychiatric Psychiatric: appropriate mood/affect, intact judgment & insight, cooperative - Neurologic Neurologic: CNII-XII intact, moves all extremities - Constitutional Vitals: Temp Pulse Resp BP Pulse Ox 98.7 F 102 H 18 105/64 96 01/09/19 07:35 01/09/19 10:00 01/09/19 07:35 01/09/19 07:35 01/09/19 09:04 General appearance: Present: mild distress Results - Labs CBC & Chem 7: 01/09/19 04:19 01/10/19 06:36 Labs: Laboratory Last Values WBC 6.0 K/mm3 (4.5-11.0) 01/09/19 04:19 RBC 4.45 M/mm3 (3.65-5.03) 01/09/19 04:19 Hgb 12.6 gm/dl (10.1-14.3) 01/09/19 04:19 Hct 40.7 % (30.3-42.9) 01/09/19 04:19 MCV 92 fl (79-97) 01/09/19 04:19 MCH 28 pg (28-32) 01/09/19 04:19 MCHC 31 % (30-34) 01/09/19 04:19 RDW 22.3 % (13.2-15.2) H 01/09/19 04:19 Plt Count 187 K/mm3 (140-440) 01/09/19 04:19 Baso % (Auto) Jointer Machine 01/07/19 08:50 Add Manual Diff Complete 01/07/19 08:50 Total Counted 100 01/07/19 08:50 Seg Neuts % (Manual) 84.0 % (40.0-70.0) H 01/07/19 08:50 Band Neutrophils % 0 % 01/07/19 08:50 Lymphocytes % (Manual) 15.0 % (13.4-35.0) 01/07/19 08:50 Reactive Lymphs % (Man) 0 % 01/07/19 08:50 Monocytes % (Manual) 1.0 % (0.0-7.3) 01/07/19 08:50 Eosinophils % (Manual) 0 % (0.0-4.3) 01/07/19 08:50 Basophils % (Manual) 0 % (0.0-1.8) 01/07/19 08:50 Metamyelocytes % 0 % 01/07/19 08:50 Myelocytes % 0 % 01/07/19 08:50 Promyelocytes % 0 % 01/07/19 08:50 Blast Cells % 0 % 01/07/19 08:50 Nucleated RBC % 5.0 % (0.0-0.9) H 01/07/19 08:50 Seg Neutrophils # Man 4.3 K/mm3 (1.8-7.7) 01/07/19 08:50 Band Neutrophils # 0.0 K/mm3 01/07/19 08:50 Lymphocytes # (Manual) 0.8 K/mm3 (1.2-5.4) L 01/07/19 08:50 Abs React Lymphs (Man) 0.0 K/mm3 01/07/19 08:50 Monocytes # (Manual) 0.1 K/mm3 (0.0-0.8) 01/07/19 08:50 Eosinophils # (Manual) 0.0 K/mm3 (0.0-0.4) 01/07/19 08:50 Basophils # (Manual) 0.0 K/mm3 (0.0-0.1) 01/07/19 08:50 Metamyelocytes # 0.0 K/mm3 01/07/19 08:50 Myelocytes # 0.0 K/mm3 01/07/19 08:50 Promyelocytes # 0.0 K/mm3 01/07/19 08:50 Blast Cells # 0.0 K/mm3 01/07/19 08:50 WBC Morphology Not Reportable 01/07/19 08:50 Hypersegmented Neuts Not Reportable 01/07/19 08:50 Hyposegmented Neuts Not Reportable 01/07/19 08:50 Hypogranular Neuts Not Reportable 01/07/19 08:50 Smudge Cells Not Reportable 01/07/19 08:50 Toxic Granulation Not Reportable 01/07/19 08:50 Toxic Vacuolation Not Reportable 01/07/19 08:50 Dohle Bodies Not Reportable 01/07/19 08:50 Pelger-Huet Anomaly Not Reportable 01/07/19 08:50 Clarissa Rods Not Reportable 01/07/19 08:50 Platelet Estimate Consistent w auto 01/07/19 08:50 Clumped Platelets Not Reportable 01/07/19 08:50 Plt Clumps, EDTA Not Reportable 01/07/19 08:50 Large Platelets Few 01/07/19 08:50 Giant Platelets Not Reportable 01/07/19 08:50 Platelet Satelliting Not Reportable 01/07/19 08:50 Plt Morphology Comment Not Reportable 01/07/19 08:50 RBC Morphology Not Reportable 01/07/19 08:50 Dimorphic RBCs Not Reportable 01/07/19 08:50 Polychromasia Not Reportable 01/07/19 08:50 Hypochromasia Not Reportable 01/07/19 08:50 Poikilocytosis Few 01/07/19 08:50 Anisocytosis 2+ 01/07/19 08:50 Microcytosis Rare 01/07/19 08:50 Macrocytosis Not Reportable 01/07/19 08:50 Spherocytes Not Reportable 01/07/19 08:50 Pappenheimer Bodies Not Reportable 01/07/19 08:50 Sickle Cells Not Reportable 01/07/19 08:50 Target Cells Not Reportable 01/07/19 08:50 Tear Drop Cells Not Reportable 01/07/19 08:50 Ovalocytes Not Reportable 01/07/19 08:50 Helmet Cells Not Reportable 01/07/19 08:50 [place] Bodies Not Reportable 01/07/19 08:50 [place] Rings Not Reportable 01/07/19 08:50 [place] Cells Not Reportable 01/07/19 08:50 Bite Cells Not Reportable 01/07/19 08:50 Crenated Cell Not Reportable 01/07/19 08:50 Elliptocytes Not Reportable 01/07/19 08:50 Acanthocytes (Spur) Not Reportable 01/07/19 08:50 Rouleaux Not Reportable 01/07/19 08:50 Hemoglobin C Crystals Not Reportable 01/07/19 08:50 Schistocytes Not Reportable 01/07/19 08:50 Malaria parasites Not Reportable 01/07/19 08:50 Dieter Bodies Not Reportable 01/07/19 08:50 Hem Pathologist Commnt No 01/07/19 08:50 PT 15.1 Sec. (12.2-14.9) H 01/07/19 19:15 INR 1.20 (0.87-1.13) H 01/07/19 19:15 POC ABG pH 7.337 (7.35-7.45) L 01/06/19 02:31 POC ABG pCO2 63.5 (35-45) H 01/06/19 02:31 POC ABG pO2 52 (80-105) L 01/06/19 02:31 POC ABG HCO3 34.0 (22-26 mml/L) 01/06/19 02:31 POC ABG Total CO2 36 (23-27mmol/L) 01/06/19 02:31 POC ABG O2 Sat 83 01/06/19 02:31 POC ABG Base Excess 8 ((-2) - (+3)mmol/L) 01/06/19 02:31 FiO2 21 % 01/06/19 02:31 Sodium 134 mmol/L (137-145) L 01/09/19 04:19 Potassium 4.2 mmol/L (3.6-5.0) 01/09/19 04:19 Chloride 95.2 mmol/L (98-107) L 01/09/19 04:19 Carbon Dioxide 27 mmol/L (22-30) 01/09/19 04:19 Anion Gap 16 mmol/L 01/09/19 04:19 BUN 24 mg/dL (7-17) H 01/09/19 04:19 Creatinine 1.1 mg/dL (0.7-1.2) 01/09/19 04:19 Estimated GFR > 60 ml/min 01/09/19 04:19 BUN/Creatinine Ratio 22 % 01/09/19 04:19 Glucose 98 mg/dL (65-100) 01/09/19 04:19 Lactic Acid 1.30 mmol/L (0.7-2.0) 01/06/19 03:20 Calcium 8.2 mg/dL (8.4-10.2) L 01/09/19 04:19 Total Bilirubin 0.80 mg/dL (0.1-1.2) 01/06/19 00:12 AST 46 units/L (5-40) H 01/06/19 00:12 ALT 35 units/L (7-56) 01/06/19 00:12 Alkaline Phosphatase 140 units/L (35-129) H 01/06/19 00:12 Total Creatine Kinase 117 units/L (30-135) 01/06/19 13:18 CK-MB (CK-2) 3.1 ng/mL (0.0-4.0) 01/06/19 13:18 CK-MB (CK-2) Rel Index 2.6 (0-4) 01/06/19 13:18 Troponin T < 0.010 ng/mL (0.00-0.029) 01/06/19 13:18 NT-Pro-B Natriuret Pep 4050 pg/mL (0-900) H 01/05/19 23:41 Total Protein 7.3 g/dL (6.3-8.2) 01/06/19 00:12 Albumin 2.8 g/dL (3.9-5) L 01/06/19 00:12 Albumin/Globulin Ratio 0.6 % 01/06/19 00:12 Urine Color Yellow (Yellow) 01/06/19 05:00 Urine Turbidity Clear (Clear) 01/06/19 05:00 Urine pH 5.0 (5.0-7.0) 01/06/19 05:00 Ur Specific [place] 1.011 (1.003-1.030) 01/06/19 05:00 Urine Protein 30 mg/dl mg/dL (Negative) 01/06/19 05:00 Urine Glucose (UA) Neg mg/dL (Negative) 01/06/19 05:00 Urine Ketones Neg mg/dL (Negative) 01/06/19 05:00 Urine Blood Sm (Negative) 01/06/19 05:00 Urine Nitrite Neg (Negative) 01/06/19 05:00 Urine Bilirubin Neg (Negative) 01/06/19 05:00 Urine Urobilinogen < 2.0 mg/dL (<2.0) 01/06/19 05:00 Ur Leukocyte Esterase Sm (Negative) 01/06/19 05:00 Urine WBC (Auto) 4.0 /HPF (0.0-6.0) 01/06/19 05:00 Urine RBC (Auto) 4.0 /HPF (0.0-6.0) 01/06/19 05:00 U Epithel Cells (Auto) 2.0 /HPF (0-13.0) 01/06/19 05:00 Urine Bacteria (Auto) 2+ /HPF (Negative) 01/06/19 05:00 Urine Mucus Few /HPF 01/06/19 05:00 Active Medications - Current Medications Current Medications: Generic Name Dose Route Start Last Admin Trade Name Freq PRN Reason Stop Dose Admin Acetaminophen 650 mg 01/06/19 02:30 Tylenol PO Q4H PRN Pain MILD(1-3)/Fever >100.5/BENITEZ Albuterol 2.5 mg 01/06/19 02:30 Proventil IH Q3HRT PRN Shortness Of Breath Diphenhydramine HCl 25 mg 01/09/19 00:08 01/09/19 00:17 Benadryl PO 25 mg QHS PRN Administration Sleep Docusate Sodium 100 mg 01/06/19 10:00 01/09/19 09:43 Colace PO 100 mg BID JIMI Administration Furosemide 60 mg 01/07/19 12:47 01/09/19 05:06 Lasix IV 60 mg 0600,1800 JIMI Administration Heparin Sodium (Porcine) 5,000 unit 01/06/19 10:00 01/09/19 09:46 Heparin SUB-Q 5,000 unit Q12HR JIMI Administration Ampicillin Sodium/Sulbactam Sodium 1.5 gm in 50 mls @ 100 mls/hr 01/06/19 06:00 01/09/19 05:06 Unasyn/Ns 1.5 Gm/50 Ml IV 100 mls/hr Q6HR JIMI Administration Protocol Lisinopril 2.5 mg 01/06/19 10:00 01/09/19 09:43 Zestril PO 2.5 mg QDAY JIMI Administration Metolazone 5 mg 01/09/19 05:30 01/09/19 05:05 Zaroxolyn PO Not Given 0530 [facility] Metoprolol Tartrate 12.5 mg 01/07/19 12:00 01/09/19 09:45 Metoprolol PO 12.5 mg BID JIMI Administration Nicotine 14 mg 01/06/19 10:00 01/09/19 09:44 Habitrol TD Not Given QDAY [facility] Ondansetron HCl 4 mg 01/06/19 02:30 Zofran IV Q8H PRN Nausea And Vomiting Oxycodone/Acetaminophen 1 tab 01/06/19 02:30 01/08/19 08:05 Percocet 5/325 PO 1 tab Q6H PRN Administration Pain, Moderate (4-6) Sodium Chloride 10 ml 01/06/19 10:00 01/09/19 09:45 Sodium Chloride Flush Syringe 10 Ml IV 10 ml BID JIMI Administration Sodium Chloride 10 ml 01/06/19 02:30 Sodium Chloride Flush Syringe 10 Ml IV PRN PRN LINE FLUSH Zinc Acetate/Diphenhydramine 1 applic 01/08/19 12:50 01/08/19 13:56 Banophen Anti-Itch TP 1 applic Q8H PRN Administration Itching
[2019-01-09] MEDS: oxyCODONE /ACETAMINOPHEN 5-325MG TAB PO PRN (21:11)
[2019-01-10] MEDS: AMPICILLIN/SULBACTA 1.5GM/50ML 1.5 GM/50 ML BAG IV SCH ×5 (00:26→23:28)
[2019-01-10] MEDS: FUROSEMIDE 40 MG/4 ML INJ IV SCH ×2 (05:27→17:02)
[2019-01-10] MEDS: metOLazone 2.5 MG TAB PO SCH (05:27)
[2019-01-10 07:19] LABS: BUN/Creatinine Ratio 26; Blood Urea Nitrogen 23 mg/dL (7-17); Calcium 8.2 mg/dL (8.4-10.2); Hemolysis Index 3
[2019-01-10] MEDS: LISINOPRIL 5 MG TAB PO SCH (09:54)
[2019-01-10] MEDS: NICOTINE 14 MG/24 HR PATCH TD SCH (09:54)
[2019-01-10] MEDS: DOCUSATE SODIUM 100 MG CAP PO SCH ×2 (09:54→21:55)
[2019-01-10] MEDS: HEPARIN 5,000 UNIT/1 ML VIAL SUB-Q SCH ×2 (09:55→21:56)
[2019-01-10] MEDS ORDERED: POTASSIUM CHLORIDE ER 20 MEQ TAB PO ONE (10:00)
--- NOTE | 2019-01-10 10:31 | Progress Note ---
Assessment and Plan The patient remains fluid overloaded, but urine output is adequate. Will obtain U/S of RUE d/t edema. Tachycardia likely physiologic - avoiding beta blockers d/t allergy. Continue current cardiac management for now. The patient has been seen in conjunction with Dr. Cyndi Isbell, who agrees with the assessment and plan. - Patient Problems (1) Acute HFrEF (heart failure with reduced ejection fraction) Current Visit: Yes Status: Acute (2) Anasarca Current Visit: Yes Status: Acute (3) Cellulitis Current Visit: Yes Status: Acute Qualifiers: Qualified Code(s): L03.311 - Cellulitis of abdominal wall (4) Cardiomyopathy Current Visit: Yes Status: Chronic (5) HTN (hypertension) Current Visit: Yes Status: Chronic (6) Morbid obesity Current Visit: Yes Status: Chronic Subjective Date of service: 01/10/19 Principal diagnosis: hf Interval history: The patient is sitting up in bed in NAD. Anasarca persists. She c/o swelling of RUE. Telemetry reviewed - ST in 100s. Objective Vital Signs Temp Pulse Resp BP Pulse Ox 01/10/19 10:21 96 01/10/19 08:17 98.8 F 116 H 18 118/73 85 01/10/19 03:23 98.2 F 18 116/78 01/09/19 23:08 98.1 F 114 H 18 116/87 96 01/09/19 22:10 96 01/09/19 22:00 112 H 98 01/09/19 20:32 98.1 F 111 H 18 98/41 95 01/09/19 17:13 98.0 F 101 H 18 128/75 87 01/09/19 12:52 100 H 94/65 83 L - Physical Examination General: Appears Well, No Apparent Distress HEENT: Positive: PERRL, Normocephaly, Mucus Membranes Moist Neck: Positive: neck supple, trachea midline Cardiac: Positive: Regular Rhythm Lungs: Positive: Decreased Breath Sounds Neuro: Positive: Grossly Intact Abdomen: Positive: Ascites, Firm. Negative: Tender /Rectal: Other (deferred) Skin: Positive: Other (BUE and BLE scattered wounds) Musculoskeletal: Decreased Range of Motion, No Pain Extremities: Present: edema (RUE - trace), +3 Edema - Labs and Meds Comprehensive Metabolic Panel 11/29/19 Range/Units 06:36 Sodium 138 (137-145) mmol/L Potassium 3.3 L D (3.6-5.0) mmol/L Chloride 90.8 L (98-107) mmol/L Carbon Dioxide 32 H (22-30) mmol/L BUN 23 H (7-17) mg/dL Creatinine 0.9 (0.7-1.2) mg/dL Glucose 85 (65-100) mg/dL Calcium 8.2 L (8.4-10.2) mg/dL - Imaging and Cardiology EKG: report reviewed, image reviewed Echo: report reviewed (06/2018 showed EF 20-25%, mild LVH, LA mod dilated, RV systolic function mod reduced. ) - Telemetry EKG Rhythm: Sinus Tachycardia - EKG Sinus rhythms and dysrhythmias: sinus rhythm
[2019-01-10] MEDS: diphenhydrAMINE/ZINC ACET 2% CREAM 28.4 GM TP PRN (12:11)
--- NOTE | 2019-01-10 14:39 | Vascular Lab Report ---
DUPLEX DOPPLER RIGHT UPPER EXTREMITY VEINS INDICATION: Right upper extremity swelling FINDINGS: There is no thrombus within the deep veins of the right upper extremity from the jugular vein to the forearm veins. There is normal compression and augmentation on spectral analysis. There is superficia l venous thrombosis in the right cephalic vein. IMPRESSION: No sonographic evidence for DVT in the right upper extremity.. Superficial venous thrombosis noted in the right cephalic vein. Signer Name: Chauncey Diggs MD Signed: 01/10/2019 2:34 PM Workstation Name: [id number]
[2019-01-10] MEDS: oxyCODONE /ACETAMINOPHEN 5-325MG TAB PO PRN (16:56)
--- NOTE | 2019-01-10 18:41 | Progress Note ---
Assessment and Plan Assessment and plan: 58 years old presents with profound edema and ascites most likely secondary to congestive heart failure. - Patient Problems (1) Acute HFrEF (heart failure with reduced ejection fraction) Current Visit: Yes Status: Acute Plan to address problem: Patient last known ejection fraction several months ago 20%. Patient has marked edema bilateral lower extremities as well as abdomen, breast, back, thighs appears this edema has progressively gotten worse. LASIX 60MG IV BID. PER PATIENT THIS HELPS WHENEVER SHE IS HOSPITALIZED. Zaroxolyn has been added will see us she responds to this. I think hospitalization maybe longer than previously thought secondary to the amount of edema Patient clearly is uncomfortable. An ascites is the reason patient has shortness of breath and the breast edema and the cellulitis as well. Ischemic work up planned by cardiology for the am * Fell overnight 01/08/19 * Some confusion reported but now resolved * Complains of Itch in the leg * BB stopped due to allergy * ischemic work up prior to discharged (2) Cellulitis Current Visit: Yes Status: Acute Qualifiers: Site of cellulitis: trunk Site of cellulitis of trunk: abdominal wall Qualified Code(s): L03.311 - Cellulitis of abdominal wall Plan to address problem: Secondary to severe ascites and lower extremity edema. Will require diuresis. Treat cellulitis with IV antibiotics. Follow culture data. Strict elevation of legs bed rest for the most part with leg elevation for the next several days. (3) Nicotine dependence with withdrawal Current Visit: No Status: Acute Qualifiers: Nicotine product type: cigarettes Qualified Code(s): F17.213 - Nicotine dependence, cigarettes, with withdrawal Plan to address problem: Add nicotine patch. (4) Obesity hypoventilation syndrome Current Visit: No Status: Acute Plan to address problem: Patient with obesity hypertension syndrome. Weight loss dietary modifications have been discussed. (5) ANASCAR/Ascites Current Visit: Yes Status: Acute Plan to address problem: ANASCAR LIKELY SECONDARY TO SEVERE FLUID OVERLOAD. SMALL ASCITES IS NOTED (6) HTN (hypertension) Current Visit: Yes Status: Chronic Plan to address problem: Patient very well-controlled on current antihypertensives. (7) Morbid obesity Current Visit: Yes Status: Chronic Plan to address problem: Diet weight education Multiple ulceration in the bilateral legs. POA. wound care consult FALL- HEAD CT negative Hypokalemia- Replace History Interval history: Patient 58 years old with a history of CHF last known ejection fraction 20-25%, hypertension, obesity, tobacco dependency presents with worsening shortness of breath and edema with abdominal pain and lower extremity wounds over approximate 2 week period of time. No new complaints, improving , good urine output Hospitalist Physical - Physical exam Narrative exam: General appearance: Present: mild distress, Otherwise stable - EENT Eyes: Present: PERRL, EOM intact ENT: hearing intact, clear oral mucosa, dentition normal, oropharyngeal erythema, no poor dentition, no thrush - Neck Neck: Present: supple, normal ROM - Respiratory Respiratory: bilateral: diminished, rhonchi - Cardiovascular Rhythm: regular Heart Sounds: Present: S1 & S2 - Extremities Extremities: no ischemia, Full ROM Extremity abnormal: edema, erythema, tenderness Peripheral Pulses: within normal limits - Abdominal General gastrointestinal: soft, tender, non-distended, hypoactive bowel sounds, other (marked edema), no hepatomegaly, no splenomegaly - Integumentary Integumentary: Present: erythema. Absent: jaundice, rash, clammy, normal turgor +3 pitting edema and generalized anasacar with ulceration - Psychiatric Psychiatric: appropriate mood/affect, intact judgment & insight, cooperative - Neurologic Neurologic: CNII-XII intact, moves all extremities - Constitutional Vitals: Temp Pulse Resp BP Pulse Ox 98.7 F 70 18 121/68 86 01/10/19 13:56 01/10/19 13:56 01/10/19 13:56 01/10/19 13:56 01/10/19 13:56 General appearance: Present: mild distress Results - Labs CBC & Chem 7: 01/09/19 04:19 01/10/19 06:36 Labs: Laboratory Last Values WBC 6.0 K/mm3 (4.5-11.0) 01/09/19 04:19 RBC 4.45 M/mm3 (3.65-5.03) 01/09/19 04:19 Hgb 12.6 gm/dl (10.1-14.3) 01/09/19 04:19 Hct 40.7 % (30.3-42.9) 01/09/19 04:19 MCV 92 fl (79-97) 01/09/19 04:19 MCH 28 pg (28-32) 01/09/19 04:19 MCHC 31 % (30-34) 01/09/19 04:19 RDW 22.3 % (13.2-15.2) H 01/09/19 04:19 Plt Count 187 K/mm3 (140-440) 01/09/19 04:19 Baso % (Auto) [employer] 01/07/19 08:50 Add Manual Diff Complete 01/07/19 08:50 Total Counted 100 01/07/19 08:50 Seg Neuts % (Manual) 84.0 % (40.0-70.0) H 01/07/19 08:50 Band Neutrophils % 0 % 01/07/19 08:50 Lymphocytes % (Manual) 15.0 % (13.4-35.0) 01/07/19 08:50 Reactive Lymphs % (Man) 0 % 01/07/19 08:50 Monocytes % (Manual) 1.0 % (0.0-7.3) 01/07/19 08:50 Eosinophils % (Manual) 0 % (0.0-4.3) 01/07/19 08:50 Basophils % (Manual) 0 % (0.0-1.8) 01/07/19 08:50 Metamyelocytes % 0 % 01/07/19 08:50 Myelocytes % 0 % 01/07/19 08:50 Promyelocytes % 0 % 01/07/19 08:50 Blast Cells % 0 % 01/07/19 08:50 Nucleated RBC % 5.0 % (0.0-0.9) H 01/07/19 08:50 Seg Neutrophils # Man 4.3 K/mm3 (1.8-7.7) 01/07/19 08:50 Band Neutrophils # 0.0 K/mm3 01/07/19 08:50 Lymphocytes # (Manual) 0.8 K/mm3 (1.2-5.4) L 01/07/19 08:50 Abs React Lymphs (Man) 0.0 K/mm3 01/07/19 08:50 Monocytes # (Manual) 0.1 K/mm3 (0.0-0.8) 01/07/19 08:50 Eosinophils # (Manual) 0.0 K/mm3 (0.0-0.4) 01/07/19 08:50 Basophils # (Manual) 0.0 K/mm3 (0.0-0.1) 01/07/19 08:50 Metamyelocytes # 0.0 K/mm3 01/07/19 08:50 Myelocytes # 0.0 K/mm3 01/07/19 08:50 Promyelocytes # 0.0 K/mm3 01/07/19 08:50 Blast Cells # 0.0 K/mm3 01/07/19 08:50 WBC Morphology Not Reportable 01/07/19 08:50 Hypersegmented Neuts Not Reportable 01/07/19 08:50 Hyposegmented Neuts Not Reportable 01/07/19 08:50 Hypogranular Neuts Not Reportable 01/07/19 08:50 Smudge Cells Not Reportable 01/07/19 08:50 Toxic Granulation Not Reportable 01/07/19 08:50 Toxic Vacuolation Not Reportable 01/07/19 08:50 Dohle Bodies Not Reportable 01/07/19 08:50 Pelger-Huet Anomaly Not Reportable 01/07/19 08:50 Clarissa Rods Not Reportable 01/07/19 08:50 Platelet Estimate Consistent w auto 01/07/19 08:50 Clumped Platelets Not Reportable 01/07/19 08:50 Plt Clumps, EDTA Not Reportable 01/07/19 08:50 Large Platelets Few 01/07/19 08:50 Giant Platelets Not Reportable 01/07/19 08:50 Platelet Satelliting Not Reportable 01/07/19 08:50 Plt Morphology Comment Not Reportable 01/07/19 08:50 RBC Morphology Not Reportable 01/07/19 08:50 Dimorphic RBCs Not Reportable 01/07/19 08:50 Polychromasia Not Reportable 01/07/19 08:50 Hypochromasia Not Reportable 01/07/19 08:50 Poikilocytosis Few 01/07/19 08:50 Anisocytosis 2+ 01/07/19 08:50 Microcytosis Rare 01/07/19 08:50 Macrocytosis Not Reportable 01/07/19 08:50 Spherocytes Not Reportable 01/07/19 08:50 Pappenheimer Bodies Not Reportable 01/07/19 08:50 Sickle Cells Not Reportable 01/07/19 08:50 Target Cells Not Reportable 01/07/19 08:50 Tear Drop Cells Not Reportable 01/07/19 08:50 Ovalocytes Not Reportable 01/07/19 08:50 Helmet Cells Not Reportable 01/07/19 08:50 [place] Bodies Not Reportable 01/07/19 08:50 [place] Rings Not Reportable 01/07/19 08:50 Ramesh Cells Not Reportable 01/07/19 08:50 Bite Cells Not Reportable 01/07/19 08:50 Crenated Cell Not Reportable 01/07/19 08:50 Elliptocytes Not Reportable 01/07/19 08:50 Acanthocytes (Spur) Not Reportable 01/07/19 08:50 Rouleaux Not Reportable 01/07/19 08:50 Hemoglobin C Crystals Not Reportable 01/07/19 08:50 Schistocytes Not Reportable 01/07/19 08:50 Malaria parasites Not Reportable 01/07/19 08:50 Dieter Bodies Not Reportable 01/07/19 08:50 Hem Pathologist Commnt No 01/07/19 08:50 PT 15.1 Sec. (12.2-14.9) H 01/07/19 19:15 INR 1.20 (0.87-1.13) H 01/07/19 19:15 POC ABG pH 7.337 (7.35-7.45) L 01/06/19 02:31 POC ABG pCO2 63.5 (35-45) H 01/06/19 02:31 POC ABG pO2 52 (80-105) L 01/06/19 02:31 POC ABG HCO3 34.0 (22-26 mml/L) 01/06/19 02:31 POC ABG Total CO2 36 (23-27mmol/L) 01/06/19 02:31 POC ABG O2 Sat 83 01/06/19 02:31 POC ABG Base Excess 8 ((-2) - (+3)mmol/L) 01/06/19 02:31 FiO2 21 % 01/06/19 02:31 Sodium 138 mmol/L (137-145) 01/10/19 06:36 Potassium 3.3 mmol/L (3.6-5.0) L D 01/10/19 06:36 Chloride 90.8 mmol/L (98-107) L 01/10/19 06:36 Carbon Dioxide 32 mmol/L (22-30) H 01/10/19 06:36 Anion Gap 19 mmol/L 01/10/19 06:36 BUN 23 mg/dL (7-17) H 01/10/19 06:36 Creatinine 0.9 mg/dL (0.7-1.2) 01/10/19 06:36 Estimated GFR > 60 ml/min 01/10/19 06:36 BUN/Creatinine Ratio 26 % 01/10/19 06:36 Glucose 85 mg/dL (65-100) 01/10/19 06:36 Lactic Acid 1.30 mmol/L (0.7-2.0) 01/06/19 03:20 Calcium 8.2 mg/dL (8.4-10.2) L 01/10/19 06:36 Total Bilirubin 0.80 mg/dL (0.1-1.2) 01/06/19 00:12 AST 46 units/L (5-40) H 01/06/19 00:12 ALT 35 units/L (7-56) 01/06/19 00:12 Alkaline Phosphatase 140 units/L (35-129) H 01/06/19 00:12 Total Creatine Kinase 117 units/L (30-135) 01/06/19 13:18 CK-MB (CK-2) 3.1 ng/mL (0.0-4.0) 01/06/19 13:18 CK-MB (CK-2) Rel Index 2.6 (0-4) 01/06/19 13:18 Troponin T < 0.010 ng/mL (0.00-0.029) 01/06/19 13:18 NT-Pro-B Natriuret Pep 4050 pg/mL (0-900) H 01/05/19 23:41 Total Protein 7.3 g/dL (6.3-8.2) 01/06/19 00:12 Albumin 2.8 g/dL (3.9-5) L 01/06/19 00:12 Albumin/Globulin Ratio 0.6 % 01/06/19 00:12 Urine Color Yellow (Yellow) 01/06/19 05:00 Urine Turbidity Clear (Clear) 01/06/19 05:00 Urine pH 5.0 (5.0-7.0) 01/06/19 05:00 Ur Specific Win[place] 1.011 (1.003-1.030) 01/06/19 05:00 Urine Protein 30 mg/dl mg/dL (Negative) 01/06/19 05:00 Urine Glucose (UA) Neg mg/dL (Negative) 01/06/19 05:00 Urine Ketones Neg mg/dL (Negative) 01/06/19 05:00 Urine Blood Sm (Negative) 01/06/19 05:00 Urine Nitrite Neg (Negative) 01/06/19 05:00 Urine Bilirubin Neg (Negative) 01/06/19 05:00 Urine Urobilinogen < 2.0 mg/dL (<2.0) 01/06/19 05:00 Ur Leukocyte Esterase Sm (Negative) 01/06/19 05:00 Urine WBC (Auto) 4.0 /HPF (0.0-6.0) 01/06/19 05:00 Urine RBC (Auto) 4.0 /HPF (0.0-6.0) 01/06/19 05:00 U Epithel Cells (Auto) 2.0 /HPF (0-13.0) 01/06/19 05:00 Urine Bacteria (Auto) 2+ /HPF (Negative) 01/06/19 05:00 Urine Mucus Few /HPF 01/06/19 05:00 Active Medications - Current Medications Current Medications: Generic Name Dose Route Start Last Admin Trade Name Jaspreetq PRN Reason Stop Dose Admin Acetaminophen 650 mg 01/06/19 02:30 Tylenol PO Q4H PRN Pain MILD(1-3)/Fever >100.5/BENITEZ Albuterol 2.5 mg 01/06/19 02:30 Proventil IH Q3HRT PRN Shortness Of Breath Diphenhydramine HCl 25 mg 01/09/19 00:08 01/09/19 00:17 Benadryl PO 25 mg QHS PRN Administration Sleep Docusate Sodium 100 mg 01/06/19 10:00 01/10/19 09:54 Colace PO 100 mg BID JIMI Administration Furosemide 60 mg 01/07/19 12:47 01/10/19 17:02 Lasix IV 60 mg 0600,1800 JIMI Administration Heparin Sodium (Porcine) 5,000 unit 01/06/19 10:00 01/10/19 09:55 Heparin SUB-Q 5,000 unit Q12HR JIMI Administration Ampicillin Sodium/Sulbactam Sodium 1.5 gm in 50 mls @ 100 mls/hr 01/06/19 06:00 01/10/19 17:03 Unasyn/Ns 1.5 Gm/50 Ml IV 100 mls/hr Q6HR JIMI Administration Protocol Lisinopril 2.5 mg 01/06/19 10:00 01/10/19 09:54 Zestril PO 2.5 mg QDAY JIMI Administration Metolazone 5 mg 01/09/19 05:30 01/10/19 05:27 Zaroxolyn PO 5 mg 0530 JIMI Administration Nicotine 14 mg 01/06/19 10:00 01/10/19 09:54 Habitrol TD Not Given QDAY JIMI Ondansetron HCl 4 mg 01/06/19 02:30 Zofran IV Q8H PRN Nausea And Vomiting Oxycodone/Acetaminophen 1 tab 01/06/19 02:30 01/10/19 16:56 Percocet 5/325 PO 1 tab Q6H PRN Administration Pain, Moderate (4-6) Sodium Chloride 10 ml 01/06/19 10:00 01/10/19 09:55 Sodium Chloride Flush Syringe 10 Ml IV 10 ml BID JIMI Administration Sodium Chloride 10 ml 01/06/19 02:30 Sodium Chloride Flush Syringe 10 Ml IV PRN PRN LINE FLUSH Zinc Acetate/Diphenhydramine 1 applic 01/08/19 12:50 01/10/19 12:11 Banophen Anti-Itch TP 1 applic Q8H PRN Administration Itching
[2019-01-11] MEDS: oxyCODONE /ACETAMINOPHEN 5-325MG TAB PO PRN ×2 (04:37→18:15)
[2019-01-11] MEDS: metOLazone 2.5 MG TAB PO SCH (04:38)
[2019-01-11] MEDS: FUROSEMIDE 40 MG/4 ML INJ IV SCH ×2 (05:48→17:37)
[2019-01-11] MEDS: AMPICILLIN/SULBACTA 1.5GM/50ML 1.5 GM/50 ML BAG IV SCH ×2 (05:48→15:50)
[2019-01-11 07:12] LABS: BUN/Creatinine Ratio 30; Blood Urea Nitrogen 21 mg/dL (7-17); Calcium 8.7 mg/dL (8.4-10.2); Hemolysis Index 7
--- NOTE | 2019-01-11 10:03 | Progress Note ---
Assessment and Plan Cardiac status is improving. Continue current management. Patient counseled on the importance of dietary and medical compliance; numerous questions on lifestyle changes answered. The patient has been seen in conjunction with Dr. Cyndi Isbell, who agrees with the assessment and plan. - Patient Problems (1) Acute HFrEF (heart failure with reduced ejection fraction) Current Visit: Yes Status: Acute (2) Anasarca Current Visit: Yes Status: Acute (3) Cellulitis Current Visit: Yes Status: Acute Qualifiers: Qualified Code(s): L03.311 - Cellulitis of abdominal wall (4) Cardiomyopathy Current Visit: Yes Status: Chronic (5) HTN (hypertension) Current Visit: Yes Status: Chronic (6) Morbid obesity Current Visit: Yes Status: Chronic Subjective Date of service: 01/11/19 Principal diagnosis: hf Interval history: The patient is sitting up in bed in [facility]. She reports her breathing and edema are improved, but significant anasarca/ascites persists. Good UOP noted. Telemetry reviewed - ST in 100s. RUE U/S negative for DVT, but there is superficial thrombosis of cephalic vein. Objective Last Vital Signs Temp 98.8 F 01/11/19 04:57 Pulse 103 H 01/11/19 04:56 Resp 20 01/11/19 04:56 BP 122/73 01/11/19 04:56 Pulse Ox 99 01/11/19 04:56 - Physical Examination General: Appears Well, No Apparent Distress HEENT: Positive: PERRL, Normocephaly, Mucus Membranes Moist Neck: Positive: neck supple, trachea midline Cardiac: Positive: Regular Rhythm Lungs: Positive: Decreased Breath Sounds Neuro: Positive: Grossly Intact Abdomen: Positive: Ascites, Firm. Negative: Tender /Rectal: Other (deferred) Skin: Positive: Other (BUE and BLE scattered wounds) Musculoskeletal: Decreased Range of Motion, No Pain Extremities: Present: edema (RUE - trace), +3 Edema - Labs and Meds Comprehensive Metabolic Panel 01/11/19 Range/Units 06:34 Sodium 140 (137-145) mmol/L Potassium 3.2 L (3.6-5.0) mmol/L Chloride 92.0 L (98-107) mmol/L Carbon Dioxide 34 H (22-30) mmol/L BUN 21 H (7-17) mg/dL Creatinine 0.7 (0.7-1.2) mg/dL Glucose 91 (65-100) mg/dL Calcium 8.7 (8.4-10.2) mg/dL - Imaging and Cardiology EKG: report reviewed, image reviewed Echo: report reviewed (06/2018 showed EF 20-25%, mild LVH, LA mod dilated, RV systolic function mod reduced. ) - Telemetry EKG Rhythm: Sinus Tachycardia - EKG Sinus rhythms and dysrhythmias: sinus rhythm
[2019-01-11] MEDS: DOCUSATE SODIUM 100 MG CAP PO SCH ×2 (10:38→21:00)
[2019-01-11] MEDS: HEPARIN 5,000 UNIT/1 ML VIAL SUB-Q SCH ×2 (10:39→21:00)
[2019-01-11] MEDS: LISINOPRIL 5 MG TAB PO SCH (10:39)
[2019-01-11] MEDS: NICOTINE 14 MG/24 HR PATCH TD SCH (10:40)
--- NOTE | 2019-01-11 16:07 | Progress Note ---
Assessment and Plan Assessment and plan: 58 years old presents with profound edema and ascites most likely secondary to congestive heart failure. - Patient Problems (1) Acute HFrEF (heart failure with reduced ejection fraction) Current Visit: Yes Status: Acute Plan to address problem: Patient last known ejection fraction several months ago 20%. Patient has marked edema bilateral lower extremities as well as abdomen, breast, back, thighs appears this edema has progressively gotten worse. LASIX 60MG IV BID. PER PATIENT THIS HELPS WHENEVER SHE IS HOSPITALIZED. Zaroxolyn has been added will see us she responds to this. I think hospitalization maybe longer than previously thought secondary to the amount of edema Patient clearly is uncomfortable. An ascites is the reason patient has shortness of breath and the breast edema and the cellulitis as well. Ischemic work up planned by cardiology for the am * Fell overnight 01/08/19 * Some confusion reported but now resolved * Complains of Itch in the leg * BB stopped due to allergy * ischemic work up prior to discharged * Awaiting planned ischemic work up per cardiology * will switch to oral antibiotics (2) Cellulitis Current Visit: Yes Status: Acute Qualifiers: Site of cellulitis: trunk Site of cellulitis of trunk: abdominal wall Qualified Code(s): L03.311 - Cellulitis of abdominal wall Plan to address problem: Secondary to severe ascites and lower extremity edema. Will require diuresis. Treat cellulitis with IV antibiotics. Follow culture data. Strict elevation of legs bed rest for the most part with leg elevation for the next several days. (3) Nicotine dependence with withdrawal Current Visit: No Status: Acute Qualifiers: Nicotine product type: cigarettes Qualified Code(s): F17.213 - Nicotine dependence, cigarettes, with withdrawal Plan to address problem: Add nicotine patch. (4) Obesity hypoventilation syndrome Current Visit: No Status: Acute Plan to address problem: Patient with obesity hypertension syndrome. Weight loss dietary modifications have been discussed. (5) ANASCAR/Ascites Current Visit: Yes Status: Acute Plan to address problem: ANASCAR LIKELY SECONDARY TO SEVERE FLUID OVERLOAD. SMALL ASCITES IS NOTED (6) HTN (hypertension) Current Visit: Yes Status: Chronic Plan to address problem: Patient very well-controlled on current antihypertensives. (7) Morbid obesity Current Visit: Yes Status: Chronic Plan to address problem: Diet weight education Multiple ulceration in the bilateral legs. POA. wound care consult FALL- HEAD CT negative Hypokalemia- Replace History Interval history: Patient 58 years old with a history of CHF last known ejection fraction 20-25%, hypertension, obesity, tobacco dependency presents with worsening shortness of breath and edema with abdominal pain and lower extremity wounds over approximate 2 week period of time. No new complaints, improving , good urine output, improvement in pulmonary status but still with lower ext leg excoriations Hospitalist Physical - Physical exam Narrative exam: General appearance: Present: mild distress, Otherwise stable - EENT Eyes: Present: PERRL, EOM intact ENT: hearing intact, clear oral mucosa, dentition normal, oropharyngeal erythema, no poor dentition, no thrush - Neck Neck: Present: supple, normal ROM - Respiratory Respiratory: bilateral: diminished, rhonchi - Cardiovascular Rhythm: regular Heart Sounds: Present: S1 & S2 - Extremities Extremities: no ischemia, Full ROM Extremity abnormal: edema, erythema, tenderness Peripheral Pulses: within normal limits - Abdominal General gastrointestinal: soft, tender, non-distended, hypoactive bowel sounds, other (marked edema), no hepatomegaly, no splenomegaly - Integumentary Integumentary: Present: erythema. Absent: jaundice, rash, clammy, normal turgor +3 pitting edema and generalized anasacar with ulceration - Psychiatric Psychiatric: appropriate mood/affect, intact judgment & insight, cooperative - Neurologic Neurologic: CNII-XII intact, moves all extremities - Constitutional Vitals: Temp Pulse Resp BP Pulse Ox 98.8 F 109 H 20 118/73 92 01/11/19 15:48 01/11/19 15:48 01/11/19 15:48 01/11/19 15:48 01/11/19 15:48 General appearance: Present: mild distress Results - Labs CBC & Chem 7: 01/09/19 04:19 01/11/19 06:34 Labs: Laboratory Last Values WBC 6.0 K/mm3 (4.5-11.0) 01/09/19 04:19 RBC 4.45 M/mm3 (3.65-5.03) 01/09/19 04:19 Hgb 12.6 gm/dl (10.1-14.3) 01/09/19 04:19 Hct 40.7 % (30.3-42.9) 01/09/19 04:19 MCV 92 fl (79-97) 01/09/19 04:19 MCH 28 pg (28-32) 01/09/19 04:19 MCHC 31 % (30-34) 01/09/19 04:19 RDW 22.3 % (13.2-15.2) H 01/09/19 04:19 Plt Count 187 K/mm3 (140-440) 01/09/19 04:19 Baso % (Auto) Digital Imaging Specialist 01/07/19 08:50 Add Manual Diff Complete 01/07/19 08:50 Total Counted 100 01/07/19 08:50 Seg Neuts % (Manual) 84.0 % (40.0-70.0) H 01/07/19 08:50 Band Neutrophils % 0 % 01/07/19 08:50 Lymphocytes % (Manual) 15.0 % (13.4-35.0) 01/07/19 08:50 Reactive Lymphs % (Man) 0 % 01/07/19 08:50 Monocytes % (Manual) 1.0 % (0.0-7.3) 01/07/19 08:50 Eosinophils % (Manual) 0 % (0.0-4.3) 01/07/19 08:50 Basophils % (Manual) 0 % (0.0-1.8) 01/07/19 08:50 Metamyelocytes % 0 % 01/07/19 08:50 Myelocytes % 0 % 01/07/19 08:50 Promyelocytes % 0 % 01/07/19 08:50 Blast Cells % 0 % 01/07/19 08:50 Nucleated RBC % 5.0 % (0.0-0.9) H 01/07/19 08:50 Seg Neutrophils # Man 4.3 K/mm3 (1.8-7.7) 01/07/19 08:50 Band Neutrophils # 0.0 K/mm3 01/07/19 08:50 Lymphocytes # (Manual) 0.8 K/mm3 (1.2-5.4) L 01/07/19 08:50 Abs React Lymphs (Man) 0.0 K/mm3 01/07/19 08:50 Monocytes # (Manual) 0.1 K/mm3 (0.0-0.8) 01/07/19 08:50 Eosinophils # (Manual) 0.0 K/mm3 (0.0-0.4) 01/07/19 08:50 Basophils # (Manual) 0.0 K/mm3 (0.0-0.1) 01/07/19 08:50 Metamyelocytes # 0.0 K/mm3 01/07/19 08:50 Myelocytes # 0.0 K/mm3 01/07/19 08:50 Promyelocytes # 0.0 K/mm3 01/07/19 08:50 Blast Cells # 0.0 K/mm3 01/07/19 08:50 WBC Morphology Not Reportable 01/07/19 08:50 Hypersegmented Neuts Not Reportable 01/07/19 08:50 Hyposegmented Neuts Not Reportable 01/07/19 08:50 Hypogranular Neuts Not Reportable 01/07/19 08:50 Smudge Cells Not Reportable 01/07/19 08:50 Toxic Granulation Not Reportable 01/07/19 08:50 Toxic Vacuolation Not Reportable 01/07/19 08:50 Dohle Bodies Not Reportable 01/07/19 08:50 Pelger-Huet Anomaly Not Reportable 01/07/19 08:50 Clarissa Rods Not Reportable 01/07/19 08:50 Platelet Estimate Consistent w auto 01/07/19 08:50 Clumped Platelets Not Reportable 01/07/19 08:50 Plt Clumps, EDTA Not Reportable 01/07/19 08:50 Large Platelets Few 01/07/19 08:50 Giant Platelets Not Reportable 01/07/19 08:50 Platelet Satelliting Not Reportable 01/07/19 08:50 Plt Morphology Comment Not Reportable 01/07/19 08:50 RBC Morphology Not Reportable 01/07/19 08:50 Dimorphic RBCs Not Reportable 01/07/19 08:50 Polychromasia Not Reportable 01/07/19 08:50 Hypochromasia Not Reportable 01/07/19 08:50 Poikilocytosis Few 01/07/19 08:50 Anisocytosis 2+ 01/07/19 08:50 Microcytosis Rare 01/07/19 08:50 Macrocytosis Not Reportable 01/07/19 08:50 Spherocytes Not Reportable 01/07/19 08:50 Pappenheimer Bodies Not Reportable 01/07/19 08:50 Sickle Cells Not Reportable 01/07/19 08:50 Target Cells Not Reportable 01/07/19 08:50 Tear Drop Cells Not Reportable 01/07/19 08:50 Ovalocytes Not Reportable 01/07/19 08:50 Helmet Cells Not Reportable 01/07/19 08:50 [place] Bodies Not Reportable 01/07/19 08:50 [place] Rings Not Reportable 01/07/19 08:50 [place] Cells Not Reportable 01/07/19 08:50 Bite Cells Not Reportable 01/07/19 08:50 Crenated Cell Not Reportable 01/07/19 08:50 Elliptocytes Not Reportable 01/07/19 08:50 Acanthocytes (Spur) Not Reportable 01/07/19 08:50 Rouleaux Not Reportable 01/07/19 08:50 Hemoglobin C Crystals Not Reportable 01/07/19 08:50 Schistocytes Not Reportable 01/07/19 08:50 Malaria parasites Not Reportable 01/07/19 08:50 Dieter Bodies Not Reportable 01/07/19 08:50 Hem Pathologist Commnt No 01/07/19 08:50 PT 15.1 Sec. (12.2-14.9) H 01/07/19 19:15 INR 1.20 (0.87-1.13) H 01/07/19 19:15 POC ABG pH 7.337 (7.35-7.45) L 01/06/19 02:31 POC ABG pCO2 63.5 (35-45) H 01/06/19 02:31 POC ABG pO2 52 (80-105) L 01/06/19 02:31 POC ABG HCO3 34.0 (22-26 mml/L) 01/06/19 02:31 POC ABG Total CO2 36 (23-27mmol/L) 01/06/19 02:31 POC ABG O2 Sat 83 01/06/19 02:31 POC ABG Base Excess 8 ((-2) - (+3)mmol/L) 01/06/19 02:31 FiO2 21 % 01/06/19 02:31 Sodium 140 mmol/L (137-145) 01/11/19 06:34 Potassium 3.2 mmol/L (3.6-5.0) L 01/11/19 06:34 Chloride 92.0 mmol/L (98-107) L 01/11/19 06:34 Carbon Dioxide 34 mmol/L (22-30) H 01/11/19 06:34 Anion Gap 17 mmol/L 01/11/19 06:34 BUN 21 mg/dL (7-17) H 01/11/19 06:34 Creatinine 0.7 mg/dL (0.7-1.2) 01/11/19 06:34 Estimated GFR > 60 ml/min 01/11/19 06:34 BUN/Creatinine Ratio 30 % 01/11/19 06:34 Glucose 91 mg/dL (65-100) 01/11/19 06:34 Lactic Acid 1.30 mmol/L (0.7-2.0) 01/06/19 03:20 Calcium 8.7 mg/dL (8.4-10.2) 01/11/19 06:34 Total Bilirubin 0.80 mg/dL (0.1-1.2) 01/06/19 00:12 AST 46 units/L (5-40) H 01/06/19 00:12 ALT 35 units/L (7-56) 01/06/19 00:12 Alkaline Phosphatase 140 units/L (35-129) H 01/06/19 00:12 Total Creatine Kinase 117 units/L (30-135) 01/06/19 13:18 CK-MB (CK-2) 3.1 ng/mL (0.0-4.0) 01/06/19 13:18 CK-MB (CK-2) Rel Index 2.6 (0-4) 01/06/19 13:18 Troponin T < 0.010 ng/mL (0.00-0.029) 01/06/19 13:18 NT-Pro-B Natriuret Pep 4050 pg/mL (0-900) H 01/05/19 23:41 Total Protein 7.3 g/dL (6.3-8.2) 01/06/19 00:12 Albumin 2.8 g/dL (3.9-5) L 01/06/19 00:12 Albumin/Globulin Ratio 0.6 % 01/06/19 00:12 Urine Color Yellow (Yellow) 01/06/19 05:00 Urine Turbidity Clear (Clear) 01/06/19 05:00 Urine pH 5.0 (5.0-7.0) 01/06/19 05:00 Ur Specific [place] 1.011 (1.003-1.030) 01/06/19 05:00 Urine Protein 30 mg/dl mg/dL (Negative) 01/06/19 05:00 Urine Glucose (UA) Neg mg/dL (Negative) 01/06/19 05:00 Urine Ketones Neg mg/dL (Negative) 01/06/19 05:00 Urine Blood Sm (Negative) 01/06/19 05:00 Urine Nitrite Neg (Negative) 01/06/19 05:00 Urine Bilirubin Neg (Negative) 01/06/19 05:00 Urine Urobilinogen < 2.0 mg/dL (<2.0) 01/06/19 05:00 Ur Leukocyte Esterase Sm (Negative) 01/06/19 05:00 Urine WBC (Auto) 4.0 /HPF (0.0-6.0) 01/06/19 05:00 Urine RBC (Auto) 4.0 /HPF (0.0-6.0) 01/06/19 05:00 U Epithel Cells (Auto) 2.0 /HPF (0-13.0) 01/06/19 05:00 Urine Bacteria (Auto) 2+ /HPF (Negative) 01/06/19 05:00 Urine Mucus Few /HPF 01/06/19 05:00 Active Medications - Current Medications Current Medications: Generic Name Dose Route Start Last Admin Trade Name Freq PRN Reason Stop Dose Admin Acetaminophen 650 mg 01/06/19 02:30 Tylenol PO Q4H PRN Pain MILD(1-3)/Fever >100.5/BENITEZ Albuterol 2.5 mg 01/06/19 02:30 Proventil IH Q3HRT PRN Shortness Of Breath Diphenhydramine HCl 25 mg 01/09/19 00:08 01/09/19 00:17 Benadryl PO 25 mg QHS PRN Administration Sleep Docusate Sodium 100 mg 01/06/19 10:00 01/11/19 10:38 Colace PO 100 mg BID JIMI Administration Furosemide 60 mg 01/07/19 12:47 01/11/19 05:48 Lasix IV 60 mg 0600,1800 JIMI Administration Heparin Sodium (Porcine) 5,000 unit 01/06/19 10:00 01/11/19 10:39 Heparin SUB-Q 5,000 unit Q12HR JIMI Administration Ampicillin Sodium/Sulbactam Sodium 1.5 gm in 50 mls @ 100 mls/hr 01/06/19 06:00 01/11/19 15:50 Unasyn/Ns 1.5 Gm/50 Ml IV 100 mls/hr Q6HR JIMI Administration Protocol Potassium Chloride 10 meq in 100 mls @ 100 mls/hr 01/11/19 17:00 Kcl 10meq/100ml IV 01/11/19 20:59 Q1H JIMI Lisinopril 2.5 mg 01/06/19 10:00 01/11/19 10:39 Zestril PO 2.5 mg QDAY JIMI Administration Metolazone 5 mg 01/09/19 05:30 01/11/19 04:38 Zaroxolyn PO 5 mg 0530 JIMI Administration Nicotine 14 mg 01/06/19 10:00 01/11/19 10:40 Habitrol TD Not Given QDAY [facility] Ondansetron HCl 4 mg 01/06/19 02:30 Zofran IV Q8H PRN Nausea And Vomiting Oxycodone/Acetaminophen 1 tab 01/06/19 02:30 01/11/19 04:37 Percocet 5/325 PO 1 tab Q6H PRN Administration Pain, Moderate (4-6) Sodium Chloride 10 ml 01/06/19 10:00 01/11/19 10:39 Sodium Chloride Flush Syringe 10 Ml IV 10 ml BID JIMI Administration Sodium Chloride 10 ml 01/06/19 02:30 Sodium Chloride Flush Syringe 10 Ml IV PRN PRN LINE FLUSH Zinc Acetate/Diphenhydramine 1 applic 01/08/19 12:50 01/10/19 12:11 Banophen Anti-Itch TP 1 applic Q8H PRN Administration Itching
[2019-01-11] MEDS: cephALEXin 250 MG CAP PO SCH (17:36)
[2019-01-11] MEDS: POTASSIUM CHLORIDE 10 MEQ 10 MEQ/100 ML BAG IV SCH ×3 (17:38→22:43)
[2019-01-11] MEDS ORDERED: SODIUM CHLORIDE 0.9% 1000 ML 1,000 ML IV ONE (20:17)
[2019-01-11] MEDS: diphenhydrAMINE 25 MG CAP PO PRN (21:00)
[2019-01-11] MEDS ORDERED: cephALEXin ORAL LIQD 500 MG/10 ML ORAL LIQD PO SCH (22:00)
[2019-01-12] MEDS: POTASSIUM CHLORIDE 10 MEQ 10 MEQ/100 ML BAG IV SCH ×5 (00:05→21:46)
[2019-01-12] MEDS: cephALEXin 250 MG CAP PO SCH ×3 (00:08→18:32)
[2019-01-12] MEDS: metOLazone 2.5 MG TAB PO SCH ×3 (04:55→05:12)
[2019-01-12] MEDS: FUROSEMIDE 40 MG/4 ML INJ IV SCH ×2 (05:17→18:33)
[2019-01-12 06:17] LABS: BUN/Creatinine Ratio 30; Blood Urea Nitrogen 18 mg/dL (7-17); Calcium 8.6 mg/dL (8.4-10.2); Hemolysis Index 4
[2019-01-12] MEDS: oxyCODONE /ACETAMINOPHEN 5-325MG TAB PO PRN ×2 (10:13→18:33)
[2019-01-12] MEDS: LISINOPRIL 5 MG TAB PO SCH (10:13)
[2019-01-12] MEDS: NICOTINE 14 MG/24 HR PATCH TD SCH (10:14)
[2019-01-12] MEDS: DOCUSATE SODIUM 100 MG CAP PO SCH ×2 (10:14→21:04)
[2019-01-12] MEDS: HEPARIN 5,000 UNIT/1 ML VIAL SUB-Q SCH ×2 (10:15→21:04)
[2019-01-12] MEDS ORDERED: MAGNESIUM SULFATE 1 GM in SODIUM CHLORIDE 0.9% 50 ML IV ONE (13:00)
[2019-01-12] MEDS ORDERED: POTASSIUM CHLORIDE ER 20 MEQ TAB PO ONE (13:00)
--- NOTE | 2019-01-12 14:01 | Progress Note ---
Assessment and Plan clinically improved, but still w sig edema and orthopnea pt has been somewhat uncooperative w nursing staff regarding meds cont current meds - nearing euvolemia - Patient Problems (1) Acute HFrEF (heart failure with reduced ejection fraction) Current Visit: Yes Status: Acute (2) Anasarca Current Visit: Yes Status: Acute (3) Ascites Current Visit: Yes Status: Acute (4) CHF exacerbation Current Visit: Yes Status: Acute Qualifiers: Heart failure type: unspecified Qualified Code(s): I50.9 - Heart failure, unspecified (5) Cellulitis Current Visit: Yes Status: Acute Qualifiers: Qualified Code(s): L03.311 - Cellulitis of abdominal wall (6) Cardiomyopathy Current Visit: Yes Status: Chronic (7) HTN (hypertension) Current Visit: Yes Status: Chronic (8) Morbid obesity Current Visit: Yes Status: Chronic (9) Hypertensive urgency, malignant Current Visit: No Status: Acute (10) Nicotine dependence with withdrawal Current Visit: No Status: Acute Qualifiers: Nicotine product type: cigarettes Qualified Code(s): F17.213 - Nicotine dependence, cigarettes, with withdrawal (11) Obesity hypoventilation syndrome Current Visit: No Status: Acute Subjective Date of service: 01/12/19 Principal diagnosis: hf Interval history: feels better today Objective Vital Signs Temp Pulse Pulse Resp BP Pulse Ox 01/12/19 11:14 98.2 F 113 H 18 109/70 84 01/12/19 10:13 20 01/12/19 10:00 97 01/12/19 09:08 109 H 01/12/19 07:46 98 01/12/19 07:32 98.4 F 106 H 20 137/78 99 01/12/19 03:35 99.1 F 102 H 19 124/82 94 01/11/19 23:08 98.5 F 104 H 18 121/72 94 01/11/19 22:15 102 H 99 01/11/19 21:46 100 01/11/19 19:46 98.6 F 102 H 18 134/71 99 01/11/19 19:42 112 H 01/11/19 19:15 18 01/11/19 15:48 98.8 F 109 H 20 118/73 92 - Physical Examination General: Appears Well, No Apparent Distress HEENT: Positive: PERRL, Normocephaly, Mucus Membranes Moist Neck: Positive: neck supple, trachea midline Neuro: Positive: Grossly Intact Abdomen: Positive: Ascites, Firm. Negative: Tender /Rectal: Other (deferred) Skin: Positive: Other (BUE and BLE scattered wounds) Musculoskeletal: Decreased Range of Motion, No Pain Extremities: Present: edema (RUE - trace), +3 Edema - Labs and Meds Cardiac Enzymes 01/05/19 01/05/19 01/05/19 Range/Units 23:41 23:41 23:41 WBC 5.1 (4.5-11.0) K/mm3 RBC 5.00 (3.65-5.03) M/mm3 Hgb 14.1 (10.1-14.3) gm/dl Hct 44.7 H (30.3-42.9) % MCV 89 (79-97) fl MCH 28 (28-32) pg MCHC 32 (30-34) % RDW 23.7 H (13.2-15.2) % Plt Count 163 (140-440) K/mm3 Baso % (Auto) Add Manual Diff Complete Total Counted 100 Seg Neuts % (Manual) 72.0 H (40.0-70.0) % Band Neutrophils % 0 % Lymphocytes % (Manual) 16.0 (13.4-35.0) % Reactive Lymphs % (Man) 0 % Monocytes % (Manual) 9.0 H (0.0-7.3) % Eosinophils % (Manual) 2.0 (0.0-4.3) % Basophils % (Manual) 1.0 (0.0-1.8) % Metamyelocytes % 0 % Myelocytes % 0 % Promyelocytes % 0 % Blast Cells % 0 % Nucleated RBC % Not Reportable Seg Neutrophils # Man 3.7 (1.8-7.7) K/mm3 Band Neutrophils # 0.0 K/mm3 Lymphocytes # (Manual) 0.8 L (1.2-5.4) K/mm3 Abs React Lymphs (Man) 0.0 K/mm3 Monocytes # (Manual) 0.5 (0.0-0.8) K/mm3 Eosinophils # (Manual) 0.1 (0.0-0.4) K/mm3 Basophils # (Manual) 0.1 (0.0-0.1) K/mm3 Metamyelocytes # 0.0 K/mm3 Myelocytes # 0.0 K/mm3 Promyelocytes # 0.0 K/mm3 Blast Cells # 0.0 K/mm3 WBC Morphology Not Reportable Hypersegmented Neuts Not Reportable Hyposegmented Neuts Not Reportable Hypogranular Neuts Not Reportable Smudge Cells Not Reportable Toxic Granulation Not Reportable Toxic Vacuolation Not Reportable Dohle Bodies Not Reportable Pelger-Huet Anomaly Not Reportable Clarissa Rods Not Reportable Platelet Estimate Not Reportable Clumped Platelets Not Reportable Plt Clumps, EDTA Not Reportable Large Platelets Not Reportable Giant Platelets Not Reportable Platelet Satelliting Not Reportable Plt Morphology Comment Not Reportable RBC Morphology Not Reportable Dimorphic RBCs Not Reportable Polychromasia Not Reportable Hypochromasia Not Reportable Poikilocytosis Not Reportable Anisocytosis 2+ Microcytosis Not Reportable Macrocytosis Not Reportable Spherocytes Not Reportable Pappenheimer Bodies Not Reportable Sickle Cells Not Reportable Target Cells Not Reportable Tear Drop Cells Not Reportable Ovalocytes Not Reportable Helmet Cells Not Reportable [place] Bodies Not Reportable [place] Rings Not Reportable [place] Cells Not Reportable Bite Cells Not Reportable Crenated Cell Not Reportable Elliptocytes Not Reportable Acanthocytes (Spur) Not Reportable Rouleaux Not Reportable Hemoglobin C Crystals Not Reportable Schistocytes Not Reportable Malaria parasites Not Reportable Dieter Bodies Not Reportable Hem Pathologist Commnt No PT (12.2-14.9) Sec. INR (0.87-1.13) POC ABG pH (7.35-7.45) POC ABG pCO2 (35-45) POC ABG pO2 (80-105) POC ABG HCO3 (22-26 mml/L) POC ABG Total CO2 (23-27mmol/L) POC ABG O2 Sat POC ABG Base Excess ((-2) - (+3)mmol/L) FiO2 % Sodium (137-145) mmol/L Potassium (3.6-5.0) mmol/L Chloride (98-107) mmol/L Carbon Dioxide (22-30) mmol/L Anion Gap mmol/L BUN (7-17) mg/dL Creatinine (0.7-1.2) mg/dL Estimated GFR ml/min BUN/Creatinine Ratio % Glucose (65-100) mg/dL Lactic Acid (0.7-2.0) mmol/L Calcium (8.4-10.2) mg/dL Total Bilirubin (0.1-1.2) mg/dL ALT (7-56) units/L Alkaline Phosphatase (35-129) units/L Total Creatine Kinase (30-135) units/L CK-MB (CK-2) Rel Index (0-4) Troponin T < 0.010 (0.00-0.029) ng/mL NT-Pro-B Natriuret Pep 4050 H (0-900) pg/mL Total Protein (6.3-8.2) g/dL Albumin (3.9-5) g/dL Albumin/Globulin Ratio % Urine Color (Yellow) Urine Turbidity (Clear) Urine pH (5.0-7.0) Ur Specific Merlin (1.003-1.030) Urine Protein (Negative) mg/dL Urine Glucose (UA) (Negative) mg/dL Urine Ketones (Negative) mg/dL Urine Blood (Negative) Urine Nitrite (Negative) Urine Bilirubin (Negative) Urine Urobilinogen (<2.0) mg/dL Ur Leukocyte Esterase (Negative) Urine WBC (Auto) (0.0-6.0) /HPF Urine RBC (Auto) (0.0-6.0) /HPF U Epithel Cells (Auto) (0-13.0) /HPF Urine Bacteria (Auto) (Negative) /HPF Urine Mucus /HPF 01/06/19 01/06/19 01/06/19 Range/Units 00:12 00:12 02:31 WBC (4.5-11.0) K/mm3 RBC (3.65-5.03) M/mm3 Hgb (10.1-14.3) gm/dl Hct (30.3-42.9) % MCV (79-97) fl MCH (28-32) pg MCHC (30-34) % RDW (13.2-15.2) % Plt Count (140-440) K/mm3 Baso % (Auto) Add Manual Diff Total Counted Seg Neuts % (Manual) (40.0-70.0) % Band Neutrophils % % Lymphocytes % (Manual) (13.4-35.0) % Reactive Lymphs % (Man) % Monocytes % (Manual) (0.0-7.3) % Eosinophils % (Manual) (0.0-4.3) % Basophils % (Manual) (0.0-1.8) % Metamyelocytes % % Myelocytes % % Promyelocytes % % Blast Cells % % Nucleated RBC % Seg Neutrophils # Man (1.8-7.7) K/mm3 Band Neutrophils # K/mm3 Lymphocytes # (Manual) (1.2-5.4) K/mm3 Abs React Lymphs (Man) K/mm3 Monocytes # (Manual) (0.0-0.8) K/mm3 Eosinophils # (Manual) (0.0-0.4) K/mm3 Basophils # (Manual) (0.0-0.1) K/mm3 Metamyelocytes # K/mm3 Myelocytes # K/mm3 Promyelocytes # K/mm3 Blast Cells # K/mm3 WBC Morphology Hypersegmented Neuts Hyposegmented Neuts Hypogranular Neuts Smudge Cells Toxic Granulation Toxic Vacuolation Dohle Bodies Pelger-Huet Anomaly Clarissa Rods Platelet Estimate Clumped Platelets Plt Clumps, EDTA Large Platelets Giant Platelets Platelet Satelliting Plt Morphology Comment RBC Morphology Dimorphic RBCs Polychromasia Hypochromasia Poikilocytosis Anisocytosis Microcytosis Macrocytosis Spherocytes Pappenheimer Bodies Sickle Cells Target Cells Tear Drop Cells Ovalocytes Helmet Cells [place] Bodies [place] Rings Ramesh Cells Bite Cells Crenated Cell Elliptocytes Acanthocytes (Spur) Rouleaux Hemoglobin C Crystals Schistocytes Malaria parasites Dieter Bodies Hem Pathologist Commnt PT (12.2-14.9) Sec. INR (0.87-1.13) POC ABG pH 7.337 L (7.35-7.45) POC ABG pCO2 63.5 H (35-45) POC ABG pO2 52 L (80-105) POC ABG HCO3 34.0 (22-26 mml/L) POC ABG Total CO2 36 (23-27mmol/L) POC ABG O2 Sat 83 POC ABG Base Excess 8 ((-2) - (+3)mmol/L) FiO2 21 % Sodium 144 (137-145) mmol/L Potassium 3.7 (3.6-5.0) mmol/L Chloride 98.0 (98-107) mmol/L Carbon Dioxide 34 H (22-30) mmol/L Anion Gap 16 mmol/L BUN 16 (7-17) mg/dL Creatinine 0.7 (0.7-1.2) mg/dL Estimated GFR > 60 ml/min BUN/Creatinine Ratio 23 % Glucose 86 (65-100) mg/dL Lactic Acid 1.00 (0.7-2.0) mmol/L Calcium 8.7 (8.4-10.2) mg/dL Total Bilirubin 0.80 (0.1-1.2) mg/dL ALT 35 (7-56) units/L Alkaline Phosphatase 140 H (35-129) units/L Total Creatine Kinase (30-135) units/L CK-MB (CK-2) Rel Index (0-4) Troponin T (0.00-0.029) ng/mL NT-Pro-B Natriuret Pep (0-900) pg/mL Total Protein 7.3 (6.3-8.2) g/dL Albumin 2.8 L (3.9-5) g/dL Albumin/Globulin Ratio 0.6 % Urine Color (Yellow) Urine Turbidity (Clear) Urine pH (5.0-7.0) Ur Specific Merlin (1.003-1.030) Urine Protein (Negative) mg/dL Urine Glucose (UA) (Negative) mg/dL Urine Ketones (Negative) mg/dL Urine Blood (Negative) Urine Nitrite (Negative) Urine Bilirubin (Negative) Urine Urobilinogen (<2.0) mg/dL Ur Leukocyte Esterase (Negative) Urine WBC (Auto) (0.0-6.0) /HPF Urine RBC (Auto) (0.0-6.0) /HPF U Epithel Cells (Auto) (0-13.0) /HPF Urine Bacteria (Auto) (Negative) /HPF Urine Mucus /HPF 01/06/19 01/06/19 01/06/19 Range/Units 03:20 05:00 07:53 WBC (4.5-11.0) K/mm3 RBC (3.65-5.03) M/mm3 Hgb (10.1-14.3) gm/dl Hct (30.3-42.9) % MCV (79-97) fl MCH (28-32) pg MCHC (30-34) % RDW (13.2-15.2) % Plt Count (140-440) K/mm3 Baso % (Auto) Add Manual Diff Total Counted Seg Neuts % (Manual) (40.0-70.0) % Band Neutrophils % % Lymphocytes % (Manual) (13.4-35.0) % Reactive Lymphs % (Man) % Monocytes % (Manual) (0.0-7.3) % Eosinophils % (Manual) (0.0-4.3) % Basophils % (Manual) (0.0-1.8) % Metamyelocytes % % Myelocytes % % Promyelocytes % % Blast Cells % % Nucleated RBC % Seg Neutrophils # Man (1.8-7.7) K/mm3 Band Neutrophils # K/mm3 Lymphocytes # (Manual) (1.2-5.4) K/mm3 Abs React Lymphs (Man) K/mm3 Monocytes # (Manual) (0.0-0.8) K/mm3 Eosinophils # (Manual) (0.0-0.4) K/mm3 Basophils # (Manual) (0.0-0.1) K/mm3 Metamyelocytes # K/mm3 Myelocytes # K/mm3 Promyelocytes # K/mm3 Blast Cells # K/mm3 WBC Morphology Hypersegmented Neuts Hyposegmented Neuts Hypogranular Neuts Smudge Cells Toxic Granulation Toxic Vacuolation Dohle Bodies Pelger-Huet Anomaly Clarissa Rods Platelet Estimate Clumped Platelets Plt Clumps, EDTA Large Platelets Giant Platelets Platelet Satelliting Plt Morphology Comment RBC Morphology Dimorphic RBCs Polychromasia Hypochromasia Poikilocytosis Anisocytosis Microcytosis Macrocytosis Spherocytes Pappenheimer Bodies Sickle Cells Target Cells Tear Drop Cells Ovalocytes Helmet Cells [place] Bodies [place] Rings Ramesh Cells Bite Cells Crenated Cell Elliptocytes Acanthocytes (Spur) Rouleaux Hemoglobin C Crystals Schistocytes Malaria parasites Dieter Bodies Hem Pathologist Commnt PT (12.2-14.9) Sec. INR (0.87-1.13) POC ABG pH (7.35-7.45) POC ABG pCO2 (35-45) POC ABG pO2 (80-105) POC ABG HCO3 (22-26 mml/L) POC ABG Total CO2 (23-27mmol/L) POC ABG O2 Sat POC ABG Base Excess ((-2) - (+3)mmol/L) FiO2 % Sodium (137-145) mmol/L Potassium (3.6-5.0) mmol/L Chloride (98-107) mmol/L Carbon Dioxide (22-30) mmol/L Anion Gap mmol/L BUN (7-17) mg/dL Creatinine (0.7-1.2) mg/dL Estimated GFR ml/min BUN/Creatinine Ratio % Glucose (65-100) mg/dL Lactic Acid 1.30 (0.7-2.0) mmol/L Calcium (8.4-10.2) mg/dL Total Bilirubin (0.1-1.2) mg/dL ALT (7-56) units/L Alkaline Phosphatase (35-129) units/L Total Creatine Kinase 87 (30-135) units/L CK-MB (CK-2) Rel Index 3.9 (0-4) Troponin T < 0.010 (0.00-0.029) ng/mL NT-Pro-B Natriuret Pep (0-900) pg/mL Total Protein (6.3-8.2) g/dL Albumin (3.9-5) g/dL Albumin/Globulin Ratio % Urine Color Yellow (Yellow) Urine Turbidity Clear (Clear) Urine pH 5.0 (5.0-7.0) Ur Specific Merlin 1.011 (1.003-1.030) Urine Protein 30 mg/dl (Negative) mg/dL Urine Glucose (UA) Neg (Negative) mg/dL Urine Ketones Neg (Negative) mg/dL Urine Blood Sm (Negative) Urine Nitrite Neg (Negative) Urine Bilirubin Neg (Negative) Urine Urobilinogen < 2.0 (<2.0) mg/dL Ur Leukocyte Esterase Sm (Negative) Urine WBC (Auto) 4.0 (0.0-6.0) /HPF Urine RBC (Auto) 4.0 (0.0-6.0) /HPF U Epithel Cells (Auto) 2.0 (0-13.0) /HPF Urine Bacteria (Auto) 2+ (Negative) /HPF Urine Mucus Few /HPF 01/06/19 01/07/19 01/07/19 Range/Units 13:18 04:43 04:43 WBC 4.8 (4.5-11.0) K/mm3 RBC 4.64 (3.65-5.03) M/mm3 Hgb 13.2 (10.1-14.3) gm/dl Hct 41.5 (30.3-42.9) % MCV 89 (79-97) fl MCH 28 (28-32) pg MCHC 32 (30-34) % RDW 22.8 H (13.2-15.2) % Plt Count 165 (140-440) K/mm3 Baso % (Auto) Add Manual Diff Complete Total Counted 100 Seg Neuts % (Manual) 87.0 H (40.0-70.0) % Band Neutrophils % 0 % Lymphocytes % (Manual) 9.0 L (13.4-35.0) % Reactive Lymphs % (Man) 0 % Monocytes % (Manual) 3.0 (0.0-7.3) % Eosinophils % (Manual) 1.0 (0.0-4.3) % Basophils % (Manual) 0 (0.0-1.8) % Metamyelocytes % 0 % Myelocytes % 0 % Promyelocytes % 0 % Blast Cells % 0 % Nucleated RBC % 7.0 H Seg Neutrophils # Man 4.2 (1.8-7.7) K/mm3 Band Neutrophils # 0.0 K/mm3 Lymphocytes # (Manual) 0.4 L (1.2-5.4) K/mm3 Abs React Lymphs (Man) 0.0 K/mm3 Monocytes # (Manual) 0.1 (0.0-0.8) K/mm3 Eosinophils # (Manual) 0.0 (0.0-0.4) K/mm3 Basophils # (Manual) 0.0 (0.0-0.1) K/mm3 Metamyelocytes # 0.0 K/mm3 Myelocytes # 0.0 K/mm3 Promyelocytes # 0.0 K/mm3 Blast Cells # 0.0 K/mm3 WBC Morphology Not Reportable Hypersegmented Neuts Not Reportable Hyposegmented Neuts Not Reportable Hypogranular Neuts Not Reportable Smudge Cells Not Reportable Toxic Granulation Not Reportable Toxic Vacuolation Not Reportable Dohle Bodies Not Reportable Pelger-Huet Anomaly Not Reportable Clarissa Rods Not Reportable Platelet Estimate Consistent w auto Clumped Platelets Not Reportable Plt Clumps, EDTA Not Reportable Large Platelets Not Reportable Giant Platelets Not Reportable Platelet Satelliting Not Reportable Plt Morphology Comment Not Reportable RBC Morphology Not Reportable Dimorphic RBCs Not Reportable Polychromasia Not Reportable Hypochromasia Not Reportable Poikilocytosis Not Reportable Anisocytosis 1+ Microcytosis Not Reportable Macrocytosis Not Reportable Spherocytes Not Reportable Pappenheimer Bodies Not Reportable Sickle Cells Not Reportable Target Cells Not Reportable Tear Drop Cells Not Reportable Ovalocytes Not Reportable Helmet Cells Not Reportable [place] Bodies Not Reportable [place] Rings Not Reportable [place] Cells Not Reportable Bite Cells Not Reportable Crenated Cell Not Reportable Elliptocytes Not Reportable Acanthocytes (Spur) Not Reportable Rouleaux Not Reportable Hemoglobin C Crystals Not Reportable Schistocytes Not Reportable Malaria parasites Not Reportable Dieter Bodies Not Reportable Hem Pathologist Commnt No PT (12.2-14.9) Sec. INR (0.87-1.13) POC ABG pH (7.35-7.45) POC ABG pCO2 (35-45) POC ABG pO2 (80-105) POC ABG HCO3 (22-26 mml/L) POC ABG Total CO2 (23-27mmol/L) POC ABG O2 Sat POC ABG Base Excess ((-2) - (+3)mmol/L) FiO2 % Sodium 139 (137-145) mmol/L Potassium 3.9 (3.6-5.0) mmol/L Chloride 96.1 L (98-107) mmol/L Carbon Dioxide 30 (22-30) mmol/L Anion Gap 17 mmol/L BUN 17 (7-17) mg/dL Creatinine 0.9 (0.7-1.2) mg/dL Estimated GFR > 60 ml/min BUN/Creatinine Ratio 19 % Glucose 82 (65-100) mg/dL Lactic Acid (0.7-2.0) mmol/L Calcium 8.3 L (8.4-10.2) mg/dL Total Bilirubin (0.1-1.2) mg/dL ALT (7-56) units/L Alkaline Phosphatase (35-129) units/L Total Creatine Kinase 117 (30-135) units/L CK-MB (CK-2) Rel Index 2.6 (0-4) Troponin T < 0.010 (0.00-0.029) ng/mL NT-Pro-B Natriuret Pep (0-900) pg/mL Total Protein (6.3-8.2) g/dL Albumin (3.9-5) g/dL Albumin/Globulin Ratio % Urine Color (Yellow) Urine Turbidity (Clear) Urine pH (5.0-7.0) Ur Specific Merlin (1.003-1.030) Urine Protein (Negative) mg/dL Urine Glucose (UA) (Negative) mg/dL Urine Ketones (Negative) mg/dL Urine Blood (Negative) Urine Nitrite (Negative) Urine Bilirubin (Negative) Urine Urobilinogen (<2.0) mg/dL Ur Leukocyte Esterase (Negative) Urine WBC (Auto) (0.0-6.0) /HPF Urine RBC (Auto) (0.0-6.0) /HPF U Epithel Cells (Auto) (0-13.0) /HPF Urine Bacteria (Auto) (Negative) /HPF Urine Mucus /HPF 01/07/19 01/07/19 01/07/19 Range/Units 08:50 08:50 19:15 WBC 5.1 (4.5-11.0) K/mm3 RBC 4.49 (3.65-5.03) M/mm3 Hgb 12.7 (10.1-14.3) gm/dl Hct 41.0 (30.3-42.9) % MCV 91 (79-97) fl MCH 28 (28-32) pg MCHC 31 (30-34) % RDW 23.3 H (13.2-15.2) % Plt Count 165 (140-440) K/mm3 Baso % (Auto) Speech And Hearing Director Add Manual Diff Complete Total Counted 100 Seg Neuts % (Manual) 84.0 H (40.0-70.0) % Band Neutrophils % 0 % Lymphocytes % (Manual) 15.0 (13.4-35.0) % Reactive Lymphs % (Man) 0 % Monocytes % (Manual) 1.0 (0.0-7.3) % Eosinophils % (Manual) 0 (0.0-4.3) % Basophils % (Manual) 0 (0.0-1.8) % Metamyelocytes % 0 % Myelocytes % 0 % Promyelocytes % 0 % Blast Cells % 0 % Nucleated RBC % 5.0 H Seg Neutrophils # Man 4.3 (1.8-7.7) K/mm3 Band Neutrophils # 0.0 K/mm3 Lymphocytes # (Manual) 0.8 L (1.2-5.4) K/mm3 Abs React Lymphs (Man) 0.0 K/mm3 Monocytes # (Manual) 0.1 (0.0-0.8) K/mm3 Eosinophils # (Manual) 0.0 (0.0-0.4) K/mm3 Basophils # (Manual) 0.0 (0.0-0.1) K/mm3 Metamyelocytes # 0.0 K/mm3 Myelocytes # 0.0 K/mm3 Promyelocytes # 0.0 K/mm3 Blast Cells # 0.0 K/mm3 WBC Morphology Not Reportable Hypersegmented Neuts Not Reportable Hyposegmented Neuts Not Reportable Hypogranular Neuts Not Reportable Smudge Cells Not Reportable Toxic Granulation Not Reportable Toxic Vacuolation Not Reportable Dohle Bodies Not Reportable Pelger-Huet Anomaly Not Reportable Clarissa Rods Not Reportable Platelet Estimate Consistent w auto Clumped Platelets Not Reportable Plt Clumps, EDTA Not Reportable Large Platelets Few Giant Platelets Not Reportable Platelet Satelliting Not Reportable Plt Morphology Comment Not Reportable RBC Morphology Not Reportable Dimorphic RBCs Not Reportable Polychromasia Not Reportable Hypochromasia Not Reportable Poikilocytosis Few Anisocytosis 2+ Microcytosis Rare Macrocytosis Not Reportable Spherocytes Not Reportable Pappenheimer Bodies Not Reportable Sickle Cells Not Reportable Target Cells Not Reportable Tear Drop Cells Not Reportable Ovalocytes Not Reportable Helmet Cells Not Reportable [place] Bodies Not Reportable [place] Rings Not Reportable [place] Cells Not Reportable Bite Cells Not Reportable Crenated Cell Not Reportable Elliptocytes Not Reportable Acanthocytes (Spur) Not Reportable Rouleaux Not Reportable Hemoglobin C Crystals Not Reportable Schistocytes Not Reportable Malaria parasites Not Reportable Dieter Bodies Not Reportable Hem Pathologist Commnt No PT 15.1 H (12.2-14.9) Sec. INR 1.20 H (0.87-1.13) POC ABG pH (7.35-7.45) POC ABG pCO2 (35-45) POC ABG pO2 (80-105) POC ABG HCO3 (22-26 mml/L) POC ABG Total CO2 (23-27mmol/L) POC ABG O2 Sat POC ABG Base Excess ((-2) - (+3)mmol/L) FiO2 % Sodium 141 (137-145) mmol/L Potassium 4.0 (3.6-5.0) mmol/L Chloride 97.5 L (98-107) mmol/L Carbon Dioxide 27 (22-30) mmol/L Anion Gap 21 mmol/L BUN 19 H (7-17) mg/dL Creatinine 0.9 (0.7-1.2) mg/dL Estimated GFR > 60 ml/min BUN/Creatinine Ratio 21 % Glucose 125 H (65-100) mg/dL Lactic Acid (0.7-2.0) mmol/L Calcium 8.1 L (8.4-10.2) mg/dL Total Bilirubin (0.1-1.2) mg/dL ALT (7-56) units/L Alkaline Phosphatase (35-129) units/L Total Creatine Kinase (30-135) units/L CK-MB (CK-2) Rel Index (0-4) Troponin T (0.00-0.029) ng/mL NT-Pro-B Natriuret Pep (0-900) pg/mL Total Protein (6.3-8.2) g/dL Albumin (3.9-5) g/dL Albumin/Globulin Ratio % Urine Color (Yellow) Urine Turbidity (Clear) Urine pH (5.0-7.0) Ur Specific Merlin (1.003-1.030) Urine Protein (Negative) mg/dL Urine Glucose (UA) (Negative) mg/dL Urine Ketones (Negative) mg/dL Urine Blood (Negative) Urine Nitrite (Negative) Urine Bilirubin (Negative) Urine Urobilinogen (<2.0) mg/dL Ur Leukocyte Esterase (Negative) Urine WBC (Auto) (0.0-6.0) /HPF Urine RBC (Auto) (0.0-6.0) /HPF U Epithel Cells (Auto) (0-13.0) /HPF Urine Bacteria (Auto) (Negative) /HPF Urine Mucus /HPF 01/08/19 01/09/19 01/09/19 Range/Units 04:27 04:19 04:19 WBC 6.0 (4.5-11.0) K/mm3 RBC 4.45 (3.65-5.03) M/mm3 Hgb 12.6 (10.1-14.3) gm/dl Hct 40.7 (30.3-42.9) % MCV 92 (79-97) fl MCH 28 (28-32) pg MCHC 31 (30-34) % RDW 22.3 H (13.2-15.2) % Plt Count 187 (140-440) K/mm3 Baso % (Auto) Add Manual Diff Total Counted Seg Neuts % (Manual) (40.0-70.0) % Band Neutrophils % % Lymphocytes % (Manual) (13.4-35.0) % Reactive Lymphs % (Man) % Monocytes % (Manual) (0.0-7.3) % Eosinophils % (Manual) (0.0-4.3) % Basophils % (Manual) (0.0-1.8) % Metamyelocytes % % Myelocytes % % Promyelocytes % % Blast Cells % % Nucleated RBC % Seg Neutrophils # Man (1.8-7.7) K/mm3 Band Neutrophils # K/mm3 Lymphocytes # (Manual) (1.2-5.4) K/mm3 Abs React Lymphs (Man) K/mm3 Monocytes # (Manual) (0.0-0.8) K/mm3 Eosinophils # (Manual) (0.0-0.4) K/mm3 Basophils # (Manual) (0.0-0.1) K/mm3 Metamyelocytes # K/mm3 Myelocytes # K/mm3 Promyelocytes # K/mm3 Blast Cells # K/mm3 WBC Morphology Hypersegmented Neuts Hyposegmented Neuts Hypogranular Neuts Smudge Cells Toxic Granulation Toxic Vacuolation Dohle Bodies Pelger-Huet Anomaly Clarissa Rods Platelet Estimate Clumped Platelets Plt Clumps, EDTA Large Platelets Giant Platelets Platelet Satelliting Plt Morphology Comment RBC Morphology Dimorphic RBCs Polychromasia Hypochromasia Poikilocytosis Anisocytosis Microcytosis Macrocytosis Spherocytes Pappenheimer Bodies Sickle Cells Target Cells Tear Drop Cells Ovalocytes Helmet Cells [place] Bodies [place] Rings [place] Cells Bite Cells Crenated Cell Elliptocytes Acanthocytes (Spur) Rouleaux Hemoglobin C Crystals Schistocytes Malaria parasites Dieter Bodies Hem Pathologist Commnt PT (12.2-14.9) Sec. INR (0.87-1.13) POC ABG pH (7.35-7.45) POC ABG pCO2 (35-45) POC ABG pO2 (80-105) POC ABG HCO3 (22-26 mml/L) POC ABG Total CO2 (23-27mmol/L) POC ABG O2 Sat POC ABG Base Excess ((-2) - (+3)mmol/L) FiO2 % Sodium 141 134 L (137-145) mmol/L Potassium 3.6 4.2 (3.6-5.0) mmol/L Chloride 93.5 L 95.2 L (98-107) mmol/L Carbon Dioxide 32 H 27 (22-30) mmol/L Anion Gap 19 16 mmol/L BUN 20 H 24 H (7-17) mg/dL Creatinine 1.0 1.1 (0.7-1.2) mg/dL Estimated GFR > 60 > 60 ml/min BUN/Creatinine Ratio 20 22 % Glucose 78 98 (65-100) mg/dL Lactic Acid (0.7-2.0) mmol/L Calcium 8.2 L 8.2 L (8.4-10.2) mg/dL Total Bilirubin (0.1-1.2) mg/dL ALT (7-56) units/L Alkaline Phosphatase (35-129) units/L Total Creatine Kinase (30-135) units/L CK-MB (CK-2) Rel Index (0-4) Troponin T (0.00-0.029) ng/mL NT-Pro-B Natriuret Pep (0-900) pg/mL Total Protein (6.3-8.2) g/dL Albumin (3.9-5) g/dL Albumin/Globulin Ratio % Urine Color (Yellow) Urine Turbidity (Clear) Urine pH (5.0-7.0) Ur Specific Merlin (1.003-1.030) Urine Protein (Negative) mg/dL Urine Glucose (UA) (Negative) mg/dL Urine Ketones (Negative) mg/dL Urine Blood (Negative) Urine Nitrite (Negative) Urine Bilirubin (Negative) Urine Urobilinogen (<2.0) mg/dL Ur Leukocyte Esterase (Negative) Urine WBC (Auto) (0.0-6.0) /HPF Urine RBC (Auto) (0.0-6.0) /HPF U Epithel Cells (Auto) (0-13.0) /HPF Urine Bacteria (Auto) (Negative) /HPF Urine Mucus /HPF 01/10/19 01/11/19 01/12/19 Range/Units 06:36 06:34 05:19 WBC (4.5-11.0) K/mm3 RBC (3.65-5.03) M/mm3 Hgb (10.1-14.3) gm/dl Hct (30.3-42.9) % MCV (79-97) fl MCH (28-32) pg MCHC (30-34) % RDW (13.2-15.2) % Plt Count (140-440) K/mm3 Baso % (Auto) Add Manual Diff Total Counted Seg Neuts % (Manual) (40.0-70.0) % Band Neutrophils % % Lymphocytes % (Manual) (13.4-35.0) % Reactive Lymphs % (Man) % Monocytes % (Manual) (0.0-7.3) % Eosinophils % (Manual) (0.0-4.3) % Basophils % (Manual) (0.0-1.8) % Metamyelocytes % % Myelocytes % % Promyelocytes % % Blast Cells % % Nucleated RBC % Seg Neutrophils # Man (1.8-7.7) K/mm3 Band Neutrophils # K/mm3 Lymphocytes # (Manual) (1.2-5.4) K/mm3 Abs React Lymphs (Man) K/mm3 Monocytes # (Manual) (0.0-0.8) K/mm3 Eosinophils # (Manual) (0.0-0.4) K/mm3 Basophils # (Manual) (0.0-0.1) K/mm3 Metamyelocytes # K/mm3 Myelocytes # K/mm3 Promyelocytes # K/mm3 Blast Cells # K/mm3 WBC Morphology Hypersegmented Neuts Hyposegmented Neuts Hypogranular Neuts Smudge Cells Toxic Granulation Toxic Vacuolation Dohle Bodies Pelger-Huet Anomaly Clarissa Rods Platelet Estimate Clumped Platelets Plt Clumps, EDTA Large Platelets Giant Platelets Platelet Satelliting Plt Morphology Comment RBC Morphology Dimorphic RBCs Polychromasia Hypochromasia Poikilocytosis Anisocytosis Microcytosis Macrocytosis Spherocytes Pappenheimer Bodies Sickle Cells Target Cells Tear Drop Cells Ovalocytes Helmet Cells [place] Bodies [place] Rings [place] Cells Bite Cells Crenated Cell Elliptocytes Acanthocytes (Spur) Rouleaux Hemoglobin C Crystals Schistocytes Malaria parasites Dieter Bodies Hem Pathologist Commnt PT (12.2-14.9) Sec. INR (0.87-1.13) POC ABG pH (7.35-7.45) POC ABG pCO2 (35-45) POC ABG pO2 (80-105) POC ABG HCO3 (22-26 mml/L) POC ABG Total CO2 (23-27mmol/L) POC ABG O2 Sat POC ABG Base Excess ((-2) - (+3)mmol/L) FiO2 % Sodium 138 140 139 (137-145) mmol/L Potassium 3.3 L D 3.2 L 3.0 L (3.6-5.0) mmol/L Chloride 90.8 L 92.0 L 89.8 L (98-107) mmol/L Carbon Dioxide 32 H 34 H 34 H (22-30) mmol/L Anion Gap 19 17 18 mmol/L BUN 23 H 21 H 18 H (7-17) mg/dL Creatinine 0.9 0.7 0.6 L (0.7-1.2) mg/dL Estimated GFR > 60 > 60 > 60 ml/min BUN/Creatinine Ratio 26 30 30 % Glucose 85 91 88 (65-100) mg/dL Lactic Acid (0.7-2.0) mmol/L Calcium 8.2 L 8.7 8.6 (8.4-10.2) mg/dL Total Bilirubin (0.1-1.2) mg/dL ALT (7-56) units/L Alkaline Phosphatase (35-129) units/L Total Creatine Kinase (30-135) units/L CK-MB (CK-2) Rel Index (0-4) Troponin T (0.00-0.029) ng/mL NT-Pro-B Natriuret Pep (0-900) pg/mL Total Protein (6.3-8.2) g/dL Albumin (3.9-5) g/dL Albumin/Globulin Ratio % Urine Color (Yellow) Urine Turbidity (Clear) Urine pH (5.0-7.0) Ur Specific [place]lin (1.003-1.030) Urine Protein (Negative) mg/dL Urine Glucose (UA) (Negative) mg/dL Urine Ketones (Negative) mg/dL Urine Blood (Negative) Urine Nitrite (Negative) Urine Bilirubin (Negative) Urine Urobilinogen (<2.0) mg/dL Ur Leukocyte Esterase (Negative) Urine WBC (Auto) (0.0-6.0) /HPF Urine RBC (Auto) (0.0-6.0) /HPF U Epithel Cells (Auto) (0-13.0) /HPF Urine Bacteria (Auto) (Negative) /HPF Urine Mucus /HPF Comprehensive Metabolic Panel 01/12/19 Range/Units 05:19 Sodium 139 (137-145) mmol/L Potassium 3.0 L (3.6-5.0) mmol/L Chloride 89.8 L (98-107) mmol/L Carbon Dioxide 34 H (22-30) mmol/L BUN 18 H (7-17) mg/dL Creatinine 0.6 L (0.7-1.2) mg/dL Glucose 88 (65-100) mg/dL Calcium 8.6 (8.4-10.2) mg/dL - Imaging and Cardiology EKG: report reviewed, image reviewed Echo: report reviewed (06/2018 showed EF 20-25%, mild LVH, LA mod dilated, RV systolic function mod reduced. ) - EKG Sinus rhythms and dysrhythmias: sinus rhythm
--- NOTE | 2019-01-12 15:24 | Progress Note ---
Assessment and Plan Assessment and plan: 58 years old presents with profound edema and ascites most likely secondary to congestive heart failure. - Patient Problems (1) Acute HFrEF (heart failure with reduced ejection fraction) Current Visit: Yes Status: Acute Plan to address problem: Patient last known ejection fraction several months ago 20%. Patient has marked edema bilateral lower extremities as well as abdomen, breast, back, thighs appears this edema has progressively gotten worse. LASIX 60MG IV BID. PER PATIENT THIS HELPS WHENEVER SHE IS HOSPITALIZED. Zaroxolyn has been added will see us she responds to this. I think hospitalization maybe longer than previously thought secondary to the amount of edema Patient clearly is uncomfortable. An ascites is the reason patient has shortness of breath and the breast edema and the cellulitis as well. Ischemic work up planned by cardiology for the am * Fell overnight 01/08/19 * Some confusion reported but now resolved * Complains of Itch in the leg-better with benedryl * BB stopped due to allergy * ischemic work up prior to discharged * Awaiting planned ischemic work up per cardiology * will switch to oral antibiotics Persistent Hypokaelmia Replace Cellulitis Current Visit: Yes Status: Acute Qualifiers: Site of cellulitis: trunk Site of cellulitis of trunk: abdominal wall Qualified Code(s): L03.311 - Cellulitis of abdominal wall Plan to address problem: Secondary to severe ascites and lower extremity edema. Will require diuresis. Treat cellulitis with IV antibiotics. Follow culture data. Strict elevation of legs bed rest for the most part with leg elevation for the next several days. Nicotine dependence with withdrawal Current Visit: No Status: Acute Qualifiers: Nicotine product type: cigarettes Qualified Code(s): F17.213 - Nicotine dependence, cigarettes, with withdrawal Plan to address problem: Add nicotine patch. Obesity hypoventilation syndrome Current Visit: No Status: Acute Plan to address problem: Patient with obesity hypertension syndrome. Weight loss dietary modifications have been discussed. ANASCAR/Ascites Current Visit: Yes Status: Acute Plan to address problem: ANASCAR LIKELY SECONDARY TO SEVERE FLUID OVERLOAD. SMALL ASCITES IS NOTED HTN (hypertension) Current Visit: Yes Status: Chronic Plan to address problem: Patient very well-controlled on current antihypertensives. Morbid obesity Current Visit: Yes Status: Chronic Plan to address problem: Diet weight education Multiple ulceration in the bilateral legs. POA. wound care consult FALL- HEAD CT negative Hypokalemia- Replace History Interval history: Patient 58 years old with a history of CHF last known ejection fraction 20-25%, hypertension, obesity, tobacco dependency presents with worsening shortness of breath and edema with abdominal pain and lower extremity wounds over approximate 2 week period of time. No new complaints, improving , good urine output, improvement in pulmonary status but still feels she has ways to go, encouraged to be complaint with Nursing staff on [facility] Hospitalist Physical - Physical exam Narrative exam: General appearance: Present: mild distress, Otherwise stable - EENT Eyes: Present: PERRL, EOM intact ENT: hearing intact, clear oral mucosa, dentition normal, oropharyngeal erythema, no poor dentition, no thrush - Neck Neck: Present: supple, normal ROM - Respiratory Respiratory: bilateral: diminished, rhonchi - Cardiovascular Rhythm: regular Heart Sounds: Present: S1 & S2 - Extremities Extremities: no ischemia, Full ROM Extremity abnormal: edema, erythema, tenderness Peripheral Pulses: within normal limits - Abdominal General gastrointestinal: soft, tender, non-distended, hypoactive bowel sounds, other (marked edema), no hepatomegaly, no splenomegaly - Integumentary Integumentary: Present: erythema. Absent: jaundice, rash, clammy, normal turgor +3 pitting edema and generalized anasacar with ulceration - Psychiatric Psychiatric: appropriate mood/affect, intact judgment & insight, cooperative - Neurologic Neurologic: CNII-XII intact, moves all extremities - Constitutional Vitals: Temp Pulse Resp BP Pulse Ox 98.2 F 113 H 18 109/70 84 01/12/19 11:14 01/12/19 11:14 01/12/19 11:14 01/12/19 11:14 01/12/19 11:14 General appearance: Present: mild distress Results - Labs CBC & Chem 7: 01/09/19 04:19 01/12/19 05:19 Labs: Laboratory Last Values WBC 6.0 K/mm3 (4.5-11.0) 01/09/19 04:19 RBC 4.45 M/mm3 (3.65-5.03) 01/09/19 04:19 Hgb 12.6 gm/dl (10.1-14.3) 01/09/19 04:19 Hct 40.7 % (30.3-42.9) 01/09/19 04:19 MCV 92 fl (79-97) 01/09/19 04:19 MCH 28 pg (28-32) 01/09/19 04:19 MCHC 31 % (30-34) 01/09/19 04:19 RDW 22.3 % (13.2-15.2) H 01/09/19 04:19 Plt Count 187 K/mm3 (140-440) 01/09/19 04:19 Baso % (Auto) [place] Helper 01/07/19 08:50 Add Manual Diff Complete 01/07/19 08:50 Total Counted 100 01/07/19 08:50 Seg Neuts % (Manual) 84.0 % (40.0-70.0) H 01/07/19 08:50 Band Neutrophils % 0 % 01/07/19 08:50 Lymphocytes % (Manual) 15.0 % (13.4-35.0) 01/07/19 08:50 Reactive Lymphs % (Man) 0 % 01/07/19 08:50 Monocytes % (Manual) 1.0 % (0.0-7.3) 01/07/19 08:50 Eosinophils % (Manual) 0 % (0.0-4.3) 01/07/19 08:50 Basophils % (Manual) 0 % (0.0-1.8) 01/07/19 08:50 Metamyelocytes % 0 % 01/07/19 08:50 Myelocytes % 0 % 01/07/19 08:50 Promyelocytes % 0 % 01/07/19 08:50 Blast Cells % 0 % 01/07/19 08:50 Nucleated RBC % 5.0 % (0.0-0.9) H 01/07/19 08:50 Seg Neutrophils # Man 4.3 K/mm3 (1.8-7.7) 01/07/19 08:50 Band Neutrophils # 0.0 K/mm3 01/07/19 08:50 Lymphocytes # (Manual) 0.8 K/mm3 (1.2-5.4) L 01/07/19 08:50 Abs React Lymphs (Man) 0.0 K/mm3 01/07/19 08:50 Monocytes # (Manual) 0.1 K/mm3 (0.0-0.8) 01/07/19 08:50 Eosinophils # (Manual) 0.0 K/mm3 (0.0-0.4) 01/07/19 08:50 Basophils # (Manual) 0.0 K/mm3 (0.0-0.1) 01/07/19 08:50 Metamyelocytes # 0.0 K/mm3 01/07/19 08:50 Myelocytes # 0.0 K/mm3 01/07/19 08:50 Promyelocytes # 0.0 K/mm3 01/07/19 08:50 Blast Cells # 0.0 K/mm3 01/07/19 08:50 WBC Morphology Not Reportable 01/07/19 08:50 Hypersegmented Neuts Not Reportable 01/07/19 08:50 Hyposegmented Neuts Not Reportable 01/07/19 08:50 Hypogranular Neuts Not Reportable 01/07/19 08:50 Smudge Cells Not Reportable 01/07/19 08:50 Toxic Granulation Not Reportable 01/07/19 08:50 Toxic Vacuolation Not Reportable 01/07/19 08:50 Dohle Bodies Not Reportable 01/07/19 08:50 [place] Anomaly Not Reportable 01/07/19 08:50 Clarissa Rods Not Reportable 01/07/19 08:50 Platelet Estimate Consistent w auto 01/07/19 08:50 Clumped Platelets Not Reportable 01/07/19 08:50 Plt Clumps, EDTA Not Reportable 01/07/19 08:50 Large Platelets Few 01/07/19 08:50 Giant Platelets Not Reportable 01/07/19 08:50 Platelet Satelliting Not Reportable 01/07/19 08:50 Plt Morphology Comment Not Reportable 01/07/19 08:50 RBC Morphology Not Reportable 01/07/19 08:50 Dimorphic RBCs Not Reportable 01/07/19 08:50 Polychromasia Not Reportable 01/07/19 08:50 Hypochromasia Not Reportable 01/07/19 08:50 Poikilocytosis Few 01/07/19 08:50 Anisocytosis 2+ 01/07/19 08:50 Microcytosis Rare 01/07/19 08:50 Macrocytosis Not Reportable 01/07/19 08:50 Spherocytes Not Reportable 01/07/19 08:50 Pappenheimer Bodies Not Reportable 01/07/19 08:50 Sickle Cells Not Reportable 01/07/19 08:50 Target Cells Not Reportable 01/07/19 08:50 Tear Drop Cells Not Reportable 01/07/19 08:50 Ovalocytes Not Reportable 01/07/19 08:50 Helmet Cells Not Reportable 01/07/19 08:50 [place] Bodies Not Reportable 01/07/19 08:50 [place] Rings Not Reportable 01/07/19 08:50 Ramesh Cells Not Reportable 01/07/19 08:50 Bite Cells Not Reportable 01/07/19 08:50 Crenated Cell Not Reportable 01/07/19 08:50 Elliptocytes Not Reportable 01/07/19 08:50 Acanthocytes (Spur) Not Reportable 01/07/19 08:50 Rouleaux Not Reportable 01/07/19 08:50 Hemoglobin C Crystals Not Reportable 01/07/19 08:50 Schistocytes Not Reportable 01/07/19 08:50 Malaria parasites Not Reportable 01/07/19 08:50 Dieter Bodies Not Reportable 01/07/19 08:50 Hem Pathologist Commnt No 01/07/19 08:50 PT 15.1 Sec. (12.2-14.9) H 01/07/19 19:15 INR 1.20 (0.87-1.13) H 01/07/19 19:15 POC ABG pH 7.337 (7.35-7.45) L 01/06/19 02:31 POC ABG pCO2 63.5 (35-45) H 01/06/19 02:31 POC ABG pO2 52 (80-105) L 01/06/19 02:31 POC ABG HCO3 34.0 (22-26 mml/L) 01/06/19 02:31 POC ABG Total CO2 36 (23-27mmol/L) 01/06/19 02:31 POC ABG O2 Sat 83 01/06/19 02:31 POC ABG Base Excess 8 ((-2) - (+3)mmol/L) 01/06/19 02:31 FiO2 21 % 01/06/19 02:31 Sodium 139 mmol/L (137-145) 01/12/19 05:19 Potassium 3.0 mmol/L (3.6-5.0) L 01/12/19 05:19 Chloride 89.8 mmol/L (98-107) L 01/12/19 05:19 Carbon Dioxide 34 mmol/L (22-30) H 01/12/19 05:19 Anion Gap 18 mmol/L 01/12/19 05:19 BUN 18 mg/dL (7-17) H 01/12/19 05:19 Creatinine 0.6 mg/dL (0.7-1.2) L 01/12/19 05:19 Estimated GFR > 60 ml/min 01/12/19 05:19 BUN/Creatinine Ratio 30 % 01/12/19 05:19 Glucose 88 mg/dL (65-100) 01/12/19 05:19 Lactic Acid 1.30 mmol/L (0.7-2.0) 01/06/19 03:20 Calcium 8.6 mg/dL (8.4-10.2) 01/12/19 05:19 Total Bilirubin 0.80 mg/dL (0.1-1.2) 01/06/19 00:12 AST 46 units/L (5-40) H 01/06/19 00:12 ALT 35 units/L (7-56) 01/06/19 00:12 Alkaline Phosphatase 140 units/L (35-129) H 01/06/19 00:12 Total Creatine Kinase 117 units/L (30-135) 01/06/19 13:18 CK-MB (CK-2) 3.1 ng/mL (0.0-4.0) 01/06/19 13:18 CK-MB (CK-2) Rel Index 2.6 (0-4) 01/06/19 13:18 Troponin T < 0.010 ng/mL (0.00-0.029) 01/06/19 13:18 NT-Pro-B Natriuret Pep 4050 pg/mL (0-900) H 01/05/19 23:41 Total Protein 7.3 g/dL (6.3-8.2) 01/06/19 00:12 Albumin 2.8 g/dL (3.9-5) L 01/06/19 00:12 Albumin/Globulin Ratio 0.6 % 01/06/19 00:12 Urine Color Yellow (Yellow) 01/06/19 05:00 Urine Turbidity Clear (Clear) 01/06/19 05:00 Urine pH 5.0 (5.0-7.0) 01/06/19 05:00 Ur Specific Roll 1.011 (1.003-1.030) 01/06/19 05:00 Urine Protein 30 mg/dl mg/dL (Negative) 01/06/19 05:00 Urine Glucose (UA) Neg mg/dL (Negative) 01/06/19 05:00 Urine Ketones Neg mg/dL (Negative) 01/06/19 05:00 Urine Blood Sm (Negative) 01/06/19 05:00 Urine Nitrite Neg (Negative) 01/06/19 05:00 Urine Bilirubin Neg (Negative) 01/06/19 05:00 Urine Urobilinogen < 2.0 mg/dL (<2.0) 01/06/19 05:00 Ur Leukocyte Esterase Sm (Negative) 01/06/19 05:00 Urine WBC (Auto) 4.0 /HPF (0.0-6.0) 01/06/19 05:00 Urine RBC (Auto) 4.0 /HPF (0.0-6.0) 01/06/19 05:00 U Epithel Cells (Auto) 2.0 /HPF (0-13.0) 01/06/19 05:00 Urine Bacteria (Auto) 2+ /HPF (Negative) 01/06/19 05:00 Urine Mucus Few /HPF 01/06/19 05:00 Active Medications - Current Medications Current Medications: Generic Name Dose Route Start Last Admin Trade Name Freq PRN Reason Stop Dose Admin Acetaminophen 650 mg 01/06/19 02:30 Tylenol PO Q4H PRN Pain MILD(1-3)/Fever >100.5/BENITEZ Albuterol 2.5 mg 01/06/19 02:30 Proventil IH Q3HRT PRN Shortness Of Breath Cephalexin 250 mg 01/11/19 17:00 01/12/19 10:12 Keflex PO 250 mg Q8H JIMI Administration Diphenhydramine HCl 25 mg 01/09/19 00:08 01/11/19 21:00 Benadryl PO 25 mg QHS PRN Administration Sleep Docusate Sodium 100 mg 01/06/19 10:00 01/12/19 10:14 Colace PO 100 mg BID JIMI Administration Furosemide 60 mg 01/07/19 12:47 01/12/19 05:17 Lasix IV 60 mg 0600,1800 JIMI Administration Heparin Sodium (Porcine) 5,000 unit 01/06/19 10:00 01/12/19 10:15 Heparin SUB-Q 5,000 unit Q12HR JIMI Administration Sodium Chloride 1,000 mls @ 42 mls/hr 01/11/19 20:17 01/11/19 20:26 Nacl 0.9% 1000 Ml IV 01/12/19 20:05 42 mls/hr ONCE ONE Administration Potassium Chloride 10 meq in 100 mls @ 100 mls/hr 01/12/19 14:00 01/12/19 14:04 Kcl 10meq/100ml IV 01/12/19 17:59 100 mls/hr Q1H JIMI Administration Lisinopril 2.5 mg 01/06/19 10:00 01/12/19 10:13 Zestril PO 2.5 mg QDAY JIMI Administration Metolazone 5 mg 01/09/19 05:30 01/12/19 05:12 Zaroxolyn PO 5 mg 0530 JIMI Administration Nicotine 14 mg 01/06/19 10:00 01/12/19 10:14 Habitrol TD Not Given QDAY JIMI Ondansetron HCl 4 mg 01/06/19 02:30 Zofran IV Q8H PRN Nausea And Vomiting Oxycodone/Acetaminophen 1 tab 01/06/19 02:30 01/12/19 10:13 Percocet 5/325 PO 1 tab Q6H PRN Administration Pain, Moderate (4-6) Sodium Chloride 10 ml 01/06/19 10:00 01/11/19 21:01 Sodium Chloride Flush Syringe 10 Ml IV 10 ml BID JIMI Administration Sodium Chloride 10 ml 01/06/19 02:30 Sodium Chloride Flush Syringe 10 Ml IV PRN PRN LINE FLUSH Zinc Acetate/Diphenhydramine 1 applic 01/08/19 12:50 01/10/19 12:11 Banophen Anti-Itch TP 1 applic Q8H PRN Administration Itching
[2019-01-12] MEDS: diphenhydrAMINE 25 MG CAP PO PRN (21:04)
[2019-01-13] MEDS: cephALEXin 250 MG CAP PO SCH ×3 (00:51→17:50)
[2019-01-13] MEDS: oxyCODONE /ACETAMINOPHEN 5-325MG TAB PO PRN ×2 (04:08→23:13)
[2019-01-13] MEDS: metOLazone 2.5 MG TAB PO SCH (05:15)
[2019-01-13] MEDS: FUROSEMIDE 40 MG/4 ML INJ IV SCH ×2 (06:31→17:50)
[2019-01-13 08:36] LABS: BUN/Creatinine Ratio 23; Blood Urea Nitrogen 16 mg/dL (7-17); Calcium 8.8 mg/dL (8.4-10.2); Hemolysis Index 1
[2019-01-13] MEDS: NICOTINE 14 MG/24 HR PATCH TD SCH (11:04)
[2019-01-13] MEDS: LISINOPRIL 5 MG TAB PO SCH (11:06)
[2019-01-13] MEDS: DOCUSATE SODIUM 100 MG CAP PO SCH ×2 (11:06→21:41)
[2019-01-13] MEDS: HEPARIN 5,000 UNIT/1 ML VIAL SUB-Q SCH ×2 (11:08→21:42)
--- NOTE | 2019-01-13 14:15 | Progress Note ---
Assessment and Plan Pt appears to be clinically improving. Cont present cardiac management. Pt is declining beta blockers due to reported allergy although she clinically appeared to tolerate lopressor last week. Cont strict I&Os, daily weights and 1500mL fluid restriction. Pt is noted to have multiple bottles of orange juice, potato chips and salted nuts at bedside. Importance of dietary compliance and fluid restriction reiterated. We will consult sinter feeder for additional dietary education. Pt is noted to have EF 20-25%. She states that she has had "heart failure" since 1997 with no prior ischemic evaluation. We will consider ischemic evaluation to r/o ischemic CMP once medically stabilized. The patient has been seen in conjunction with Dr. Cyndi Isbell who agrees with the assessment and plan of care. - Patient Problems (1) Acute HFrEF (heart failure with reduced ejection fraction) Current Visit: Yes Status: Acute (2) Cardiomyopathy Current Visit: Yes Status: Chronic (3) Anasarca Current Visit: Yes Status: Acute (4) Cellulitis Current Visit: Yes Status: Acute Qualifiers: Qualified Code(s): L03.311 - Cellulitis of abdominal wall (5) HTN (hypertension) Current Visit: Yes Status: Chronic (6) Morbid obesity Current Visit: Yes Status: Chronic (7) Hypokalemia Current Visit: Yes Status: Chronic (8) Superficial venous thrombosis of right upper extremity Current Visit: Yes Status: Acute Subjective Date of service: 01/13/19 Principal diagnosis: hf Interval history: pt resting in bed, feeling a little better, edema gradually improving. in ST on tele with HR 120s. Objective Last Vital Signs Temp 98.7 F 01/13/19 08:44 Pulse 106 H 01/13/19 08:44 Resp 19 01/13/19 08:44 BP 131/80 01/13/19 08:44 Pulse Ox 91 01/13/19 08:44 - Physical Examination General: Appears Well, No Apparent Distress HEENT: Positive: PERRL, Normocephaly, Mucus Membranes Moist Neck: Positive: neck supple, trachea midline Lungs: Positive: Decreased Breath Sounds Neuro: Positive: Grossly Intact Abdomen: Positive: Ascites, Firm. Negative: Tender /Rectal: Other (deferred) Skin: Positive: Other (BUE and BLE scattered wounds) Musculoskeletal: Decreased Range of Motion, No Pain Extremities: Present: edema (RUE - trace), +3 Edema - Labs and Meds Comprehensive Metabolic Panel 01/13/19 Range/Units 07:05 Sodium 137 (137-145) mmol/L Potassium 3.9 D (3.6-5.0) mmol/L Chloride 85.8 L (98-107) mmol/L Carbon Dioxide 36 H (22-30) mmol/L BUN 16 (7-17) mg/dL Creatinine 0.7 (0.7-1.2) mg/dL Glucose 97 (65-100) mg/dL Calcium 8.8 (8.4-10.2) mg/dL - Imaging and Cardiology EKG: report reviewed, image reviewed Echo: report reviewed (06/2018 showed EF 20-25%, mild LVH, LA mod dilated, RV systolic function mod reduced. ) - Telemetry EKG Rhythm: Sinus Tachycardia - EKG Sinus rhythms and dysrhythmias: sinus rhythm
[2019-01-13] MEDS: diphenhydrAMINE 25 MG CAP PO PRN (16:30)
[2019-01-13] MEDS: ACETAMINOPHEN 325 MG TAB PO PRN (16:30)
--- NOTE | 2019-01-13 18:34 | Progress Note ---
Assessment and Plan Assessment and plan: 58 years old presents with profound edema and ascites most likely secondary to congestive heart failure. - Patient Problems Acute HFrEF (heart failure with reduced ejection fraction) Current Visit: Yes Status: Acute Plan to address problem: Patient last known ejection fraction several months ago 20%. Patient has marked edema bilateral lower extremities as well as abdomen, breast, back, thighs appears this edema has progressively gotten worse. LASIX 60MG IV BID. PER PATIENT THIS HELPS WHENEVER SHE IS HOSPITALIZED. Zaroxolyn has been added will see us she responds to this. I think hospitalization maybe longer than previously thought secondary to the amount of edema Patient clearly is u ncomfortable. An ascites is the reason patient has shortness of breath and the breast edema and the cellulitis as well. Ischemic work up planned by cardiology for the am * Fell overnight 01/08/19 * Some confusion reported but now resolved * Complains of Itch in the leg-better with benedryl * BB stopped due to allergy * ischemic work up prior to discharged * Awaiting planned ischemic work up per cardiology * will switch to oral antibiotics Persistent Hypokaelmia Replace Cellulitis Current Visit: Yes Status: Acute Qualifiers: Site of cellulitis: trunk Site of cellulitis of trunk: abdominal wall Qualified Code(s): L03.311 - Cellulitis of abdominal wall Plan to address problem: Secondary to severe ascites and lower extremity edema. Will require diuresis. Treat cellulitis with IV antibiotics. Follow culture data. Strict elevation of legs bed rest for the most part with leg elevation for the next several days. Nicotine dependence with withdrawal Current Visit: No Status: Acute Qualifiers: Nicotine product type: cigarettes Qualified Code(s): F17.213 - Nicotine dependence, cigarettes, with withdrawal Plan to address problem: Add nicotine patch. Obesity hypoventilation syndrome Current Visit: No Status: Acute Plan to address problem: Patient with obesity hypertension syndrome. Weight loss dietary modifications have been discussed. ANASCAR/Ascites Current Visit: Yes Status: Acute Plan to address problem: ANASCAR LIKELY SECONDARY TO SEVERE FLUID OVERLOAD. SMALL ASCITES IS NOTED HTN (hypertension) Current Visit: Yes Status: Chronic Plan to address problem: Patient very well-controlled on current antihypertensives. Morbid obesity Current Visit: Yes Status: Chronic Plan to address problem: Diet weight education Multiple ulceration in the bilateral legs. POA. wound care consult FALL- HEAD CT negative Hypokalemia- Replace History Interval history: Patient 58 years old with a history of CHF last known ejection fraction 20-25%, hypertension, obesity, tobacco dependency presents with worsening shortness of breath and edema with abdominal pain and lower extremity wounds over approximate 2 week period of time. No new complaints, improving , good urine output, improvement in pulmonary status but still feels she has ways to go, encouraged to be complaint with Nursing staff on [facility] Hospitalist Physical - Physical exam Narrative exam: General appearance: Present: mild distress, Otherwise stable - EENT Eyes: Present: PERRL, EOM intact ENT: hearing intact, clear oral mucosa, dentition normal, oropharyngeal erythema, no poor dentition, no thrush - Neck Neck: Present: supple, normal ROM - Respiratory Respiratory: bilateral: diminished, rhonchi - Cardiovascular Rhythm: regular Heart Sounds: Present: S1 & S2 - Extremities Extremities: no ischemia, Full ROM Extremity abnormal: edema, erythema, tenderness Peripheral Pulses: within normal limits - Abdominal General gastrointestinal: soft, tender, non-distended, hypoactive bowel sounds, other (marked edema), no hepatomegaly, no splenomegaly - Integumentary Integumentary: Present: erythema. Absent: jaundice, rash, clammy, normal turgor +3 pitting edema and generalized anasacar with ulceration - Psychiatric Psychiatric: appropriate mood/affect, intact judgment & insight, cooperative - Neurologic Neurologic: CNII-XII intact, moves all extremities - Constitutional Vitals: Temp Pulse Resp BP Pulse Ox 98.7 F 108 H 20 131/80 91 01/13/19 08:44 01/13/19 10:00 01/13/19 16:30 01/13/19 08:44 01/13/19 08:44 General appearance: Present: mild distress Results - Labs CBC & Chem 7: 01/09/19 04:19 01/13/19 07:05 Labs: Laboratory Last Values WBC 6.0 K/mm3 (4.5-11.0) 01/09/19 04:19 RBC 4.45 M/mm3 (3.65-5.03) 01/09/19 04:19 Hgb 12.6 gm/dl (10.1-14.3) 01/09/19 04:19 Hct 40.7 % (30.3-42.9) 01/09/19 04:19 MCV 92 fl (79-97) 01/09/19 04:19 MCH 28 pg (28-32) 01/09/19 04:19 MCHC 31 % (30-34) 01/09/19 04:19 RDW 22.3 % (13.2-15.2) H 01/09/19 04:19 Plt Count 187 K/mm3 (140-440) 01/09/19 04:19 Baso % (Auto) Director Biology 01/07/19 08:50 Add Manual Diff Complete 01/07/19 08:50 Total Counted 100 01/07/19 08:50 Seg Neuts % (Manual) 84.0 % (40.0-70.0) H 01/07/19 08:50 Band Neutrophils % 0 % 01/07/19 08:50 Lymphocytes % (Manual) 15.0 % (13.4-35.0) 01/07/19 08:50 Reactive Lymphs % (Man) 0 % 01/07/19 08:50 Monocytes % (Manual) 1.0 % (0.0-7.3) 01/07/19 08:50 Eosinophils % (Manual) 0 % (0.0-4.3) 01/07/19 08:50 Basophils % (Manual) 0 % (0.0-1.8) 01/07/19 08:50 Metamyelocytes % 0 % 01/07/19 08:50 Myelocytes % 0 % 01/07/19 08:50 Promyelocytes % 0 % 01/07/19 08:50 Blast Cells % 0 % 01/07/19 08:50 Nucleated RBC % 5.0 % (0.0-0.9) H 01/07/19 08:50 Seg Neutrophils # Man 4.3 K/mm3 (1.8-7.7) 01/07/19 08:50 Band Neutrophils # 0.0 K/mm3 01/07/19 08:50 Lymphocytes # (Manual) 0.8 K/mm3 (1.2-5.4) L 01/07/19 08:50 Abs React Lymphs (Man) 0.0 K/mm3 01/07/19 08:50 Monocytes # (Manual) 0.1 K/mm3 (0.0-0.8) 01/07/19 08:50 Eosinophils # (Manual) 0.0 K/mm3 (0.0-0.4) 01/07/19 08:50 Basophils # (Manual) 0.0 K/mm3 (0.0-0.1) 01/07/19 08:50 Metamyelocytes # 0.0 K/mm3 01/07/19 08:50 Myelocytes # 0.0 K/mm3 01/07/19 08:50 Promyelocytes # 0.0 K/mm3 01/07/19 08:50 Blast Cells # 0.0 K/mm3 01/07/19 08:50 WBC Morphology Not Reportable 01/07/19 08:50 Hypersegmented Neuts Not Reportable 01/07/19 08:50 Hyposegmented Neuts Not Reportable 01/07/19 08:50 Hypogranular Neuts Not Reportable 01/07/19 08:50 Smudge Cells Not Reportable 01/07/19 08:50 Toxic Granulation Not Reportable 01/07/19 08:50 Toxic Vacuolation Not Reportable 01/07/19 08:50 Dohle Bodies Not Reportable 01/07/19 08:50 Pelger-Huet Anomaly Not Reportable 01/07/19 08:50 Clarissa Rods Not Reportable 01/07/19 08:50 Platelet Estimate Consistent w auto 01/07/19 08:50 Clumped Platelets Not Reportable 01/07/19 08:50 Plt Clumps, EDTA Not Reportable 01/07/19 08:50 Large Platelets Few 01/07/19 08:50 Giant Platelets Not Reportable 01/07/19 08:50 Platelet Satelliting Not Reportable 01/07/19 08:50 Plt Morphology Comment Not Reportable 01/07/19 08:50 RBC Morphology Not Reportable 01/07/19 08:50 Dimorphic RBCs Not Reportable 01/07/19 08:50 Polychromasia Not Reportable 01/07/19 08:50 Hypochromasia Not Reportable 01/07/19 08:50 Poikilocytosis Few 01/07/19 08:50 Anisocytosis 2+ 01/07/19 08:50 Microcytosis Rare 01/07/19 08:50 Macrocytosis Not Reportable 01/07/19 08:50 Spherocytes Not Reportable 01/07/19 08:50 Pappenheimer Bodies Not Reportable 01/07/19 08:50 Sickle Cells Not Reportable 01/07/19 08:50 Target Cells Not Reportable 01/07/19 08:50 Tear Drop Cells Not Reportable 01/07/19 08:50 Ovalocytes Not Reportable 01/07/19 08:50 Helmet Cells Not Reportable 01/07/19 08:50 [place] Bodies Not Reportable 01/07/19 08:50 Mccomb Rings Not Reportable 01/07/19 08:50 Ramesh Cells Not Reportable 01/07/19 08:50 Bite Cells Not Reportable 01/07/19 08:50 Crenated Cell Not Reportable 01/07/19 08:50 Elliptocytes Not Reportable 01/07/19 08:50 Acanthocytes (Spur) Not Reportable 01/07/19 08:50 Rouleaux Not Reportable 01/07/19 08:50 Hemoglobin C Crystals Not Reportable 01/07/19 08:50 Schistocytes Not Reportable 01/07/19 08:50 Malaria parasites Not Reportable 01/07/19 08:50 Dieter Bodies Not Reportable 01/07/19 08:50 Hem Pathologist Commnt No 01/07/19 08:50 PT 15.1 Sec. (12.2-14.9) H 01/07/19 19:15 INR 1.20 (0.87-1.13) H 01/07/19 19:15 POC ABG pH 7.337 (7.35-7.45) L 01/06/19 02:31 POC ABG pCO2 63.5 (35-45) H 01/06/19 02:31 POC ABG pO2 52 (80-105) L 01/06/19 02:31 POC ABG HCO3 34.0 (22-26 mml/L) 01/06/19 02:31 POC ABG Total CO2 36 (23-27mmol/L) 01/06/19 02:31 POC ABG O2 Sat 83 01/06/19 02:31 POC ABG Base Excess 8 ((-2) - (+3)mmol/L) 01/06/19 02:31 FiO2 21 % 01/06/19 02:31 Sodium 137 mmol/L (137-145) 01/13/19 07:05 Potassium 3.9 mmol/L (3.6-5.0) D 01/13/19 07:05 Chloride 85.8 mmol/L (98-107) L 01/13/19 07:05 Carbon Dioxide 36 mmol/L (22-30) H 01/13/19 07:05 Anion Gap 19 mmol/L 01/13/19 07:05 BUN 16 mg/dL (7-17) 01/13/19 07:05 Creatinine 0.7 mg/dL (0.7-1.2) 01/13/19 07:05 Estimated GFR > 60 ml/min 01/13/19 07:05 BUN/Creatinine Ratio 23 % 01/13/19 07:05 Glucose 97 mg/dL (65-100) 01/13/19 07:05 Lactic Acid 1.30 mmol/L (0.7-2.0) 01/06/19 03:20 Calcium 8.8 mg/dL (8.4-10.2) 01/13/19 07:05 Total Bilirubin 0.80 mg/dL (0.1-1.2) 01/06/19 00:12 AST 46 units/L (5-40) H 01/06/19 00:12 ALT 35 units/L (7-56) 01/06/19 00:12 Alkaline Phosphatase 140 units/L (35-129) H 01/06/19 00:12 Total Creatine Kinase 117 units/L (30-135) 01/06/19 13:18 CK-MB (CK-2) 3.1 ng/mL (0.0-4.0) 01/06/19 13:18 CK-MB (CK-2) Rel Index 2.6 (0-4) 01/06/19 13:18 Troponin T < 0.010 ng/mL (0.00-0.029) 01/06/19 13:18 NT-Pro-B Natriuret Pep 4050 pg/mL (0-900) H 01/05/19 23:41 Total Protein 7.3 g/dL (6.3-8.2) 01/06/19 00:12 Albumin 2.8 g/dL (3.9-5) L 01/06/19 00:12 Albumin/Globulin Ratio 0.6 % 01/06/19 00:12 Urine Color Yellow (Yellow) 01/06/19 05:00 Urine Turbidity Clear (Clear) 01/06/19 05:00 Urine pH 5.0 (5.0-7.0) 01/06/19 05:00 Ur Specific [place] 1.011 (1.003-1.030) 01/06/19 05:00 Urine Protein 30 mg/dl mg/dL (Negative) 01/06/19 05:00 Urine Glucose (UA) Neg mg/dL (Negative) 01/06/19 05:00 Urine Ketones Neg mg/dL (Negative) 01/06/19 05:00 Urine Blood Sm (Negative) 01/06/19 05:00 Urine Nitrite Neg (Negative) 01/06/19 05:00 Urine Bilirubin Neg (Negative) 01/06/19 05:00 Urine Urobilinogen < 2.0 mg/dL (<2.0) 01/06/19 05:00 Ur Leukocyte Esterase Sm (Negative) 01/06/19 05:00 Urine WBC (Auto) 4.0 /HPF (0.0-6.0) 01/06/19 05:00 Urine RBC (Auto) 4.0 /HPF (0.0-6.0) 01/06/19 05:00 U Epithel Cells (Auto) 2.0 /HPF (0-13.0) 01/06/19 05:00 Urine Bacteria (Auto) 2+ /HPF (Negative) 01/06/19 05:00 Urine Mucus Few /HPF 01/06/19 05:00 Active Medications - Current Medications Current Medications: Generic Name Dose Route Start Last Admin Trade Name Freq PRN Reason Stop Dose Admin Acetaminophen 650 mg 01/06/19 02:30 01/13/19 16:30 Tylenol PO 650 mg Q4H PRN Administration Pain MILD(1-3)/Fever >100.5/BENITEZ Albuterol 2.5 mg 01/06/19 02:30 Proventil IH Q3HRT PRN Shortness Of Breath Cephalexin 250 mg 01/11/19 17:00 01/13/19 17:50 Keflex PO 250 mg Q8H JIMI Administration Diphenhydramine HCl 25 mg 01/09/19 00:08 01/13/19 16:30 Benadryl PO 25 mg QHS PRN Administration Sleep Docusate Sodium 100 mg 01/06/19 10:00 01/13/19 11:06 Colace PO 100 mg BID JIMI Administration Furosemide 60 mg 01/07/19 12:47 01/13/19 17:50 Lasix IV 60 mg 0600,1800 JIMI Administration Heparin Sodium (Porcine) 5,000 unit 01/06/19 10:00 01/13/19 11:08 Heparin SUB-Q 5,000 unit Q12HR JIMI Administration Lisinopril 2.5 mg 01/06/19 10:00 01/13/19 11:06 Zestril PO 2.5 mg QDAY JIMI Administration Metolazone 5 mg 01/09/19 05:30 01/13/19 05:15 Zaroxolyn PO 5 mg 0530 JIMI Administration Nicotine 14 mg 01/06/19 10:00 01/13/19 11:04 Habitrol TD 14 mg QDAY JIMI Administration Ondansetron HCl 4 mg 01/06/19 02:30 Zofran IV Q8H PRN Nausea And Vomiting Oxycodone/Acetaminophen 1 tab 01/06/19 02:30 01/13/19 04:08 Percocet 5/325 PO 1 tab Q6H PRN Administration Pain, Moderate (4-6) Sodium Chloride 10 ml 01/06/19 10:00 01/13/19 11:06 Sodium Chloride Flush Syringe 10 Ml IV 10 ml BID JIMI Administration Sodium Chloride 10 ml 01/06/19 02:30 Sodium Chloride Flush Syringe 10 Ml IV PRN PRN LINE FLUSH Zinc Acetate/Diphenhydramine 1 applic 01/08/19 12:50 01/10/19 12:11 Banophen Anti-Itch TP 1 applic Q8H PRN Administration Itching Nutrition/Malnutrition Assess - Dietary Evaluation Nutrition/Malnutrition Findings: Nutrition Notes Start: 01/13/19 14:48 Freq: Status: Active Protocol: Document 01/13/19 14:48 LP (Rec: 01/13/19 14:49 LP [email or web address]) Nutrition Notes Need for Assessment generated from: LOS Initial or Follow up Brief Note Subjective/Other Information Screen for LOS. Pt states eating well. Consuming 100% of meals. Denies diet education or nutrition needs at this time. Nutrition Intervention Revisit per MD consult or patient Sign Off request:
[2019-01-14] MEDS: cephALEXin 250 MG CAP PO SCH ×3 (00:16→17:38)
[2019-01-14] MEDS: diphenhydrAMINE 25 MG CAP PO PRN (00:16)
[2019-01-14] MEDS: metOLazone 2.5 MG TAB PO SCH (05:58)
[2019-01-14 06:05] LABS: BUN/Creatinine Ratio 25; Blood Urea Nitrogen 15 mg/dL (7-17); Calcium 8.9 mg/dL (8.4-10.2); Hemolysis Index 20
[2019-01-14] MEDS ORDERED: POTASSIUM CHLORIDE ER 20 MEQ TAB PO ONE ×2 (06:23→14:00)
--- NOTE | 2019-01-14 06:26 | Event Note ---
Date: 01/14/19 potassium 3.0 this morning trending down from 3.9 on 01/13. ordered potassium replacement, follow up on potassium labs
[2019-01-14] MEDS: FUROSEMIDE 40 MG/4 ML INJ IV SCH ×2 (06:40→17:38)
[2019-01-14] MEDS: oxyCODONE /ACETAMINOPHEN 5-325MG TAB PO PRN ×3 (09:25→22:57)
[2019-01-14] MEDS: LISINOPRIL 5 MG TAB PO SCH (09:27)
[2019-01-14] MEDS: DOCUSATE SODIUM 100 MG CAP PO SCH ×2 (09:27→21:43)
[2019-01-14] MEDS: NICOTINE 14 MG/24 HR PATCH TD SCH (10:07)
--- NOTE | 2019-01-14 11:10 | Progress Note ---
Assessment and Plan Pt appears to be clinically improving. Cont present cardiac management. Replete lytes PRN. Pt is declining beta blockers due to reported allergy although she clinically appeared to tolerate lopressor last week. Cont strict I&Os, daily weights and 1500mL fluid restriction. Pt is noted to have EF 20-25%. She states that she has had "heart failure" since 1997 with no prior ischemic evaluation. We will plan for ischemic evaluation to r/o ischemic CMP once medically stabilized. The patient has been seen in conjunction with Dr. Cyndi Isbell who agrees with the assessment and plan of care. - Patient Problems (1) Acute HFrEF (heart failure with reduced ejection fraction) Current Visit: Yes Status: Acute (2) Cardiomyopathy Current Visit: Yes Status: Chronic (3) Anasarca Current Visit: Yes Status: Acute (4) Cellulitis Current Visit: Yes Status: Acute Qualifiers: Qualified Code(s): L03.311 - Cellulitis of abdominal wall (5) HTN (hypertension) Current Visit: Yes Status: Chronic (6) Morbid obesity Current Visit: Yes Status: Chronic (7) Hypokalemia Current Visit: Yes Status: Chronic (8) Superficial venous thrombosis of right upper extremity Current Visit: Yes Status: Acute Subjective Date of service: 01/14/19 Principal diagnosis: hf Interval history: pt resting in bed, feeling a little better, edema gradually improving. in ST on tele with HR 110s. Objective Last Vital Signs Temp 98.4 F 01/14/19 04:21 Pulse 103 H 01/14/19 04:21 Resp 20 01/14/19 09:25 BP 156/94 01/14/19 04:21 Pulse Ox 95 01/14/19 04:21 - Physical Examination General: Appears Well, No Apparent Distress HEENT: Positive: PERRL, Normocephaly, Mucus Membranes Moist Neck: Positive: neck supple, trachea midline Cardiac: Positive: Regular Rhythm, S1/S2 Lungs: Positive: Decreased Breath Sounds Neuro: Positive: Grossly Intact Abdomen: Positive: Ascites, Firm. Negative: Tender /Rectal: Other (deferred) Skin: Positive: Other (BUE and BLE scattered wounds) Musculoskeletal: Decreased Range of Motion, No Pain Extremities: Present: edema (RUE - trace), +3 Edema - Labs and Meds Comprehensive Metabolic Panel 01/14/19 Range/Units 05:18 Sodium 141 (137-145) mmol/L Potassium 3.0 L D (3.6-5.0) mmol/L Chloride 83.9 L (98-107) mmol/L Carbon Dioxide 44 H* D (22-30) mmol/L BUN 15 (7-17) mg/dL Creatinine 0.6 L (0.7-1.2) mg/dL Glucose 93 (65-100) mg/dL Calcium 8.9 (8.4-10.2) mg/dL - Imaging and Cardiology EKG: report reviewed, image reviewed Echo: report reviewed (06/2018 showed EF 20-25%, mild LVH, LA mod dilated, RV systolic function mod reduced. ) - EKG Sinus rhythms and dysrhythmias: sinus rhythm
--- NOTE | 2019-01-14 16:40 | Progress Note ---
Assessment and Plan Assessment and plan: Acute on chronic systolic heart failure with EF of 20-25% -Pt is declining beta blockers due to reported allergy although she clinically appeared to tolerate lopressor last week. -Continue IV Lasix and metolazone -Cont strict I&Os, daily weights and 1500mL fluid restriction. -Cardiology following: planning for ischemic evaluation to r/o ischemic CMP once medically stabilized. Acute respiratory failure with hypoxia, POA -Improved -Continue oxygen supplementation as needed Anasarca -Continue diuretics Abdominal wall Cellulitis -Continue oral antibiotic Hyponatremia -On fluid restriction, will monitor level Hypertension -Stable Hypokalemia -On repletion, we'll monitor level Morbid obesity with BMI of 53.3 -Lifestyle modification recommended Superficial venous thrombosis of right upper extremity -No need for treatment Obesity hypoventilation syndrome -Stable DVT prophylaxis: Heparin Disposition: For discharge when medically stable and cleared by cardiology History Interval history: Patient stated that she feels a little better today. She denied chest pain. Hospitalist Physical - Constitutional Vitals: Temp Pulse Resp BP Pulse Ox 98.4 F 118 H 20 156/94 96 01/14/19 04:21 01/14/19 08:00 01/14/19 09:25 01/14/19 04:21 01/14/19 08:00 General appearance: Present: no acute distress, obese - EENT Eyes: Present: PERRL, EOM intact ENT: hearing intact, clear oral mucosa - Neck Neck: Present: supple - Respiratory Respiratory effort: normal Respiratory: bilateral: diminished - Cardiovascular Rhythm: regular Heart Sounds: Present: S1 & S2 - Extremities Extremity abnormal: edema (in BLE) - Abdominal General gastrointestinal: non-tender, distended, normal bowel sounds, other (firm on palpation) - Integumentary Integumentary: Present: dry - Psychiatric Psychiatric: appropriate mood/affect - Neurologic Neurologic: CNII-XII intact Results - Labs CBC & Chem 7: 01/09/19 04:19 01/14/19 13:27 Labs: Laboratory Last Values WBC 6.0 K/mm3 (4.5-11.0) 01/09/19 04:19 RBC 4.45 M/mm3 (3.65-5.03) 01/09/19 04:19 Hgb 12.6 gm/dl (10.1-14.3) 01/09/19 04:19 Hct 40.7 % (30.3-42.9) 01/09/19 04:19 MCV 92 fl (79-97) 01/09/19 04:19 MCH 28 pg (28-32) 01/09/19 04:19 MCHC 31 % (30-34) 01/09/19 04:19 RDW 22.3 % (13.2-15.2) H 01/09/19 04:19 Plt Count 187 K/mm3 (140-440) 01/09/19 04:19 Baso % (Auto) Product Management Internship 01/07/19 08:50 Add Manual Diff Complete 01/07/19 08:50 Total Counted 100 01/07/19 08:50 Seg Neuts % (Manual) 84.0 % (40.0-70.0) H 01/07/19 08:50 Band Neutrophils % 0 % 01/07/19 08:50 Lymphocytes % (Manual) 15.0 % (13.4-35.0) 01/07/19 08:50 Reactive Lymphs % (Man) 0 % 01/07/19 08:50 Monocytes % (Manual) 1.0 % (0.0-7.3) 01/07/19 08:50 Eosinophils % (Manual) 0 % (0.0-4.3) 01/07/19 08:50 Basophils % (Manual) 0 % (0.0-1.8) 01/07/19 08:50 Metamyelocytes % 0 % 01/07/19 08:50 Myelocytes % 0 % 01/07/19 08:50 Promyelocytes % 0 % 01/07/19 08:50 Blast Cells % 0 % 01/07/19 08:50 Nucleated RBC % 5.0 % (0.0-0.9) H 01/07/19 08:50 Seg Neutrophils # Man 4.3 K/mm3 (1.8-7.7) 01/07/19 08:50 Band Neutrophils # 0.0 K/mm3 01/07/19 08:50 Lymphocytes # (Manual) 0.8 K/mm3 (1.2-5.4) L 01/07/19 08:50 Abs React Lymphs (Man) 0.0 K/mm3 01/07/19 08:50 Monocytes # (Manual) 0.1 K/mm3 (0.0-0.8) 01/07/19 08:50 Eosinophils # (Manual) 0.0 K/mm3 (0.0-0.4) 01/07/19 08:50 Basophils # (Manual) 0.0 K/mm3 (0.0-0.1) 01/07/19 08:50 Metamyelocytes # 0.0 K/mm3 01/07/19 08:50 Myelocytes # 0.0 K/mm3 01/07/19 08:50 Promyelocytes # 0.0 K/mm3 01/07/19 08:50 Blast Cells # 0.0 K/mm3 01/07/19 08:50 WBC Morphology Not Reportable 01/07/19 08:50 Hypersegmented Neuts Not Reportable 01/07/19 08:50 Hyposegmented Neuts Not Reportable 01/07/19 08:50 Hypogranular Neuts Not Reportable 01/07/19 08:50 Smudge Cells Not Reportable 01/07/19 08:50 Toxic Granulation Not Reportable 01/07/19 08:50 Toxic Vacuolation Not Reportable 01/07/19 08:50 Dohle Bodies Not Reportable 01/07/19 08:50 Pelger-Huet Anomaly Not Reportable 01/07/19 08:50 Clarissa Rods Not Reportable 01/07/19 08:50 Platelet Estimate Consistent w auto 01/07/19 08:50 Clumped Platelets Not Reportable 01/07/19 08:50 Plt Clumps, EDTA Not Reportable 01/07/19 08:50 Large Platelets Few 01/07/19 08:50 Giant Platelets Not Reportable 01/07/19 08:50 Platelet Satelliting Not Reportable 01/07/19 08:50 Plt Morphology Comment Not Reportable 01/07/19 08:50 RBC Morphology Not Reportable 01/07/19 08:50 Dimorphic RBCs Not Reportable 01/07/19 08:50 Polychromasia Not Reportable 01/07/19 08:50 Hypochromasia Not Reportable 01/07/19 08:50 Poikilocytosis Few 01/07/19 08:50 Anisocytosis 2+ 01/07/19 08:50 Microcytosis Rare 01/07/19 08:50 Macrocytosis Not Reportable 01/07/19 08:50 Spherocytes Not Reportable 01/07/19 08:50 Pappenheimer Bodies Not Reportable 01/07/19 08:50 Sickle Cells Not Reportable 01/07/19 08:50 Target Cells Not Reportable 01/07/19 08:50 Tear Drop Cells Not Reportable 01/07/19 08:50 Ovalocytes Not Reportable 01/07/19 08:50 Helmet Cells Not Reportable 01/07/19 08:50 Boudreaux-Ardoch Bodies Not Reportable 01/07/19 08:50 Mayer Rings Not Reportable 01/07/19 08:50 Gillham Cells Not Reportable 01/07/19 08:50 Bite Cells Not Reportable 01/07/19 08:50 Crenated Cell Not Reportable 01/07/19 08:50 Elliptocytes Not Reportable 01/07/19 08:50 Acanthocytes (Spur) Not Reportable 01/07/19 08:50 Rouleaux Not Reportable 01/07/19 08:50 Hemoglobin C Crystals Not Reportable 01/07/19 08:50 Schistocytes Not Reportable 01/07/19 08:50 Malaria parasites Not Reportable 01/07/19 08:50 Dieter Bodies Not Reportable 01/07/19 08:50 Hem Pathologist Commnt No 01/07/19 08:50 PT 15.1 Sec. (12.2-14.9) H 01/07/19 19:15 INR 1.20 (0.87-1.13) H 01/07/19 19:15 POC ABG pH 7.337 (7.35-7.45) L 01/06/19 02:31 POC ABG pCO2 63.5 (35-45) H 01/06/19 02:31 POC ABG pO2 52 (80-105) L 01/06/19 02:31 POC ABG HCO3 34.0 (22-26 mml/L) 01/06/19 02:31 POC ABG Total CO2 36 (23-27mmol/L) 01/06/19 02:31 POC ABG O2 Sat 83 01/06/19 02:31 POC ABG Base Excess 8 ((-2) - (+3)mmol/L) 01/06/19 02:31 FiO2 21 % 01/06/19 02:31 Sodium 141 mmol/L (137-145) 01/14/19 05:18 Potassium 3.1 mmol/L (3.6-5.0) L 01/14/19 13:27 Chloride 83.9 mmol/L (98-107) L 01/14/19 05:18 Carbon Dioxide 44 mmol/L (22-30) H* D 01/14/19 05:18 Anion Gap 17 mmol/L 01/14/19 05:18 BUN 15 mg/dL (7-17) 01/14/19 05:18 Creatinine 0.6 mg/dL (0.7-1.2) L 01/14/19 05:18 Estimated GFR > 60 ml/min 01/14/19 05:18 BUN/Creatinine Ratio 25 % 01/14/19 05:18 Glucose 93 mg/dL (65-100) 01/14/19 05:18 Lactic Acid 1.30 mmol/L (0.7-2.0) 01/06/19 03:20 Calcium 8.9 mg/dL (8.4-10.2) 01/14/19 05:18 Magnesium 1.80 mg/dL (1.7-2.3) 01/14/19 05:18 Total Bilirubin 0.80 mg/dL (0.1-1.2) 01/06/19 00:12 AST 46 units/L (5-40) H 01/06/19 00:12 ALT 35 units/L (7-56) 01/06/19 00:12 Alkaline Phosphatase 140 units/L (35-129) H 01/06/19 00:12 Total Creatine Kinase 117 units/L (30-135) 01/06/19 13:18 CK-MB (CK-2) 3.1 ng/mL (0.0-4.0) 01/06/19 13:18 CK-MB (CK-2) Rel Index 2.6 (0-4) 01/06/19 13:18 Troponin T < 0.010 ng/mL (0.00-0.029) 01/06/19 13:18 NT-Pro-B Natriuret Pep 4050 pg/mL (0-900) H 01/05/19 23:41 Total Protein 7.3 g/dL (6.3-8.2) 01/06/19 00:12 Albumin 2.8 g/dL (3.9-5) L 01/06/19 00:12 Albumin/Globulin Ratio 0.6 % 01/06/19 00:12 Urine Color Yellow (Yellow) 01/06/19 05:00 Urine Turbidity Clear (Clear) 01/06/19 05:00 Urine pH 5.0 (5.0-7.0) 01/06/19 05:00 Ur Specific [place] 1.011 (1.003-1.030) 01/06/19 05:00 Urine Protein 30 mg/dl mg/dL (Negative) 01/06/19 05:00 Urine Glucose (UA) Neg mg/dL (Negative) 01/06/19 05:00 Urine Ketones Neg mg/dL (Negative) 01/06/19 05:00 Urine Blood Sm (Negative) 01/06/19 05:00 Urine Nitrite Neg (Negative) 01/06/19 05:00 Urine Bilirubin Neg (Negative) 01/06/19 05:00 Urine Urobilinogen < 2.0 mg/dL (<2.0) 01/06/19 05:00 Ur Leukocyte Esterase Sm (Negative) 01/06/19 05:00 Urine WBC (Auto) 4.0 /HPF (0.0-6.0) 01/06/19 05:00 Urine RBC (Auto) 4.0 /HPF (0.0-6.0) 01/06/19 05:00 U Epithel Cells (Auto) 2.0 /HPF (0-13.0) 01/06/19 05:00 Urine Bacteria (Auto) 2+ /HPF (Negative) 01/06/19 05:00 Urine Mucus Few /HPF 01/06/19 05:00 Active Medications - Current Medications Current Medications: Generic Name Dose Route Start Last Admin Trade Name Freq PRN Reason Stop Dose Admin Acetaminophen 650 mg 01/06/19 02:30 01/13/19 16:30 Tylenol PO 650 mg Q4H PRN Administration Pain MILD(1-3)/Fever >100.5/BENITEZ Albuterol 2.5 mg 01/06/19 02:30 Proventil IH Q3HRT PRN Shortness Of Breath Cephalexin 250 mg 01/11/19 17:00 01/14/19 00:16 Keflex PO 250 mg Q8H JIMI Administration Diphenhydramine HCl 25 mg 01/09/19 00:08 01/14/19 00:16 Benadryl PO 25 mg QHS PRN Administration Sleep Docusate Sodium 100 mg 01/06/19 10:00 01/14/19 09:27 Colace PO 100 mg BID JIMI Administration Furosemide 60 mg 01/07/19 12:47 01/14/19 06:40 Lasix IV 60 mg 0600,1800 JIMI Administration Heparin Sodium (Porcine) 5,000 unit 01/06/19 10:00 01/13/19 21:42 Heparin SUB-Q 5,000 unit Q12HR JIMI Administration Potassium Chloride 10 meq in 100 mls @ 100 mls/hr 01/14/19 17:00 Kcl 10meq/100ml IV 01/14/19 18:59 Q1H JIMI Lisinopril 2.5 mg 01/06/19 10:00 01/14/19 09:27 Zestril PO 2.5 mg QDAY JIMI Administration Metolazone 5 mg 01/09/19 05:30 01/14/19 05:58 Zaroxolyn PO 5 mg 0530 JIMI Administration Nicotine 14 mg 01/06/19 10:00 01/13/19 11:04 Habitrol TD 14 mg QDAY JIMI Administration Ondansetron HCl 4 mg 01/06/19 02:30 Zofran IV Q8H PRN Nausea And Vomiting Oxycodone/Acetaminophen 1 tab 01/06/19 02:30 01/14/19 09:25 Percocet 5/325 PO 1 tab Q6H PRN Administration Pain, Moderate (4-6) Potassium Chloride 20 meq 01/15/19 10:00 K-Dur PO QDAY JIMI Sodium Chloride 10 ml 01/06/19 10:00 01/13/19 21:42 Sodium Chloride Flush Syringe 10 Ml IV 10 ml BID JIMI Administration Sodium Chloride 10 ml 01/06/19 02:30 Sodium Chloride Flush Syringe 10 Ml IV PRN PRN LINE FLUSH Zinc Acetate/Diphenhydramine 1 applic 01/08/19 12:50 01/10/19 12:11 Banophen Anti-Itch TP 1 applic Q8H PRN Administration Itching Nutrition/Malnutrition Assess - Dietary Evaluation Nutrition/Malnutrition Findings: Nutrition Notes Start: 01/13/19 14:48 Freq: Status: Active Protocol: Document 01/13/19 14:48 LP (Rec: 01/13/19 14:49 LP [id number]) Nutrition Notes Need for Assessment generated from: LOS Initial or Follow up Brief Note Subjective/Other Information Screen for LOS. Pt states eating well. Consuming 100% of meals. Denies diet education or nutrition needs at this time. Nutrition Intervention Revisit per MD consult or patient Sign Off request:
[2019-01-14] MEDS: HEPARIN 5,000 UNIT/1 ML VIAL SUB-Q SCH ×2 (17:46→21:39)
[2019-01-14] MEDS: POTASSIUM CHLORIDE 10 MEQ 10 MEQ/100 ML BAG IV SCH ×2 (17:58→21:40)
[2019-01-15] MEDS: cephALEXin 250 MG CAP PO SCH ×3 (00:47→17:55)
[2019-01-15 05:44] LABS: BUN/Creatinine Ratio 23; Blood Urea Nitrogen 14 mg/dL (7-17); Calcium 8.7 mg/dL (8.4-10.2); Hemolysis Index 8
[2019-01-15] MEDS: HEPARIN 5,000 UNIT/1 ML VIAL SUB-Q SCH ×3 (06:50→22:21)
[2019-01-15] MEDS: metOLazone 2.5 MG TAB PO SCH (06:50)
[2019-01-15] MEDS: FUROSEMIDE 40 MG/4 ML INJ IV SCH ×2 (08:00→17:51)
[2019-01-15] MEDS: LISINOPRIL 5 MG TAB PO SCH (09:00)
[2019-01-15] MEDS: NICOTINE 14 MG/24 HR PATCH TD SCH (09:00)
[2019-01-15] MEDS: DOCUSATE SODIUM 100 MG CAP PO SCH ×2 (09:17→22:20)
[2019-01-15] MEDS: ACETAMINOPHEN 325 MG TAB PO PRN (09:17)
[2019-01-15] MEDS ORDERED: POTASSIUM CHLORIDE ER 20 MEQ TAB PO SCH (10:00)
--- NOTE | 2019-01-15 12:28 | Progress Note ---
Assessment and Plan Pt appears to be clinically improving. Cont present cardiac management. Replete lytes PRN. Pt is declining beta blockers due to reported allergy although she clinically appeared to tolerate lopressor last week. Cont strict I&Os, daily weights and 1500mL fluid restriction. Pt is noted to have EF 20-25%. She states that she has had "heart failure" since 1997 with no prior ischemic evaluation. We will plan for ischemic evaluation to r/o ischemic CMP once medically stabilized - possibly on Sunday. The patient has been seen in conjunction with Dr. Cyndi Isbell who agrees with the assessment and plan of care. - Patient Problems (1) Acute HFrEF (heart failure with reduced ejection fraction) Current Visit: Yes Status: Acute (2) Cardiomyopathy Current Visit: Yes Status: Chronic (3) Anasarca Current Visit: Yes Status: Acute (4) Cellulitis Current Visit: Yes Status: Acute Qualifiers: Qualified Code(s): L03.311 - Cellulitis of abdominal wall (5) HTN (hypertension) Current Visit: Yes Status: Chronic (6) Morbid obesity Current Visit: Yes Status: Chronic (7) Hypokalemia Current Visit: Yes Status: Chronic (8) Superficial venous thrombosis of right upper extremity Current Visit: Yes Status: Acute Subjective Date of service: 01/15/19 Principal diagnosis: hf Interval history: pt resting in bed, feeling a little better, edema gradually improving. in ST on tele with HR 110s. Objective Last Vital Signs Temp 98.0 F 01/15/19 11:56 Pulse 103 H 01/15/19 11:56 Resp 18 01/15/19 11:56 BP 117/71 01/15/19 11:56 Pulse Ox 98 01/15/19 11:56 - Physical Examination General: Appears Well, No Apparent Distress HEENT: Positive: PERRL, Normocephaly, Mucus Membranes Moist Neck: Positive: neck supple, trachea midline Cardiac: Positive: Regular Rhythm, S1/S2 Lungs: Positive: Decreased Breath Sounds Neuro: Positive: Grossly Intact Abdomen: Positive: Ascites, Firm. Negative: Tender /Rectal: Other (deferred) Skin: Positive: Other (BUE and BLE scattered wounds) Musculoskeletal: Decreased Range of Motion, No Pain Extremities: Present: edema (RUE - trace), +3 Edema - Labs and Meds Comprehensive Metabolic Panel 01/14/19 01/15/19 Range/Units 13:27 05:07 Sodium 140 (137-145) mmol/L Potassium 3.1 L 3.4 L (3.6-5.0) mmol/L Chloride 83.9 L (98-107) mmol/L Carbon Dioxide 46 H* (22-30) mmol/L BUN 14 (7-17) mg/dL Creatinine 0.6 L (0.7-1.2) mg/dL Glucose 95 (65-100) mg/dL Calcium 8.7 (8.4-10.2) mg/dL - Imaging and Cardiology EKG: report reviewed, image reviewed Echo: report reviewed (06/2018 showed EF 20-25%, mild LVH, LA mod dilated, RV systolic function mod reduced. ) - EKG Sinus rhythms and dysrhythmias: sinus rhythm
[2019-01-15] MEDS: oxyCODONE /ACETAMINOPHEN 5-325MG TAB PO PRN (13:31)
[2019-01-15] MEDS ORDERED: POTASSIUM CHLORIDE ER 20 MEQ TAB PO NR (13:53)
--- NOTE | 2019-01-15 13:54 | Progress Note ---
Assessment and Plan Assessment and plan: Acute on chronic systolic heart failure with EF of 20-25% -Pt is declining beta blockers due to reported allergy although she clinically appeared to have tolerated lopressor last week. -Slightly improving. Continue IV Lasix, metolazone and lisinopril -Cont strict I&Os, daily weights and 1500mL fluid restriction. -Cardiology following: planning for ischemic evaluation to r/o ischemic CMP once medically stabilized, probably on Sunday Acute respiratory failure with hypoxia -Improved -Continue oxygen supplementation as needed Anasarca -Continue diuretics Severe respiratory alkalosis -We do ABG to assess for CO2 retention Abdominal wall Cellulitis -Improving -Continue oral antibiotic Hyponatremia -Improved -Continue oral fluid restriction Hypertension -Stable Hypokalemia -Improving on repletion, will monitor level Morbid obesity with BMI of 53.3 -Lifestyle modification recommended Superficial venous thrombosis of right upper extremity -No need for treatment Obesity hypoventilation syndrome/suspected KIRSTY -Outpatient sleep study recommended DVT prophylaxis: Heparin Disposition: Pending ischemic evaluation when medically stable before discharge History Interval history: Patient continues to feel better. She denied chest pain. Hospitalist Physical - Constitutional Vitals: Temp Pulse Resp BP Pulse Ox 98.0 F 103 H 18 117/71 98 01/15/19 11:56 01/15/19 11:56 01/15/19 11:56 01/15/19 11:56 01/15/19 11:56 General appearance: Present: no acute distress, obese - EENT Eyes: Present: PERRL, EOM intact ENT: hearing intact, clear oral mucosa - Neck Neck: Present: supple - Respiratory Respiratory effort: normal Respiratory: bilateral: diminished - Cardiovascular Rhythm: regular Heart Sounds: Present: S1 & S2 - Extremities Extremity abnormal: edema (in BLE) - Abdominal General gastrointestinal: soft, non-tender, normal bowel sounds - Integumentary Integumentary: Present: dry - Psychiatric Psychiatric: appropriate mood/affect - Neurologic Neurologic: moves all extremities Results - Labs CBC & Chem 7: 01/09/19 04:19 01/15/19 05:07 Labs: Laboratory Last Values WBC 6.0 K/mm3 (4.5-11.0) 01/09/19 04:19 RBC 4.45 M/mm3 (3.65-5.03) 01/09/19 04:19 Hgb 12.6 gm/dl (10.1-14.3) 01/09/19 04:19 Hct 40.7 % (30.3-42.9) 01/09/19 04:19 MCV 92 fl (79-97) 01/09/19 04:19 MCH 28 pg (28-32) 01/09/19 04:19 MCHC 31 % (30-34) 01/09/19 04:19 RDW 22.3 % (13.2-15.2) H 01/09/19 04:19 Plt Count 187 K/mm3 (140-440) 01/09/19 04:19 Baso % (Auto) Signaling Project Engineer 01/07/19 08:50 Add Manual Diff Complete 01/07/19 08:50 Total Counted 100 01/07/19 08:50 Seg Neuts % (Manual) 84.0 % (40.0-70.0) H 01/07/19 08:50 Band Neutrophils % 0 % 01/07/19 08:50 Lymphocytes % (Manual) 15.0 % (13.4-35.0) 01/07/19 08:50 Reactive Lymphs % (Man) 0 % 01/07/19 08:50 Monocytes % (Manual) 1.0 % (0.0-7.3) 01/07/19 08:50 Eosinophils % (Manual) 0 % (0.0-4.3) 01/07/19 08:50 Basophils % (Manual) 0 % (0.0-1.8) 01/07/19 08:50 Metamyelocytes % 0 % 01/07/19 08:50 Myelocytes % 0 % 01/07/19 08:50 Promyelocytes % 0 % 01/07/19 08:50 Blast Cells % 0 % 01/07/19 08:50 Nucleated RBC % 5.0 % (0.0-0.9) H 01/07/19 08:50 Seg Neutrophils # Man 4.3 K/mm3 (1.8-7.7) 01/07/19 08:50 Band Neutrophils # 0.0 K/mm3 01/07/19 08:50 Lymphocytes # (Manual) 0.8 K/mm3 (1.2-5.4) L 01/07/19 08:50 Abs React Lymphs (Man) 0.0 K/mm3 01/07/19 08:50 Monocytes # (Manual) 0.1 K/mm3 (0.0-0.8) 01/07/19 08:50 Eosinophils # (Manual) 0.0 K/mm3 (0.0-0.4) 01/07/19 08:50 Basophils # (Manual) 0.0 K/mm3 (0.0-0.1) 01/07/19 08:50 Metamyelocytes # 0.0 K/mm3 01/07/19 08:50 Myelocytes # 0.0 K/mm3 01/07/19 08:50 Promyelocytes # 0.0 K/mm3 01/07/19 08:50 Blast Cells # 0.0 K/mm3 01/07/19 08:50 WBC Morphology Not Reportable 01/07/19 08:50 Hypersegmented Neuts Not Reportable 01/07/19 08:50 Hyposegmented Neuts Not Reportable 01/07/19 08:50 Hypogranular Neuts Not Reportable 01/07/19 08:50 Smudge Cells Not Reportable 01/07/19 08:50 Toxic Granulation Not Reportable 01/07/19 08:50 Toxic Vacuolation Not Reportable 01/07/19 08:50 Dohle Bodies Not Reportable 01/07/19 08:50 Pelger-Huet Anomaly Not Reportable 01/07/19 08:50 Clarissa Rods Not Reportable 01/07/19 08:50 Platelet Estimate Consistent w auto 01/07/19 08:50 Clumped Platelets Not Reportable 01/07/19 08:50 Plt Clumps, EDTA Not Reportable 01/07/19 08:50 Large Platelets Few 01/07/19 08:50 Giant Platelets Not Reportable 01/07/19 08:50 Platelet Satelliting Not Reportable 01/07/19 08:50 Plt Morphology Comment Not Reportable 01/07/19 08:50 RBC Morphology Not Reportable 01/07/19 08:50 Dimorphic RBCs Not Reportable 01/07/19 08:50 Polychromasia Not Reportable 01/07/19 08:50 Hypochromasia Not Reportable 01/07/19 08:50 Poikilocytosis Few 01/07/19 08:50 Anisocytosis 2+ 01/07/19 08:50 Microcytosis Rare 01/07/19 08:50 Macrocytosis Not Reportable 01/07/19 08:50 Spherocytes Not Reportable 01/07/19 08:50 Pappenheimer Bodies Not Reportable 01/07/19 08:50 Sickle Cells Not Reportable 01/07/19 08:50 Target Cells Not Reportable 01/07/19 08:50 Tear Drop Cells Not Reportable 01/07/19 08:50 Ovalocytes Not Reportable 01/07/19 08:50 Helmet Cells Not Reportable 01/07/19 08:50 Boudreaux-Harrington Bodies Not Reportable 01/07/19 08:50 [place] Rings Not Reportable 01/07/19 08:50 Ramesh Cells Not Reportable 01/07/19 08:50 Bite Cells Not Reportable 01/07/19 08:50 Crenated Cell Not Reportable 01/07/19 08:50 Elliptocytes Not Reportable 01/07/19 08:50 Acanthocytes (Spur) Not Reportable 01/07/19 08:50 Rouleaux Not Reportable 01/07/19 08:50 Hemoglobin C Crystals Not Reportable 01/07/19 08:50 Schistocytes Not Reportable 01/07/19 08:50 Malaria parasites Not Reportable 01/07/19 08:50 Dieter Bodies Not Reportable 01/07/19 08:50 Hem Pathologist Commnt No 01/07/19 08:50 PT 15.1 Sec. (12.2-14.9) H 01/07/19 19:15 INR 1.20 (0.87-1.13) H 01/07/19 19:15 POC ABG pH 7.337 (7.35-7.45) L 01/06/19 02:31 POC ABG pCO2 63.5 (35-45) H 01/06/19 02:31 POC ABG pO2 52 (80-105) L 01/06/19 02:31 POC ABG HCO3 34.0 (22-26 mml/L) 01/06/19 02:31 POC ABG Total CO2 36 (23-27mmol/L) 01/06/19 02:31 POC ABG O2 Sat 83 01/06/19 02:31 POC ABG Base Excess 8 ((-2) - (+3)mmol/L) 01/06/19 02:31 FiO2 21 % 01/06/19 02:31 Sodium 140 mmol/L (137-145) 01/15/19 05:07 Potassium 3.4 mmol/L (3.6-5.0) L 01/15/19 05:07 Chloride 83.9 mmol/L (98-107) L 01/15/19 05:07 Carbon Dioxide 46 mmol/L (22-30) H* 01/15/19 05:07 Anion Gap 14 mmol/L 01/15/19 05:07 BUN 14 mg/dL (7-17) 01/15/19 05:07 Creatinine 0.6 mg/dL (0.7-1.2) L 01/15/19 05:07 Estimated GFR > 60 ml/min 01/15/19 05:07 BUN/Creatinine Ratio 23 % 01/15/19 05:07 Glucose 95 mg/dL (65-100) 01/15/19 05:07 Lactic Acid 1.30 mmol/L (0.7-2.0) 01/06/19 03:20 Calcium 8.7 mg/dL (8.4-10.2) 01/15/19 05:07 Magnesium 1.80 mg/dL (1.7-2.3) 01/14/19 05:18 Total Bilirubin 0.80 mg/dL (0.1-1.2) 01/06/19 00:12 AST 46 units/L (5-40) H 01/06/19 00:12 ALT 35 units/L (7-56) 01/06/19 00:12 Alkaline Phosphatase 140 units/L (35-129) H 01/06/19 00:12 Total Creatine Kinase 117 units/L (30-135) 01/06/19 13:18 CK-MB (CK-2) 3.1 ng/mL (0.0-4.0) 01/06/19 13:18 CK-MB (CK-2) Rel Index 2.6 (0-4) 01/06/19 13:18 Troponin T < 0.010 ng/mL (0.00-0.029) 01/06/19 13:18 NT-Pro-B Natriuret Pep 4050 pg/mL (0-900) H 01/05/19 23:41 Total Protein 7.3 g/dL (6.3-8.2) 01/06/19 00:12 Albumin 2.8 g/dL (3.9-5) L 01/06/19 00:12 Albumin/Globulin Ratio 0.6 % 01/06/19 00:12 Urine Color Yellow (Yellow) 01/06/19 05:00 Urine Turbidity Clear (Clear) 01/06/19 05:00 Urine pH 5.0 (5.0-7.0) 01/06/19 05:00 Ur Specific [place] 1.011 (1.003-1.030) 01/06/19 05:00 Urine Protein 30 mg/dl mg/dL (Negative) 01/06/19 05:00 Urine Glucose (UA) Neg mg/dL (Negative) 01/06/19 05:00 Urine Ketones Neg mg/dL (Negative) 01/06/19 05:00 Urine Blood Sm (Negative) 01/06/19 05:00 Urine Nitrite Neg (Negative) 01/06/19 05:00 Urine Bilirubin Neg (Negative) 01/06/19 05:00 Urine Urobilinogen < 2.0 mg/dL (<2.0) 01/06/19 05:00 Ur Leukocyte Esterase Sm (Negative) 01/06/19 05:00 Urine WBC (Auto) 4.0 /HPF (0.0-6.0) 01/06/19 05:00 Urine RBC (Auto) 4.0 /HPF (0.0-6.0) 01/06/19 05:00 U Epithel Cells (Auto) 2.0 /HPF (0-13.0) 01/06/19 05:00 Urine Bacteria (Auto) 2+ /HPF (Negative) 01/06/19 05:00 Urine Mucus Few /HPF 01/06/19 05:00 Active Medications - Current Medications Current Medications: Generic Name Dose Route Start Last Admin Trade Name Freq PRN Reason Stop Dose Admin Acetaminophen 650 mg 01/06/19 02:30 01/15/19 09:17 Tylenol PO 650 mg Q4H PRN Administration Pain MILD(1-3)/Fever >100.5/BENITEZ Albuterol 2.5 mg 01/06/19 02:30 Proventil IH Q3HRT PRN Shortness Of Breath Cephalexin 250 mg 01/11/19 17:00 01/15/19 09:06 Keflex PO 250 mg Q8H JIMI Administration Diphenhydramine HCl 25 mg 01/09/19 00:08 01/14/19 00:16 Benadryl PO 25 mg QHS PRN Administration Sleep Docusate Sodium 100 mg 01/06/19 10:00 01/15/19 09:17 Colace PO 100 mg BID JIMI Administration Furosemide 60 mg 01/07/19 12:47 01/15/19 08:00 Lasix IV Not Given 0600,1800 JIMI Heparin Sodium (Porcine) 5,000 unit 01/14/19 18:00 01/15/19 13:32 Heparin SUB-Q 5,000 unit Q8HR JIMI Administration Lisinopril 2.5 mg 01/06/19 10:00 01/15/19 09:00 Zestril PO 2.5 mg QDAY JIMI Administration Metolazone 5 mg 01/09/19 05:30 01/15/19 06:50 Zaroxolyn PO 5 mg 0530 JIMI Administration Nicotine 14 mg 01/06/19 10:00 01/15/19 09:00 Habitrol TD Not Given QDAY [facility] Ondansetron HCl 4 mg 01/06/19 02:30 Zofran IV Q8H PRN Nausea And Vomiting Oxycodone/Acetaminophen 1 tab 01/06/19 02:30 01/15/19 13:31 Percocet 5/325 PO 1 tab Q6H PRN Administration Pain, Moderate (4-6) Potassium Chloride 20 meq 01/15/19 10:00 01/15/19 09:17 K-Dur PO 20 meq QDAY JIMI Administration Sodium Chloride 10 ml 01/06/19 10:00 01/15/19 09:05 Sodium Chloride Flush Syringe 10 Ml IV 10 ml BID JIMI Administration Sodium Chloride 10 ml 01/06/19 02:30 Sodium Chloride Flush Syringe 10 Ml IV PRN PRN LINE FLUSH Zinc Acetate/Diphenhydramine 1 applic 01/08/19 12:50 01/10/19 12:11 Banophen Anti-Itch TP 1 applic Q8H PRN Administration Itching Nutrition/Malnutrition Assess - Dietary Evaluation Nutrition/Malnutrition Findings: Nutrition Notes Start: 01/13/19 14:48 Freq: Status: Active Protocol: Document 01/13/19 14:48 LP (Rec: 01/13/19 14:49 LP [email or web address]) Nutrition Notes Need for Assessment generated from: LOS Initial or Follow up Brief Note Subjective/Other Information Screen for LOS. Pt states eating well. Consuming 100% of meals. Denies diet education or nutrition needs at this time. Nutrition Intervention Revisit per MD consult or patient Sign Off request:
[2019-01-16] MEDS: cephALEXin 250 MG CAP PO SCH ×3 (00:55→18:11)
[2019-01-16 05:48] LABS: BUN/Creatinine Ratio 25; Blood Urea Nitrogen 15 mg/dL (7-17); Hemolysis Index 21
[2019-01-16] MEDS: metOLazone 2.5 MG TAB PO SCH (06:28)
[2019-01-16] MEDS: HEPARIN 5,000 UNIT/1 ML VIAL SUB-Q SCH ×3 (06:28→22:52)
[2019-01-16] MEDS: FUROSEMIDE 40 MG/4 ML INJ IV SCH ×2 (06:28→18:07)
[2019-01-16] MEDS: oxyCODONE /ACETAMINOPHEN 5-325MG TAB PO PRN ×3 (06:35→22:52)
--- NOTE | 2019-01-16 10:49 | Progress Note ---
Assessment and Plan Pt appears to be clinically improving. Cont present cardiac management. Replete lytes PRN. Pt is declining beta blockers due to reported allergy although she clinically appeared to tolerate lopressor last week. Cont strict I&Os, daily weights and 1500mL fluid restriction. Pt has been unable to lie flat. She stated today that she can now lie flat for short periods of time, she still has significant BLE edema. Cont IV diuresis and will plan for LHC in AM to r/o ischemic CMP pending pt is able to tolerate procedure. NPO after MN. The patient has been seen in conjunction with Dr. Cyndi Isbell who agrees with the assessment and plan of care. - Patient Problems (1) Acute HFrEF (heart failure with reduced ejection fraction) Current Visit: Yes Status: Acute (2) Cardiomyopathy Current Visit: Yes Status: Chronic (3) Anasarca Current Visit: Yes Status: Acute (4) Cellulitis Current Visit: Yes Status: Acute Qualifiers: Qualified Code(s): L03.311 - Cellulitis of abdominal wall (5) HTN (hypertension) Current Visit: Yes Status: Chronic (6) Morbid obesity Current Visit: Yes Status: Chronic (7) Hypokalemia Current Visit: Yes Status: Chronic (8) Superficial venous thrombosis of right upper extremity Current Visit: Yes Status: Acute Subjective Date of service: 01/16/19 Principal diagnosis: hf Interval history: pt resting in bed, feeling a little better, edema gradually improving. in ST on tele with HR 110s. Objective Last Vital Signs Temp 98.5 F 01/16/19 08:28 Pulse 113 H 01/16/19 08:28 Resp 20 01/16/19 08:28 BP 121/83 01/16/19 08:28 Pulse Ox 96 01/16/19 08:28 - Physical Examination General: Appears Well, No Apparent Distress HEENT: Positive: PERRL, Normocephaly, Mucus Membranes Moist Neck: Positive: neck supple, trachea midline Cardiac: Positive: Regular Rhythm, S1/S2 Lungs: Positive: Decreased Breath Sounds Neuro: Positive: Grossly Intact Abdomen: Positive: Ascites, Firm. Negative: Tender /Rectal: Other (deferred) Skin: Positive: Other (BUE and BLE scattered wounds) Musculoskeletal: Decreased Range of Motion, No Pain Extremities: Present: edema (RUE - trace), +3 Edema - Labs and Meds Comprehensive Metabolic Panel 01/16/19 Range/Units 04:51 Sodium 139 (137-145) mmol/L Potassium 3.1 L (3.6-5.0) mmol/L Chloride 82.3 L (98-107) mmol/L Carbon Dioxide 45 H* (22-30) mmol/L BUN 15 (7-17) mg/dL Creatinine 0.6 L (0.7-1.2) mg/dL Glucose 93 (65-100) mg/dL Calcium 9.0 (8.4-10.2) mg/dL - Imaging and Cardiology EKG: report reviewed, image reviewed Echo: report reviewed (06/2018 showed EF 20-25%, mild LVH, LA mod dilated, RV systolic function mod reduced. ) - Telemetry EKG Rhythm: Sinus Tachycardia - EKG Sinus rhythms and dysrhythmias: sinus rhythm
[2019-01-16] MEDS ORDERED: SODIUM CHLORIDE 0.9% 500 ML 500 ML IV SCH (11:00)
[2019-01-16] MEDS: POTASSIUM CHLORIDE 10 MEQ 10 MEQ/100 ML BAG IV SCH ×3 (11:35→18:02)
[2019-01-16] MEDS: POTASSIUM CHLORIDE ER 20 MEQ TAB PO SCH (11:36)
[2019-01-16] MEDS: DOCUSATE SODIUM 100 MG CAP PO SCH ×2 (11:38→22:52)
[2019-01-16] MEDS: LISINOPRIL 5 MG TAB PO SCH (11:38)
[2019-01-16] MEDS: NICOTINE 14 MG/24 HR PATCH TD SCH (11:40)
--- NOTE | 2019-01-16 14:14 | Progress Note ---
Assessment and Plan Assessment and plan: Acute on chronic systolic heart failure with EF of 20-25% -Pt is declining beta blockers due to reported allergy although she clinically appeared to have tolerated lopressor last week. -Slightly improving. Continue IV Lasix, metolazone and lisinopril -Cont strict I&Os, daily weights and 1500mL fluid restriction. -Cardiology following: planning for ischemic evaluation to r/o ischemic CMP in am Acute respiratory failure with hypoxia -Improved -Continue oxygen supplementation as needed Anasarca -Continue diuretics Severe alkalosis -probably respt alkalosis due to chronic CO2 retention -stable Abdominal wall Cellulitis -Improving -Continue oral antibiotic Hyponatremia -Improved -Continue oral fluid restriction Hypertension -Stable Hypokalemia -on repletion, will monitor level Morbid obesity with BMI of 53.3 -Lifestyle modification recommended Superficial venous thrombosis of right upper extremity -No need for treatment Obesity hypoventilation syndrome/suspected KIRSTY -Outpatient sleep study recommended DVT prophylaxis: Heparin Disposition: Pending ischemic evaluation History Interval history: Patient reports feeling a little better. She denies chest pain. Hospitalist Physical - Constitutional Vitals: Temp Pulse Resp BP Pulse Ox 98.6 F 102 H 18 133/84 97 01/16/19 11:47 01/16/19 11:47 01/16/19 11:47 01/16/19 11:47 01/16/19 11:47 General appearance: Present: no acute distress, obese - EENT Eyes: Present: PERRL, EOM intact ENT: hearing intact, clear oral mucosa - Neck Neck: Present: supple, normal ROM - Respiratory Respiratory effort: normal Respiratory: bilateral: diminished - Cardiovascular Rhythm: regular Heart Sounds: Present: S1 & S2 - Extremities Extremity abnormal: edema (in BLE improving) - Abdominal General gastrointestinal: soft, non-tender, normal bowel sounds - Integumentary Integumentary: Present: warm, dry - Psychiatric Psychiatric: cooperative - Neurologic Neurologic: moves all extremities Results - Labs CBC & Chem 7: 01/09/19 04:19 01/16/19 04:51 Labs: Laboratory Last Values WBC 6.0 K/mm3 (4.5-11.0) 01/09/19 04:19 RBC 4.45 M/mm3 (3.65-5.03) 01/09/19 04:19 Hgb 12.6 gm/dl (10.1-14.3) 01/09/19 04:19 Hct 40.7 % (30.3-42.9) 01/09/19 04:19 MCV 92 fl (79-97) 01/09/19 04:19 MCH 28 pg (28-32) 01/09/19 04:19 MCHC 31 % (30-34) 01/09/19 04:19 RDW 22.3 % (13.2-15.2) H 01/09/19 04:19 Plt Count 187 K/mm3 (140-440) 01/09/19 04:19 Baso % (Auto) Asian Studies Program Chair 01/07/19 08:50 Add Manual Diff Complete 01/07/19 08:50 Total Counted 100 01/07/19 08:50 Seg Neuts % (Manual) 84.0 % (40.0-70.0) H 01/07/19 08:50 Band Neutrophils % 0 % 01/07/19 08:50 Lymphocytes % (Manual) 15.0 % (13.4-35.0) 01/07/19 08:50 Reactive Lymphs % (Man) 0 % 01/07/19 08:50 Monocytes % (Manual) 1.0 % (0.0-7.3) 01/07/19 08:50 Eosinophils % (Manual) 0 % (0.0-4.3) 01/07/19 08:50 Basophils % (Manual) 0 % (0.0-1.8) 01/07/19 08:50 Metamyelocytes % 0 % 01/07/19 08:50 Myelocytes % 0 % 01/07/19 08:50 Promyelocytes % 0 % 01/07/19 08:50 Blast Cells % 0 % 01/07/19 08:50 Nucleated RBC % 5.0 % (0.0-0.9) H 01/07/19 08:50 Seg Neutrophils # Man 4.3 K/mm3 (1.8-7.7) 01/07/19 08:50 Band Neutrophils # 0.0 K/mm3 01/07/19 08:50 Lymphocytes # (Manual) 0.8 K/mm3 (1.2-5.4) L 01/07/19 08:50 Abs React Lymphs (Man) 0.0 K/mm3 01/07/19 08:50 Monocytes # (Manual) 0.1 K/mm3 (0.0-0.8) 01/07/19 08:50 Eosinophils # (Manual) 0.0 K/mm3 (0.0-0.4) 01/07/19 08:50 Basophils # (Manual) 0.0 K/mm3 (0.0-0.1) 01/07/19 08:50 Metamyelocytes # 0.0 K/mm3 01/07/19 08:50 Myelocytes # 0.0 K/mm3 01/07/19 08:50 Promyelocytes # 0.0 K/mm3 01/07/19 08:50 Blast Cells # 0.0 K/mm3 01/07/19 08:50 WBC Morphology Not Reportable 01/07/19 08:50 Hypersegmented Neuts Not Reportable 01/07/19 08:50 Hyposegmented Neuts Not Reportable 01/07/19 08:50 Hypogranular Neuts Not Reportable 01/07/19 08:50 Smudge Cells Not Reportable 01/07/19 08:50 Toxic Granulation Not Reportable 01/07/19 08:50 Toxic Vacuolation Not Reportable 01/07/19 08:50 Dohle Bodies Not Reportable 01/07/19 08:50 Pelger-Huet Anomaly Not Reportable 01/07/19 08:50 Clarissa Rods Not Reportable 01/07/19 08:50 Platelet Estimate Consistent w auto 01/07/19 08:50 Clumped Platelets Not Reportable 01/07/19 08:50 Plt Clumps, EDTA Not Reportable 01/07/19 08:50 Large Platelets Few 01/07/19 08:50 Giant Platelets Not Reportable 01/07/19 08:50 Platelet Satelliting Not Reportable 01/07/19 08:50 Plt Morphology Comment Not Reportable 01/07/19 08:50 RBC Morphology Not Reportable 01/07/19 08:50 Dimorphic RBCs Not Reportable 01/07/19 08:50 Polychromasia Not Reportable 01/07/19 08:50 Hypochromasia Not Reportable 01/07/19 08:50 Poikilocytosis Few 01/07/19 08:50 Anisocytosis 2+ 01/07/19 08:50 Microcytosis Rare 01/07/19 08:50 Macrocytosis Not Reportable 01/07/19 08:50 Spherocytes Not Reportable 01/07/19 08:50 Pappenheimer Bodies Not Reportable 01/07/19 08:50 Sickle Cells Not Reportable 01/07/19 08:50 Target Cells Not Reportable 01/07/19 08:50 Tear Drop Cells Not Reportable 01/07/19 08:50 Ovalocytes Not Reportable 01/07/19 08:50 Helmet Cells Not Reportable 01/07/19 08:50 [place] Bodies Not Reportable 01/07/19 08:50 [place] Rings Not Reportable 01/07/19 08:50 Ramesh Cells Not Reportable 01/07/19 08:50 Bite Cells Not Reportable 01/07/19 08:50 Crenated Cell Not Reportable 01/07/19 08:50 Elliptocytes Not Reportable 01/07/19 08:50 Acanthocytes (Spur) Not Reportable 01/07/19 08:50 Rouleaux Not Reportable 01/07/19 08:50 Hemoglobin C Crystals Not Reportable 01/07/19 08:50 Schistocytes Not Reportable 01/07/19 08:50 Malaria parasites Not Reportable 01/07/19 08:50 Dieter Bodies Not Reportable 01/07/19 08:50 Hem Pathologist Commnt No 01/07/19 08:50 PT 15.1 Sec. (12.2-14.9) H 01/07/19 19:15 INR 1.20 (0.87-1.13) H 01/07/19 19:15 POC ABG pH 7.337 (7.35-7.45) L 01/06/19 02:31 POC ABG pCO2 63.5 (35-45) H 01/06/19 02:31 POC ABG pO2 52 (80-105) L 01/06/19 02:31 POC ABG HCO3 34.0 (22-26 mml/L) 01/06/19 02:31 POC ABG Total CO2 36 (23-27mmol/L) 01/06/19 02:31 POC ABG O2 Sat 83 01/06/19 02:31 POC ABG Base Excess 8 ((-2) - (+3)mmol/L) 01/06/19 02:31 FiO2 21 % 01/06/19 02:31 Sodium 139 mmol/L (137-145) 01/16/19 04:51 Potassium 3.1 mmol/L (3.6-5.0) L 01/16/19 04:51 Chloride 82.3 mmol/L (98-107) L 01/16/19 04:51 Carbon Dioxide 45 mmol/L (22-30) H* 01/16/19 04:51 Anion Gap 15 mmol/L 01/16/19 04:51 BUN 15 mg/dL (7-17) 01/16/19 04:51 Creatinine 0.6 mg/dL (0.7-1.2) L 01/16/19 04:51 Estimated GFR > 60 ml/min 01/16/19 04:51 BUN/Creatinine Ratio 25 % 01/16/19 04:51 Glucose 93 mg/dL (65-100) 01/16/19 04:51 Lactic Acid 1.30 mmol/L (0.7-2.0) 01/06/19 03:20 Calcium 9.0 mg/dL (8.4-10.2) 01/16/19 04:51 Magnesium 1.80 mg/dL (1.7-2.3) 01/14/19 05:18 Total Bilirubin 0.80 mg/dL (0.1-1.2) 01/06/19 00:12 AST 46 units/L (5-40) H 01/06/19 00:12 ALT 35 units/L (7-56) 01/06/19 00:12 Alkaline Phosphatase 140 units/L (35-129) H 01/06/19 00:12 Total Creatine Kinase 117 units/L (30-135) 01/06/19 13:18 CK-MB (CK-2) 3.1 ng/mL (0.0-4.0) 01/06/19 13:18 CK-MB (CK-2) Rel Index 2.6 (0-4) 01/06/19 13:18 Troponin T < 0.010 ng/mL (0.00-0.029) 01/06/19 13:18 NT-Pro-B Natriuret Pep 4050 pg/mL (0-900) H 01/05/19 23:41 Total Protein 7.3 g/dL (6.3-8.2) 01/06/19 00:12 Albumin 2.8 g/dL (3.9-5) L 01/06/19 00:12 Albumin/Globulin Ratio 0.6 % 01/06/19 00:12 Urine Color Yellow (Yellow) 01/06/19 05:00 Urine Turbidity Clear (Clear) 01/06/19 05:00 Urine pH 5.0 (5.0-7.0) 01/06/19 05:00 Ur Specific [place] 1.011 (1.003-1.030) 01/06/19 05:00 Urine Protein 30 mg/dl mg/dL (Negative) 01/06/19 05:00 Urine Glucose (UA) Neg mg/dL (Negative) 01/06/19 05:00 Urine Ketones Neg mg/dL (Negative) 01/06/19 05:00 Urine Blood Sm (Negative) 01/06/19 05:00 Urine Nitrite Neg (Negative) 01/06/19 05:00 Urine Bilirubin Neg (Negative) 01/06/19 05:00 Urine Urobilinogen < 2.0 mg/dL (<2.0) 01/06/19 05:00 Ur Leukocyte Esterase Sm (Negative) 01/06/19 05:00 Urine WBC (Auto) 4.0 /HPF (0.0-6.0) 01/06/19 05:00 Urine RBC (Auto) 4.0 /HPF (0.0-6.0) 01/06/19 05:00 U Epithel Cells (Auto) 2.0 /HPF (0-13.0) 01/06/19 05:00 Urine Bacteria (Auto) 2+ /HPF (Negative) 01/06/19 05:00 Urine Mucus Few /HPF 01/06/19 05:00 Active Medications - Current Medications Current Medications: Generic Name Dose Route Start Last Admin Trade Name Freq PRN Reason Stop Dose Admin Acetaminophen 650 mg 01/06/19 02:30 01/15/19 09:17 Tylenol PO 650 mg Q4H PRN Administration Pain MILD(1-3)/Fever >100.5/BENITEZ Albuterol 2.5 mg 01/06/19 02:30 Proventil IH Q3HRT PRN Shortness Of Breath Aspirin 325 mg 01/17/19 10:00 Aspirin PO QDAY JIMI Cephalexin 250 mg 01/11/19 17:00 01/16/19 11:55 Keflex PO 250 mg Q8H JIMI Administration Diphenhydramine HCl 25 mg 01/09/19 00:08 01/14/19 00:16 Benadryl PO 25 mg QHS PRN Administration Sleep Docusate Sodium 100 mg 01/06/19 10:00 01/16/19 11:38 Colace PO 100 mg BID JIMI Administration Furosemide 60 mg 01/07/19 12:47 01/16/19 06:28 Lasix IV 60 mg 0600,1800 JIMI Administration Heparin Sodium (Porcine) 5,000 unit 01/14/19 18:00 01/16/19 06:28 Heparin SUB-Q 5,000 unit Q8HR JIMI Administration Sodium Chloride 500 mls @ 50 mls/hr 01/16/19 11:00 Nacl 0.9% 500 Ml IV 01/16/19 20:59 DIRECT JIMI Lisinopril 2.5 mg 01/06/19 10:00 01/16/19 11:38 Zestril PO 2.5 mg QDAY JIMI Administration Metolazone 5 mg 01/09/19 05:30 01/16/19 06:28 Zaroxolyn PO 5 mg 0530 JIMI Administration Nicotine 14 mg 01/06/19 10:00 01/16/19 11:40 Habitrol TD 14 mg QDAY JIMI Administration Ondansetron HCl 4 mg 01/06/19 02:30 Zofran IV Q8H PRN Nausea And Vomiting Oxycodone/Acetaminophen 1 tab 01/06/19 02:30 01/16/19 11:37 Percocet 5/325 PO 1 tab Q6H PRN Administration Pain, Moderate (4-6) Potassium Chloride 40 meq 01/16/19 10:00 01/16/19 11:36 K-Dur PO 40 meq QDAY JIMI Administration Sodium Chloride 10 ml 01/06/19 10:00 01/16/19 11:50 Sodium Chloride Flush Syringe 10 Ml IV 10 ml BID JIMI Administration Sodium Chloride 10 ml 01/06/19 02:30 Sodium Chloride Flush Syringe 10 Ml IV PRN PRN LINE FLUSH Zinc Acetate/Diphenhydramine 1 applic 01/08/19 12:50 01/10/19 12:11 Banophen Anti-Itch TP 1 applic Q8H PRN Administration Itching Nutrition/Malnutrition Assess - Dietary Evaluation Nutrition/Malnutrition Findings: Nutrition Notes Start: 01/13/19 14:48 Freq: Status: Active Protocol: Document 01/13/19 14:48 LP (Rec: 01/13/19 14:49 LP [id number]) Nutrition Notes Need for Assessment generated from: LOS Initial or Follow up Brief Note Subjective/Other Information Screen for LOS. Pt states eating well. Consuming 100% of meals. Denies diet education or nutrition needs at this time. Nutrition Intervention Revisit per MD consult or patient Sign Off request:
[2019-01-17] MEDS: cephALEXin 250 MG CAP PO SCH ×3 (01:54→20:15)
[2019-01-17] MEDS: HEPARIN 5,000 UNIT/1 ML VIAL SUB-Q SCH ×3 (05:46→21:18)
[2019-01-17] MEDS: metOLazone 2.5 MG TAB PO SCH ×2 (05:46→10:32)
[2019-01-17] MEDS: FUROSEMIDE 40 MG/4 ML INJ IV SCH ×3 (05:46→20:39)
[2019-01-17 08:17] LABS: Basophils # (Auto) 0.1 K/mm3 (0.0-0.1); Basophils % (Auto) 1.2 % (0.0-1.8); Eosinophils # (Auto) 0.2 K/mm3 (0.0-0.4); Eosinophils % (Auto) 4.4 % (0.0-4.3); Hematocrit 39.7 % (30.3-42.9); Hemoglobin 12.8 gm/dl (10.1-14.3); Lymphocytes # (Auto) 1.4 K/mm3 (1.2-5.4); Lymphocytes % (Auto) 25.4 % (13.4-35.0); Mean Corpuscular HGB Conc 32 % (30-34); Mean Corpuscular Volume 90 fl (79-97); Monocytes # (Auto) 0.6 K/mm3 (0.0-0.8); Platelet Count 229 K/mm3 (140-440); Red Blood Count 4.43 M/mm3 (3.65-5.03)
[2019-01-17 08:24] LABS: Red Cell Distribution Width 20.9 % (13.2-15.2)
[2019-01-17 08:28] LABS: INR 1.05 (0.87-1.13)
[2019-01-17 08:38] LABS: BUN/Creatinine Ratio 23; Blood Urea Nitrogen 16 mg/dL (7-17); Calcium 9.1 mg/dL (8.4-10.2); Hemolysis Index 26
[2019-01-17] MEDS: ASPIRIN 325 MG TAB PO SCH (10:26)
[2019-01-17] MEDS: POTASSIUM CHLORIDE ER 20 MEQ TAB PO SCH (10:26)
[2019-01-17] MEDS: DOCUSATE SODIUM 100 MG CAP PO SCH ×2 (10:26→21:17)
[2019-01-17] MEDS: LISINOPRIL 5 MG TAB PO SCH (10:27)
[2019-01-17] MEDS: NICOTINE 14 MG/24 HR PATCH TD SCH (10:30)
[2019-01-17] MEDS: oxyCODONE /ACETAMINOPHEN 5-325MG TAB PO PRN (10:32)
--- NOTE | 2019-01-17 12:35 | Progress Note ---
Assessment and Plan Assessment and plan: Acute on chronic systolic heart failure with EF of 20-25% -Pt is declining beta blockers due to reported allergy although she clinically appeared to have tolerated lopressor last week. -Gradually improving. Continue IV Lasix, metolazone and lisinopril -Cont strict I&Os, daily weights and 1500mL fluid restriction. -Cardiology following: planning for ischemic evaluation with C to r/o ischemic CMP today Acute respiratory failure with hypoxia -Improved -Continue oxygen supplementation as needed Anasarca -Gradually improving -Continue diuretics Severe alkalosis -probably metab alkalosis due to diuretic use v respt alkalosis due to chronic CO2 retention -level improved Abdominal wall Cellulitis -Improving -Continue oral antibiotic to complete for 7 days Hyponatremia -Improved -Continue oral fluid restriction Hypertension -Stable Hypokalemia -Improving on repletion, will monitor level Morbid obesity with BMI of 53.3 -Lifestyle modification recommended Superficial venous thrombosis of right upper extremity -No need for treatment Obesity hypoventilation syndrome/suspected KIRSTY -Outpatient sleep study recommended DVT prophylaxis: Heparin Disposition: Pending ischemic evaluation. For discharge when medically stable and cleared by cardiology History Interval history: Patient has no new complaints. She denied chest pain or shortness of breath. Hospitalist Physical - Constitutional Vitals: Temp Pulse Resp BP Pulse Ox 98.5 F 106 H 20 124/72 96 01/17/19 08:14 01/17/19 08:14 01/17/19 10:32 01/17/19 08:14 01/17/19 08:14 General appearance: Present: no acute distress, obese - EENT Eyes: Present: PERRL, EOM intact ENT: hearing intact, clear oral mucosa - Neck Neck: Present: supple - Respiratory Respiratory effort: normal Respiratory: bilateral: diminished, negative: rales - Cardiovascular Rhythm: regular Heart Sounds: Present: S1 & S2 - Extremities Extremity abnormal: edema (in BLE improving) - Abdominal General gastrointestinal: soft, non-tender, normal bowel sounds - Integumentary Integumentary: Present: warm - Psychiatric Psychiatric: cooperative - Neurologic Neurologic: moves all extremities Results - Labs CBC & Chem 7: 01/17/19 06:49 01/17/19 06:49 Labs: Laboratory Last Values WBC 5.5 K/mm3 (4.5-11.0) 01/17/19 06:49 RBC 4.43 M/mm3 (3.65-5.03) 01/17/19 06:49 Hgb 12.8 gm/dl (10.1-14.3) 01/17/19 06:49 Hct 39.7 % (30.3-42.9) 01/17/19 06:49 MCV 90 fl (79-97) 01/17/19 06:49 MCH 29 pg (28-32) 01/17/19 06:49 MCHC 32 % (30-34) 01/17/19 06:49 RDW 20.9 % (13.2-15.2) H 01/17/19 06:49 Plt Count 229 K/mm3 (140-440) 01/17/19 06:49 Lymph % (Auto) 25.4 % (13.4-35.0) 01/17/19 06:49 [place] % (Auto) 10.0 % (0.0-7.3) H 01/17/19 06:49 Eos % (Auto) 4.4 % (0.0-4.3) H 01/17/19 06:49 Baso % (Auto) 1.2 % (0.0-1.8) 01/17/19 06:49 Lymph # 1.4 K/mm3 (1.2-5.4) 01/17/19 06:49 Coleman # 0.6 K/mm3 (0.0-0.8) 01/17/19 06:49 Eos # 0.2 K/mm3 (0.0-0.4) 01/17/19 06:49 Baso # 0.1 K/mm3 (0.0-0.1) 01/17/19 06:49 Add Manual Diff Complete 01/07/19 08:50 Total Counted 100 01/07/19 08:50 Seg Neutrophils % 59.0 % (40.0-70.0) 01/17/19 06:49 Seg Neuts % (Manual) 84.0 % (40.0-70.0) H 01/07/19 08:50 Band Neutrophils % 0 % 01/07/19 08:50 Lymphocytes % (Manual) 15.0 % (13.4-35.0) 01/07/19 08:50 Reactive Lymphs % (Man) 0 % 01/07/19 08:50 Monocytes % (Manual) 1.0 % (0.0-7.3) 01/07/19 08:50 Eosinophils % (Manual) 0 % (0.0-4.3) 01/07/19 08:50 Basophils % (Manual) 0 % (0.0-1.8) 01/07/19 08:50 Metamyelocytes % 0 % 01/07/19 08:50 Myelocytes % 0 % 01/07/19 08:50 Promyelocytes % 0 % 01/07/19 08:50 Blast Cells % 0 % 01/07/19 08:50 Nucleated RBC % 5.0 % (0.0-0.9) H 01/07/19 08:50 Seg Neutrophils # 3.3 K/mm3 (1.8-7.7) 01/17/19 06:49 Seg Neutrophils # Man 4.3 K/mm3 (1.8-7.7) 01/07/19 08:50 Band Neutrophils # 0.0 K/mm3 01/07/19 08:50 Lymphocytes # (Manual) 0.8 K/mm3 (1.2-5.4) L 01/07/19 08:50 Abs React Lymphs (Man) 0.0 K/mm3 01/07/19 08:50 Monocytes # (Manual) 0.1 K/mm3 (0.0-0.8) 01/07/19 08:50 Eosinophils # (Manual) 0.0 K/mm3 (0.0-0.4) 01/07/19 08:50 Basophils # (Manual) 0.0 K/mm3 (0.0-0.1) 01/07/19 08:50 Metamyelocytes # 0.0 K/mm3 01/07/19 08:50 Myelocytes # 0.0 K/mm3 01/07/19 08:50 Promyelocytes # 0.0 K/mm3 01/07/19 08:50 Blast Cells # 0.0 K/mm3 01/07/19 08:50 WBC Morphology Not Reportable 01/07/19 08:50 Hypersegmented Neuts Not Reportable 01/07/19 08:50 Hyposegmented Neuts Not Reportable 01/07/19 08:50 Hypogranular Neuts Not Reportable 01/07/19 08:50 Smudge Cells Not Reportable 01/07/19 08:50 Toxic Granulation Not Reportable 01/07/19 08:50 Toxic Vacuolation Not Reportable 01/07/19 08:50 Dohle Bodies Not Reportable 01/07/19 08:50 Pelger-Huet Anomaly Not Reportable 01/07/19 08:50 Clarissa Rods Not Reportable 01/07/19 08:50 Platelet Estimate Consistent w auto 01/07/19 08:50 Clumped Platelets Not Reportable 01/07/19 08:50 Plt Clumps, EDTA Not Reportable 01/07/19 08:50 Large Platelets Few 01/07/19 08:50 Giant Platelets Not Reportable 01/07/19 08:50 Platelet Satelliting Not Reportable 01/07/19 08:50 Plt Morphology Comment Not Reportable 01/07/19 08:50 RBC Morphology Not Reportable 01/07/19 08:50 Dimorphic RBCs Not Reportable 01/07/19 08:50 Polychromasia Not Reportable 01/07/19 08:50 Hypochromasia Not Reportable 01/07/19 08:50 Poikilocytosis Few 01/07/19 08:50 Anisocytosis 2+ 01/07/19 08:50 Microcytosis Rare 01/07/19 08:50 Macrocytosis Not Reportable 01/07/19 08:50 Spherocytes Not Reportable 01/07/19 08:50 Pappenheimer Bodies Not Reportable 01/07/19 08:50 Sickle Cells Not Reportable 01/07/19 08:50 Target Cells Not Reportable 01/07/19 08:50 Tear Drop Cells Not Reportable 01/07/19 08:50 Ovalocytes Not Reportable 01/07/19 08:50 Helmet Cells Not Reportable 01/07/19 08:50 [place] Bodies Not Reportable 01/07/19 08:50 Jarreau Rings Not Reportable 01/07/19 08:50 [place] Cells Not Reportable 01/07/19 08:50 Bite Cells Not Reportable 01/07/19 08:50 Crenated Cell Not Reportable 01/07/19 08:50 Elliptocytes Not Reportable 01/07/19 08:50 Acanthocytes (Spur) Not Reportable 01/07/19 08:50 Rouleaux Not Reportable 01/07/19 08:50 Hemoglobin C Crystals Not Reportable 01/07/19 08:50 Schistocytes Not Reportable 01/07/19 08:50 Malaria parasites Not Reportable 01/07/19 08:50 Dieter Bodies Not Reportable 01/07/19 08:50 Hem Pathologist Commnt No 01/07/19 08:50 PT 13.6 Sec. (12.2-14.9) 01/17/19 06:49 INR 1.05 (0.87-1.13) 01/17/19 06:49 POC ABG pH 7.337 (7.35-7.45) L 01/06/19 02:31 POC ABG pCO2 63.5 (35-45) H 01/06/19 02:31 POC ABG pO2 52 (80-105) L 01/06/19 02:31 POC ABG HCO3 34.0 (22-26 mml/L) 01/06/19 02:31 POC ABG Total CO2 36 (23-27mmol/L) 01/06/19 02:31 POC ABG O2 Sat 83 01/06/19 02:31 POC ABG Base Excess 8 ((-2) - (+3)mmol/L) 01/06/19 02:31 FiO2 21 % 01/06/19 02:31 Sodium 139 mmol/L (137-145) 01/17/19 06:49 Potassium 4.1 mmol/L (3.6-5.0) D 01/17/19 06:49 Chloride 85.0 mmol/L (98-107) L 01/17/19 06:49 Carbon Dioxide 37 mmol/L (22-30) H D 01/17/19 06:49 Anion Gap 21 mmol/L 01/17/19 06:49 BUN 16 mg/dL (7-17) 01/17/19 06:49 Creatinine 0.7 mg/dL (0.7-1.2) 01/17/19 06:49 Estimated GFR > 60 ml/min 01/17/19 06:49 BUN/Creatinine Ratio 23 % 01/17/19 06:49 Glucose 73 mg/dL (65-100) 01/17/19 06:49 POC Glucose 100 (70-105) 01/17/19 04:30 Lactic Acid 1.30 mmol/L (0.7-2.0) 01/06/19 03:20 Calcium 9.1 mg/dL (8.4-10.2) 01/17/19 06:49 Magnesium 1.90 mg/dL (1.7-2.3) 01/17/19 06:49 Total Bilirubin 0.80 mg/dL (0.1-1.2) 01/06/19 00:12 AST 46 units/L (5-40) H 01/06/19 00:12 ALT 35 units/L (7-56) 01/06/19 00:12 Alkaline Phosphatase 140 units/L (35-129) H 01/06/19 00:12 Total Creatine Kinase 117 units/L (30-135) 01/06/19 13:18 CK-MB (CK-2) 3.1 ng/mL (0.0-4.0) 01/06/19 13:18 CK-MB (CK-2) Rel Index 2.6 (0-4) 01/06/19 13:18 Troponin T < 0.010 ng/mL (0.00-0.029) 01/06/19 13:18 NT-Pro-B Natriuret Pep 4050 pg/mL (0-900) H 01/05/19 23:41 Total Protein 7.3 g/dL (6.3-8.2) 01/06/19 00:12 Albumin 2.8 g/dL (3.9-5) L 01/06/19 00:12 Albumin/Globulin Ratio 0.6 % 01/06/19 00:12 Urine Color Yellow (Yellow) 01/06/19 05:00 Urine Turbidity Clear (Clear) 01/06/19 05:00 Urine pH 5.0 (5.0-7.0) 01/06/19 05:00 Ur Specific [place] 1.011 (1.003-1.030) 01/06/19 05:00 Urine Protein 30 mg/dl mg/dL (Negative) 01/06/19 05:00 Urine Glucose (UA) Neg mg/dL (Negative) 01/06/19 05:00 Urine Ketones Neg mg/dL (Negative) 01/06/19 05:00 Urine Blood Sm (Negative) 01/06/19 05:00 Urine Nitrite Neg (Negative) 01/06/19 05:00 Urine Bilirubin Neg (Negative) 01/06/19 05:00 Urine Urobilinogen < 2.0 mg/dL (<2.0) 01/06/19 05:00 Ur Leukocyte Esterase Sm (Negative) 01/06/19 05:00 Urine WBC (Auto) 4.0 /HPF (0.0-6.0) 01/06/19 05:00 Urine RBC (Auto) 4.0 /HPF (0.0-6.0) 01/06/19 05:00 U Epithel Cells (Auto) 2.0 /HPF (0-13.0) 01/06/19 05:00 Urine Bacteria (Auto) 2+ /HPF (Negative) 01/06/19 05:00 Urine Mucus Few /HPF 01/06/19 05:00 Active Medications - Current Medications Current Medications: Generic Name Dose Route Start Last Admin Trade Name Freq PRN Reason Stop Dose Admin Acetaminophen 650 mg 01/06/19 02:30 01/15/19 09:17 Tylenol PO 650 mg Q4H PRN Administration Pain MILD(1-3)/Fever >100.5/BENITEZ Albuterol 2.5 mg 01/06/19 02:30 Proventil IH Q3HRT PRN Shortness Of Breath Aspirin 325 mg 01/17/19 10:00 01/17/19 10:26 Aspirin PO 325 mg QDAY JIMI Administration Cephalexin 250 mg 01/11/19 17:00 01/17/19 10:27 Keflex PO 250 mg Q8H JIMI Administration Diphenhydramine HCl 25 mg 01/09/19 00:08 01/14/19 00:16 Benadryl PO 25 mg QHS PRN Administration Sleep Docusate Sodium 100 mg 01/06/19 10:00 01/17/19 10:26 Colace PO 100 mg BID JIMI Administration Furosemide 60 mg 01/07/19 12:47 01/17/19 10:32 Lasix IV 60 mg 0600,1800 JIMI Administration Heparin Sodium (Porcine) 5,000 unit 01/14/19 18:00 01/17/19 05:46 Heparin SUB-Q Not Given Q8HR JIMI Lisinopril 2.5 mg 01/06/19 10:00 01/17/19 10:27 Zestril PO 2.5 mg QDAY JIMI Administration Metolazone 5 mg 01/09/19 05:30 01/17/19 10:32 Zaroxolyn PO 5 mg 0530 JIMI Administration Nicotine 14 mg 01/06/19 10:00 01/16/19 11:40 Habitrol TD 14 mg QDAY JIMI Administration Ondansetron HCl 4 mg 01/06/19 02:30 Zofran IV Q8H PRN Nausea And Vomiting Oxycodone/Acetaminophen 1 tab 01/06/19 02:30 01/17/19 10:32 Percocet 5/325 PO 1 tab Q6H PRN Administration Pain, Moderate (4-6) Potassium Chloride 40 meq 01/16/19 10:00 01/17/19 10:26 K-Dur PO 40 meq QDAY JIMI Administration Sodium Chloride 10 ml 01/06/19 10:00 01/16/19 22:52 Sodium Chloride Flush Syringe 10 Ml IV 10 ml BID JIMI Administration Sodium Chloride 10 ml 01/06/19 02:30 Sodium Chloride Flush Syringe 10 Ml IV PRN PRN LINE FLUSH Zinc Acetate/Diphenhydramine 1 applic 01/08/19 12:50 01/10/19 12:11 Banophen Anti-Itch TP 1 applic Q8H PRN Administration Itching Nutrition/Malnutrition Assess - Dietary Evaluation Nutrition/Malnutrition Findings: Nutrition Notes Start: 01/13/19 14:48 Freq: Status: Active Protocol: Document 01/13/19 14:48 LP (Rec: 01/13/19 14:49 LP [email or web address]) Nutrition Notes Need for Assessment generated from: LOS Initial or Follow up Brief Note Subjective/Other Information Screen for LOS. Pt states eating well. Consuming 100% of meals. Denies diet education or nutrition needs at this time. Nutrition Intervention Revisit per MD consult or patient Sign Off request:
--- NOTE | 2019-01-17 14:24 | Progress Note ---
Assessment and Plan Pt appears to be clinically improving. Cont present cardiac management. Replete lytes PRN. Pt is declining beta blockers due to reported allergy although she clinically appeared to tolerate lopressor last week. Cont strict I&Os, daily weights and 1500mL fluid restriction. Pt has been unable to lie flat. She was tentatively scheduled for LHC this AM but did not feel as though she could tolerate the procedure today due to orthopnea. Additionally, pt now states that she only wishes for Dr. Stephens to perform her LHC. Cont IV diuresis and will plan for to r/o ischemic CMP once pt is able to lie flat. Will tentatively schedule LHC for Sunday, 01/20. Dr. Stephens will be here on Sunday. The patient has been seen in conjunction with Dr. Cyndi Isbell who agrees with the assessment and plan of care. - Patient Problems (1) Acute HFrEF (heart failure with reduced ejection fraction) Current Visit: Yes Status: Acute (2) Cardiomyopathy Current Visit: Yes Status: Chronic (3) Anasarca Current Visit: Yes Status: Acute (4) Cellulitis Current Visit: Yes Status: Acute Qualifiers: Qualified Code(s): L03.311 - Cellulitis of abdominal wall (5) HTN (hypertension) Current Visit: Yes Status: Chronic (6) Morbid obesity Current Visit: Yes Status: Chronic (7) Hypokalemia Current Visit: Yes Status: Chronic (8) Superficial venous thrombosis of right upper extremity Current Visit: Yes Status: Acute Subjective Date of service: 01/17/19 Principal diagnosis: hf Interval history: pt resting in bed, feeling a little better, edema gradually improving. in ST on tele with HR 110s. Objective Last Vital Signs Temp 98.6 F 01/17/19 13:13 Pulse 116 H 01/17/19 13:13 Resp 18 01/17/19 13:13 BP 104/68 01/17/19 13:13 Pulse Ox 96 01/17/19 14:10 - Physical Examination General: Appears Well, No Apparent Distress HEENT: Positive: PERRL, Normocephaly, Mucus Membranes Moist Neck: Positive: neck supple, trachea midline Cardiac: Positive: Reg Rate and Rhythm, S1/S2 Lungs: Positive: Decreased Breath Sounds Neuro: Positive: Grossly Intact Abdomen: Positive: Ascites, Firm. Negative: Tender /Rectal: Other (deferred) Skin: Positive: Other (BUE and BLE scattered wounds) Musculoskeletal: Decreased Range of Motion, No Pain Extremities: Present: edema (RUE - trace), +3 Edema - Labs and Meds Coagulation 01/17/19 Range/Units 06:49 PT 13.6 (12.2-14.9) Sec. INR 1.05 (0.87-1.13) CBC 01/17/19 Range/Units 06:49 WBC 5.5 (4.5-11.0) K/mm3 RBC 4.43 (3.65-5.03) M/mm3 Hgb 12.8 (10.1-14.3) gm/dl Hct 39.7 (30.3-42.9) % Plt Count 229 (140-440) K/mm3 Lymph # 1.4 (1.2-5.4) K/mm3 [place] # 0.6 (0.0-0.8) K/mm3 Eos # 0.2 (0.0-0.4) K/mm3 Baso # 0.1 (0.0-0.1) K/mm3 Comprehensive Metabolic Panel 01/17/19 Range/Units 06:49 Sodium 139 (137-145) mmol/L Potassium 4.1 D (3.6-5.0) mmol/L Chloride 85.0 L (98-107) mmol/L Carbon Dioxide 37 H D (22-30) mmol/L BUN 16 (7-17) mg/dL Creatinine 0.7 (0.7-1.2) mg/dL Glucose 73 (65-100) mg/dL Calcium 9.1 (8.4-10.2) mg/dL - Imaging and Cardiology EKG: report reviewed, image reviewed Echo: report reviewed (06/2018 showed EF 20-25%, mild LVH, LA mod dilated, RV systolic function mod reduced. ) - EKG Sinus rhythms and dysrhythmias: sinus rhythm
[2019-01-18] MEDS: diphenhydrAMINE 25 MG CAP PO PRN (01:59)
[2019-01-18] MEDS: oxyCODONE /ACETAMINOPHEN 5-325MG TAB PO PRN ×3 (02:00→22:45)
[2019-01-18] MEDS: cephALEXin 250 MG CAP PO SCH ×3 (02:03→17:18)
[2019-01-18] MEDS: HEPARIN 5,000 UNIT/1 ML VIAL SUB-Q SCH ×3 (05:48→22:42)
[2019-01-18] MEDS: metOLazone 2.5 MG TAB PO SCH (05:48)
[2019-01-18] MEDS: FUROSEMIDE 40 MG/4 ML INJ IV SCH ×2 (05:49→17:18)
[2019-01-18] MEDS: ACETAMINOPHEN 325 MG TAB PO PRN (05:51)
[2019-01-18 06:09] LABS: BUN/Creatinine Ratio 23; Blood Urea Nitrogen 16 mg/dL (7-17); Calcium 9.3 mg/dL (8.4-10.2); Hemolysis Index 3
[2019-01-18] MEDS: DOCUSATE SODIUM 100 MG CAP PO SCH ×2 (10:20→22:41)
[2019-01-18] MEDS: LISINOPRIL 5 MG TAB PO SCH (10:20)
[2019-01-18] MEDS: NICOTINE 14 MG/24 HR PATCH TD SCH (10:20)
[2019-01-18] MEDS: POTASSIUM CHLORIDE ER 20 MEQ TAB PO SCH (10:20)
[2019-01-18] MEDS: ASPIRIN 325 MG TAB PO SCH (10:20)
[2019-01-18] MEDS: POTASSIUM CHLORIDE 10 MEQ 10 MEQ/100 ML BAG IV SCH ×3 (10:26→14:42)
--- NOTE | 2019-01-18 11:55 | Progress Note ---
Assessment and Plan Cardiac status is improving - edema and ascites resolving. Continue current cardiac management - possible transition to PO diuresis tomorrow. Avoid beta blockers d/t documented allergy; per previous notes, however, she tolerated Lopressor earlier in week. The patient has been seen in conjunction with Dr. Deleon, who agrees with the assessment and plan. - Patient Problems (1) Acute HFrEF (heart failure with reduced ejection fraction) Current Visit: Yes Status: Acute (2) Anasarca Current Visit: Yes Status: Acute (3) Cellulitis Current Visit: Yes Status: Acute Qualifiers: Qualified Code(s): L03.311 - Cellulitis of abdominal wall (4) Cardiomyopathy Current Visit: Yes Status: Chronic (5) HTN (hypertension) Current Visit: Yes Status: Chronic (6) Morbid obesity Current Visit: Yes Status: Chronic Subjective Date of service: 01/18/19 Principal diagnosis: hf Interval history: The patient is sleeping in bed in [facility]. She has no complaints. Edema improved. Awaiting [facility] on Sunday. Telemetry reviewed - ST in 110s. Objective Last Vital Signs Temp 98.2 F 01/18/19 04:48 Pulse 116 H 01/18/19 04:48 Resp 20 01/18/19 05:51 BP 120/67 01/18/19 04:48 Pulse Ox 99 01/18/19 08:40 - Physical Examination General: Appears Well, No Apparent Distress HEENT: Positive: PERRL, Normocephaly, Mucus Membranes Moist Neck: Positive: neck supple, trachea midline Cardiac: Positive: Regular Rhythm Lungs: Positive: Decreased Breath Sounds Neuro: Positive: Grossly Intact Abdomen: Negative: Tender /Rectal: Other (deferred) Skin: Positive: Other (BUE and BLE scattered wounds) Musculoskeletal: Decreased Range of Motion, No Pain Extremities: Present: edema (RUE - trace) - Labs and Meds Comprehensive Metabolic Panel 01/18/19 Range/Units 05:13 Sodium 139 (137-145) mmol/L Potassium 3.2 L D (3.6-5.0) mmol/L Chloride 84.5 L (98-107) mmol/L Carbon Dioxide 40 H (22-30) mmol/L BUN 16 (7-17) mg/dL Creatinine 0.7 (0.7-1.2) mg/dL Glucose 128 H (65-100) mg/dL Calcium 9.3 (8.4-10.2) mg/dL - Imaging and Cardiology EKG: report reviewed, image reviewed Echo: report reviewed (06/2018 showed EF 20-25%, mild LVH, LA mod dilated, RV systolic function mod reduced. ) - Telemetry EKG Rhythm: Sinus Rhythm - EKG Sinus rhythms and dysrhythmias: sinus tachycardia
--- NOTE | 2019-01-18 13:57 | Progress Note ---
Assessment and Plan Assessment and plan: Acute on chronic systolic heart failure with EF of 20-25% -Pt declined beta blockers due to reported allergy although she clinically appeared to have tolerated lopressor last week. -Gradually improving. Continue IV Lasix, metolazone and lisinopril -Cont strict I&Os, daily weights and 1500mL fluid restriction. -Cardiology following: planning for ischemic evaluation with C to r/o ischemic CMP on Sunday when pt medically stable and able to lie down flat Acute respiratory failure with hypoxia -Improved -Continue oxygen supplementation as needed Anasarca -Gradually improving -Continue diuretics Severe alkalosis -probably metab alkalosis due to diuretic use v respt alkalosis due to chronic CO2 retention -level stable Abdominal wall Cellulitis -Improving -Continue oral antibiotic to complete for 7 days Hyponatremia -Improved -Continue oral fluid restriction Hypertension -Stable Hypokalemia -on repletion, will monitor level Morbid obesity with BMI of 53.3 -Lifestyle modification recommended Superficial venous thrombosis of right upper extremity -No need for treatment Obesity hypoventilation syndrome/suspected KIRSTY -Outpatient sleep study recommended DVT prophylaxis: Heparin Disposition: Pending ischemic evaluation. For discharge when medically stable and cleared by cardiology History Interval history: Patient has no new complaints. She denied chest pain or shortness of breath. Hospitalist Physical - Constitutional Vitals: Temp Pulse Resp BP Pulse Ox 98.2 F 69 20 120/67 99 01/18/19 04:48 01/18/19 10:00 01/18/19 05:51 01/18/19 04:48 01/18/19 08:40 General appearance: Present: no acute distress, obese - EENT Eyes: Present: PERRL, EOM intact ENT: hearing intact, clear oral mucosa - Neck Neck: Present: supple - Respiratory Respiratory effort: normal Respiratory: bilateral: diminished - Cardiovascular Rhythm: regular Heart Sounds: Present: S1 & S2 - Extremities Extremity abnormal: edema (in BLE) - Abdominal General gastrointestinal: soft, non-tender, normal bowel sounds - Integumentary Integumentary: Present: warm - Psychiatric Psychiatric: appropriate mood/affect - Neurologic Neurologic: moves all extremities Results - Labs CBC & Chem 7: 01/17/19 06:49 01/18/19 05:13 Labs: Laboratory Last Values WBC 5.5 K/mm3 (4.5-11.0) 01/17/19 06:49 RBC 4.43 M/mm3 (3.65-5.03) 01/17/19 06:49 Hgb 12.8 gm/dl (10.1-14.3) 01/17/19 06:49 Hct 39.7 % (30.3-42.9) 01/17/19 06:49 MCV 90 fl (79-97) 01/17/19 06:49 MCH 29 pg (28-32) 01/17/19 06:49 MCHC 32 % (30-34) 01/17/19 06:49 RDW 20.9 % (13.2-15.2) H 01/17/19 06:49 Plt Count 229 K/mm3 (140-440) 01/17/19 06:49 Lymph % (Auto) 25.4 % (13.4-35.0) 01/17/19 06:49 [place] % (Auto) 10.0 % (0.0-7.3) H 01/17/19 06:49 Eos % (Auto) 4.4 % (0.0-4.3) H 01/17/19 06:49 Baso % (Auto) 1.2 % (0.0-1.8) 01/17/19 06:49 Lymph # 1.4 K/mm3 (1.2-5.4) 01/17/19 06:49 [place] # 0.6 K/mm3 (0.0-0.8) 01/17/19 06:49 Eos # 0.2 K/mm3 (0.0-0.4) 01/17/19 06:49 Baso # 0.1 K/mm3 (0.0-0.1) 01/17/19 06:49 Add Manual Diff Complete 01/07/19 08:50 Total Counted 100 01/07/19 08:50 Seg Neutrophils % 59.0 % (40.0-70.0) 01/17/19 06:49 Seg Neuts % (Manual) 84.0 % (40.0-70.0) H 01/07/19 08:50 Band Neutrophils % 0 % 01/07/19 08:50 Lymphocytes % (Manual) 15.0 % (13.4-35.0) 01/07/19 08:50 Reactive Lymphs % (Man) 0 % 01/07/19 08:50 Monocytes % (Manual) 1.0 % (0.0-7.3) 01/07/19 08:50 Eosinophils % (Manual) 0 % (0.0-4.3) 01/07/19 08:50 Basophils % (Manual) 0 % (0.0-1.8) 01/07/19 08:50 Metamyelocytes % 0 % 01/07/19 08:50 Myelocytes % 0 % 01/07/19 08:50 Promyelocytes % 0 % 01/07/19 08:50 Blast Cells % 0 % 01/07/19 08:50 Nucleated RBC % 5.0 % (0.0-0.9) H 01/07/19 08:50 Seg Neutrophils # 3.3 K/mm3 (1.8-7.7) 01/17/19 06:49 Seg Neutrophils # Man 4.3 K/mm3 (1.8-7.7) 01/07/19 08:50 Band Neutrophils # 0.0 K/mm3 01/07/19 08:50 Lymphocytes # (Manual) 0.8 K/mm3 (1.2-5.4) L 01/07/19 08:50 Abs React Lymphs (Man) 0.0 K/mm3 01/07/19 08:50 Monocytes # (Manual) 0.1 K/mm3 (0.0-0.8) 01/07/19 08:50 Eosinophils # (Manual) 0.0 K/mm3 (0.0-0.4) 01/07/19 08:50 Basophils # (Manual) 0.0 K/mm3 (0.0-0.1) 01/07/19 08:50 Metamyelocytes # 0.0 K/mm3 01/07/19 08:50 Myelocytes # 0.0 K/mm3 01/07/19 08:50 Promyelocytes # 0.0 K/mm3 01/07/19 08:50 Blast Cells # 0.0 K/mm3 01/07/19 08:50 WBC Morphology Not Reportable 01/07/19 08:50 Hypersegmented Neuts Not Reportable 01/07/19 08:50 Hyposegmented Neuts Not Reportable 01/07/19 08:50 Hypogranular Neuts Not Reportable 01/07/19 08:50 Smudge Cells Not Reportable 01/07/19 08:50 Toxic Granulation Not Reportable 01/07/19 08:50 Toxic Vacuolation Not Reportable 01/07/19 08:50 Dohle Bodies Not Reportable 01/07/19 08:50 Pelger-Huet Anomaly Not Reportable 01/07/19 08:50 Clarissa Rods Not Reportable 01/07/19 08:50 Platelet Estimate Consistent w auto 01/07/19 08:50 Clumped Platelets Not Reportable 01/07/19 08:50 Plt Clumps, EDTA Not Reportable 01/07/19 08:50 Large Platelets Few 01/07/19 08:50 Giant Platelets Not Reportable 01/07/19 08:50 Platelet Satelliting Not Reportable 01/07/19 08:50 Plt Morphology Comment Not Reportable 01/07/19 08:50 RBC Morphology Not Reportable 01/07/19 08:50 Dimorphic RBCs Not Reportable 01/07/19 08:50 Polychromasia Not Reportable 01/07/19 08:50 Hypochromasia Not Reportable 01/07/19 08:50 Poikilocytosis Few 01/07/19 08:50 Anisocytosis 2+ 01/07/19 08:50 Microcytosis Rare 01/07/19 08:50 Macrocytosis Not Reportable 01/07/19 08:50 Spherocytes Not Reportable 01/07/19 08:50 Pappenheimer Bodies Not Reportable 01/07/19 08:50 Sickle Cells Not Reportable 01/07/19 08:50 Target Cells Not Reportable 01/07/19 08:50 Tear Drop Cells Not Reportable 01/07/19 08:50 Ovalocytes Not Reportable 01/07/19 08:50 Helmet Cells Not Reportable 01/07/19 08:50 Boudreaux-[place] Bodies Not Reportable 01/07/19 08:50 [place] Rings Not Reportable 01/07/19 08:50 [place] Cells Not Reportable 01/07/19 08:50 Bite Cells Not Reportable 01/07/19 08:50 Crenated Cell Not Reportable 01/07/19 08:50 Elliptocytes Not Reportable 01/07/19 08:50 Acanthocytes (Spur) Not Reportable 01/07/19 08:50 Rouleaux Not Reportable 01/07/19 08:50 Hemoglobin C Crystals Not Reportable 01/07/19 08:50 Schistocytes Not Reportable 01/07/19 08:50 Malaria parasites Not Reportable 01/07/19 08:50 Dieter Bodies Not Reportable 01/07/19 08:50 Hem Pathologist Commnt No 01/07/19 08:50 PT 13.6 Sec. (12.2-14.9) 01/17/19 06:49 INR 1.05 (0.87-1.13) 01/17/19 06:49 POC ABG pH 7.337 (7.35-7.45) L 01/06/19 02:31 POC ABG pCO2 63.5 (35-45) H 01/06/19 02:31 POC ABG pO2 52 (80-105) L 01/06/19 02:31 POC ABG HCO3 34.0 (22-26 mml/L) 01/06/19 02:31 POC ABG Total CO2 36 (23-27mmol/L) 01/06/19 02:31 POC ABG O2 Sat 83 01/06/19 02:31 POC ABG Base Excess 8 ((-2) - (+3)mmol/L) 01/06/19 02:31 FiO2 21 % 01/06/19 02:31 Sodium 139 mmol/L (137-145) 01/18/19 05:13 Potassium 3.2 mmol/L (3.6-5.0) L D 01/18/19 05:13 Chloride 84.5 mmol/L (98-107) L 01/18/19 05:13 Carbon Dioxide 40 mmol/L (22-30) H 01/18/19 05:13 Anion Gap 18 mmol/L 01/18/19 05:13 BUN 16 mg/dL (7-17) 01/18/19 05:13 Creatinine 0.7 mg/dL (0.7-1.2) 01/18/19 05:13 Estimated GFR > 60 ml/min 01/18/19 05:13 BUN/Creatinine Ratio 23 % 01/18/19 05:13 Glucose 128 mg/dL (65-100) H 01/18/19 05:13 POC Glucose 100 (70-105) 01/17/19 04:30 Lactic Acid 1.30 mmol/L (0.7-2.0) 01/06/19 03:20 Calcium 9.3 mg/dL (8.4-10.2) 01/18/19 05:13 Magnesium 1.90 mg/dL (1.7-2.3) 01/17/19 06:49 Total Bilirubin 0.80 mg/dL (0.1-1.2) 01/06/19 00:12 AST 46 units/L (5-40) H 01/06/19 00:12 ALT 35 units/L (7-56) 01/06/19 00:12 Alkaline Phosphatase 140 units/L (35-129) H 01/06/19 00:12 Total Creatine Kinase 117 units/L (30-135) 01/06/19 13:18 CK-MB (CK-2) 3.1 ng/mL (0.0-4.0) 01/06/19 13:18 CK-MB (CK-2) Rel Index 2.6 (0-4) 01/06/19 13:18 Troponin T < 0.010 ng/mL (0.00-0.029) 01/06/19 13:18 NT-Pro-B Natriuret Pep 4050 pg/mL (0-900) H 01/05/19 23:41 Total Protein 7.3 g/dL (6.3-8.2) 01/06/19 00:12 Albumin 2.8 g/dL (3.9-5) L 01/06/19 00:12 Albumin/Globulin Ratio 0.6 % 01/06/19 00:12 Urine Color Yellow (Yellow) 01/06/19 05:00 Urine Turbidity Clear (Clear) 01/06/19 05:00 Urine pH 5.0 (5.0-7.0) 01/06/19 05:00 Ur Specific [place] 1.011 (1.003-1.030) 01/06/19 05:00 Urine Protein 30 mg/dl mg/dL (Negative) 01/06/19 05:00 Urine Glucose (UA) Neg mg/dL (Negative) 01/06/19 05:00 Urine Ketones Neg mg/dL (Negative) 01/06/19 05:00 Urine Blood Sm (Negative) 01/06/19 05:00 Urine Nitrite Neg (Negative) 01/06/19 05:00 Urine Bilirubin Neg (Negative) 01/06/19 05:00 Urine Urobilinogen < 2.0 mg/dL (<2.0) 01/06/19 05:00 Ur Leukocyte Esterase Sm (Negative) 01/06/19 05:00 Urine WBC (Auto) 4.0 /HPF (0.0-6.0) 01/06/19 05:00 Urine RBC (Auto) 4.0 /HPF (0.0-6.0) 01/06/19 05:00 U Epithel Cells (Auto) 2.0 /HPF (0-13.0) 01/06/19 05:00 Urine Bacteria (Auto) 2+ /HPF (Negative) 01/06/19 05:00 Urine Mucus Few /HPF 01/06/19 05:00 Active Medications - Current Medications Current Medications: Generic Name Dose Route Start Last Admin Trade Name Freq PRN Reason Stop Dose Admin Acetaminophen 650 mg 01/06/19 02:30 01/18/19 05:51 Tylenol PO 650 mg Q4H PRN Administration Pain MILD(1-3)/Fever >100.5/BENITEZ Albuterol 2.5 mg 01/06/19 02:30 Proventil IH Q3HRT PRN Shortness Of Breath Aspirin 325 mg 01/17/19 10:00 01/18/19 10:20 Aspirin PO 325 mg QDAY JIMI Administration Cephalexin 250 mg 01/11/19 17:00 01/18/19 10:23 Keflex PO 250 mg Q8H JIMI Administration Diphenhydramine HCl 25 mg 01/09/19 00:08 01/18/19 01:59 Benadryl PO 25 mg QHS PRN Administration Sleep Docusate Sodium 100 mg 01/06/19 10:00 01/18/19 10:20 Colace PO 100 mg BID JIMI Administration Furosemide 60 mg 01/07/19 12:47 01/18/19 05:49 Lasix IV 60 mg 0600,1800 JIMI Administration Heparin Sodium (Porcine) 5,000 unit 01/14/19 18:00 01/18/19 05:48 Heparin SUB-Q 5,000 unit Q8HR JIMI Administration Lisinopril 2.5 mg 01/06/19 10:00 01/18/19 10:20 Zestril PO 2.5 mg QDAY JIMI Administration Metolazone 5 mg 01/09/19 05:30 01/18/19 05:48 Zaroxolyn PO 5 mg 0530 JIMI Administration Nicotine 14 mg 01/06/19 10:00 01/18/19 10:20 Habitrol TD Not Given QDAY JIMI Ondansetron HCl 4 mg 01/06/19 02:30 Zofran IV Q8H PRN Nausea And Vomiting Oxycodone/Acetaminophen 1 tab 01/06/19 02:30 01/18/19 02:00 Percocet 5/325 PO 1 tab Q6H PRN Administration Pain, Moderate (4-6) Potassium Chloride 40 meq 01/16/19 10:00 01/18/19 10:20 K-Dur PO 40 meq QDAY JIMI Administration Sodium Chloride 10 ml 01/06/19 10:00 01/18/19 10:21 Sodium Chloride Flush Syringe 10 Ml IV 10 ml BID JIMI Administration Sodium Chloride 10 ml 01/06/19 02:30 Sodium Chloride Flush Syringe 10 Ml IV PRN PRN LINE FLUSH Zinc Acetate/Diphenhydramine 1 applic 01/08/19 12:50 01/10/19 12:11 Banophen Anti-Itch TP 1 applic Q8H PRN Administration Itching Nutrition/Malnutrition Assess - Dietary Evaluation Nutrition/Malnutrition Findings: Nutrition Notes Start: 01/13/19 14:48 Freq: Status: Active Protocol: Document 01/13/19 14:48 LP (Rec: 01/13/19 14:49 LP [id number]) Nutrition Notes Need for Assessment generated from: LOS Initial or Follow up Brief Note Subjective/Other Information Screen for LOS. Pt states eating well. Consuming 100% of meals. Denies diet education or nutrition needs at this time. Nutrition Intervention Revisit per MD consult or patient Sign Off request:
[2019-01-19] MEDS: cephALEXin 250 MG CAP PO SCH ×3 (00:34→16:57)
[2019-01-19] MEDS: metOLazone 2.5 MG TAB PO SCH (05:18)
[2019-01-19] MEDS: FUROSEMIDE 40 MG/4 ML INJ IV SCH (05:58)
[2019-01-19] MEDS: HEPARIN 5,000 UNIT/1 ML VIAL SUB-Q SCH ×3 (06:03→21:59)
--- NOTE | 2019-01-19 08:57 | Progress Note ---
Hospitalist Physical - Constitutional Vitals: Temp Pulse Resp BP Pulse Ox 98.6 F 106 H 16 123/84 100 01/19/19 04:26 01/19/19 04:26 01/19/19 04:26 01/19/19 04:26 01/19/19 08:33 General appearance: Present: no acute distress, obese Results - Labs CBC & Chem 7: 01/17/19 06:49 01/18/19 05:13 Labs: Laboratory Last Values WBC 5.5 K/mm3 (4.5-11.0) 01/17/19 06:49 RBC 4.43 M/mm3 (3.65-5.03) 01/17/19 06:49 Hgb 12.8 gm/dl (10.1-14.3) 01/17/19 06:49 Hct 39.7 % (30.3-42.9) 01/17/19 06:49 MCV 90 fl (79-97) 01/17/19 06:49 MCH 29 pg (28-32) 01/17/19 06:49 MCHC 32 % (30-34) 01/17/19 06:49 RDW 20.9 % (13.2-15.2) H 01/17/19 06:49 Plt Count 229 K/mm3 (140-440) 01/17/19 06:49 Lymph % (Auto) 25.4 % (13.4-35.0) 01/17/19 06:49 [place] % (Auto) 10.0 % (0.0-7.3) H 01/17/19 06:49 Eos % (Auto) 4.4 % (0.0-4.3) H 01/17/19 06:49 Baso % (Auto) 1.2 % (0.0-1.8) 01/17/19 06:49 Lymph # 1.4 K/mm3 (1.2-5.4) 01/17/19 06:49 [place] # 0.6 K/mm3 (0.0-0.8) 01/17/19 06:49 Eos # 0.2 K/mm3 (0.0-0.4) 01/17/19 06:49 Baso # 0.1 K/mm3 (0.0-0.1) 01/17/19 06:49 Add Manual Diff Complete 01/07/19 08:50 Total Counted 100 01/07/19 08:50 Seg Neutrophils % 59.0 % (40.0-70.0) 01/17/19 06:49 Seg Neuts % (Manual) 84.0 % (40.0-70.0) H 01/07/19 08:50 Band Neutrophils % 0 % 01/07/19 08:50 Lymphocytes % (Manual) 15.0 % (13.4-35.0) 01/07/19 08:50 Reactive Lymphs % (Man) 0 % 01/07/19 08:50 Monocytes % (Manual) 1.0 % (0.0-7.3) 01/07/19 08:50 Eosinophils % (Manual) 0 % (0.0-4.3) 01/07/19 08:50 Basophils % (Manual) 0 % (0.0-1.8) 01/07/19 08:50 Metamyelocytes % 0 % 01/07/19 08:50 Myelocytes % 0 % 01/07/19 08:50 Promyelocytes % 0 % 01/07/19 08:50 Blast Cells % 0 % 01/07/19 08:50 Nucleated RBC % 5.0 % (0.0-0.9) H 01/07/19 08:50 Seg Neutrophils # 3.3 K/mm3 (1.8-7.7) 01/17/19 06:49 Seg Neutrophils # Man 4.3 K/mm3 (1.8-7.7) 01/07/19 08:50 Band Neutrophils # 0.0 K/mm3 01/07/19 08:50 Lymphocytes # (Manual) 0.8 K/mm3 (1.2-5.4) L 01/07/19 08:50 Abs React Lymphs (Man) 0.0 K/mm3 01/07/19 08:50 Monocytes # (Manual) 0.1 K/mm3 (0.0-0.8) 01/07/19 08:50 Eosinophils # (Manual) 0.0 K/mm3 (0.0-0.4) 01/07/19 08:50 Basophils # (Manual) 0.0 K/mm3 (0.0-0.1) 01/07/19 08:50 Metamyelocytes # 0.0 K/mm3 01/07/19 08:50 Myelocytes # 0.0 K/mm3 01/07/19 08:50 Promyelocytes # 0.0 K/mm3 01/07/19 08:50 Blast Cells # 0.0 K/mm3 01/07/19 08:50 WBC Morphology Not Reportable 01/07/19 08:50 Hypersegmented Neuts Not Reportable 01/07/19 08:50 Hyposegmented Neuts Not Reportable 01/07/19 08:50 Hypogranular Neuts Not Reportable 01/07/19 08:50 Smudge Cells Not Reportable 01/07/19 08:50 Toxic Granulation Not Reportable 01/07/19 08:50 Toxic Vacuolation Not Reportable 01/07/19 08:50 Dohle Bodies Not Reportable 01/07/19 08:50 Pelger-Huet Anomaly Not Reportable 01/07/19 08:50 Clarissa Rods Not Reportable 01/07/19 08:50 Platelet Estimate Consistent w auto 01/07/19 08:50 Clumped Platelets Not Reportable 01/07/19 08:50 Plt Clumps, EDTA Not Reportable 01/07/19 08:50 Large Platelets Few 01/07/19 08:50 Giant Platelets Not Reportable 01/07/19 08:50 Platelet Satelliting Not Reportable 01/07/19 08:50 Plt Morphology Comment Not Reportable 01/07/19 08:50 RBC Morphology Not Reportable 01/07/19 08:50 Dimorphic RBCs Not Reportable 01/07/19 08:50 Polychromasia Not Reportable 01/07/19 08:50 Hypochromasia Not Reportable 01/07/19 08:50 Poikilocytosis Few 01/07/19 08:50 Anisocytosis 2+ 01/07/19 08:50 Microcytosis Rare 01/07/19 08:50 Macrocytosis Not Reportable 01/07/19 08:50 Spherocytes Not Reportable 01/07/19 08:50 Pappenheimer Bodies Not Reportable 01/07/19 08:50 Sickle Cells Not Reportable 01/07/19 08:50 Target Cells Not Reportable 01/07/19 08:50 Tear Drop Cells Not Reportable 01/07/19 08:50 Ovalocytes Not Reportable 01/07/19 08:50 Helmet Cells Not Reportable 01/07/19 08:50 Boudreaux-Art[place] Bodies Not Reportable 01/07/19 08:50 [place] Rings Not Reportable 01/07/19 08:50 [place] Cells Not Reportable 01/07/19 08:50 Bite Cells Not Reportable 01/07/19 08:50 Crenated Cell Not Reportable 01/07/19 08:50 Elliptocytes Not Reportable 01/07/19 08:50 Acanthocytes (Spur) Not Reportable 01/07/19 08:50 Rouleaux Not Reportable 01/07/19 08:50 Hemoglobin C Crystals Not Reportable 01/07/19 08:50 Schistocytes Not Reportable 01/07/19 08:50 Malaria parasites Not Reportable 01/07/19 08:50 Dieter Bodies Not Reportable 01/07/19 08:50 Hem Pathologist Commnt No 01/07/19 08:50 PT 13.6 Sec. (12.2-14.9) 01/17/19 06:49 INR 1.05 (0.87-1.13) 01/17/19 06:49 POC ABG pH 7.337 (7.35-7.45) L 01/06/19 02:31 POC ABG pCO2 63.5 (35-45) H 01/06/19 02:31 POC ABG pO2 52 (80-105) L 01/06/19 02:31 POC ABG HCO3 34.0 (22-26 mml/L) 01/06/19 02:31 POC ABG Total CO2 36 (23-27mmol/L) 01/06/19 02:31 POC ABG O2 Sat 83 01/06/19 02:31 POC ABG Base Excess 8 ((-2) - (+3)mmol/L) 01/06/19 02:31 FiO2 21 % 01/06/19 02:31 Sodium 139 mmol/L (137-145) 01/18/19 05:13 Potassium 3.2 mmol/L (3.6-5.0) L D 01/18/19 05:13 Chloride 84.5 mmol/L (98-107) L 01/18/19 05:13 Carbon Dioxide 40 mmol/L (22-30) H 01/18/19 05:13 Anion Gap 18 mmol/L 01/18/19 05:13 BUN 16 mg/dL (7-17) 01/18/19 05:13 Creatinine 0.7 mg/dL (0.7-1.2) 01/18/19 05:13 Estimated GFR > 60 ml/min 01/18/19 05:13 BUN/Creatinine Ratio 23 % 01/18/19 05:13 Glucose 128 mg/dL (65-100) H 01/18/19 05:13 POC Glucose 100 (70-105) 01/17/19 04:30 Lactic Acid 1.30 mmol/L (0.7-2.0) 01/06/19 03:20 Calcium 9.3 mg/dL (8.4-10.2) 01/18/19 05:13 Magnesium 1.90 mg/dL (1.7-2.3) 01/17/19 06:49 Total Bilirubin 0.80 mg/dL (0.1-1.2) 01/06/19 00:12 AST 46 units/L (5-40) H 01/06/19 00:12 ALT 35 units/L (7-56) 01/06/19 00:12 Alkaline Phosphatase 140 units/L (35-129) H 01/06/19 00:12 Total Creatine Kinase 117 units/L (30-135) 01/06/19 13:18 CK-MB (CK-2) 3.1 ng/mL (0.0-4.0) 01/06/19 13:18 CK-MB (CK-2) Rel Index 2.6 (0-4) 01/06/19 13:18 Troponin T < 0.010 ng/mL (0.00-0.029) 01/06/19 13:18 NT-Pro-B Natriuret Pep 4050 pg/mL (0-900) H 01/05/19 23:41 Total Protein 7.3 g/dL (6.3-8.2) 01/06/19 00:12 Albumin 2.8 g/dL (3.9-5) L 01/06/19 00:12 Albumin/Globulin Ratio 0.6 % 01/06/19 00:12 Urine Color Yellow (Yellow) 01/06/19 05:00 Urine Turbidity Clear (Clear) 01/06/19 05:00 Urine pH 5.0 (5.0-7.0) 01/06/19 05:00 Ur Specific [place] 1.011 (1.003-1.030) 01/06/19 05:00 Urine Protein 30 mg/dl mg/dL (Negative) 01/06/19 05:00 Urine Glucose (UA) Neg mg/dL (Negative) 01/06/19 05:00 Urine Ketones Neg mg/dL (Negative) 01/06/19 05:00 Urine Blood Sm (Negative) 01/06/19 05:00 Urine Nitrite Neg (Negative) 01/06/19 05:00 Urine Bilirubin Neg (Negative) 01/06/19 05:00 Urine Urobilinogen < 2.0 mg/dL (<2.0) 01/06/19 05:00 Ur Leukocyte Esterase Sm (Negative) 01/06/19 05:00 Urine WBC (Auto) 4.0 /HPF (0.0-6.0) 01/06/19 05:00 Urine RBC (Auto) 4.0 /HPF (0.0-6.0) 01/06/19 05:00 U Epithel Cells (Auto) 2.0 /HPF (0-13.0) 01/06/19 05:00 Urine Bacteria (Auto) 2+ /HPF (Negative) 01/06/19 05:00 Urine Mucus Few /HPF 01/06/19 05:00 Active Medications - Current Medications Current Medications: Generic Name Dose Route Start Last Admin Trade Name Freq PRN Reason Stop Dose Admin Acetaminophen 650 mg 01/06/19 02:30 01/18/19 05:51 Tylenol PO 650 mg Q4H PRN Administration Pain MILD(1-3)/Fever >100.5/BENITEZ Albuterol 2.5 mg 01/06/19 02:30 Proventil IH Q3HRT PRN Shortness Of Breath Aspirin 325 mg 01/17/19 10:00 01/18/19 10:20 Aspirin PO 325 mg QDAY JIMI Administration Cephalexin 250 mg 01/11/19 17:00 01/19/19 00:34 Keflex PO 250 mg Q8H JIMI Administration Diphenhydramine HCl 25 mg 01/09/19 00:08 01/18/19 01:59 Benadryl PO 25 mg QHS PRN Administration Sleep Docusate Sodium 100 mg 01/06/19 10:00 01/18/19 22:41 Colace PO 100 mg BID JIMI Administration Furosemide 60 mg 01/07/19 12:47 01/19/19 05:58 Lasix IV 60 mg 0600,1800 JIMI Administration Heparin Sodium (Porcine) 5,000 unit 01/14/19 18:00 01/19/19 06:03 Heparin SUB-Q Not Given Q8HR JIMI Lisinopril 2.5 mg 01/06/19 10:00 01/18/19 10:20 Zestril PO 2.5 mg QDAY JIMI Administration Metolazone 5 mg 01/09/19 05:30 01/19/19 05:18 Zaroxolyn PO 5 mg 0530 JIMI Administration Nicotine 14 mg 01/06/19 10:00 01/18/19 10:20 Habitrol TD Not Given QDAY JIMI Ondansetron HCl 4 mg 01/06/19 02:30 Zofran IV Q8H PRN Nausea And Vomiting Oxycodone/Acetaminophen 1 tab 01/06/19 02:30 01/18/19 22:45 Percocet 5/325 PO 1 tab Q6H PRN Administration Pain, Moderate (4-6) Potassium Chloride 40 meq 01/16/19 10:00 01/18/19 10:20 K-Dur PO 40 meq QDAY JIMI Administration Sodium Chloride 10 ml 01/06/19 10:00 01/18/19 22:42 Sodium Chloride Flush Syringe 10 Ml IV Not Given BID JIMI Sodium Chloride 10 ml 01/06/19 02:30 Sodium Chloride Flush Syringe 10 Ml IV PRN PRN LINE FLUSH Zinc Acetate/Diphenhydramine 1 applic 01/08/19 12:50 01/10/19 12:11 Banophen Anti-Itch TP 1 applic Q8H PRN Administration Itching Nutrition/Malnutrition Assess - Dietary Evaluation Nutrition/Malnutrition Findings: Nutrition Notes Start: 01/13/19 14:48 Freq: Status: Active Protocol: Document 01/13/19 14:48 LP (Rec: 01/13/19 14:49 LP [id number]) Nutrition Notes Need for Assessment generated from: LOS Initial or Follow up Brief Note Subjective/Other Information Screen for LOS. Pt states eating well. Consuming 100% of meals. Denies diet education or nutrition needs at this time. Nutrition Intervention Revisit per MD consult or patient Sign Off request:
--- NOTE | 2019-01-19 09:05 | Discharge Summary ---
Providers - Providers Date of Admission: 01/06/19 02:30 Attending physician: DELORES MORSE MD 01/06/19 03:13 Consult to Wound/ET Nurse [CONS] Routine Reason For Exam: wound eval 01/06/19 03:52 Consult to Physician [CONS] Routine Comment: Consulting Provider: MIGUEL YATES Physician Instructions: Reason For Exam: est pt AE CHF, EF 20-25% 01/07/19 08:16 Physical Therapy Evaluation and Treat [CONS] Routine Comment: Reason For Exam: Pt c/o not being able to walk or move legs 01/13/19 14:12 Consult to Dietitian/Nutrition [CONS] Routine Physician Instructions: HF and diabetic diet, 1500mL fluid restriction Reason For Exam: Reason for Consult: Diet education 01/14/19 13:39 Physical Therapy Evaluation and Treat [CONS] Routine Comment: Reason For Exam: Patient now states she will participate, subacute Primary care physician: SEE MEJIA Hospitalization Condition: Stable Disposition: DC-30 STILL A PATIENT Exam - Constitutional Vitals: Temp Pulse Resp BP Pulse Ox 98.6 F 106 H 16 123/84 100 01/19/19 04:26 01/19/19 04:26 01/19/19 04:26 01/19/19 04:26 01/19/19 08:33 Plan Follow up with: SEE MEJIA MD [Primary Care Provider] - 3-5 Days Prescriptions: diphenhydrAMINE/ZINC 2% [Banophen Anti-Itch] 1 applic TP Q8H PRN #1 tube PRN Reason: Itching Losartan [Cozaar] 25 mg PO QDAY #30 tablet Nicotine [Habitrol] 14 mg TD QDAY #30 patch Potassium Chloride [K-Dur] 40 meq PO QDAY #60 tablet Triamcinolone 0.5% [Kenalog 0.5% CREAM] 1 applic TP BID #1 tube Furosemide [Lasix TAB] 40 mg PO BID #120 oxyCODONE /ACETAMINOPHEN [Percocet 5/325 mg] 1 tab PO Q6H PRN #14 tablet PRN Reason: Pain, Moderate (4-6) metOLazone [Zaroxolyn] 5 mg PO 0530 #60 tablet
[2019-01-19] MEDS: LISINOPRIL 5 MG TAB PO SCH (10:05)
[2019-01-19] MEDS: NICOTINE 14 MG/24 HR PATCH TD SCH (10:06)
[2019-01-19] MEDS: ASPIRIN 325 MG TAB PO SCH (10:06)
[2019-01-19] MEDS: DOCUSATE SODIUM 100 MG CAP PO SCH ×2 (10:06→21:58)
[2019-01-19] MEDS: POTASSIUM CHLORIDE ER 20 MEQ TAB PO SCH (10:06)
[2019-01-19] MEDS: oxyCODONE /ACETAMINOPHEN 5-325MG TAB PO PRN ×2 (12:31→21:58)
[2019-01-19 13:00] LABS: BUN/Creatinine Ratio 30; Blood Urea Nitrogen 18 mg/dL (7-17); Calcium 9.5 mg/dL (8.4-10.2); Hemolysis Index 186
--- NOTE | 2019-01-19 13:23 | Progress Note ---
Assessment and Plan Cardiac status is improving - edema improved. Continue current cardiac management - will transition to PO diuresis. Avoid beta blockers d/t documented allergy; per previous notes, however, she tolerated Lopressor earlier in week. [facility] scheduled for tomorrow. NPO after midnight. The patient has been seen in conjunction with Dr. Deleon, who agrees with the assessment and plan. - Patient Problems (1) Acute HFrEF (heart failure with reduced ejection fraction) Current Visit: Yes Status: Acute (2) Anasarca Current Visit: Yes Status: Acute (3) Cellulitis Current Visit: Yes Status: Acute Qualifiers: Qualified Code(s): L03.311 - Cellulitis of abdominal wall (4) Cardiomyopathy Current Visit: Yes Status: Chronic (5) HTN (hypertension) Current Visit: Yes Status: Chronic (6) Morbid obesity Current Visit: Yes Status: Chronic Subjective Date of service: 01/19/19 Principal diagnosis: hf Interval history: The patient is lying in bed in NAD. BLE edema is significantly improved, but abdominal swelling persists. ST in 100s on telemetry. Awaiting [facility] tomorrow. Objective Last Vital Signs Temp 98.6 F 01/19/19 04:26 Pulse 108 H 01/19/19 10:00 Resp 16 01/19/19 04:26 BP 123/84 01/19/19 04:26 Pulse Ox 100 01/19/19 08:33 - Physical Examination General: Appears Well, No Apparent Distress HEENT: Positive: PERRL, Normocephaly, Mucus Membranes Moist Neck: Positive: neck supple, trachea midline Cardiac: Positive: Regular Rhythm Lungs: Positive: Decreased Breath Sounds Neuro: Positive: Grossly Intact Abdomen: Positive: Other (mild edema ). Negative: Tender /Rectal: Other (deferred) Skin: Positive: Other (BUE and BLE scattered wounds) Musculoskeletal: Decreased Range of Motion, No Pain Extremities: Present: normal - Labs and Meds Comprehensive Metabolic Panel 01/19/19 Range/Units 12:04 Sodium 140 (137-145) mmol/L Potassium 4.1 D (3.6-5.0) mmol/L Chloride 85.1 L (98-107) mmol/L Carbon Dioxide 35 H (22-30) mmol/L BUN 18 H (7-17) mg/dL Creatinine 0.6 L (0.7-1.2) mg/dL Glucose 100 (65-100) mg/dL Calcium 9.5 (8.4-10.2) mg/dL - Imaging and Cardiology EKG: report reviewed, image reviewed Echo: report reviewed (06/2018 showed EF 20-25%, mild LVH, LA mod dilated, RV systolic function mod reduced. ) - Telemetry EKG Rhythm: Sinus Tachycardia - EKG Sinus rhythms and dysrhythmias: sinus tachycardia
[2019-01-19] MEDS: predniSONE 5 MG TAB PO SCH (14:14)
[2019-01-19] MEDS: FUROSEMIDE 40 MG TAB PO SCH ×2 (16:57→18:13)
[2019-01-19] MEDS: TRIAMCINOLONE 0.5% CREAM 15 GM TP SCH ×2 (16:59→21:59)
[2019-01-20] MEDS: cephALEXin 250 MG CAP PO SCH ×2 (00:29→10:58)
[2019-01-20] MEDS: HEPARIN 5,000 UNIT/1 ML VIAL SUB-Q SCH ×2 (06:37→15:06)
[2019-01-20] MEDS: FUROSEMIDE 40 MG TAB PO SCH (06:37)
[2019-01-20] MEDS: metOLazone 2.5 MG TAB PO SCH (06:37)
[2019-01-20 06:46] LABS: INR 1.04 (0.87-1.13)
[2019-01-20 07:04] LABS: BUN/Creatinine Ratio 33; Blood Urea Nitrogen 20 mg/dL (7-17); Calcium 9.1 mg/dL (8.4-10.2); Hemolysis Index 4
[2019-01-20] MEDS ORDERED: POTASSIUM CHLORIDE ER 20 MEQ TAB PO ONE ×2 (08:34→09:00)
[2019-01-20] MEDS ORDERED: MIDAZOLAM 2 MG/2 ML INJ ONE (08:56)
[2019-01-20] MEDS ORDERED: HEPARIN/NS 5000 UNIT/500ML 1,000 ML IR ONE (08:56)
[2019-01-20] MEDS ORDERED: fentaNYL 100 MCG/2 ML INJ ONE (08:56)
[2019-01-20] MEDS ORDERED: SODIUM CHLORIDE 0.9% 500 ML 500 ML IV SCH (09:00)
[2019-01-20] MEDS ORDERED: ASPIRIN EC 325 MG TAB PO ONE (09:00)
[2019-01-20] MEDS: NITROGLYCERIN SYRINGE 3 ML ONE ×2 (09:08→09:20)
[2019-01-20] MEDS: VERAPAMIL 5 MG/2 ML INJ ONE ×2 (09:10→09:20)
[2019-01-20] MEDS: LIDOCAINE (2%) 20 MG/1 ML VIAL 20 ML MDV INFILTRATI ONE ×2 (09:11→09:18)
[2019-01-20] MEDS: HEPARIN 10,000 UNITS/10 ML VIAL ONE ×2 (09:13→09:20)
[2019-01-20] MEDS ORDERED: FUROSEMIDE 40 MG/4 ML INJ ONE (09:29)
--- NOTE | 2019-01-20 09:47 | Cardiac Catherization Report ---
CLINICAL INFORMATION: This is a 58-year-old -Citizen Of [place] female smoker with acute on chronic systolic heart failure and respiratory failure who is here for cardiac catheterization for suspected coronary artery disease as a cause of cardiomyopathy given risk factors. Procedure was done with moderate sedation started 9:12 a.m., finished at 9:27 a.m., which is 15 minutes of moderate sedation. Procedure was done via the right radial artery, sterile technique, local anesthesia, 6-Frisian radial sheath inserted. PROCEDURE FINDINGS: Left main was engaged with 3-1/2, left main large and patent. LAD is a large caliber vessel and patent. Diagonal 1 medium caliber and patent. Circumflex is a large caliber vessel and patent. OM1 and OM2 large caliber vessel and patent. RCA engaged with JR4, is a large dominant vessel, patent. PDA and PLV medium caliber vessel, patent. LV gram shows [id number] LV dysfunction, EF 25-30%. LVEDP 24 mmHg. LV was 132, aortic was 131/88. No gradient across the aortic valve on pullback. A 5-Frisian catheters all taken guidewire. A 6-Frisian radial sheath was discontinued. Radial band applied. No hematoma, no bleeding. SUMMARY: Normal coronaries. Moderate to severe LV dysfunction, nonischemic cardiomyopathy. Discussed in detail with the patient and the patient's about compliance with medication and smoking cessation and the patient is not allergic to metoprolol. JOB# [id number] ESTER/JEFF
--- NOTE | 2019-01-20 09:48 | Progress Note ---
Assessment and Plan pt is currently compensated and pt leg swelling has improved and cardiac cath patent coronaries and moderate to severe lv dsyfunction . Patient was only taking Lasix once a day and make it twice a day. Add Aldactone. Low-dose potassium. Reduce Benicar dosage to losartan 25 mg once a day along with metoprolol 25 mg twice a day patient states this did not have an allergy. Aspirin and statin urged to patient compliance with medication and follow-up and discuss again about importance about smoking cessation with the patient patient's - Patient Problems (1) Acute HFrEF (heart failure with reduced ejection fraction) Current Visit: Yes Status: Acute (2) Superficial venous thrombosis of right upper extremity Current Visit: Yes Status: Acute (3) HTN (hypertension) Current Visit: Yes Status: Chronic (4) Hypokalemia Current Visit: Yes Status: Chronic (5) Morbid obesity Current Visit: Yes Status: Chronic (6) Hypertensive urgency, malignant Current Visit: No Status: Acute (7) Nicotine dependence with withdrawal Current Visit: No Status: Acute Qualifiers: Nicotine product type: cigarettes Qualified Code(s): F17.213 - Nicotine dependence, cigarettes, with withdrawal (8) Obesity hypoventilation syndrome Current Visit: No Status: Acute Subjective Date of service: 01/20/19 Principal diagnosis: hf Interval history: pt able to ly flat Objective Vital Signs Temp Pulse Resp BP Pulse Ox 01/20/19 04:52 98.0 F 108 H 18 121/84 94 01/20/19 00:10 98.2 F 110 H 20 134/86 97 01/19/19 23:14 97 01/19/19 19:36 98.0 F 104 H 20 133/78 87 01/19/19 17:32 111 H 116/77 87 01/19/19 12:50 98.0 F 73 18 122/81 82 L 01/19/19 10:00 108 H - Physical Examination General: Appears Well, No Apparent Distress HEENT: Positive: PERRL, Normocephaly, Mucus Membranes Moist Neck: Positive: neck supple, trachea midline Cardiac: Positive: Reg Rate and Rhythm Lungs: Positive: clear to auscultation Neuro: Positive: Grossly Intact Abdomen: Positive: Other (mild edema ). Negative: Tender /Rectal: Other (deferred) Skin: Positive: Other (BUE and BLE scattered wounds) Musculoskeletal: Decreased Range of Motion, No Pain Extremities: Present: normal, edema (mild chronic changes) - Labs and Meds Coagulation 01/20/19 Range/Units 06:24 PT 13.5 (12.2-14.9) Sec. INR 1.04 (0.87-1.13) Comprehensive Metabolic Panel 01/19/19 01/20/19 Range/Units 12:04 06:24 Sodium 140 138 (137-145) mmol/L Potassium 4.1 D 3.3 L (3.6-5.0) mmol/L Chloride 85.1 L 86.2 L (98-107) mmol/L Carbon Dioxide 35 H 35 H (22-30) mmol/L BUN 18 H 20 H (7-17) mg/dL Creatinine 0.6 L 0.6 L (0.7-1.2) mg/dL Glucose 100 88 (65-100) mg/dL Calcium 9.5 9.1 (8.4-10.2) mg/dL - Imaging and Cardiology EKG: report reviewed, image reviewed Echo: report reviewed (06/2018 showed EF 20-25%, mild LVH, LA mod dilated, RV systolic function mod reduced. ) Cardiac cath: report reviewed (normal coronaries and moderate to severe lv dsyfunction ) - Telemetry EKG Rhythm: Sinus Tachycardia - EKG Sinus rhythms and dysrhythmias: sinus tachycardia
[2019-01-20] MEDS: ASPIRIN 325 MG TAB PO SCH (10:14)
[2019-01-20] MEDS: DOCUSATE SODIUM 100 MG CAP PO SCH (10:15)
[2019-01-20] MEDS: POTASSIUM CHLORIDE ER 20 MEQ TAB PO SCH ×2 (10:15→10:34)
[2019-01-20] MEDS: predniSONE 5 MG TAB PO SCH (10:15)
[2019-01-20] MEDS: LISINOPRIL 5 MG TAB PO SCH (10:16)
[2019-01-20] MEDS: NICOTINE 14 MG/24 HR PATCH TD SCH (10:16)
[2019-01-20] MEDS: TRIAMCINOLONE 0.5% CREAM 15 GM TP SCH (10:25)
[2019-01-20] MEDS ORDERED: LOSARTAN 25 MG TAB PO SCH (10:30)
[2019-01-20] MEDS ORDERED: metOLazone 5 MG TAB PO SCH (10:30)
[2019-01-20] MEDS ORDERED: SPIRONOLACTONE 25 MG TAB PO SCH (11:30)
[2019-01-20] MEDS ORDERED: METOPROLOL TARTRATE 25 MG TAB PO SCH (11:30)
[2019-01-20 12:59] VITALS: BP 110/67
== END 2019-01-20 15:06 | disposition home health service (06) | DRG 286 ==
LOC: ED 22:41 → 4A 01-06 02:30
PROVIDERS: ADMIT Internal Medicine; ATTEND Internal Medicine
PROC: 4A023N7 Measurement of Cardiac Sampling and Pressure, Left Heart, Percutaneous Approach (ICD-10-PCS; principal; 2019-01-20)
PROC: B2111ZZ Fluoroscopy of Multiple Coronary Arteries using Low Osmolar Contrast (ICD-10-PCS; 2019-01-20)
PROC: B2151ZZ Fluoroscopy of Left Heart using Low Osmolar Contrast (ICD-10-PCS; 2019-01-20)
DX: I11.0 Hypertensive heart disease with heart failure (principal); J96.01 Acute respiratory failure with hypoxia; R18.8 Other ascites; E87.1 Hypo-osmolality and hyponatremia; L03.116 Cellulitis of left lower limb; L03.115 Cellulitis of right lower limb; L03.311 Cellulitis of abdominal wall; F17.213 Nicotine dependence, cigarettes, with withdrawal; E66.2 Morbid (severe) obesity with alveolar hypoventilation; I82.611 Acute embolism and thrombosis of superficial veins of right upper extremity; E87.3 Alkalosis; Z68.44 Body mass index [BMI] 60.0-69.9, adult; I42.9 Cardiomyopathy, unspecified; I16.0 Hypertensive urgency; I50.23 Acute on chronic systolic (congestive) heart failure; E87.6 Hypokalemia; Z88.8 Allergy status to other drugs, medicaments and biological substances; Z91.040 Latex allergy status; Z79.899 Other long term (current) drug therapy; Z71.6 Tobacco abuse counseling; Z71.3 Dietary counseling and surveillance
CPT/HCPCS: 36415; 70450; 71046; 74150; 80048; 80053; 81001; 82140; 82550; 82553; 82803; 82962; 83735; 83880; 84132; 84484; 85007; 85025; 85027; 85610; 87040; 93005; 93010; 93458; 94640; 94760; 99406; G0378; C1894; J0295; J1644; J1940; J2250; J3010; J3370; J3475; J3480; J7030; J7040; J7512; Q9967

== ENCOUNTER 2020-09-23 10:36 | Inpatient (IN) | payer MEDICARE, OTHER ==
--- NOTE | 2020-09-23 11:40 | Emergency Department Report ---
HPI - General Chief Complaint: Altered Mental Status Time Seen by Provider: 09/23/20 11:28 - HPI HPI: This is a 59-year-old -[place] female presents to the emergency department via EMS from home after family found her to be unresponsive or less responsive than usual. Patient was given 2 mg of Narcan and 12.5 mg of D50 and she had some transient responsiveness. Her initial Accu-Chek was about 60 and the repeat 1 came back at 150. The patient was given another dose of 2 mg of Narcan as they are driving up to the emergency department, once again with some transient responsiveness. The patient is easily arousable but says she does not know what happened this morning that led her to the emergency department. I was able to get collateral information from the patient's , Asif Ponce. He says that they went to [facility] yesterday with complaints of some shortness of breath and abdominal pain. However, it sounds like she signed out AGAINST MEDICAL ADVICE when they wanted to get CT scan imaging done of her abdomen. They were at [facility] from about 4 PM up until 11 PM. When they got home, the says that it took him an hour to get her out of the car and into the house as she wanted to "get some air and kept asking for water." Eventually they got her into the house and into the bed to rest. Aroun d 6 AM this morning he says that the patient rolled out of bed and fell onto the ground. She was awake and conversive at that time but did not want to be lifted back up into the bed. She did relent and went back into bed to rest but they felt that something was wrong. She appeared less responsive by around 10 AM which is what prompted them to call for 911. Patient has been to this emergency department previously and has a history of hypertension, cardiomyopathy, CHF, obesity hypoventilation syndrome. This patient is vaccinated against COVID-19 with the 2 shot Pfizer series. Her teacher industrial arts is Dr. Stephens. ED Past Medical Hx - Past Medical History Previous Medical History?: Yes Hx Hypertension: Yes Hx Congestive Heart Failure: Yes - Surgical History Additional Surgical History: knee surgery - Social History Smoking Status: Current Every Day Smoker - Medications Home Medications: Home Medications Medication Instructions Recorded Confirmed Last Taken Type diphenhydrAMINE [Benadryl CAP] 25 mg PO Q6HR PRN #20 capsule 08/13/18 01/06/19 U nknown Rx Furosemide [Lasix TAB] 40 mg PO BID #120 01/19/19 Unknown Rx Nicotine [Habitrol] 14 mg TD QDAY #30 patch 01/19/19 Unknown Rx Potassium Chloride [K-Dur] 40 meq PO QDAY #60 tablet 01/19/19 Unknown Rx diphenhydrAMINE/ZINC 2% [Banophen 1 applic TP Q8H PRN #1 tube 01/19/19 Unknown Rx Anti-Itch] metOLazone [Zaroxolyn] 5 mg PO 0530 #60 tablet 01/19/19 Unknown Rx oxyCODONE /ACETAMINOPHEN [Percocet 1 tab PO Q6H PRN #14 tablet 01/19/19 Unknown Rx 5/325 mg] Losartan [Cozaar] 25 mg PO QDAY #30 tablet 01/20/19 Unknown Rx Triamcinolone 0.5% [Kenalog 0.5% 1 applic TP BID #1 tube 01/20/19 Unknown Rx CREAM] ED Review of Systems ROS: Stated complaint: AMS Other details as noted in HPI Comment: Unobtainable due to pts medical conditions Physical Exam - Physical Exam Vital Signs: Vital Signs 09/23/20 11:19 Pulse Rate 106 H Respiratory 14 Rate Physical Exam: GENERAL: The patient is ill-appearing. HENT: Normocephalic. Atraumatic. Patient has moist mucous membranes. EYES: Pupils equal reactive to light bilaterally. NECK: Supple. Trachea is midline. CHEST/LUNGS: Slightly coarse breath sounds. No tachypnea or accessory muscle use. HEART/CARDIOVASCULAR: Regular. There is no tachycardia. There is no murmur. ABDOMEN: Abdomen is soft, nontender. Patient has normal bowel sounds. Morbidly obese habitus. SKIN: Skin is warm and dry. NEURO: Patient is somnolent. She is arousable to sternal rub but will go right back to sleep if not continuously stimulated. MUSCULOSKELETAL: There is no obvious deformity. ED Course Vital Signs 09/23/20 11:19 Pulse Rate 106 H Respiratory 14 Rate - ABG Interpretation Ph: 7.062 PCO2: 93 PO2: 102 Bicarbonate: 25.9 Interpretation: respiratory acidosis - Central Line Placement Right Femoral Consent Obtained: verbal consent (Spouse), emergent situation Time Out Performed: Yes Patient Placed on Monitor/Pulse Ox: Yes MD Prep: mask, gown, gloves Central Line Prep: Chlorhexidine scrub Ultrasound Used for Placement: Yes Central Line Lumen Inserted: triple Reason for Insertion: Volume Resuscitation Bloods Obtained for Lab: No Central Line Position: good blood return, all ports aspirated, flus, sutured in place with nyl Dressing Applied: Tegaderm, sterile gauze/tape Patient Tolerated Procedure: well Complications: none - Intubation Time Out Performed: Yes Sedative: Ketamine Mg Given: 100 Paralytic: Rocuronium Mg Given: 150 Laryngoscope: other (Ogema scope) Size: 4 ET Tube Size: 7.5 Tube Secured Depth (cm): 24 Tube Secured Location: lips Tube Placement Confirmation: visualized tube passing t, equal breath sounds bilat, confirmation by capnometr Patient Tolerated Procedure: well Intubation Complications: none ED Medical Decision Making - Lab Data Result diagrams: 09/23/20 12:43 09/23/20 12:43 Lab Results 09/23/20 09/23/20 09/23/20 Range/Units 12:43 12:43 12:43 WBC 10.7 (4.5-11.0) K/mm3 RBC 5.85 H (3.65-5.03) M/mm3 Hgb 16.1 H (10.1-14.3) gm/dl Hct 54.6 H (30.3-42.9) % MCV 93 (79-97) fl MCH 28 (28-32) pg MCHC 29 L (30-34) % RDW 17.8 H (13.2-15.2) % Plt Count 159 (140-440) K/mm3 Add Manual Diff Complete Total Counted 100 Seg Neuts % (Manual) 83.0 H (40.0-70.0) % Lymphocytes % (Manual) 13.0 L (13.4-35.0) % Monocytes % (Manual) 4.0 (0.0-7.3) % Nucleated RBC % 2.0 H (0.0-0.9) % Seg Neutrophils # Man 8.9 H (1.8-7.7) K/mm3 Band Neutrophils # 0.0 K/mm3 Lymphocytes # (Manual) 1.4 (1.2-5.4) K/mm3 Abs React Lymphs (Man) 0.0 K/mm3 Monocytes # (Manual) 0.4 (0.0-0.8) K/mm3 Eosinophils # (Manual) 0.0 (0.0-0.4) K/mm3 Basophils # (Manual) 0.0 (0.0-0.1) K/mm3 Metamyelocytes # 0.0 K/mm3 Myelocytes # 0.0 K/mm3 Promyelocytes # 0.0 K/mm3 Blast Cells # 0.0 K/mm3 WBC Morphology Not Reportable Hypersegmented Neuts Not Reportable Hyposegmented Neuts Not Reportable Hypogranular Neuts Not Reportable Smudge Cells Not Reportable Toxic Granulation Not Reportable Toxic Vacuolation Not Reportable Dohle Bodies Not Reportable Pelger-Huet Anomaly Not Reportable Clarissa Rods Not Reportable Platelet Estimate Not Reportable Clumped Platelets Rare Plt Clumps, EDTA Not Reportable Large Platelets Not Reportable Giant Platelets Not Reportable Platelet Satelliting Not Reportable Plt Morphology Comment Not Reportable RBC Morphology Not Reportable Dimorphic RBCs Not Reportable Polychromasia Not Reportable Hypochromasia Rare Poikilocytosis Not Reportable Anisocytosis Rare Microcytosis Few Macrocytosis Not Reportable Spherocytes Not Reportable Pappenheimer Bodies Not Reportable Sickle Cells Not Reportable Target Cells Not Reportable Tear Drop Cells Not Reportable Ovalocytes Not Reportable Helmet Cells Not Reportable [place]oudre[place] Bodies Not Reportable [place] Rings Not Reportable Ramesh Cells Not Reportable Bite Cells Not Reportable Crenated Cell Not Reportable Elliptocytes Not Reportable Acanthocytes (Spur) Not Reportable Rouleaux Not Reportable Hemoglobin C Crystals Not Reportable Schistocytes Not Reportable Malaria parasites Not Reportable Dieter Bodies Not Reportable Hem Pathologist Commnt No Sodium 140 (137-145) mmol/L Potassium 3.6 (3.6-5.0) mmol/L Chloride 88.5 L (98-107) mmol/L Carbon Dioxide 22 (22-30) mmol/L Anion Gap 33 mmol/L BUN 38 H (7-17) mg/dL Creatinine 2.1 H (0.6-1.2) mg/dL Estimated GFR 29 ml/min BUN/Creatinine Ratio 18 % Glucose 82 (65-100) mg/dL Calcium 9.5 (8.4-10.2) mg/dL Total Bilirubin 0.80 (0.1-1.2) mg/dL AST 342 H (5-40) units/L ALT 238 H (7-56) units/L Alkaline Phosphatase 93 (35-129) units/L Ammonia 127.0 H (25-60) umol/L Troponin T 0.810 H* (0.00-0.029) ng/mL NT-Pro-B Natriuret Pep 68999 H (0-900) pg/mL Total Protein 7.6 (6.3-8.2) g/dL Albumin 3.4 L (3.9-5) g/dL Albumin/Globulin Ratio 0.8 % Triglycerides 119 (2-149) mg/dL Cholesterol 129 (50-199) mg/dL LDL Cholesterol Direct 90 (50-130) mg/dL HDL Cholesterol 39 L (40-59) mg/dL Cholesterol/HDL Ratio 3.30 % TSH (0.270-4.200) mlU/mL Salicylates (2.8-20.0) mg/dL Acetaminophen (10.0-30.0) ug/mL Plasma/Serum Alcohol (0-0.07) % 09/23/20 09/23/20 09/23/20 Range/Units 12:43 12:43 12:43 WBC (4.5-11.0) K/mm3 RBC (3.65-5.03) M/mm3 Hgb (10.1-14.3) gm/dl Hct (30.3-42.9) % MCV (79-97) fl MCH (28-32) pg MCHC (30-34) % RDW (13.2-15.2) % Plt Count (140-440) K/mm3 Add Manual Diff Total Counted Seg Neuts % (Manual) (40.0-70.0) % Lymphocytes % (Manual) (13.4-35.0) % Monocytes % (Manual) (0.0-7.3) % Nucleated RBC % (0.0-0.9) % Seg Neutrophils # Man (1.8-7.7) K/mm3 Band Neutrophils # K/mm3 Lymphocytes # (Manual) (1.2-5.4) K/mm3 Abs React Lymphs (Man) K/mm3 Monocytes # (Manual) (0.0-0.8) K/mm3 Eosinophils # (Manual) (0.0-0.4) K/mm3 Basophils # (Manual) (0.0-0.1) K/mm3 Metamyelocytes # K/mm3 Myelocytes # K/mm3 Promyelocytes # K/mm3 Blast Cells # K/mm3 WBC Morphology Hypersegmented Neuts Hyposegmented Neuts Hypogranular Neuts Smudge Cells Toxic Granulation Toxic Vacuolation Dohle Bodies Pelger-Huet Anomaly Clarissa Rods Platelet Estimate Clumped Platelets Plt Clumps, EDTA Large Platelets Giant Platelets Platelet Satelliting Plt Morphology Comment RBC Morphology Dimorphic RBCs Polychromasia Hypochromasia Poikilocytosis Anisocytosis Microcytosis Macrocytosis Spherocytes Pappenheimer Bodies Sickle Cells Target Cells Tear Drop Cells Ovalocytes Helmet Cells Boudreaux-[place] Bodies [place] Rings [place]ain Cells Bite Cells Crenated Cell Elliptocytes Acanthocytes (Spur) Rouleaux Hemoglobin C Crystals Schistocytes Malaria parasites Dieter Bodies Hem Pathologist Commnt Sodium (137-145) mmol/L Potassium (3.6-5.0) mmol/L Chloride (98-107) mmol/L Carbon Dioxide (22-30) mmol/L Anion Gap mmol/L BUN (7-17) mg/dL Creatinine (0.6-1.2) mg/dL Estimated GFR ml/min BUN/Creatinine Ratio % Glucose (65-100) mg/dL Calcium (8.4-10.2) mg/dL Total Bilirubin (0.1-1.2) mg/dL AST (5-40) units/L ALT (7-56) units/L Alkaline Phosphatase (35-129) units/L Ammonia (25-60) umol/L Troponin T (0.00-0.029) ng/mL NT-Pro-B Natriuret Pep (0-900) pg/mL Total Protein (6.3-8.2) g/dL Albumin (3.9-5) g/dL Albumin/Globulin Ratio % Triglycerides (2-149) mg/dL Cholesterol (50-199) mg/dL LDL Cholesterol Direct (50-130) mg/dL HDL Cholesterol (40-59) mg/dL Cholesterol/HDL Ratio % TSH 3.460 (0.270-4.200) mlU/mL Salicylates < 0.3 L (2.8-20.0) mg/dL Acetaminophen 5.0 L (10.0-30.0) ug/mL Plasma/Serum Alcohol (0-0.07) % 09/23/20 Range/Units 12:43 WBC (4.5-11.0) K/mm3 RBC (3.65-5.03) M/mm3 Hgb (10.1-14.3) gm/dl Hct (30.3-42.9) % MCV (79-97) fl MCH (28-32) pg MCHC (30-34) % RDW (13.2-15.2) % Plt Count (140-440) K/mm3 Add Manual Diff Total Counted Seg Neuts % (Manual) (40.0-70.0) % Lymphocytes % (Manual) (13.4-35.0) % Monocytes % (Manual) (0.0-7.3) % Nucleated RBC % (0.0-0.9) % Seg Neutrophils # Man (1.8-7.7) K/mm3 Band Neutrophils # K/mm3 Lymphocytes # (Manual) (1.2-5.4) K/mm3 Abs React Lymphs (Man) K/mm3 Monocytes # (Manual) (0.0-0.8) K/mm3 Eosinophils # (Manual) (0.0-0.4) K/mm3 Basophils # (Manual) (0.0-0.1) K/mm3 Metamyelocytes # K/mm3 Myelocytes # K/mm3 Promyelocytes # K/mm3 Blast Cells # K/mm3 WBC Morphology Hypersegmented Neuts Hyposegmented Neuts Hypogranular Neuts Smudge Cells Toxic Granulation Toxic Vacuolation Dohle Bodies Pelger-Huet Anomaly Clarissa Rods Platelet Estimate Clumped Platelets Plt Clumps, EDTA Large Platelets Giant Platelets Platelet Satelliting Plt Morphology Comment RBC Morphology Dimorphic RBCs Polychromasia Hypochromasia Poikilocytosis Anisocytosis Microcytosis Macrocytosis Spherocytes Pappenheimer Bodies Sickle Cells Target Cells Tear Drop Cells Ovalocytes Helmet Cells Boudreaux-[place] Bodies [place] Rings Col[place]ain Cells Bite Cells Crenated Cell Elliptocytes Acanthocytes (Spur) Rouleaux Hemoglobin C Crystals Schistocytes Malaria parasites Dieter Bodies Hem Pathologist Commnt Sodium (137-145) mmol/L Potassium (3.6-5.0) mmol/L Chloride (98-107) mmol/L Carbon Dioxide (22-30) mmol/L Anion Gap mmol/L BUN (7-17) mg/dL Creatinine (0.6-1.2) mg/dL Estimated GFR ml/min BUN/Creatinine Ratio % Glucose (65-100) mg/dL Calcium (8.4-10.2) mg/dL Total Bilirubin (0.1-1.2) mg/dL AST (5-40) units/L ALT (7-56) units/L Alkaline Phosphatase (35-129) units/L Ammonia (25-60) umol/L Troponin T (0.00-0.029) ng/mL NT-Pro-B Natriuret Pep (0-900) pg/mL Total Protein (6.3-8.2) g/dL Albumin (3.9-5) g/dL Albumin/Globulin Ratio % Triglycerides (2-149) mg/dL Cholesterol (50-199) mg/dL LDL Cholesterol Direct (50-130) mg/dL HDL Cholesterol (40-59) mg/dL Cholesterol/HDL Ratio % TSH (0.270-4.200) mlU/mL Salicylates (2.8-20.0) mg/dL Acetaminophen (10.0-30.0) ug/mL Plasma/Serum Alcohol < 0.01 (0-0.07) % - EKG Data -: EKG Interpreted by Me EKG shows normal: sinus rhythm, axis, intervals, QRS complexes (Q waves to the inferior leads), ST-T waves Rate: tachycardia (109 bpm) - EKG Data When compared to previous EKG there are: changes noted (New inferior Q waves from 01/05/19) Interpretation: other (Sinus tachycardia 109 bpm, normal axis, normal intervals, Q waves to the inferior leads. No ST elevation CO) - Radiology Data Radiology results: report reviewed, image reviewed interpreted by me: Chest x-ray shows moderate to severe cardiomegaly with some mild interstitial edema. No pneumothorax. No widened mediastinum. Abdominal x-ray shows nonspecific nonobstructive bowel gas. No free air. CT head/brain wo con INDICATION: Altered mental status. TECHNIQUE: Routine CT head. All CT scans at this location are performed using CT dose reduction for ALARA by means of automated exposure control. COMPARISON: None. FINDINGS: Int racranial: Nevarez-white matter differentiation is maintained. No intracranial hemorrhage. No extra axial collection. No hydrocephalus. No herniation. Sinuses: Paranasal sinuses and mastoid air cells are essentially clear. Orbits: Globes are intact. Calvarium: No acute fracture. IMPRESSION: 1. No acute intracranial abnormality. - Medical Decision Making This patient presents to the emergency department after having decreased responsiveness and/or altered mental status going on since last night and worsening this morning. The patient had some transient responsiveness to Narcan but the patient's says there is no history of opiate or illicit drug us e. CT scan of the head without contrast did not show any hemorrhage, large vessel occlusion, or any other acute process. Chest x-ray shows cardiomegaly and some interstitial edema. The patient's labs show acute kidney injury, elevated LFTs, elevated ammonia level, elevated pro-BNP, elevated troponin. Her ABG shows severe hypercapnia with a PCO2 of about 90 and the PO2 is only 100 on a nonrebreather. Due to the patient's hepatic encephalopathy she is not a BiPAP candidate to blow off the CO2, and the patient's oxygen goes down without the nonrebreather as well. For these reasons the patient was intubated as per the procedure section. The patient had hypotension even despite IV fluid resuscitation. For this reason a right femoral central venous catheter was placed and she was started on pressors. Cardiology was contacted and consulted regarding her NSTEMI and CHF. The patient will be admitted to the ICU and was accepted for admission by the hospitalist, Dr. Espitia. Critical Care Time: Yes Critical care time in (mins) excluding proc time.: 45 Critical care attestation.: If time is entered above; I have spent that time in minutes in the direct care of this critically ill patient, excluding procedure time. Critical care time was spent on this patient in doing her initial evaluation, multiple reeva luations, ordering and interpretation of labs and imaging, IV fluid resuscitation followed by pressors for hypotension, oxygen supplementation followed by mechanical ventilation management for her hypoxia and hypercapnia, multiple discussions with the patient's family. This does not include the time spent doing separately billable procedures including intubation and central line placement. Critical Care Time: 45 minutes ED Disposition Clinical Impression: Hepatic encephalopathy, ISIS (acute kidney injury), NSTEMI (non-ST elevated myocardial infarction), Obesity hypoventilation syndrome, Transaminitis Hypotension Qualifiers: Hypotension type: unspecified hypotension type Qualified Code(s): I95.9 - Hypotension, unspecified Respiratory failure with hypoxia and hypercapnia Qualifiers: Chronicity: acute Qualified Code(s): J96.01 - Acute respiratory failure with hypoxia; J96.02 - Acute respiratory failure with hypercapnia Disposition: 09 ADMITTED INPATIENT Is pt being admited?: Yes Condition: Serious Time of Disposition: 14:20
--- NOTE | 2020-09-23 12:32 | XRay Report ---
CHEST 1 VIEW 09/23/2020 11:23 AM INDICATION / CLINICAL INFORMATION: Altered mental status. COMPARISON: 01/05/19. FINDINGS: SUPPORT DEVICES: None. HEART / MEDIASTINUM: Moderately severe cardiomegaly and prominence of the central pulmonary vessels a re stable. LUNGS / PLEURA: No significant pulmonary or pleural abnormality. No pneumothorax. ADDITIONAL FINDINGS: No significant additional findings. IMPRESSION: No acute findings. Signer Name: Gurmeet Gilliland MD Signed: 09/23/2020 12:28 PM Workstation Name: [id number]
--- NOTE | 2020-09-23 12:34 | XRay Report ---
ABDOMEN 2 VIEWS INDICATION / CLINICAL INFORMATION: Abd pain. COMPARISON: None available. FINDINGS: TUBES / LINES: None. BOWEL GAS PATTERN: There is no evidence of bowel obstruction or mass effect. There is only a mild joy unt of stool in the right colon. FREE AIR / EXTRALUMINAL GAS: None seen. ADDITIONAL FINDINGS: There is moderate lumbar spondylosis. CHEST: Visualized chest shows no significant abnormality. IMPRESSION: No acute abnormality. Signer Name: Gurmeet Gilliland MD Signed: 09/23/2020 12:30 PM Workstation Name: [id number]
--- NOTE | 2020-09-23 13:50 | Cat Scan Report ---
CT head/brain wo con INDICATION: Altered mental status. TECHNIQUE: Routine CT head. All CT scans at this location are performed using CT dose reduction for A BERNA by means of automated exposure control. COMPARISON: None. FINDINGS: Intracranial: Nevarez-white matter differentiation is maintained. No intracranial hemorrhage. No extra a xial collection. No hydrocephalus. No herniation. Sinuses: Paranasal sinuses and mastoid air cells are essentially clear. Orbits: Globes are intact. Calvarium: No acute fracture. IMPRESSION: 1. No acute intracranial abnormality. Signer Name: Riley Nieto MD Signed: 09/23/2020 1:45 PM Workstation Name: [id number]
[2020-09-23 13:51] LABS: Albumin 3.4 g/dL (3.9-5); Calcium 9.5 mg/dL (8.4-10.2)
[2020-09-23] MEDS ORDERED: SODIUM CHLORIDE 0.9% 1000 ML 1,000 ML ONE (13:58)
[2020-09-23] MEDS ORDERED: NALOXONE 2 MG/2 ML INJ IV ONE (14:04)
[2020-09-23] MEDS ORDERED: LACTULOSE 20 GM/30 ML ORAL LIQD PO ONE (14:10)
[2020-09-23 14:12] LABS: Mean Corpuscular HGB Conc 29 % (30-34); Mean Corpuscular Volume 93 fl (79-97); Red Blood Count 5.85 M/mm3 (3.65-5.03); Red Cell Distribution Width 17.8 % (13.2-15.2)
[2020-09-23 14:14] LABS: Hematocrit 54.6 % (30.3-42.9); Hemoglobin 16.1 gm/dl (10.1-14.3); Platelet Count 159 K/mm3 (140-440)
[2020-09-23 14:27] LABS: Chol/HDL Ratio 3.3 %
[2020-09-23] MEDS ORDERED: ROCURONIUM 50 MG/5 ML INJ IV ONE ×2 (15:06→15:15)
--- NOTE | 2020-09-23 15:13 | Consultation ---
History of Present Illness Consult date: 09/23/20 Requesting physician: KIERRA VILLANUEVA Consult reason: congestive heart failure, other (NSTEMI) History of present illness: Primary Lpn Cma: John Stephens Pt is a 59-year-old AA female with a hx of chronic HFrEF and NICMP (no device yet) who presented for evaluation of altered mental status. Majority of HPI obtained from family and chart. Pt was evaluated at [facility] yesterday for abdominal pain and SOB. She received a GI cocktail and was deemed to be medically stable for discharge per [facility] documentation. No abdominal imaging available for review. Per pt's , she became increasingly confused throughout the day today, thus prompting him to seek further care for pt. Mild improvement in responsiveness noted with Narcan per ER documentation. Cardiology has been consulted for eval and mgmt of elevated troponin and CHF. No reports of chest pain. ECG reveals no acute ischemic changes. BNP significantly elevated, though also in the setting of acute renal failure. CXR reveals stable cardiomegaly along with pulmonary edema. Pt is notably non-compliant with her home cardiac regimen. Echo 06/2018 - EF 20-25%, mild LVH, restrictive diastolic filling, LA mod dilated, RV systolic fxn mod reduced, IVC dilated with < 50% resp change noted. LHC 01/2019 - normal coronaries, mod-severe LV dysfxn. Past History Past Medical History: heart failure, hypertension, hyperlipidemia Past Surgical History: denies: valve replacement, CABG, PTCA Social history: smoking Family history: hypertension Medications and Allergies Allergies Allergy/AdvReac Type Severity Reaction Status Date / Time latex Allergy Rash Verified 08/12/18 09:10 lisinopril AdvReac Unknown Verified 01/08/19 09:45 Home Medications Medication Instructions Recorded Confirmed Last Taken Type diphenhydrAMINE [Benadryl CAP] 25 mg PO Q6HR PRN #20 capsule 08/13/18 01/06/19 Unknown Rx Furosemide [Lasix TAB] 40 mg PO BID #120 01/19/19 Unknown Rx Nicotine [Habitrol] 14 mg TD QDAY #30 patch 01/19/19 Unknown Rx Potassium Chloride [K-Dur] 40 meq PO QDAY #60 tablet 01/19/19 Unknown Rx diphenhydrAMINE/ZINC 2% [Banophen 1 applic TP Q8H PRN #1 tube 01/19/19 Unknown Rx Anti-Itch] metOLazone [Zaroxolyn] 5 mg PO 0530 #60 tablet 01/19/19 Unknown Rx oxyCODONE /ACETAMINOPHEN [Percocet 1 tab PO Q6H PRN #14 tablet 01/19/19 Unknown Rx 5/325 mg] Losartan [Cozaar] 25 mg PO QDAY #30 tablet 01/20/19 Unknown Rx Triamcinolone 0.5% [Kenalog 0.5% 1 applic TP BID #1 tube 01/20/19 Unknown Rx CREAM] Review of Systems ROS unobtainable: due to mental status Constitutional: no fever, no chills Ears, nose, mouth and throat: nasal congestion Cardiovascular: edema, lightheadedness, shortness of breath, no chest pain Respiratory: shortness of breath Gastrointestinal: abdominal pain, nausea Integumentary: rash Physical Examination Last Vital Signs Temp Pulse 109 H 09/23/20 13:30 Resp 18 09/23/20 13:45 BP 76/47 09/23/20 13:45 Pulse Ox 95 09/23/20 13:15 General appearance: mild distress HEENT: Positive: EOMI, Normocephaly Neck: Positive: neck supple, trachea midline Cardiac: Positive: Regular Rhythm, S1/S2, Tachycardia Lungs: Positive: Decreased Breath Sounds Neuro: Positive: Other (altered) Abdomen: Positive: Soft Skin: Positive: Rash Extremities: Present: lower extr. pulses, +2 Edema (BLE) Results 09/23/20 12:43 09/23/20 12:43 Cardiac Enzymes 09/23/20 Range/Units 12:43 AST 342 H (5-40) units/L Lipids 09/23/20 Range/Units 12:43 Triglycerides 119 (2-149) mg/dL Cholesterol 129 (50-199) mg/dL HDL Cholesterol 39 L (40-59) mg/dL Cholesterol/HDL Ratio 3.30 % CBC 09/23/20 Range/Units 12:43 WBC 10.7 (4.5-11.0) K/mm3 RBC 5.85 H (3.65-5.03) M/mm3 Hgb 16.1 H (10.1-14.3) gm/dl Hct 54.6 H (30.3-42.9) % Plt Count 159 (140-440) K/mm3 Comprehensive Metabolic Panel 09/23/20 Range/Units 12:43 Sodium 140 (137-145) mmol/L Potassium 3.6 (3.6-5.0) mmol/L Chloride 88.5 L (98-107) mmol/L Carbon Dioxide 22 (22-30) mmol/L BUN 38 H (7-17) mg/dL Creatinine 2.1 H (0.6-1.2) mg/dL Glucose 82 (65-100) mg/dL Calcium 9.5 (8.4-10.2) mg/dL AST 342 H (5-40) units/L ALT 238 H (7-56) units/L Alkaline Phosphatase 93 (35-129) units/L Total Protein 7.6 (6.3-8.2) g/dL Albumin 3.4 L (3.9-5) g/dL - Imaging and Cardiology Echo: report reviewed (06/2018 - EF 20-25%, mild LVH, restrictive diastolic filling, LA mod dilated, RV systolic fxn mod reduced, IVC dilated with < 50% resp change noted) Cardiac cath: report reviewed (01/2019 - normal coronaries, mod-severe LV dysfxn) - EKG Interpretation EKG: no acute changes EKG interpretations - EKG Sinus rhythms and dysrhythmias: sinus rhythm Repolarization changes or abnormalities: nonspecific abnormality, ST segment, and/or T wave Assessment and Plan Recommend COVID-19 testing. Echo pending results of COVID-19 test. Hesitant to diurese at this time given hypotension. Pt noted to have normal coronaries via cath 01/2019. No reports of chest pain. ECG reveals no acute ischemic changes. CE elevation appears consistent with NSTEMI Type 2. Continue to trend cardiac enzymes. Heparin gtt not recommended at this time. Pt seen in conjunction with Dr. Stephens, who agrees with the assessment and plan of care. - Patient Problems (1) Acute encephalopathy Current Visit: Yes Status: Acute (2) Hypotension Current Visit: Yes Status: Acute (3) Acute respiratory failure Current Visit: Yes Status: Acute (4) Acute on chronic HFrEF (heart failure with reduced ejection fraction) Current Visit: Yes Status: Acute (5) NICM (nonischemic cardiomyopathy) Current Visit: Yes Status: Chronic (6) ISIS (acute kidney injury) Current Visit: Yes Status: Acute (7) Elevated LFTs Current Visit: Yes Status: Acute (8) NSTEMI (non-ST elevated myocardial infarction) Current Visit: Yes Status: Acute (9) Obesity hypoventilation syndrome Current Visit: Yes Status: Chronic (10) Tobacco abuse Current Visit: Yes Status: Chronic (11) Medical non-compliance Current Visit: Yes Status: Chronic
[2020-09-23] MEDS ORDERED: MIDAZOLAM 2 MG/2 ML INJ IV PRN (15:28)
[2020-09-23] MEDS ORDERED: MINERAL OIL/PETROLATUM, WHITE OPHTH OINT 3.5 GM OU PRN (15:28)
[2020-09-23] MEDS ORDERED: LIP THERAPY VASELINE TP PRN (15:28)
[2020-09-23] MEDS ORDERED: NORepinephrine/NS 8 MG-250 ML 8 MG/250 ML INFUS..BTL IV ONE (15:41)
[2020-09-23 15:57] LABS: INR 1.83 (0.87-1.13)
[2020-09-23] MEDS ORDERED: MIDAZOLAM 100 MG in SODIUM CHLORIDE 0.9% 80 ML IV SCH (16:00)
[2020-09-23] MEDS ORDERED: ONDANSETRON 4 MG/2 ML INJ IV PRN (16:11)
[2020-09-23] MEDS ORDERED: METOCLOPRAMIDE 10 MG/2 ML INJ IV PRN (16:11)
[2020-09-23] MEDS ORDERED: HYDROmorphone 1 MG/1 ML INJ IV PRN (16:11)
[2020-09-23] MEDS ORDERED: MORPHINE 2 MG/1 ML INJ IV PRN (16:11)
[2020-09-23] MEDS ORDERED: IPRATROPIUM/ALBUTEROL SULFATE 3 ML AMPUL.NEB IH PRN (16:14)
--- NOTE | 2020-09-23 16:14 | History and Physical Report ---
History of Present Illness Date of examination: 09/23/20 Date of admission: 09/23/20 14:20 Chief complaint: Decreased responsiveness since a.m. History of present illness: 59-year-old -[place] female with history of obesity hypertension and CHF brought in by EMS because of unresponsiveness since a.m. Initial blood glucose was low work after D50 W blood glucose was 150 patient had some response to 2 mg in the: Narcan. Patient went to [facility] yesterday and was treated for gastritis. states they left AMAbilio limon the [facility] records shows that they were treated and discharged. In the ER because of persistent unresponsiveness and also hypoxia patient was intubated. Patient was also hypotensive initially. Intermittently was responsive but now patient intubated and sedated. Patient is agitated. No fever or chills. Around 6 AM this morning patient rolled out of bed and fell onto the ground. She was awake and conversive at that time but did not want to be lifted back into the bed. She received Brilinta and went back into bed and rested. Because of decreased responsiveness EMS was called. Around 10 AM. Patient is vaccin ated against COVID-19 with 2 shots of 5 of series. 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 Stephens - Past Medical History Previous Medical History?: Yes --Hypertension: Yes --Congestive Heart Failure: Yes - Surgical History Additional Surgical History: knee surgery - Social History Smoking Status: Current Every Day Smoker Family history Htn - Medications Home Medications: Home Medications Medication Instructions Recorded Confirmed Last Taken Type diphenhydrAMINE [Benadryl CAP] 25 mg PO Q6HR PRN #20 capsule 08/13/18 01/06/19 Unknown Rx Furosemide [Lasix TAB] 40 mg PO BID #120 01/19/19 Unknown Rx Nicotine [Habitrol] 14 mg TD QDAY #30 patch 01/19/19 Unknown Rx Potassium Chloride [K-Dur] 40 meq PO QDAY #60 tablet 01/19/19 Unknown Rx diphenhydrAMINE/ZINC 2% [Banophen 1 applic TP Q8H PRN #1 tube 01/19/19 Unknown Rx Anti-Itch] metOLazone [Zaroxolyn] 5 mg PO 0530 #60 tablet 01/19/19 Unknown Rx oxyCODONE /ACETAMINOPHEN [Percocet 1 tab PO Q6H PRN #14 tablet 01/19/19 Unknown Rx 5/325 mg] Losartan [Cozaar] 25 mg PO QDAY #30 tablet 01/20/19 Unknown Rx Triamcinolone 0.5% [Kenalog 0.5% 1 applic TP BID #1 tube 01/20/19 Unknown Rx CREAM] Review of Systems ROS: Stated complaint: AMS Other details as noted in HPI Comment: Unobtainable due to pts medical conditions Past History Past Medical History: heart failure, hypertension, hyperlipidemia Past Surgical History: denies: valve replacement, CABG, PTCA Social history: smoking Family history: hypertension Medications and Allergies Allergies Allergy/AdvReac Type Severity Reaction Status Date / Time latex Allergy Rash Verified 08/12/18 09:10 lisinopril AdvReac Unknown Verified 01/08/19 09:45 Home Medications Medication Instructions Recorded Confirmed Last Taken Type diphenhydrAMINE [Benadryl CAP] 25 mg PO Q6HR PRN #20 capsule 08/13/18 01/06/19 Unknown Rx Furosemide [Lasix TAB] 40 mg PO BID #120 01/19/19 Unknown Rx Nicotine [Habitrol] 14 mg TD QDAY #30 patch 01/19/19 Unknown Rx Potassium Chloride [K-Dur] 40 meq PO QDAY #60 tablet 01/19/19 Unknown Rx diphenhydrAMINE/ZINC 2% [Banophen 1 applic TP Q8H PRN #1 tube 01/19/19 Unknown Rx Anti-Itch] metOLazone [Zaroxolyn] 5 mg PO 0530 #60 tablet 01/19/19 Unknown Rx oxyCODONE /ACETAMINOPHEN [Percocet 1 tab PO Q6H PRN #14 tablet 01/19/19 Unknown Rx 5/325 mg] Losartan [Cozaar] 25 mg PO QDAY #30 tablet 01/20/19 Unknown Rx Triamcinolone 0.5% [Kenalog 0.5% 1 applic TP BID #1 tube 01/20/19 Unknown Rx CREAM] Active Meds: Active Medications Famotidine (Famotidine 20 Mg/2 Ml Inj) 10 mg IV BID JIMI Hydrophilic Ointment (Lip Therapy Vaseline) 1 applic TP Q2HR PRN PRN Reason: Dry Lips Midazolam HCl 100 mg/ Sodium (Chloride) 100 mls @ 2 mls/hr IV TITR JIMI; Protocol Midazolam HCl (Midazolam 2 Mg/2 Ml Inj) 2 mg IV Q10MIN PRN PRN Reason: Sedation Multi-Ingred Cream/Lotion/Oil/Oint (Mineral Oil/Petrolatum, White Ophth Oint 3.5 Gm) 1 applic OU Q4HR PRN PRN Reason: Dry Eye(s) Senna/Docusate Sodium (Sennosides/Docusate Sodium 8.6/50 Mg Tab) 1 tab FEEDTUBE BID JIMI Exam - Physical Exam Narrative exam: Patient intubated and on ventilator, agitated - Constitutional Vitals: Temp Pulse Resp BP Pulse Ox 88 30 H 149/93 99 09/23/20 16:00 09/23/20 16:00 09/23/20 16:00 09/23/20 16:05 General appearance: Present: well-nourished - EENT Eyes: Present: PERRL ENT: hearing intact, clear oral mucosa - Neck Neck: Present: supple, normal ROM - Respiratory Respiratory effort: normal Respiratory: bilateral: CTA - Cardiovascular Heart rate: 78 Heart Sounds: Present: S1 & S2. Absent: rub, click - Extremities Extremities: no ischemia, pulses intact, pulses symmetrical, No edema Peripheral Pulses: within normal limits - Abdominal General gastrointestinal: Present: soft, non-tender, non-distended, normal bowel sounds Female genitourinary: Present: normal - Integumentary Integumentary: Present: clear, warm, dry - Musculoskeletal Musculoskeletal: generalized weakness - Psychiatric Psychiatric: other (Intubated) - Neurologic Neurologic: other (Intubated) HEART Score - HEART Score History: Highly suspicious Age: 45-65 Risk factors: > 3 risk factors or hx of atherosclerotic disease Troponin: Troponin T 0.810 ng/mL (0.00-0.029) H* 09/23/20 12:43 Troponin: > 3x normal limit Results - Labs CBC & Chem 7: 09/24/20 05:11 09/24/20 05:11 Labs: Laboratory Last Values WBC 10.7 K/mm3 (4.5-11.0) 09/23/20 12:43 RBC 5.85 M/mm3 (3.65-5.03) H 09/23/20 12:43 Hgb 16.1 gm/dl (10.1-14.3) H 09/23/20 12:43 Hct 54.6 % (30.3-42.9) H 09/23/20 12:43 MCV 93 fl (79-97) 09/23/20 12:43 MCH 28 pg (28-32) 09/23/20 12:43 MCHC 29 % (30-34) L 09/23/20 12:43 RDW 17.8 % (13.2-15.2) H 09/23/20 12:43 Plt Count 159 K/mm3 (140-440) 09/23/20 12:43 PT 21.7 Sec. (12.2-14.9) H 09/23/20 14:45 INR 1.83 (0.87-1.13) H 09/23/20 14:45 APTT 37.0 Sec. (24.2-36.6) H 09/23/20 14:45 ABG pH 7.062 (7.320-7.450) L 09/23/20 14:56 POC ABG pCO2 93.1 mmHg (32.0-48.0) H 09/23/20 14:56 POC ABG pO2 102.0 mmHg (83-108) 09/23/20 14:56 POC ABG HCO3 25.9 09/23/20 14:56 ABG O2 Saturation 95.9 (0-100) 09/23/20 14:56 POC ABG Base Excess -7.2 09/23/20 14:56 ABG Hemoglobin 15.9 (12.0-17.5) 09/23/20 14:56 ABG Oxyhemoglobin 92.2 (94-98) L 09/23/20 14:56 ABG Methemoglobin 0.2 (0.0-1.5) 09/23/20 14:56 ABG Sodium 139.6 mmol/L (136.0-145.0) 09/23/20 14:56 ABG Potassium 3.4 mmol/L (3.40-4.50) 09/23/20 14:56 ABG Chloride 94.0 mmol/L (98-107) L 09/23/20 14:56 ABG Glucose 109 mg/dL (65-95) H 09/23/20 14:56 Carboxyhemoglobin 3.7 (0.5-1.5) H 09/23/20 14:56 FiO2 % 98.0 09/23/20 14:56 Sodium 140 mmol/L (137-145) 09/23/20 12:43 Potassium 3.6 mmol/L (3.6-5.0) 09/23/20 12:43 Chloride 88.5 mmol/L (98-107) L 09/23/20 12:43 Carbon Dioxide 22 mmol/L (22-30) 09/23/20 12:43 Anion Gap 33 mmol/L 09/23/20 12:43 BUN 38 mg/dL (7-17) H 09/23/20 12:43 Creatinine 2.1 mg/dL (0.6-1.2) H 09/23/20 12:43 Estimated GFR 29 ml/min 09/23/20 12:43 BUN/Creatinine Ratio 18 % 09/23/20 12:43 Glucose 82 mg/dL (65-100) 09/23/20 12:43 Calcium 9.5 mg/dL (8.4-10.2) 09/23/20 12:43 Total Bilirubin 0.80 mg/dL (0.1-1.2) 09/23/20 12:43 AST 342 units/L (5-40) H 09/23/20 12:43 ALT 238 units/L (7-56) H 09/23/20 12:43 Alkaline Phosphatase 93 units/L (35-129) 09/23/20 12:43 Ammonia 127.0 umol/L (25-60) H 09/23/20 12:43 Troponin T 0.810 ng/mL (0.00-0.029) H* 09/23/20 12:43 NT-Pro-B Natriuret Pep 74628 pg/mL (0-900) H 09/23/20 12:43 Total Protein 7.6 g/dL (6.3-8.2) 09/23/20 12:43 Albumin 3.4 g/dL (3.9-5) L 09/23/20 12:43 Albumin/Globulin Ratio 0.8 % 09/23/20 12:43 Triglycerides 119 mg/dL (2-149) 09/23/20 12:43 Cholesterol 129 mg/dL (50-199) 09/23/20 12:43 LDL Cholesterol Direct 90 mg/dL (50-130) 09/23/20 12:43 HDL Cholesterol 39 mg/dL (40-59) L 09/23/20 12:43 Cholesterol/HDL Ratio 3.30 % 09/23/20 12:43 TSH 3.460 mlU/mL (0.270-4.200) 09/23/20 12:43 Arterial Blood Glucose 109 mg/dL (65-95) H 09/23/20 14:56 Salicylates < 0.3 mg/dL (2.8-20.0) L 09/23/20 12:43 Acetaminophen 5.0 ug/mL (10.0-30.0) L 09/23/20 12:43 Plasma/Serum Alcohol < 0.01 % (0-0.07) 09/23/20 12:43 Short CBC 09/23/20 09/24/20 Range/Units 12:43 05:11 WBC 10.7 10.8 (4.5-11.0) K/mm3 Hgb 16.1 H 15.2 H (10.1-14.3) gm/dl Hct 54.6 H 47.0 H D (30.3-42.9) % Plt Count 159 150 (140-440) K/mm3 BMP 09/23/20 09/24/20 12:43 05:11 Sodium 140 141 Potassium 3.6 3.2 L Chloride 88.5 L 95.3 L Carbon Dioxide 22 32 H D BUN 38 H 47 H Creatinine 2.1 H 1.7 H Glucose 82 103 H Calcium 9.5 9.2 Cardiac Enzymes 09/23/20 09/23/20 09/23/20 Range/Units 12:43 19:44 23:50 Troponin T 0.810 H* 1.110 H* D 0.857 H* D (0.00-0.029) ng/mL Liver Function 09/23/20 09/24/20 Range/Units 12:43 05:11 Total Bilirubin 0.80 0.90 (0.1-1.2) mg/dL AST 342 H 1860 H (5-40) units/L ALT 238 H 1230 H (7-56) units/L Alkaline Phosphatase 93 77 (35-129) units/L Albumin 3.4 L 3.3 L (3.9-5) g/dL Urine 09/23/20 Range/Units 15:47 Urine Color Yellow (Yellow) Urine pH 6.0 (5.0-7.0) Ur Specific [place] 1.017 (1.003-1.030) Urine Protein >500 (Negative) mg/dL Urine Glucose (UA) Neg (Negative) mg/dL - Imaging and Cardiology EKG: report reviewed Imaging and Cardiology: Chest x-ray Head CT Head CT and abdominal x-ray No acute findings Chest x-ray Satisfactory positioning of the ET in the superior gastric tube Stable cardiomegaly without any acute findings Assessment and Plan Assessment and plan: Critical care statement The high probability OF a clinically significant sudden or life-threatening deterioration of the cardiorespiratory system and endocrine system required my full and direct attention, intervention and postoperative management. The aggregate critical care time was 40 minutes. The time is in addition to time spent performing reported procedures but includes the followin: Data review and interpretation 2: Patient assessment and monitoring of vital signs 3: Documentation 4:: Medication orders and management Advance Directives: Yes (Full code) VTE prophylaxis?: Chemical Plan of care discussed with patient/family: Yes - Patient Problems (1) Acute respiratory failure with hypoxia Current Visit: Yes Status: Acute Plan to address problem: Patient has a combination of CHF and COPD Duo nebs and Solu-Medrol and IV antibiotics Lasix when blood pressure is stable Echocardiogram for ejection fraction (2) Acute on chronic HFrEF (heart failure with reduced ejection fraction) Current Visit: Yes Status: Acute Plan to address problem: IV Lasix and blood pressure stable Echocardiogram for ejection fraction Cardiology consult requested (3) Hepatic encephalopathy Current Visit: Yes Status: Acute Plan to address problem: Ammonia level increased Lactulose for now (4) COPD exacerbation Current Visit: Yes Status: Acute Plan to address problem: Duo nebs and IV Solu-Medrol and IV antibiotics Pulmonary consult requested (5) NSTEMI (non-ST elevated myocardial infarction) Current Visit: Yes Status: Acute Plan to address problem: Troponin is elevated CK with isoenzymes requested Lovenox weight-based in the meantime (6) Transaminitis Current Visit: Yes Status: Acute Plan to address problem: Possibly secondary to hepatic congestion/CHF (7) ISIS (acute kidney injury) Current Visit: Yes Status: Acute Plan to address problem: Nephrology consult (8) DVT prophylaxis Current Visit: Yes Status: Acute Plan to address problem: On Lovenox and GI prophylaxis
[2020-09-23] MEDS ORDERED: SODIUM CHLORIDE 0.9% 1000 ML 1,000 ML IV SCH (16:15)
--- NOTE | 2020-09-23 16:22 | XRay Report ---
CHEST 1 VIEW 09/23/2020 3:13 PM INDICATION / CLINICAL INFORMATION: ETT placement. COMPARISON: One view of the chest performed earlier today. FINDINGS: SUPPORT DEVICES: An ET tube has been placed with the tip located 506 cm above the sarwat. An esophago gastric tube has been placed with the most distal visualized portion projecting over the gastric fund us laterally. HEART / MEDIASTINUM: Stable. LUNGS / PLEURA: No significant pulmonary abnormality. No significant pleural effusion. No pneumothora x. ADDITIONAL FINDINGS: No significant additional findings. IMPRESSION: 1. Satisfactory positioning of the ET and esophagogastric tubes. 2. Stable cardiomegaly without new acute findings. Signer Name: Jabari Swann MD Signed: 09/23/2020 4:17 PM Workstation Name: [id number]
[2020-09-23] MEDS ORDERED: ALBUTEROL 2.5 MG/3 ML NEBU IH PRN (16:38)
[2020-09-23] MEDS ORDERED: AZITHROMYCIN/NS 500 MG/250 ML 500 MG/250 ML BAG IV SCH (17:00)
[2020-09-23] MEDS ORDERED: ENOXAPARIN 30 MG/0.3 ML INJ SUB-Q SCH (17:00)
[2020-09-23] MEDS ORDERED: NORepinephrine/NS 8 MG-250 ML 8 MG/250 ML INFUS..BTL IV SCH (17:00)
[2020-09-23 17:10] LABS: Bacteria,Urine 1+ /HPF (Negative); Bilirubin,Urine NEG (Negative); Blood,Urine SM (Negative); Color,Urine Yellow (Yellow); Hyaline Casts,Urine 3 /LPF; Mucus,Urine FEW /HPF; RBC,Urine < 1.0 /HPF (0.0-6.0); Urobilinogen,Urine < 2.0 mg/dL (<2.0)
[2020-09-23 17:11] LABS: Protein,Urine >500 mg/dL (Negative)
[2020-09-23 17:19] LABS: Amphetamine Screen,Urine Negative; Benzodiazepines Screen,Urine Negative; Cannabinoid Screen,Urine Negative; Cocaine Screen,Urine Negative; Methadone Screen,Urine Negative; Opiate Screen,Urine Negative
[2020-09-23] MEDS: methylPREDNISolone Sod Succinate 125 MG/2 ML INJ IV SCH (17:22)
[2020-09-23 18:52] LABS: Anisocytosis RARE; Hypochromasia Rare; Total Cells Counted 100
[2020-09-23 18:53] LABS: Platelet Clumps Rare
[2020-09-23] MEDS: cefTRIAXone/NS 2 GM/100 ML 2 GM/100 ML BAG IV SCH (20:14)
[2020-09-23] MEDS: IPRATROPIUM/ALBUTEROL SULFATE 3 ML AMPUL.NEB IH SCH (20:41)
[2020-09-23] MEDS ORDERED: fentaNYL 100 MCG/2 ML INJ IV PRN (20:56)
[2020-09-23] MEDS ORDERED: fentaNYL DRIP Premix 2,000 MCG/100 ML BAG IV SCH (21:00)
[2020-09-23 21:01] LABS: C-Reactive Protein 2.1 mg/dL (0.00-1.30)
[2020-09-23] MEDS ORDERED: FAMOTIDINE 20 MG/2 ML INJ IV SCH (22:00)
[2020-09-23] MEDS: hydrALAZINE 20 MG/1 ML INJ IV PRN (23:30)
--- NOTE | 2020-09-24 02:46 | XRay Report ---
. CHEST - 1 VIEW INDICATION: follow up respiratory failure COMPARISON: Yesterday FINDINGS: SUPPORT DEVICES: Stable support device positioning. HEART: Stable cardiomediastinal silhouette. Cardiomegaly. LUNGS/PLEURA: Clear lungs. ADDITIONAL FINDINGS: None. IMPRESSION: Unchanged exam. Signer Name: Steven Blas MD Signed: 09/24/2020 2:42 AM Workstation Name: [id number]
[2020-09-24] MEDS: hydrALAZINE 20 MG/1 ML INJ IV PRN ×2 (04:25→07:50)
[2020-09-24] MEDS: methylPREDNISolone Sod Succinate 125 MG/2 ML INJ IV SCH ×2 (05:22)
[2020-09-24 05:57] LABS: Basophils % (Auto) 0.2 % (0.0-1.8); Eosinophils % (Auto) 0.1 % (0.0-4.3); Hemoglobin 15.2 gm/dl (10.1-14.3); Lymphocytes # (Auto) 1.4 K/mm3 (1.2-5.4); Lymphocytes % (Auto) 13.1 % (13.4-35.0); Mean Corpuscular HGB Conc 32 % (30-34); Mean Corpuscular Volume 84 fl (79-97); Monocytes # (Auto) 0.3 K/mm3 (0.0-0.8); Monocytes % (Auto) 2.5 % (0.0-7.3); Platelet Count 150 K/mm3 (140-440); Red Blood Count 5.57 M/mm3 (3.65-5.03); Red Cell Distribution Width 16.5 % (13.2-15.2)
[2020-09-24 06:22] LABS: Albumin 3.3 g/dL (3.9-5); Calcium 9.2 mg/dL (8.4-10.2)
[2020-09-24] MEDS: IPRATROPIUM/ALBUTEROL SULFATE 3 ML AMPUL.NEB IH SCH (07:30)
[2020-09-24] MEDS: SENNOSIDES/DOCUSATE SODIUM 8.6/50 MG TAB FEEDTUBE SCH ×2 (07:43→09:13)
[2020-09-24] MEDS ORDERED: POTASSIUM CHLORIDE ER 20 MEQ TAB PO SCH (08:00)
[2020-09-24] MEDS ORDERED: POTASSIUM CHLORIDE ER 20 MEQ TAB PO ONE (08:00)
[2020-09-24] MEDS ORDERED: POTASSIUM CHLORIDE 20 MEQ PACKET FEEDTUBE ONE (08:00)
[2020-09-24] MEDS ORDERED: LACTULOSE 20 GM/30 ML ORAL LIQD PO SCH (08:00)
[2020-09-24] MEDS: NICOTINE 14 MG/24 HR PATCH TD SCH (09:13)
[2020-09-24] MEDS: FAMOTIDINE 20 MG/2 ML INJ IV SCH (09:14)
[2020-09-24] MEDS: LOSARTAN 25 MG TAB PO SCH (09:14)
[2020-09-24] MEDS: cefTRIAXone/NS 2 GM/100 ML 2 GM/100 ML BAG IV SCH (09:14)
[2020-09-24] MEDS: amLODIPine 5 MG TAB PO SCH (09:20)
--- NOTE | 2020-09-24 09:20 | Electrocardiograph Report ---
[facility] Test Date: 2020-09-23 Test Time: 12:46:41 Pat Name: GENNY ANDERSON Department: Room: A253 Gender: F Pickle Sorter: ARI : 1960 Requested By: KIERRA VILLANUEVA Order Number: [id number] Reading MD: John Stephens Measurements Intervals [place] Rate: 109 P: 87 MT: 178 QRS: 107 QRSD: 108 T: 24 QT: 359 QTc: 483 Interpretive Statements Sinus tachycardia Probable left atrial enlargement Inferior infarct, old nonspecific st-t No previous ECG available for comparison Electronically Signed On 09-24-2020 9:20:19 EDT by John Stephens
[2020-09-24] MEDS ORDERED: ENOXAPARIN 120 MG/0.8 ML INJ SUB-Q SCH (10:00)
[2020-09-24 11:24] LABS: Creatine Kinase MB 72.8 ng/mL (0.0-4.0)
[2020-09-24] MEDS ORDERED: SODIUM BICARBONATE 325 MG TAB FEEDTUBE PRN (11:30)
[2020-09-24] MEDS ORDERED: LIPASE 10,500/PROTEASE 25,000/AMYLASE 43,750 (UNITS) DR CAP FEEDTUBE PRN (11:30)
[2020-09-24] MEDS ORDERED: SIMPLE SYRUP 15 ML FEEDTUBE PRN ×2 (11:30)
[2020-09-24 12:01] LABS: C-Reactive Protein 2.2 mg/dL (0.00-1.30)
--- NOTE | 2020-09-24 13:38 | Progress Note ---
Assessment and Plan Await COVID-19 testing. Echo pending results of COVID-19 test. Continue IV diuresis with close monitoring of volume status. KCl repletion underway per Primary. No BB due to documented allergy. Continue home Losartan as BP permits. Pt noted to have normal coronaries via cath 01/2019. No reports of chest pain. ECG reveals no acute ischemic changes. CE elevation appears consistent with NSTEMI Type 2. Continue to trend cardiac enzymes. Heparin gtt not recommended at this time. Pt seen in conjunction with Dr. Stephens, who agrees with the assessment and plan of care. - Patient Problems (1) Acute encephalopathy Current Visit: Yes Status: Acute (2) Hypotension Current Visit: Yes Status: Acute Qualifiers: Hypotension type: unspecified hypotension type Qualified Code(s): I95.9 - Hypotension, unspecified (3) Acute respiratory failure Current Visit: Yes Status: Acute (4) Acute on chronic HFrEF (heart failure with reduced ejection fraction) Current Visit: Yes Status: Acute (5) NICM (nonischemic cardiomyopathy) Current Visit: Yes Status: Chronic (6) ISIS (acute kidney injury) Current Visit: Yes Status: Acute (7) Elevated LFTs Current Visit: Yes Status: Acute (8) NSTEMI (non-ST elevated myocardial infarction) Current Visit: Yes Status: Acute (9) Obesity hypoventilation syndrome Current Visit: Yes Status: Chronic (10) Tobacco abuse Current Visit: Yes Status: Chronic (11) Medical non-compliance Current Visit: Yes Status: Chronic Subjective Date of service: 09/24/20 Principal diagnosis: A/C HFrEF Interval history: No acute events reported overnight. Levo gtt on hold upon assessment this AM. Tele reviewed - SR 100s w/occasional PVCs. Objective Last Vital Signs Temp 98.9 F 09/24/20 12:20 Pulse 113 H 09/24/20 13:01 Resp 22 09/24/20 13:01 BP 115/76 09/24/20 13:01 Pulse Ox 95 09/24/20 13:01 - Physical Examination General: Other (intubated) HEENT: Positive: Normocephaly Neck: Positive: neck supple, trachea midline Cardiac: Positive: Reg Rate and Rhythm, S1/S2 Lungs: Positive: Ventilated Respirations Neuro: Positive: Other (intubated) Abdomen: Positive: Soft Skin: Positive: Rash Extremities: Present: lower extr. pulses, +2 Edema (BLE) - Labs and Meds Cardiac Enzymes 09/23/20 09/23/20 09/24/20 Range/Units 12:43 19:44 05:11 AST 342 H 1860 H (5-40) units/L Lactate Dehydrogenase 1543 H (91-180) units/L CK-MB (CK-2) (0.0-4.0) ng/mL 09/24/20 09/24/20 Range/Units 05:11 05:11 AST (5-40) units/L Lactate Dehydrogenase 1357 H (91-180) units/L CK-MB (CK-2) 72.8 H (0.0-4.0) ng/mL Coagulation 09/23/20 Range/Units 14:45 PT 21.7 H (12.2-14.9) Sec. INR 1.83 H (0.87-1.13) APTT 37.0 H (24.2-36.6) Sec. Lipids 09/23/20 Range/Units 12:43 Triglycerides 119 (2-149) mg/dL Cholesterol 129 (50-199) mg/dL HDL Cholesterol 39 L (40-59) mg/dL Cholesterol/HDL Ratio 3.30 % CBC 09/23/20 09/24/20 Range/Units 12:43 05:11 WBC 10.7 10.8 (4.5-11.0) K/mm3 RBC 5.85 H 5.57 H (3.65-5.03) M/mm3 Hgb 16.1 H 15.2 H (10.1-14.3) gm/dl Hct 54.6 H 47.0 H D (30.3-42.9) % Plt Count 159 150 (140-440) K/mm3 Lymph # (Auto) 1.4 (1.2-5.4) K/mm3 [place] # (Auto) 0.3 (0.0-0.8) K/mm3 Eos # (Auto) 0.0 (0.0-0.4) K/mm3 Baso # (Auto) 0.0 (0.0-0.1) K/mm3 Comprehensive Metabolic Panel 09/23/20 09/24/20 Range/Units 12:43 05:11 Sodium 140 141 (137-145) mmol/L Potassium 3.6 3.2 L (3.6-5.0) mmol/L Chloride 88.5 L 95.3 L (98-107) mmol/L Carbon Dioxide 22 32 H D (22-30) mmol/L BUN 38 H 47 H (7-17) mg/dL Creatinine 2.1 H 1.7 H (0.6-1.2) mg/dL Glucose 82 103 H (65-100) mg/dL Calcium 9.5 9.2 (8.4-10.2) mg/dL AST 342 H 1860 H (5-40) units/L ALT 238 H 1230 H (7-56) units/L Alkaline Phosphatase 93 77 (35-129) units/L Total Protein 7.6 7.0 (6.3-8.2) g/dL Albumin 3.4 L 3.3 L (3.9-5) g/dL - Imaging and Cardiology EKG: report reviewed Echo: report reviewed (06/2018 - EF 20-25%, mild LVH, restrictive diastolic filling, LA mod dilated, RV systolic fxn mod reduced, IVC dilated with < 50% resp change noted) Cardiac cath: report reviewed (01/2019 - normal coronaries, mod-severe LV dysfxn) - Telemetry EKG Rhythm: Sinus Tachycardia - EKG Sinus rhythms and dysrhythmias: sinus rhythm Repolarization changes or abnormalities: nonspecific abnormality, ST segment, and/or T wave - Allied health notes Allied health notes reviewed: nursing
--- NOTE | 2020-09-24 13:40 | Progress Note ---
Assessment and Plan Assessment and plan: This is a 59-year-old female with CHF, HTN, hyperlipidemia ,current nicotine smoker, cardiomyopahty, OHS, s/p vaccination for COVID 19 who presents the emergency department for altered mental status and received narcan with some improvement to mental status. Neuro: Acute metabolic encephalopathy, hepatic encephalopathy -CT head completed, see report -Sedated with Versed-> changed to fentanyl and propofol as needed -RASS goal 0 to -1 -Avoid delirium -Reorientation as needed Cardiology: Acute on Chronic HFrEF, NSTEMI type II h/o cardiomyopathy, HTN, hyperlipidemia -Cardiology consulted, appreciate recommendations -Per cardiology: Echocardiogram 06/2018 with a EF of 20-25% and left heart cath 01/2019 with normal coronaries and moderate to severe left ventricular dysfunction -Echocardiogram pending -Trend cardiac enzymes -Blood pressure monitor per protocol -Currently on Cozaar with amlodipine added this morning for persistent hypertension -s/p Levophed gtt for hypotension in the emergency department -Admit proBNP [id number] -Currently on IV Lasix -As needed hydralazine -Blood pressure monitoring per protocol Respiratory: Acute hypercarbic respiratory failure, current tobacco abuse, h/o ohs -S/p nonrebreather in the ED -Intubated in the emergency department on 09/23 -VAP bundle -Serial ABGs and CXR -09/24 ABG and CXR reviewed -[facility] made changes to vent setting -Possible extubation today -Continue SPO2 monitoring -nicotine patch -CXR reviewed GI: MO, transaminitis -Abdominal XR reviewed -Lipase pending -Trend LFTs -Abdominal ultrasound pending : Acute kidney injury 2/2 VMN, hypokalemia -Replete potassium -Strict intake and output -Urine lites pending -Daily weights -Avoid nephrotoxic medications and renally dose medications -Trend CMP Endo: h/o DM -Hemoglobin A1c 6.3 -SSI -Accu-Cheks every 6 for now, AC at bedtime post extubation and when on diet -Avoid hypoglycemia ID: Covid-19 PUI -COVID-19 PCR pending -Isolation/droplet precautions -Trend COVID-19 from 2 markers if positive -Pulmonary hygiene -Was on azithromycin and ceftriaxone -Infectious disease consult if positive Heme: Supratherapeutic INR, h/o ohs -Trend CBC and INR -Transfuse for hemoglobin less than 7 -SCDs to bilateral cities while in bed -Heparin subcu The high probability of a clinically significant, sudden or life threatening deterioration of the [resp/cardio] system(s) required my full and direct attention, intervention and personal management. The aggregate critical care time was [60] minutes. This time is in addition to time spent performing reported procedures but includes the following: [x] Data Review and interpretation [x] Patient assessment and monitoring of vital signs [x] Documentation [x] Medication orders and management Disposition Plan: ICU Total Time Spent with Patient (Minutes): 60 History Interval history: This is a 59-year-old female with CHF, HTN, hyperlipidemia ,current nicotine smoker, cardiomyopahty, OHS, s/p vaccination for COVID 19 who presents the emergency department for altered mental status and received narcan with some improvement to mental status. Per patient's she became increasingly confused throughout the day which prompted presentation and patient had mild improvement to responsiveness with Narcan. Patient was intubated for severe hypercapnia on ABG while on a nonrebreather. Work-up in the emergency department revealed acute kidney injury, transaminitis, hyperammonemia, elevated proBNP with elevated troponins. Patient was admitted to the hospitalist service as a COVID-19 PUI with elevated cardiac enzymes, acute on chronic CHF and acute hypercapnic respiratory failure. Consults were placed to cardiology and CCM. 09/24: Possible extubation today, Covid 19 PCR pending. Added amlodipine for htn. PICC line ordered today Hospitalist Physical - Constitutional Vitals: Temp Pulse Resp BP Pulse Ox 98.9 F 113 H 22 115/76 95 09/24/20 12:20 09/24/20 13:01 09/24/20 13:01 09/24/20 13:01 09/24/20 13:01 General appearance: Present: well-nourished HEART Score - HEART Score Age: 45-65 Risk factors: > 3 risk factors or hx of atherosclerotic disease Troponin: Troponin T 0.857 ng/mL (0.00-0.029) H* D 09/23/20 23:50 Troponin: > 3x normal limit Results - Labs CBC & Chem 7: 09/24/20 05:11 09/24/20 05:11 Labs: Laboratory Last Values WBC 10.8 K/mm3 (4.5-11.0) 09/24/20 05:11 RBC 5.57 M/mm3 (3.65-5.03) H 09/24/20 05:11 Hgb 15.2 gm/dl (10.1-14.3) H 09/24/20 05:11 Hct 47.0 % (30.3-42.9) H D 09/24/20 05:11 MCV 84 fl (79-97) 09/24/20 05:11 MCH 27 pg (28-32) L 09/24/20 05:11 MCHC 32 % (30-34) 09/24/20 05:11 RDW 16.5 % (13.2-15.2) H 09/24/20 05:11 Plt Count 150 K/mm3 (140-440) 09/24/20 05:11 Lymph % (Auto) 13.1 % (13.4-35.0) L 09/24/20 05:11 [place] % (Auto) 2.5 % (0.0-7.3) 09/24/20 05:11 Eos % (Auto) 0.1 % (0.0-4.3) 09/24/20 05:11 Baso % (Auto) 0.2 % (0.0-1.8) 09/24/20 05:11 Lymph # (Auto) 1.4 K/mm3 (1.2-5.4) 09/24/20 05:11 [place] # (Auto) 0.3 K/mm3 (0.0-0.8) 09/24/20 05:11 Eos # (Auto) 0.0 K/mm3 (0.0-0.4) 09/24/20 05:11 Baso # (Auto) 0.0 K/mm3 (0.0-0.1) 09/24/20 05:11 Add Manual Diff Complete 09/23/20 12:43 Total Counted 100 09/23/20 12:43 Seg Neutrophils % 84.1 % (40.0-70.0) H 09/24/20 05:11 Seg Neuts % (Manual) 83.0 % (40.0-70.0) H 09/23/20 12:43 Lymphocytes % (Manual) 13.0 % (13.4-35.0) L 09/23/20 12:43 Monocytes % (Manual) 4.0 % (0.0-7.3) 09/23/20 12:43 Nucleated RBC % 2.0 % (0.0-0.9) H 09/23/20 12:43 Seg Neutrophils # 9.1 K/mm3 (1.8-7.7) H 09/24/20 05:11 Seg Neutrophils # Man 8.9 K/mm3 (1.8-7.7) H 09/23/20 12:43 Band Neutrophils # 0.0 K/mm3 09/23/20 12:43 Lymphocytes # (Manual) 1.4 K/mm3 (1.2-5.4) 09/23/20 12:43 Abs React Lymphs (Man) 0.0 K/mm3 09/23/20 12:43 Monocytes # (Manual) 0.4 K/mm3 (0.0-0.8) 09/23/20 12:43 Eosinophils # (Manual) 0.0 K/mm3 (0.0-0.4) 09/23/20 12:43 Basophils # (Manual) 0.0 K/mm3 (0.0-0.1) 09/23/20 12:43 Metamyelocytes # 0.0 K/mm3 09/23/20 12:43 Myelocytes # 0.0 K/mm3 09/23/20 12:43 Promyelocytes # 0.0 K/mm3 09/23/20 12:43 Blast Cells # 0.0 K/mm3 09/23/20 12:43 WBC Morphology Not Reportable 09/23/20 12:43 Hypersegmented Neuts Not Reportable 09/23/20 12:43 Hyposegmented Neuts Not Reportable 09/23/20 12:43 Hypogranular Neuts Not Reportable 09/23/20 12:43 Smudge Cells Not Reportable 09/23/20 12:43 Toxic Granulation Not Reportable 09/23/20 12:43 Toxic Vacuolation Not Reportable 09/23/20 12:43 Dohle Bodies Not Reportable 09/23/20 12:43 Pelger-Huet Anomaly Not Reportable 09/23/20 12:43 Clarissa Rods Not Reportable 09/23/20 12:43 Platelet Estimate Not Reportable 09/23/20 12:43 Clumped Platelets Rare 09/23/20 12:43 Plt Clumps, EDTA Not Reportable 09/23/20 12:43 Large Platelets Not Reportable 09/23/20 12:43 Giant Platelets Not Reportable 09/23/20 12:43 Platelet Satelliting Not Reportable 09/23/20 12:43 Plt Morphology Comment Not Reportable 09/23/20 12:43 RBC Morphology Not Reportable 09/23/20 12:43 Dimorphic RBCs Not Reportable 09/23/20 12:43 Polychromasia Not Reportable 09/23/20 12:43 Hypochromasia Rare 09/23/20 12:43 Poikilocytosis Not Reportable 09/23/20 12:43 Anisocytosis Rare 09/23/20 12:43 Microcytosis Few 09/23/20 12:43 Macrocytosis Not Reportable 09/23/20 12:43 Spherocytes Not Reportable 09/23/20 12:43 Pappenheimer Bodies Not Reportable 09/23/20 12:43 Sickle Cells Not Reportable 09/23/20 12:43 Target Cells Not Reportable 09/23/20 12:43 Tear Drop Cells Not Reportable 09/23/20 12:43 Ovalocytes Not Reportable 09/23/20 12:43 Helmet Cells Not Reportable 09/23/20 12:43 [place] Bodies Not Reportable 09/23/20 12:43 [place] Rings Not Reportable 09/23/20 12:43 [place] Cells Not Reportable 09/23/20 12:43 Bite Cells Not Reportable 09/23/20 12:43 Crenated Cell Not Reportable 09/23/20 12:43 Elliptocytes Not Reportable 09/23/20 12:43 Acanthocytes (Spur) Not Reportable 09/23/20 12:43 Rouleaux Not Reportable 09/23/20 12:43 Hemoglobin C Crystals Not Reportable 09/23/20 12:43 Schistocytes Not Reportable 09/23/20 12:43 Malaria parasites Not Reportable 09/23/20 12:43 Dieter Bodies Not Reportable 09/23/20 12:43 Hem Pathologist Commnt No 09/23/20 12:43 PT 21.7 Sec. (12.2-14.9) H 09/23/20 14:45 INR 1.83 (0.87-1.13) H 09/23/20 14:45 APTT 37.0 Sec. (24.2-36.6) H 09/23/20 14:45 ABG pH 7.628 (7.320-7.450) H 09/24/20 04:01 POC ABG pCO2 28.7 mmHg (32.0-48.0) L 09/24/20 04:01 POC ABG pO2 65.7 mmHg (83-108) L 09/24/20 04:01 POC ABG HCO3 29.4 09/24/20 04:01 ABG O2 Saturation 95.3 (0-100) 09/24/20 04:01 POC ABG Base Excess 8.9 09/24/20 04:01 ABG Hemoglobin 15.8 (12.0-17.5) 09/24/20 04:01 ABG Oxyhemoglobin 93.5 (94-98) L 09/24/20 04:01 ABG Methemoglobin 0.3 (0.0-1.5) 09/24/20 04:01 ABG Sodium 135.1 mmol/L (136.0-145.0) L 09/24/20 04:01 ABG Potassium 3.1 mmol/L (3.40-4.50) L 09/24/20 04:01 ABG Chloride 98.0 mmol/L (98-107) 09/24/20 04:01 ABG Glucose 116 mg/dL (65-95) H 09/24/20 04:01 Carboxyhemoglobin 1.6 (0.5-1.5) H 09/24/20 04:01 FiO2 % 50.0 09/24/20 04:01 Sodium 141 mmol/L (137-145) 09/24/20 05:11 Potassium 3.2 mmol/L (3.6-5.0) L 09/24/20 05:11 Chloride 95.3 mmol/L (98-107) L 09/24/20 05:11 Carbon Dioxide 32 mmol/L (22-30) H D 09/24/20 05:11 Anion Gap 17 mmol/L 09/24/20 05:11 BUN 47 mg/dL (7-17) H 09/24/20 05:11 Creatinine 1.7 mg/dL (0.6-1.2) H 09/24/20 05:11 Estimated GFR 37 ml/min 08/13/21 05:11 BUN/Creatinine Ratio 28 % 09/24/20 05:11 Glucose 103 mg/dL (65-100) H 09/24/20 05:11 POC Glucose 128 mg/dL (70-105) H 09/24/20 11:46 Hemoglobin A1c 6.3 % (4-6) H 09/23/20 Unknown Calcium 9.2 mg/dL (8.4-10.2) 09/24/20 05:11 Ferritin 188.5 ng/mL (10.0-200.0) 09/23/20 19:44 Total Bilirubin 0.90 mg/dL (0.1-1.2) 09/24/20 05:11 AST 1860 units/L (5-40) H 09/24/20 05:11 ALT 1230 units/L (7-56) H 09/24/20 05:11 Alkaline Phosphatase 77 units/L (35-129) 09/24/20 05:11 Ammonia 127.0 umol/L (25-60) H 09/23/20 12:43 Lactate Dehydrogenase 1357 units/L (91-180) H 09/24/20 05:11 Total Creatine Kinase 263 units/L (30-135) H 09/24/20 05:11 CK-MB (CK-2) 72.8 ng/mL (0.0-4.0) H 09/24/20 05:11 CK-MB (CK-2) Rel Index 27.6 (0-4) H 09/24/20 05:11 Troponin T 0.857 ng/mL (0.00-0.029) H* D 09/23/20 23:50 C-Reactive Protein 2.20 mg/dL (0.00-1.30) H 09/24/20 05:11 NT-Pro-B Natriuret Pep 58068 pg/mL (0-900) H 09/23/20 12:43 Total Protein 7.0 g/dL (6.3-8.2) 09/24/20 05:11 Albumin 3.3 g/dL (3.9-5) L 09/24/20 05:11 Albumin/Globulin Ratio 0.9 % 09/24/20 05:11 Triglycerides 119 mg/dL (2-149) 09/23/20 12:43 Cholesterol 129 mg/dL (50-199) 09/23/20 12:43 LDL Cholesterol Direct 90 mg/dL (50-130) 09/23/20 12:43 HDL Cholesterol 39 mg/dL (40-59) L 09/23/20 12:43 Cholesterol/HDL Ratio 3.30 % 09/23/20 12:43 TSH 3.460 mlU/mL (0.270-4.200) 09/23/20 12:43 Arterial Blood Glucose 116 mg/dL (65-95) H 09/24/20 04:01 Arterial Blood Ionized Calcium 4.2 mg/dL (4.6-5.3) L 09/24/20 04:01 Urine Color Yellow (Yellow) 09/23/20 15:47 Urine Turbidity Slightly-cloudy (Clear) 09/23/20 15:47 Urine pH 6.0 (5.0-7.0) 09/23/20 15:47 Ur Specific [place] 1.017 (1.003-1.030) 09/23/20 15:47 Urine Protein >500 mg/dL (Negative) 09/23/20 15:47 Urine Glucose (UA) Neg mg/dL (Negative) 09/23/20 15:47 Urine Ketones Neg mg/dL (Negative) 09/23/20 15:47 Urine Blood Sm (Negative) 09/23/20 15:47 Urine Nitrite Neg (Negative) 09/23/20 15:47 Urine Bilirubin Neg (Negative) 09/23/20 15:47 Urine Urobilinogen < 2.0 mg/dL (<2.0) 09/23/20 15:47 Ur Leukocyte Esterase Neg (Negative) 09/23/20 15:47 Urine WBC (Auto) 1.0 /HPF (0.0-6.0) 09/23/20 15:47 Urine RBC (Auto) < 1.0 /HPF (0.0-6.0) 09/23/20 15:47 U Epithel Cells (Auto) 4.0 /HPF (0-13.0) 09/23/20 15:47 Urine Bacteria (Auto) 1+ /HPF (Negative) 09/23/20 15:47 Hyaline Casts 3 /LPF 09/23/20 15:47 Urine Mucus Few /HPF 09/23/20 15:47 Salicylates < 0.3 mg/dL (2.8-20.0) L 09/23/20 12:43 Urine Opiates Screen Negative 09/23/20 15:47 Urine Methadone Screen Negative 09/23/20 15:47 Acetaminophen 5.0 ug/mL (10.0-30.0) L 09/23/20 12:43 Ur Barbiturates Screen Negative 09/23/20 15:47 Ur Phencyclidine Scrn Negative 09/23/20 15:47 Ur Amphetamines Screen Negative 09/23/20 15:47 U Benzodiazepines Scrn Negative 09/23/20 15:47 Urine Cocaine Screen Negative 09/23/20 15:47 U Marijuana (THC) Screen Negative 09/23/20 15:47 Drugs of Abuse Note Disclamer 09/23/20 15:47 Plasma/Serum Alcohol < 0.01 % (0-0.07) 09/23/20 12:43 Mason/IV: Voiding Method Indwelling Catheter Active Medications - Current Medications Current Medications: Generic Name Dose Route Start Last Admin Trade Name Freq PRN Reason Stop Dose Admin Acetaminophen 650 mg 09/23/20 16:11 Acetaminophen 325 Mg Tab PO Q4H PRN Pain MILD(1-3)/Fever >100.5/BENITEZ Albuterol 2.5 mg 09/23/20 16:38 Albuterol 2.5 Mg/3 Ml Nebu IH Q3HRT PRN Wheezing Amlodipine Besylate 5 mg 09/24/20 10:00 09/24/20 09:20 Amlodipine 5 Mg Tab PO 5 mg QDAY JIMI Administration Lipase/Protease/Amylase 1 each 09/24/20 11:30 Lipase 10,500/Protease 25,000/Amylase 43,750 (Units) Dr Moreno FEEDTUBE PRN PRN For Clogged Feeding Tube Enoxaparin Sodium 120 mg 09/24/20 10:00 09/24/20 09:13 Enoxaparin 120 Mg/0.8 Ml Inj SUB-Q 120 mg Q12HR JIMI Administration Protocol Famotidine 20 mg 09/24/20 10:00 09/24/20 09:14 Famotidine 20 Mg/2 Ml Inj IV 20 mg BID JIMI Administration Fentanyl 50 mcg 09/23/20 20:56 Fentanyl 100 Mcg/2 Ml Inj IV Q10MIN PRN ANALGESIA Furosemide 40 mg 09/24/20 18:00 Furosemide 40 Mg/4 Ml Inj IV 0600,1800 JIMI Hydralazine HCl 10 mg 09/23/20 16:14 09/24/20 07:50 Hydralazine 20 Mg/1 Ml Inj IV 10 mg Q3H PRN Administration Hypertension Hydrophilic Ointment 1 applic 09/23/20 15:28 Lip Therapy Vaseline TP Q2HR PRN Dry Lips NORepinephrine/NS 8 MG-250 ML 8 mg in 250 mls @ 3.75 mls/hr 09/23/20 17:00 09/23/20 15:45 Norepinephrine/Ns 8 Mg-250 Ml (Double Conc) IV 6 mcg/min TITRATE JIMI 11.25 mls/hr Administration Protocol 2 MCG/MIN Propofol 1,000 mg in 100 mls @ 3.742 mls/hr 09/24/20 10:00 09/24/20 13:15 Diprivan 10 Mg/Ml IV 0 mcg/kg/min TITR JIMI 0 mls/hr Titration Protocol 5 MCG/KG/MIN Losartan Potassium 25 mg 09/24/20 10:00 09/24/20 09:14 Losartan 25 Mg Tab PO 25 mg QDAY JIMI Administration Metoclopramide HCl 10 mg 09/23/20 16:11 Metoclopramide 10 Mg/2 Ml Inj IV Q6H PRN Nausea And Vomiting Morphine Sulfate 2 mg 09/23/20 16:11 Morphine 2 Mg/1 Ml Inj IV Q4H PRN Pain, Moderate (4-6) Multi-Ingred Cream/Lotion/Oil/Oint 1 applic 09/23/20 15:28 Mineral Oil/Petrolatum, White Ophth Oint 3.5 Gm OU Q4HR PRN Dry Eye(s) Nicotine 14 mg 09/24/20 10:00 09/24/20 09:13 Nicotine 14 Mg/24 Hr Patch TD 14 mg QDAY JIMI Administration Ondansetron HCl 4 mg 09/23/20 16:11 Ondansetron 4 Mg/2 Ml Inj IV Q8H PRN Nausea And Vomiting Senna/Docusate Sodium 1 tab 09/23/20 22:00 09/24/20 09:13 Sennosides/Docusate Sodium 8.6/50 Mg Tab FEEDTUBE 1 tab BID JIMI Administration Simple Syrup 15 ml 09/24/20 11:30 Simple Syrup 15 Ml FEEDTUBE PRN PRN Hypoglycemia Simple Syrup 30 ml 09/24/20 11:30 Simple Syrup 15 Ml FEEDTUBE PRN PRN Hypoglycemia Sodium Bicarbonate 325 mg 09/24/20 11:30 Sodium Bicarbonate 325 Mg Tab FEEDTUBE PRN PRN For Clogged Feeding Tube Sodium Chloride 10 ml 09/23/20 22:00 09/24/20 09:14 Sodium Chloride 0.9% 10 Ml Flush Syringe IV 10 ml BID JIMI Administration Sodium Chloride 10 ml 09/23/20 16:11 Sodium Chloride 0.9% 10 Ml Flush Syringe IV PRN PRN LINE FLUSH Nutrition/Malnutrition Assess - Dietary Evaluation Nutrition/Malnutrition Findings: Nutrition Notes Start: 09/24/20 07:40 Freq: Status: Active Protocol: Document 09/24/20 07:40 ADAMA (Rec: 09/24/20 07:51 ADAMA [id number]) Nutrition Notes Need for Assessment generated from: MD Order Initial or Follow up Assessment Current Diagnosis Acute Kidney Injury,COPD, Hypertension,Heart Failure, Respiratory Failure Other Pertinent Diagnosis NSTEMI, transaminitis, hepatic encephalopathy Current Diet No diet Labs/Tests K 3.2 BUN 47 Cr 1.7 AST 1860 ALT 1230 Pertinent Medications NS at 75 ml/hr Solu Medrol Norepinephrine Height 5 ft 6 in Weight 124.738 kg [place] Body Weight (kg) 59.09 BMI 44.4 Weight Status Morbidly Obese Subjective/Other Information MD consult to eval intakes and TF. Pt on vent. Burn Absent Trauma Absent Current % PO Negligible Minimum of two criteria No physical signs of malnutrition #1 Nutrition Diagnosis Inadequate oral intake Etiology ARF As Evidenced by Signs and Symptoms pt on vent and unable to consume PO Is patient on ventilator? Yes Is Patient Ambulatory and/or Out of Bed No REE-([facility]-confined to bed) 2222.928 Kcal/Kg value to use for calculation 13 Approximate Energy Requirements Using 1622 kcal/Kg Calculation Used for Recommendations Kcal/kg Additional Notes Protein: (up to 2.5g/kg IBW) < 148g Fluid: 1 ml/kcal or per MD Nutrition Intervention Change Diet Order: Start TF Nutrition Support: Vital AF 1.2 at 55 ml/hr Flush 75 ml q4h or per MD Kcal 1,584 Protein (gm) 99 Carbohydrates (gm) 146 Fat (gm) 71 Fluid (mL) 1,071 Goal #1 Meet at least 75% of protein and energy needs via TF Anticipated Discharge Needs: Unable to determine at this time Follow-Up By: 09/27/20 Additional Comments F/u: TF start/tolerance
[2020-09-24 14:10] LABS: Creatine Kinase MB 47.8 ng/mL (0.0-4.0)
--- NOTE | 2020-09-24 15:25 | Consultation ---
History of Present Illness Consult date: 09/24/20 Requesting physician: NICO CASTILLO Reason for consult: hypoxemia History of present illness: 59 y/o morbidly obese female admitted via the ED for altered mental status. Developed hypotension overnight and was started on pressors. This was subsequently weaned without difficulty and now patient is hypotensive. Was sta rted on versed drip, this has since been stopped and patient was placed on diprovan at 10. No further history can be obtained as no family is present and patient is intubated. Past History Past Medical History: heart failure, hypertension, hyperlipidemia Past Surgical History: denies: valve replacement, CABG, PTCA Social history: smoking Family history: hypertension Medications and Allergies Allergies Allergy/AdvReac Type Severity Reaction Status Date / Time latex Allergy Rash Verified 08/12/18 09:10 lisinopril AdvReac Unknown Verified 01/08/19 09:45 Home Medications Medication Instructions Recorded Confirmed Last Taken Type diphenhydrAMINE [Benadryl CAP] 25 mg PO Q6HR PRN #20 capsule 08/13/18 01/06/19 Unknown Rx Furosemide [Lasix TAB] 40 mg PO BID #120 01/19/19 Unknown Rx Nicotine [Habitrol] 14 mg TD QDAY #30 patch 01/19/19 Unknown Rx Potassium Chloride [K-Dur] 40 meq PO QDAY #60 tablet 01/19/19 Unknown Rx diphenhydrAMINE/ZINC 2% [Banophen 1 applic TP Q8H PRN #1 tube 01/19/19 Unknown Rx Anti-Itch] metOLazone [Zaroxolyn] 5 mg PO 0530 #60 tablet 01/19/19 Unknown Rx oxyCODONE /ACETAMINOPHEN [Percocet 1 tab PO Q6H PRN #14 tablet 01/19/19 Unknown Rx 5/325 mg] Losartan [Cozaar] 25 mg PO QDAY #30 tablet 01/20/19 Unknown Rx Triamcinolone 0.5% [Kenalog 0.5% 1 applic TP BID #1 tube 01/20/19 Unknown Rx CREAM] Active Meds: Active Medications Acetaminophen (Acetaminophen 325 Mg Tab) 650 mg PO Q4H PRN PRN Reason: Pain MILD(1-3)/Fever >100.5/BENITEZ Albuterol (Albuterol 2.5 Mg/3 Ml Nebu) 2.5 mg IH Q3HRT PRN PRN Reason: Wheezing Amlodipine Besylate (Amlodipine 5 Mg Tab) 5 mg PO QDAY JIMI Last Admin: 09/24/20 09:20 Dose: 5 mg Documented by: Lipase/Protease/Amylase (Lipase 10,500/Protease 25,000/Amylase 43,750 (Units) Dr Moreno) 1 each FEEDTUBE PRN PRN PRN Reason: For Clogged Feeding Tube Enoxaparin Sodium (Enoxaparin 120 Mg/0.8 Ml Inj) 120 mg SUB-Q Q12HR JIMI; Protocol Last Admin: 09/24/20 09:13 Dose: 120 mg Documented by: Famotidine (Famotidine 20 Mg/2 Ml Inj) 20 mg IV BID JIMI Last Admin: 09/24/20 09:14 Dose: 20 mg Documented by: Fentanyl (Fentanyl 100 Mcg/2 Ml Inj) 50 mcg IV Q10MIN PRN PRN Reason: ANALGESIA Furosemide (Furosemide 40 Mg/4 Ml Inj) 40 mg IV 0600,1800 JIMI Hydralazine HCl (Hydralazine 20 Mg/1 Ml Inj) 10 mg IV Q3H PRN PRN Reason: Hypertension Last Admin: 09/24/20 07:50 Dose: 10 mg Documented by: Hydrophilic Ointment (Lip Therapy Vaseline) 1 applic TP Q2HR PRN PRN Reason: Dry Lips NORepinephrine/NS 8 MG-250 ML (Norepinephrine/Ns 8 Mg-250 Ml (Double Conc)) 8 m g in 250 mls @ 3.75 mls/hr IV TITRATE JIMI; Protocol Last Admin: 09/23/20 15:45 Dose: 6 mcg/min, 11.25 mls/hr Documented by: Propofol (Diprivan 10 Mg/Ml) 1,000 mg in 100 mls @ 3.742 mls/hr IV TITR JIMI; Protocol Last Titration: 09/24/20 13:15 Dose: 0 mcg/kg/min, 0 mls/hr Documented by: Losartan Potassium (Losartan 25 Mg Tab) 25 mg PO QDAY JIMI Last Admin: 09/24/20 09:14 Dose: 25 mg Documented by: Metoclopramide HCl (Metoclopramide 10 Mg/2 Ml Inj) 10 mg IV Q6H PRN PRN Reason: Nausea And Vomiting Morphine Sulfate (Morphine 2 Mg/1 Ml Inj) 2 mg IV Q4H PRN PRN Reason: Pain, Moderate (4-6) Multi-Ingred Cream/Lotion/Oil/Oint (Mineral Oil/Petrolatum, White Ophth Oint 3.5 Gm) 1 applic OU Q4HR PRN PRN Reason: Dry Eye(s) Nicotine (Nicotine 14 Mg/24 Hr Patch) 14 mg TD QDAY [facility] Last Admin: 09/24/20 09:13 Dose: 14 mg Documented by: Ondansetron HCl (Ondansetron 4 Mg/2 Ml Inj) 4 mg IV Q8H PRN PRN Reason: Nausea And Vomiting Senna/Docusate Sodium (Sennosides/Docusate Sodium 8.6/50 Mg Tab) 1 tab FEEDTUBE BID [facility] Last Admin: 09/24/20 09:13 Dose: 1 tab Documented by: Simple Syrup (Simple Syrup 15 Ml) 15 ml FEEDTUBE PRN PRN PRN Reason: Hypoglycemia Simple Syrup (Simple Syrup 15 Ml) 30 ml FEEDTUBE PRN PRN PRN Reason: Hypoglycemia Sodium Bicarbonate (Sodium Bicarbonate 325 Mg Tab) 325 mg FEEDTUBE PRN PRN PRN Reason: For Clogged Feeding Tube Sodium Chloride (Sodium Chloride 0.9% 10 Ml Flush Syringe) 10 ml IV BID [facility] Last Admin: 09/24/20 09:14 Dose: 10 ml Documented by: Sodium Chloride (Sodium Chloride 0.9% 10 Ml Flush Syringe) 10 ml IV PRN PRN PRN Reason: LINE FLUSH Review of Systems ROS unobtainable: due to endotracheal tube, due to mental status Physical Examination Vital signs: Vital Signs Pulse Resp 106 H 14 09/23/20 11:19 09/23/20 11:19 General appearance: comatose Eyes: non-icteric ENT: other (orally intubated and sedated.) Neck: supple Effort: normal Ascultation: Bilateral: diminished breath sounds Percussion: Bilateral: not dull Cardiovascular: regular rate and rhythm Gastrointestinal: normoactive bowel sounds, other (morbidly obese) Results - Laboratory Findings CBC and BMP: 09/24/20 05:11 09/24/20 05:11 ABG ABG pH 7.628 (7.320-7.450) H 09/24/20 04:01 POC ABG pCO2 28.7 mmHg (32.0-48.0) L 09/24/20 04:01 POC ABG pO2 65.7 mmHg (83-108) L 09/24/20 04:01 POC ABG HCO3 29.4 09/24/20 04:01 ABG O2 Saturation 95.3 (0-100) 09/24/20 04:01 PT/INR, D-dimer PT 21.7 Sec. (12.2-14.9) H 09/23/20 14:45 INR 1.83 (0.87-1.13) H 09/23/20 14:45 Abnormal lab findings: Abnormal Labs 09/23/20 09/23/20 09/23/20 12:43 12:43 12:43 RBC 5.85 H Hgb 16.1 H Hct 54.6 H MCH MCHC 29 L RDW 17.8 H Lymph % (Auto) Seg Neutrophils % Seg Neuts % (Manual) 83.0 H Lymphocytes % (Manual) 13.0 L Nucleated RBC % 2.0 H Seg Neutrophils # Seg Neutrophils # Man 8.9 H PT INR APTT ABG pH POC ABG pCO2 POC ABG pO2 ABG Oxyhemoglobin ABG Sodium ABG Potassium ABG Chloride ABG Glucose Carboxyhemoglobin Potassium Chloride 88.5 L Carbon Dioxide BUN 38 H Creatinine 2.1 H Glucose POC Glucose Hemoglobin A1c AST 342 H ALT 238 H Ammonia 127.0 H Lactate Dehydrogenase Total Creatine Kinase CK-MB (CK-2) CK-MB (CK-2) Rel Index Troponin T 0.810 H* C-Reactive Protein NT-Pro-B Natriuret Pep 11495 H Albumin 3.4 L HDL Cholesterol 39 L Arterial Blood Glucose Arterial Blood Ionized Calcium Salicylates Acetaminophen 09/23/20 09/23/20 09/23/20 12:43 12:43 14:45 RBC Hgb Hct MCH MCHC RDW Lymph % (Auto) Seg Neutrophils % Seg Neuts % (Manual) Lymphocytes % (Manual) Nucleated RBC % Seg Neutrophils # Seg Neutrophils # Man PT 21.7 H INR 1.83 H APTT 37.0 H ABG pH POC ABG pCO2 POC ABG pO2 ABG Oxyhemoglobin ABG Sodium ABG Potassium ABG Chloride ABG Glucose Carboxyhemoglobin Potassium Chloride Carbon Dioxide BUN Creatinine Glucose POC Glucose Hemoglobin A1c AST ALT Ammonia Lactate Dehydrogenase Total Creatine Kinase CK-MB (CK-2) CK-MB (CK-2) Rel Index Troponin T C-Reactive Protein NT-Pro-B Natriuret Pep Albumin HDL Cholesterol Arterial Blood Glucose Arterial Blood Ionized Calcium Salicylates < 0.3 L Acetaminophen 5.0 L 09/23/20 09/23/20 09/23/20 14:56 15:34 17:14 RBC Hgb Hct MCH MCHC RDW Lymph % (Auto) Seg Neutrophils % Seg Neuts % (Manual) Lymphocytes % (Manual) Nucleated RBC % Seg Neutrophils # Seg Neutrophils # Man PT INR APTT ABG pH 7.062 L POC ABG pCO2 93.1 H POC ABG pO2 81.3 L ABG Oxyhemoglobin 92.2 L 93.5 L ABG Sodium 135.2 L ABG Potassium ABG Chloride 94.0 L 95.0 L ABG Glucose 109 H 114 H Carboxyhemoglobin 3.7 H 3.2 H Potassium Chloride Carbon Dioxide BUN Creatinine Glucose POC Glucose 114 H Hemoglobin A1c AST ALT Ammonia Lactate Dehydrogenase Total Creatine Kinase CK-MB (CK-2) CK-MB (CK-2) Rel Index Troponin T C-Reactive Protein NT-Pro-B Natriuret Pep Albumin HDL Cholesterol Arterial Blood Glucose 109 H 114 H Arterial Blood Ionized Calcium Salicylates Acetaminophen 09/23/20 09/23/20 09/23/20 19:44 19:44 23:50 RBC Hgb Hct MCH MCHC RDW Lymph % (Auto) Seg Neutrophils % Seg Neuts % (Manual) Lymphocytes % (Manual) Nucleated RBC % Seg Neutrophils # Seg Neutrophils # Man PT INR APTT ABG pH POC ABG pCO2 POC ABG pO2 ABG Oxyhemoglobin ABG Sodium ABG Potassium ABG Chloride ABG Glucose Carboxyhemoglobin Potassium Chloride Carbon Dioxide BUN Creatinine Glucose POC Glucose Hemoglobin A1c AST ALT Ammonia Lactate Dehydrogenase 1543 H Total Creatine Kinase CK-MB (CK-2) CK-MB (CK-2) Rel Index Troponin T 1.110 H* D 0.857 H* D C-Reactive Protein 2.10 H NT-Pro-B Natriuret Pep Albumin HDL Cholesterol Arterial Blood Glucose Arterial Blood Ionized Calcium Salicylates Acetaminophen 09/23/20 09/24/20 09/24/20 Unknown 04:01 05:11 RBC 5.57 H Hgb 15.2 H Hct 47.0 H D MCH 27 L MCHC RDW 16.5 H Lymph % (Auto) 13.1 L Seg Neutrophils % 84.1 H Seg Neuts % (Manual) Lymphocytes % (Manual) Nucleated RBC % Seg Neutrophils # 9.1 H Seg Neutrophils # Man PT INR APTT ABG pH 7.628 H POC ABG pCO2 28.7 L POC ABG pO2 65.7 L ABG Oxyhemoglobin 93.5 L ABG Sodium 135.1 L ABG Potassium 3.1 L ABG Chloride ABG Glucose 116 H Carboxyhemoglobin 1.6 H Potassium Chloride Carbon Dioxide BUN Creatinine Glucose POC Glucose Hemoglobin A1c 6.3 H AST ALT Ammonia Lactate Dehydrogenase Total Creatine Kinase CK-MB (CK-2) CK-MB (CK-2) Rel Index Troponin T C-Reactive Protein NT-Pro-B Natriuret Pep Albumin HDL Cholesterol Arterial Blood Glucose 116 H Arterial Blood Ionized Calcium 4.2 L Salicylates Acetaminophen 09/24/20 09/24/20 09/24/20 05:11 05:11 05:11 RBC Hgb Hct MCH MCHC RDW Lymph % (Auto) Seg Neutrophils % Seg Neuts % (Manual) Lymphocytes % (Manual) Nucleated RBC % Seg Neutrophils # Seg Neutrophils # Man PT INR APTT ABG pH POC ABG pCO2 POC ABG pO2 ABG Oxyhemoglobin ABG Sodium ABG Potassium ABG Chloride ABG Glucose Carboxyhemoglobin Potassium 3.2 L Chloride 95.3 L Carbon Dioxide 32 H D BUN 47 H Creatinine 1.7 H Glucose 103 H POC Glucose Hemoglobin A1c AST 1860 H ALT 1230 H Ammonia Lactate Dehydrogenase 1357 H Total Creatine Kinase 263 H CK-MB (CK-2) 72.8 H CK-MB (CK-2) Rel Index 27.6 H Troponin T C-Reactive Protein 2.20 H NT-Pro-B Natriuret Pep Albumin 3.3 L HDL Cholesterol Arterial Blood Glucose Arterial Blood Ionized Calcium Salicylates Acetaminophen 09/24/20 09/24/20 11:46 12:57 RBC Hgb Hct MCH MCHC RDW Lymph % (Auto) Seg Neutrophils % Seg Neuts % (Manual) Lymphocytes % (Manual) Nucleated RBC % Seg Neutrophils # Seg Neutrophils # Man PT INR APTT ABG pH POC ABG pCO2 POC ABG pO2 ABG Oxyhemoglobin ABG Sodium ABG Potassium ABG Chloride ABG Glucose Carboxyhemoglobin Potassium Chloride Carbon Dioxide BUN Creatinine Glucose POC Glucose 128 H Hemoglobin A1c AST ALT Ammonia Lactate Dehydrogenase Total Creatine Kinase 438 H CK-MB (CK-2) 47.8 H CK-MB (CK-2) Rel Index 10.9 H Troponin T C-Reactive Protein NT-Pro-B Natriuret Pep Albumin HDL Cholesterol Arterial Blood Glucose Arterial Blood Ionized Calcium Salicylates Acetaminophen - Diagnostic Findings Chest x-ray: image reviewed (cardiomegaly) Assessment and Plan 59 y/o morbidly obese female with acute respiratory failure, possibly secondary to hypercapnic respiratory failure from CHF exacerbation, ruling out COVID. 1. Follow up COVID testing 2. Stop all sedatives to assess mental state 3. Follow up cardiology recs 4. Stop steroids 5. Likely stop abx therapy 6. Renal numbers improving compared to yesterday, continue to trend Guarded prognosis. CCT 31 minutes.
[2020-09-24 16:43] LABS: Hepatitis C Virus Antibody Non-Reactive (NonReactive)
[2020-09-24 16:45] LABS: Hepatitis B Surface Antigen Nonreactive (Negative)
[2020-09-24 17:39] LABS: Creatinine,Urine 81.9 mg/dL (0.1-20.0)
[2020-09-24] MEDS: FUROSEMIDE 40 MG/4 ML INJ IV SCH (17:40)
[2020-09-24 20:00] LABS: Creatine Kinase MB 35.1 ng/mL (0.0-4.0)
--- NOTE | 2020-09-25 02:27 | Progress Note ---
Assessment and Plan 59 y/o morbidly obese female with acute respiratory failure, possibly secondary to hypercapnic respiratory failure from CHF exacerbation, ruling out COVID. 09/25/20: COVID negative. Discontinue precautions. No sedatives. D-dimer and other markers checked given concern for covid. D-Dimer severly elevated. Unable to check CTA given renal function. Could obtain V/Q scan. Patient is stable and given COVID surge and need for ICU beds, may consider transfer tonight to accommodate a patient on the floor in need of ICU bed. 1. Follow up COVID testing 2. Stop all sedatives to assess mental state 3. Follow up cardiology recs 4. Stop steroids 5. Likely stop abx therapy 6. Renal numbers improving compared to yesterday, continue to trend Guarded prognosis. CCT 31 minutes. Subjective Date of service: 09/25/20 Principal diagnosis: A/C HFrEF Interval history: Successful extubation on yesterday. Asleep on HFNC as no bipaps available. FLow at 40 and FiO2 at 30. Stable since extubation. COVID negative. Objective Vital Signs - 12hr 09/24/20 09/24/20 09/24/20 14:30 14:41 14:51 Temperature Pulse Rate 109 H 108 H 107 H Pulse Rate [ From Monitor] Respiratory Rate Blood Pressure 150/85 150/85 147/84 O2 Sat by Pulse 97 97 97 Oximetry 09/24/20 09/24/20 09/24/20 15:00 15:11 15:20 Temperature Pulse Rate 106 H 106 H 108 H Pulse Rate [ From Monitor] Respiratory 19 20 17 Rate Blood Pressure 145/86 150/85 152/91 O2 Sat by Pulse 97 97 96 Oximetry 09/24/20 09/24/20 09/24/20 15:30 15:41 15:51 Temperature Pulse Rate 107 H 106 H 109 H Pulse Rate [ From Monitor] Respiratory 20 20 19 Rate Blood Pressure 152/91 145/86 O2 Sat by Pulse 98 97 97 Oximetry 09/24/20 09/24/20 09/24/20 15:57 16:00 16:11 Temperature Pulse Rate 109 H 110 H 112 H Pulse Rate [ 118 H From Monitor] Respiratory 22 21 24 Rate Blood Pressure 145/86 144/91 144/91 O2 Sat by Pulse 97 96 96 Oximetry 09/24/20 09/24/20 09/24/20 16:20 16:21 16:25 Temperature Pulse Rate 120 H Pulse Rate [ From Monitor] Respiratory 22 Rate Blood Pressure 144/91 O2 Sat by Pulse 98 97 95 Oximetry 09/24/20 09/24/20 09/24/20 16:31 16:34 16:41 Temperature 99.4 F Pulse Rate 113 H 112 H Pulse Rate [ From Monitor] Respiratory 24 21 Rate Blood Pressure 134/77 134/77 O2 Sat by Pulse 94 95 Oximetry 09/24/20 09/24/20 09/24/20 16:51 17:00 17:11 Temperature Pulse Rate 111 H 111 H 111 H Pulse Rate [ From Monitor] Respiratory 23 21 20 Rate Blood Pressure 129/85 119/84 141/56 O2 Sat by Pulse 95 94 94 Oximetry 09/24/20 09/24/20 09/24/20 17:21 17:31 17:41 Temperature Pulse Rate 114 H 115 H 112 H Pulse Rate [ From Monitor] Respiratory 21 22 17 Rate Blood Pressure 132/82 132/82 132/82 O2 Sat by Pulse 95 96 96 Oximetry 09/24/20 09/24/20 09/24/20 17:51 18:01 18:11 Temperature Pulse Rate 114 H 109 H 113 H Pulse Rate [ From Monitor] Respiratory 21 18 22 Rate Blood Pressure 132/67 121/72 121/72 O2 Sat by Pulse 95 96 77 L Oximetry 09/24/20 09/24/20 09/24/20 18:21 18:31 18:41 Temperature Pulse Rate 116 H 119 H 110 H Pulse Rate [ From Monitor] Respiratory 22 26 H 19 Rate Blood Pressure 120/75 120/75 120/75 O2 Sat by Pulse 90 100 96 Oximetry 09/24/20 09/24/20 09/24/20 18:51 19:01 19:11 Temperature Pulse Rate 109 H 109 H 109 H Pulse Rate [ From Monitor] Respiratory 17 16 17 Rate Blood Pressure 127/88 136/79 136/79 O2 Sat by Pulse 97 97 95 Oximetry 09/24/20 09/24/20 09/24/20 19:20 19:30 19:36 Temperature 100.3 F H Pulse Rate 109 H 110 H Pulse Rate [ From Monitor] Respiratory 16 17 Rate Blood Pressure 139/118 137/76 O2 Sat by Pulse 97 97 97 Oximetry 09/24/20 09/24/20 09/24/20 19:41 19:51 20:00 Temperature Pulse Rate 107 H 108 H 107 H Pulse Rate [ 110 H From Monitor] Respiratory 17 19 17 Rate Blood Pressure 137/76 149/77 139/82 O2 Sat by Pulse 97 97 97 Oximetry 09/24/20 09/24/20 09/24/20 20:11 20:21 20:30 Temperature Pulse Rate 106 H 107 H 106 H Pulse Rate [ From Monitor] Respiratory 17 17 17 Rate Blood Pressure 139/82 141/77 130/87 O2 Sat by Pulse 97 96 97 Oximetry 09/24/20 09/24/20 09/24/20 20:41 20:51 21:01 Temperature Pulse Rate 106 H 114 H 110 H Pulse Rate [ From Monitor] Respiratory 16 23 19 Rate Blood Pressure 130/87 143/85 143/85 O2 Sat by Pulse 97 95 92 Oximetry 09/24/20 09/24/20 09/24/20 21:11 21:21 21:30 Temperature Pulse Rate 112 H 111 H 113 H Pulse Rate [ From Monitor] Respiratory 21 23 18 Rate Blood Pressure 143/85 103/68 117/66 O2 Sat by Pulse 78 L 91 96 Oximetry 09/24/20 09/24/20 09/24/20 21:41 21:51 22:00 Temperature Pulse Rate 113 H 114 H 111 H Pulse Rate [ From Monitor] Respiratory 20 17 17 Rate Blood Pressure 117/66 123/65 99/55 O2 Sat by Pulse 96 98 97 Oximetry 09/24/20 09/24/20 09/24/20 22:11 22:17 22:21 Temperature Pulse Rate 110 H 109 H 108 H Pulse Rate [ From Monitor] Respiratory 18 19 18 Rate Blood Pressure 99/55 103/58 103/58 O2 Sat by Pulse 98 97 97 Oximetry 09/24/20 09/24/20 09/24/20 22:30 22:41 22:51 Temperature Pulse Rate 107 H 106 H 105 H Pulse Rate [ From Monitor] Respiratory 18 18 17 Rate Blood Pressure 106/63 106/63 115/66 O2 Sat by Pulse 97 97 98 Oximetry 09/24/20 09/24/20 09/24/20 23:00 23:11 23:21 Temperature Pulse Rate 105 H 105 H 105 H Pulse Rate [ From Monitor] Respiratory 20 16 17 Rate Blood Pressure 121/68 121/68 114/66 O2 Sat by Pulse 98 98 98 Oximetry 09/24/20 09/24/20 09/24/20 23:30 23:41 23:51 Temperature Pulse Rate 105 H 105 H 108 H Pulse Rate [ From Monitor] Respiratory 17 16 14 Rate Blood Pressure 114/69 114/69 112/65 O2 Sat by Pulse 98 98 97 Oximetry 09/24/20 09/25/20 09/25/20 23:59 00:00 00:11 Temperature 99.4 F Pulse Rate 106 H 103 H Pulse Rate [ 103 H From Monitor] Respiratory 15 17 Rate Blood Pressure 106/63 114/66 O2 Sat by Pulse 97 99 Oximetry 09/25/20 09/25/20 09/25/20 00:21 00:30 01:58 Temperature Pulse Rate 102 H 103 H Pulse Rate [ From Monitor] Respiratory 17 17 Rate Blood Pressure 111/54 101/56 O2 Sat by Pulse 98 98 98 Oximetry Constitutional: comatose Eyes: non-icteric ENT: other (orally intubated and sedated.) Neck: supple Effort: normal Ascultation: Bilateral: diminished breath sounds Percussion: Bilateral: not dull Cardiovascular: regular rate and rhythm Gastrointestinal: normoactive bowel sounds, other (morbidly obese) CBC and BMP: 09/24/20 05:11 09/24/20 05:11 ABG, PT/INR, D-dimer: ABG ABG pH 7.628 (7.320-7.450) H 09/24/20 04:01 POC ABG pCO2 28.7 mmHg (32.0-48.0) L 09/24/20 04:01 POC ABG pO2 65.7 mmHg (83-108) L 09/24/20 04:01 POC ABG HCO3 29.4 09/24/20 04:01 ABG O2 Saturation 95.3 (0-100) 09/24/20 04:01 PT/INR, D-dimer PT 21.7 Sec. (12.2-14.9) H 09/23/20 14:45 INR 1.83 (0.87-1.13) H 09/23/20 14:45 D-Dimer > 53419 ng/mlDDU (0-234) H 09/24/20 19:15 Abnormal lab findings: Abnormal Labs 09/23/20 09/23/20 09/23/20 12:43 12:43 12:43 RBC 5.85 H Hgb 16.1 H Hct 54.6 H MCH MCHC 29 L RDW 17.8 H Lymph % (Auto) Seg Neutrophils % Seg Neuts % (Manual) 83.0 H Lymphocytes % (Manual) 13.0 L Nucleated RBC % 2.0 H Seg Neutrophils # Seg Neutrophils # Stanley 8.9 H PT INR APTT D-Dimer ABG pH POC ABG pCO2 POC ABG pO2 ABG Oxyhemoglobin ABG Sodium ABG Potassium ABG Chloride ABG Glucose Carboxyhemoglobin Potassium Chloride 88.5 L Carbon Dioxide BUN 38 H Creatinine 2.1 H Glucose POC Glucose Hemoglobin A1c AST 342 H ALT 238 H Ammonia 127.0 H Lactate Dehydrogenase Total Creatine Kinase CK-MB (CK-2) CK-MB (CK-2) Rel Index Troponin T 0.810 H* C-Reactive Protein NT-Pro-B Natriuret Pep 50366 H Albumin 3.4 L HDL Cholesterol 39 L Arterial Blood Glucose Arterial Blood Ionized Calcium Urine Creatinine Salicylates Acetaminophen 09/23/20 09/23/20 09/23/20 12:43 12:43 14:45 RBC Hgb Hct MCH MCHC RDW Lymph % (Auto) Seg Neutrophils % Seg Neuts % (Manual) Lymphocytes % (Manual) Nucleated RBC % Seg Neutrophils # Seg Neutrophils # Man PT 21.7 H INR 1.83 H APTT 37.0 H D-Dimer ABG pH POC ABG pCO2 POC ABG pO2 ABG Oxyhemoglobin ABG Sodium ABG Potassium ABG Chloride ABG Glucose Carboxyhemoglobin Potassium Chloride Carbon Dioxide BUN Creatinine Glucose POC Glucose Hemoglobin A1c AST ALT Ammonia Lactate Dehydrogenase Total Creatine Kinase CK-MB (CK-2) CK-MB (CK-2) Rel Index Troponin T C-Reactive Protein NT-Pro-B Natriuret Pep Albumin HDL Cholesterol Arterial Blood Glucose Arterial Blood Ionized Calcium Urine Creatinine Salicylates < 0.3 L Acetaminophen 5.0 L 09/23/20 09/23/20 09/23/20 14:56 15:34 17:14 RBC Hgb Hct MCH MCHC RDW Lymph % (Auto) Seg Neutrophils % Seg Neuts % (Manual) Lymphocytes % (Manual) Nucleated RBC % Seg Neutrophils # Seg Neutrophils # Stanley PT INR APTT D-Dimer ABG pH 7.062 L POC ABG pCO2 93.1 H POC ABG pO2 81.3 L ABG Oxyhemoglobin 92.2 L 93.5 L ABG Sodium 135.2 L ABG Potassium ABG Chloride 94.0 L 95.0 L ABG Glucose 109 H 114 H Carboxyhemoglobin 3.7 H 3.2 H Potassium Chloride Carbon Dioxide BUN Creatinine Glucose POC Glucose 114 H Hemoglobin A1c AST ALT Ammonia Lactate Dehydrogenase Total Creatine Kinase CK-MB (CK-2) CK-MB (CK-2) Rel Index Troponin T C-Reactive Protein NT-Pro-B Natriuret Pep Albumin HDL Cholesterol Arterial Blood Glucose 109 H 114 H Arterial Blood Ionized Calcium Urine Creatinine Salicylates Acetaminophen 09/23/20 09/23/20 09/23/20 19:44 19:44 23:50 RBC Hgb Hct MCH MCHC RDW Lymph % (Auto) Seg Neutrophils % Seg Neuts % (Manual) Lymphocytes % (Manual) Nucleated RBC % Seg Neutrophils # Seg Neutrophils # Man PT INR APTT D-Dimer ABG pH POC ABG pCO2 POC ABG pO2 ABG Oxyhemoglobin ABG Sodium ABG Potassium ABG Chloride ABG Glucose Carboxyhemoglobin Potassium Chloride Carbon Dioxide BUN Creatinine Glucose POC Glucose Hemoglobin A1c AST ALT Ammonia Lactate Dehydrogenase 1543 H Total Creatine Kinase CK-MB (CK-2) CK-MB (CK-2) Rel Index Troponin T 1.110 H* D 0.857 H* D C-Reactive Protein 2.10 H NT-Pro-B Natriuret Pep Albumin HDL Cholesterol Arterial Blood Glucose Arterial Blood Ionized Calcium Urine Creatinine Salicylates Acetaminophen 09/23/20 09/24/20 09/24/20 Unknown 04:01 05:11 RBC 5.57 H Hgb 15.2 H Hct 47.0 H D MCH 27 L MCHC RDW 16.5 H Lymph % (Auto) 13.1 L Seg Neutrophils % 84.1 H Seg Neuts % (Manual) Lymphocytes % (Manual) Nucleated RBC % Seg Neutrophils # 9.1 H Seg Neutrophils # Man PT INR APTT D-Dimer ABG pH 7.628 H POC ABG pCO2 28.7 L POC ABG pO2 65.7 L ABG Oxyhemoglobin 93.5 L ABG Sodium 135.1 L ABG Potassium 3.1 L ABG Chloride ABG Glucose 116 H Carboxyhemoglobin 1.6 H Potassium Chloride Carbon Dioxide BUN Creatinine Glucose POC Glucose Hemoglobin A1c 6.3 H AST ALT Ammonia Lactate Dehydrogenase Total Creatine Kinase CK-MB (CK-2) CK-MB (CK-2) Rel Index Troponin T C-Reactive Protein NT-Pro-B Natriuret Pep Albumin HDL Cholesterol Arterial Blood Glucose 116 H Arterial Blood Ionized Calcium 4.2 L Urine Creatinine Salicylates Acetaminophen 09/24/20 09/24/20 09/24/20 05:11 05:11 05:11 RBC Hgb Hct MCH MCHC RDW Lymph % (Auto) Seg Neutrophils % Seg Neuts % (Manual) Lymphocytes % (Manual) Nucleated RBC % Seg Neutrophils # Seg Neutrophils # Man PT INR APTT D-Dimer ABG pH POC ABG pCO2 POC ABG pO2 ABG Oxyhemoglobin ABG Sodium ABG Potassium ABG Chloride ABG Glucose Carboxyhemoglobin Potassium 3.2 L Chloride 95.3 L Carbon Dioxide 32 H D BUN 47 H Creatinine 1.7 H Glucose 103 H POC Glucose Hemoglobin A1c AST 1860 H ALT 1230 H Ammonia Lactate Dehydrogenase 1357 H Total Creatine Kinase 263 H CK-MB (CK-2) 72.8 H CK-MB (CK-2) Rel Index 27.6 H Troponin T C-Reactive Protein 2.20 H NT-Pro-B Natriuret Pep Albumin 3.3 L HDL Cholesterol Arterial Blood Glucose Arterial Blood Ionized Calcium Urine Creatinine Salicylates Acetaminophen 09/24/20 09/24/20 09/24/20 11:46 12:57 16:52 RBC Hgb Hct MCH MCHC RDW Lymph % (Auto) Seg Neutrophils % Seg Neuts % (Manual) Lymphocytes % (Manual) Nucleated RBC % Seg Neutrophils # Seg Neutrophils # Man PT INR APTT D-Dimer ABG pH POC ABG pCO2 POC ABG pO2 ABG Oxyhemoglobin ABG Sodium ABG Potassium ABG Chloride ABG Glucose Carboxyhemoglobin Potassium Chloride Carbon Dioxide BUN Creatinine Glucose POC Glucose 128 H Hemoglobin A1c AST ALT Ammonia Lactate Dehydrogenase Total Creatine Kinase 438 H CK-MB (CK-2) 47.8 H CK-MB (CK-2) Rel Index 10.9 H Troponin T C-Reactive Protein NT-Pro-B Natriuret Pep Albumin HDL Cholesterol Arterial Blood Glucose Arterial Blood Ionized Calcium Urine Creatinine 81.9 H Salicylates Acetaminophen 09/24/20 09/24/20 09/24/20 17:32 19:15 19:15 RBC Hgb Hct MCH MCHC RDW Lymph % (Auto) Seg Neutrophils % Seg Neuts % (Manual) Lymphocytes % (Manual) Nucleated RBC % Seg Neutrophils # Seg Neutrophils # Man PT INR APTT D-Dimer > 78262 H ABG pH POC ABG pCO2 POC ABG pO2 ABG Oxyhemoglobin ABG Sodium ABG Potassium ABG Chloride ABG Glucose Carboxyhemoglobin Potassium Chloride Carbon Dioxide BUN Creatinine Glucose POC Glucose 113 H Hemoglobin A1c AST ALT Ammonia Lactate Dehydrogenase Total Creatine Kinase 461 H CK-MB (CK-2) 35.1 H CK-MB (CK-2) Rel Index 7.6 H Troponin T C-Reactive Protein NT-Pro-B Natriuret Pep Albumin HDL Cholesterol Arterial Blood Glucose Arterial Blood Ionized Calcium Urine Creatinine Salicylates Acetaminophen Allied health notes reviewed: nursing
[2020-09-25 05:46] LABS: Basophils # (Auto) 0.1 K/mm3 (0.0-0.1); Basophils % (Auto) 0.7 % (0.0-1.8); Lymphocytes # (Auto) 0.9 K/mm3 (1.2-5.4); Lymphocytes % (Auto) 6.3 % (13.4-35.0); Mean Corpuscular HGB Conc 31 % (30-34); Mean Corpuscular Volume 88 fl (79-97); Monocytes # (Auto) 0.5 K/mm3 (0.0-0.8); Monocytes % (Auto) 3.7 % (0.0-7.3); Platelet Count 124 K/mm3 (140-440); Red Blood Count 5.18 M/mm3 (3.65-5.03); Red Cell Distribution Width 16.6 % (13.2-15.2)
[2020-09-25 05:57] LABS: Hematocrit 45.4 % (30.3-42.9); Hemoglobin 14.1 gm/dl (10.1-14.3)
[2020-09-25 06:09] LABS: BUN/Creatinine Ratio 40; Blood Urea Nitrogen 40 mg/dL (7-17); Calcium 8.6 mg/dL (8.4-10.2); Hemolysis Index 3
[2020-09-25 06:28] LABS: Alanine Aminotransferase 1042 units/L (7-56)
[2020-09-25] MEDS: FUROSEMIDE 40 MG/4 ML INJ IV SCH ×2 (06:49→19:11)
[2020-09-25] MEDS: HEPARIN 5,000 UNIT/1 ML VIAL SUB-Q SCH ×3 (06:49→21:42)
[2020-09-25] MEDS: FAMOTIDINE 20 MG/2 ML INJ IV SCH ×3 (09:41→21:42)
[2020-09-25] MEDS: SENNOSIDES/DOCUSATE SODIUM 8.6/50 MG TAB FEEDTUBE SCH ×3 (09:41→21:41)
[2020-09-25] MEDS: POTASSIUM CHLORIDE ER 20 MEQ TAB PO SCH (09:42)
[2020-09-25] MEDS: NICOTINE 14 MG/24 HR PATCH TD SCH (09:43)
[2020-09-25] MEDS: amLODIPine 5 MG TAB PO SCH (09:44)
[2020-09-25] MEDS: LOSARTAN 25 MG TAB PO SCH (09:44)
--- NOTE | 2020-09-25 11:11 | Progress Note ---
Assessment and Plan Obtain VQ scan. - Patient Problems (1) Acute respiratory failure with hypoxia Current Visit: Yes Status: Resolved (2) Acute on chronic HFrEF (heart failure with reduced ejection fraction) Current Visit: Yes Status: Acute (3) Acute encephalopathy Current Visit: Yes Status: Resolved (4) Hypotension Current Visit: Yes Status: Acute Qualifiers: Hypotension type: unspecified hypotension type Qualified Code(s): I95.9 - Hypotension, unspecified (5) NICM (nonischemic cardiomyopathy) Current Visit: Yes Status: Chronic (6) ISIS (acute kidney injury) Current Visit: Yes Status: Acute (7) Elevated d-dimer Current Visit: Yes Status: Acute (8) Elevated LFTs Current Visit: Yes Status: Acute (9) Non-STEMI (non-ST elevated myocardial infarction) Current Visit: Yes Status: Acute Subjective Date of service: 09/25/20 Principal diagnosis: encephalopathy, hypotension, Acute on chronic HFrEF, NICM Interval history: No complaint. Objective Vital Signs Last Vital Signs Temp 98.9 F 09/25/20 02:55 Pulse 105 H 09/25/20 11:01 Resp 15 09/25/20 11:01 BP 108/72 09/25/20 11:01 Pulse Ox 98 09/25/20 11:01 - Physical Examination General: No Apparent Distress HEENT: Positive: EOMI, Normocephaly, Mucus Membranes Moist Neck: Positive: neck supple, trachea midline Cardiac: Positive: Reg Rate and Rhythm, S1/S2 Lungs: Positive: clear to auscultation Neuro: Positive: Grossly Intact, Other (intubated) Abdomen: Positive: Soft, Tender Skin: Negative: Rash Extremities: Present: edema (trace bilateral leg edema) - Labs and Meds Cardiac Enzymes 09/24/20 09/24/20 09/24/20 Range/Units 05:11 05:11 12:57 AST (5-40) units/L Lactate Dehydrogenase 1357 H (91-180) units/L CK-MB (CK-2) 72.8 H 47.8 H (0.0-4.0) ng/mL 09/24/20 09/25/20 Range/Units 19:15 04:00 AST 811 H (5-40) units/L Lactate Dehydrogenase (91-180) units/L CK-MB (CK-2) 35.1 H (0.0-4.0) ng/mL CBC 09/25/20 Range/Units 04:00 WBC 14.9 H (4.5-11.0) K/mm3 RBC 5.18 H (3.65-5.03) M/mm3 Hgb 14.1 (10.1-14.3) gm/dl Hct 45.4 H (30.3-42.9) % Plt Count 124 L (140-440) K/mm3 Lymph # (Auto) 0.9 L (1.2-5.4) K/mm3 [place] # (Auto) 0.5 (0.0-0.8) K/mm3 Eos # (Auto) 0.0 (0.0-0.4) K/mm3 Baso # (Auto) 0.1 (0.0-0.1) K/mm3 Comprehensive Metabolic Panel 09/25/20 Range/Units 04:00 Sodium 143 (137-145) mmol/L Potassium 3.2 L (3.6-5.0) mmol/L Chloride 96.9 L (98-107) mmol/L Carbon Dioxide 38 H (22-30) mmol/L BUN 40 H (7-17) mg/dL Creatinine 1.0 (0.6-1.2) mg/dL Glucose 84 (65-100) mg/dL Calcium 8.6 (8.4-10.2) mg/dL AST 811 H (5-40) units/L ALT 1042 H (7-56) units/L Alkaline Phosphatase 72 (35-129) units/L Total Protein 7.0 (6.3-8.2) g/dL Albumin 3.0 L (3.9-5) g/dL - Imaging and Cardiology EKG: report reviewed Echo: report reviewed (06/2018 - EF 20-25%, mild LVH, restrictive diastolic filling, LA mod dilated, RV systolic fxn mod reduced, IVC dilated with < 50% resp change noted) Cardiac cath: report reviewed (01/2019 - normal coronaries, mod-severe LV dysfxn) - Telemetry EKG Rhythm: Sinus Tachycardia Repolarization changes or abnormalities: nonspecific abnormality, ST segment, an d/or T wave - Allied health notes Allied health notes reviewed: nursing
--- NOTE | 2020-09-25 11:30 | Ultrasound Report ---
ULTRASOUND RIGHT UPPER QUADRANT INDICATION / CLINICAL INFORMATION: elevated LFT/NH3. COMPARISON: None available. FINDINGS: PANCREAS: No significant abnormality. ABDOMINAL AORTA: No significant abnormality. IVC: No significant abnormality. LIVER: The liver is mildly echogenic. The main portal vein is patent. GALLBLADDER: No significant abnormality. BILE DUCTS: No significant abnormality. Common bile duct measures 2 mm. KIDNEYS: Right: No significant abnormality. FREE FLUID: None. ADDITIONAL FINDINGS: None. IMPRESSION: 1. Mildly echogenic liver cannot be seen with hepatic steatosis. Recommend correlation with LFTs. Signer Name: Lizandro German MD Signed: 09/25/2020 11:25 AM Workstation Name: [id number]
--- NOTE | 2020-09-25 15:36 | Vascular Lab Report ---
. DUPLEX DOPPLER LOWER EXTREMITY VEINS, BILATERAL INDICATION / CLINICAL INFORMATION: r/o dvt. TECHNIQUE: Duplex doppler imaging was performed through the veins of both lower extremities using venous nancy domonique and other maneuvers. COMPARISON: None available. FINDINGS: RIGHT COMMON FEMORAL VEIN: Negative. RIGHT FEMORAL VEIN: Negative. RIGHT POPLITEAL VEIN: Negative. RIGHT CALF VEINS: Negative. LEFT COMMON FEMORAL VEIN: Negative. LEFT FEMORAL VEIN: Negative. LEFT POPLITEAL VEIN: Negative. LEFT CALF VEINS: Negative. ADDITIONAL FINDINGS: None. IMPRESSION: 1. No sonographic evidence for DVT in either lower extremity. Signer Name: Jonnie Sales MD Signed: 09/25/2020 3:31 PM Workstation Name: [id number]
--- NOTE | 2020-09-25 18:20 | Progress Note ---
Assessment and Plan Assessment and plan: This is a 59-year-old female with CHF, HTN, hyperlipidemia ,current nicotine smoker, cardiomyopahty, OHS, s/p vaccination for COVID 19 who presents the emergency department for altered mental status and received narcan with some improvement to mental status. Neuro: Acute metabolic encephalopathy, hepatic encephalopathy -CT head completed, see report -Sedated with Versed-> changed to fentanyl and propofol as needed -RASS goal 0 to -1 -Avoid delirium -Reorientation as needed Cardiology: Acute on Chronic HFrEF, NSTEMI type II h/o cardiomyopathy, HTN, hyperlipidemia -Cardiology consulted, appreciate recommendations -Per cardiology: Echocardiogram 06/2018 with a EF of 20-25% and left heart cath 01/2019 with normal coronaries and moderate to severe left ventricular dysfunction -09/24 echocardiogram shows LVEF 65%, right ventricle severely dilated, right ventricular systolic function normal, flattened septum consistent with right ventricular volume and pressure overload, RVSP may be underestimated in the study which is calculated at 21 mmHg -Trend cardiac enzymes -Blood pressure monitor per protocol -Currently on Cozaar with amlodipine added this morning for persistent hypertension -s/p Levophed gtt for hypotension in the emergency department -Admit proBNP [id number] -Currently on IV Lasix -As needed hydralazine -Blood pressure monitoring per protocol Respiratory: Acute hypercarbic respiratory failure, current tobacco abuse, h/o ohs -S/p nonrebreather in the ED -Intubated in the emergency department on 09/23, extubated 09/24 -VAP bundle -Serial ABGs and CXR -Extubated to BiPAP/OptiFlow; weaned to salter today and eventually to nasal cannula -Continue SPO2 monitoring -nicotine patch -CXR reviewed GI: MO, transaminitis -Abdominal XR reviewed -Lipase 27 -Trend LFTs -Abdominal ultrasound.-See report : Acute kidney injury 2/2 VMN, hypokalemia -Replete potassium -Strict intake and output -Daily weights -Avoid nephrotoxic medications and renally dose medications -Trend CMP Endo: h/o DM -Hemoglobin A1c 6.3 -SSI -Accu-Cheks every 6 for now, AC at bedtime post extubation and when on diet -Avoid hypoglycemia ID: Covid-19 ruled out -COVID-19 PCR negative -Pulmonary hygiene -Was on azithromycin and ceftriaxone but d/c Heme: Elevated DDimer, Supratherapeutic INR, h/o ohs -Trend CBC and INR -Bilateral lower extremity ultrasound negative for DVT -VQ scan pending -See echocardiogram for results -Transfuse for hemoglobin less than 7 -SCDs to bilateral LE while in bed -Heparin subcu The high probability of a clinically significant, sudden or life threatening deterioration of the [resp/cardio] system(s) required my full and direct attention, intervention and personal management. The aggregate critical care time was [60] minutes. This time is in addition to time spent performing reported procedures but includes the following: [x] Data Review and interpretation [x] Patient assessment and monitoring of vital signs [x] Documentation [x] Medication orders and management Disposition Plan: icu Total Time Spent with Patient (Minutes): 60 History Interval history: This is a 59-year-old female with CHF, HTN, hyperlipidemia ,current nicotine smoker, cardiomyopahty, OHS, s/p vaccination for COVID 19 who presents the emergency department for altered mental status and received narcan with some improvement to mental status. Per patient's she became increasingly confused throughout the day which prompted presentation and patient had mild improvement to responsiveness with Narcan. Patient was intubated for severe hypercapnia on ABG while on a nonrebreather. Work-up in the emergency department revealed acute kidney injury, transaminitis, hyperammonemia, elevated proBNP with elevated troponins. Patient was admitted to the hospitalist service as a COVID-19 PUI with elevated cardiac enzymes, acute on chronic CHF and acute hypercapnic respiratory failure. Consults were placed to cardiology and CCM. 09/24: Possible extubation today, Covid 19 PCR pending. Added amlodipine for htn. PICC line ordered today 09/25: VQ scan ordered today, bilateral lower extreme Doppler ultrasound also obtained which showed no DVT. Patient was able to be weaned down to high flow nasal cannula down to nasal cannula. Patient will be transferred to [facility], [place]. Hospitalist Physical - Constitutional Vitals: Temp Pulse Resp BP Pulse Ox 98.9 F 98 H 30 H 106/56 98 09/25/20 02:55 09/25/20 13:10 09/25/20 13:10 09/25/20 13:10 09/25/20 13:45 General appearance: Present: no acute distress, well-nourished, obese - EENT Eyes: Present: PERRL, EOM intact ENT: hearing intact, poor dentition - Neck Neck: Present: normal ROM - Respiratory Respiratory effort: normal Respiratory: bilateral: diminished - Cardiovascular Rhythm: regular Heart Sounds: Present: S1 & S2. Absent: systolic murmur, diastolic murmur - Extremities Extremities: no ischemia, pulses intact, pulses symmetrical, No edema, normal temperature, normal color, Full ROM Peripheral Pulses: within normal limits - Abdominal General gastrointestinal: soft, non-tender, non-distended, normal bowel sounds - Integumentary Integumentary: Present: clear, warm, dry - Psychiatric Psychiatric: cooperative - Neurologic Neurologic: CNII-XII intact, no focal deficits, moves all extremities - Allied Health Allied health notes reviewed: nursing, RT, social work HEART Score - HEART Score Age: 45-65 Risk factors: > 3 risk factors or hx of atherosclerotic disease Troponin: Troponin T 0.857 ng/mL (0.00-0.029) H* D 09/23/20 23:50 Troponin: > 3x normal limit Results - Labs CBC & Chem 7: 09/25/20 04:00 09/25/20 04:00 Labs: Laboratory Last Values WBC 14.9 K/mm3 (4.5-11.0) H 09/25/20 04:00 RBC 5.18 M/mm3 (3.65-5.03) H 09/25/20 04:00 Hgb 14.1 gm/dl (10.1-14.3) 09/25/20 04:00 Hct 45.4 % (30.3-42.9) H 09/25/20 04:00 MCV 88 fl (79-97) 09/25/20 04:00 MCH 27 pg (28-32) L 09/25/20 04:00 MCHC 31 % (30-34) 09/25/20 04:00 RDW 16.6 % (13.2-15.2) H 09/25/20 04:00 Plt Count 124 K/mm3 (140-440) L 09/25/20 04:00 Lymph % (Auto) 6.3 % (13.4-35.0) L 09/25/20 04:00 [place] % (Auto) 3.7 % (0.0-7.3) 09/25/20 04:00 Eos % (Auto) 0.0 % (0.0-4.3) 09/25/20 04:00 Baso % (Auto) 0.7 % (0.0-1.8) 09/25/20 04:00 Lymph # (Auto) 0.9 K/mm3 (1.2-5.4) L 09/25/20 04:00 [place] # (Auto) 0.5 K/mm3 (0.0-0.8) 09/25/20 04:00 Eos # (Auto) 0.0 K/mm3 (0.0-0.4) 09/25/20 04:00 Baso # (Auto) 0.1 K/mm3 (0.0-0.1) 09/25/20 04:00 Add Manual Diff Complete 09/23/20 12:43 Total Counted 100 09/23/20 12:43 Seg Neutrophils % 89.3 % (40.0-70.0) H 09/25/20 04:00 Seg Neuts % (Manual) 83.0 % (40.0-70.0) H 09/23/20 12:43 Lymphocytes % (Manual) 13.0 % (13.4-35.0) L 09/23/20 12:43 Monocytes % (Manual) 4.0 % (0.0-7.3) 09/23/20 12:43 Nucleated RBC % 2.0 % (0.0-0.9) H 09/23/20 12:43 Seg Neutrophils # 13.3 K/mm3 (1.8-7.7) H 09/25/20 04:00 Seg Neutrophils # Man 8.9 K/mm3 (1.8-7.7) H 09/23/20 12:43 Band Neutrophils # 0.0 K/mm3 09/23/20 12:43 Lymphocytes # (Manual) 1.4 K/mm3 (1.2-5.4) 09/23/20 12:43 Abs React Lymphs (Man) 0.0 K/mm3 09/23/20 12:43 Monocytes # (Manual) 0.4 K/mm3 (0.0-0.8) 09/23/20 12:43 Eosinophils # (Manual) 0.0 K/mm3 (0.0-0.4) 09/23/20 12:43 Basophils # (Manual) 0.0 K/mm3 (0.0-0.1) 09/23/20 12:43 Metamyelocytes # 0.0 K/mm3 09/23/20 12:43 Myelocytes # 0.0 K/mm3 09/23/20 12:43 Promyelocytes # 0.0 K/mm3 09/23/20 12:43 Blast Cells # 0.0 K/mm3 09/23/20 12:43 WBC Morphology Not Reportable 09/23/20 12:43 Hypersegmented Neuts Not Reportable 09/23/20 12:43 Hyposegmented Neuts Not Reportable 09/23/20 12:43 Hypogranular Neuts Not Reportable 09/23/20 12:43 Smudge Cells Not Reportable 09/23/20 12:43 Toxic Granulation Not Reportable 09/23/20 12:43 Toxic Vacuolation Not Reportable 09/23/20 12:43 Dohle Bodies Not Reportable 09/23/20 12:43 Pelger-Huet Anomaly Not Reportable 09/23/20 12:43 Clarissa Rods Not Reportable 09/23/20 12:43 Platelet Estimate Not Reportable 09/23/20 12:43 Clumped Platelets Rare 09/23/20 12:43 Plt Clumps, EDTA Not Reportable 09/23/20 12:43 Large Platelets Not Reportable 09/23/20 12:43 Giant Platelets Not Reportable 09/23/20 12:43 Platelet Satelliting Not Reportable 09/23/20 12:43 Plt Morphology Comment Not Reportable 09/23/20 12:43 RBC Morphology Not Reportable 09/23/20 12:43 Dimorphic RBCs Not Reportable 09/23/20 12:43 Polychromasia Not Reportable 09/23/20 12:43 Hypochromasia Rare 09/23/20 12:43 Poikilocytosis Not Reportable 09/23/20 12:43 Anisocytosis Rare 09/23/20 12:43 Microcytosis Few 09/23/20 12:43 Macrocytosis Not Reportable 09/23/20 12:43 Spherocytes Not Reportable 09/23/20 12:43 Pappenheimer Bodies Not Reportable 09/23/20 12:43 Sickle Cells Not Reportable 09/23/20 12:43 Target Cells Not Reportable 09/23/20 12:43 Tear Drop Cells Not Reportable 09/23/20 12:43 Ovalocytes Not Reportable 09/23/20 12:43 Helmet Cells Not Reportable 09/23/20 12:43 Boudreaux-Maalaea Bodies Not Reportable 09/23/20 12:43 Crete Rings Not Reportable 09/23/20 12:43 Counselor Cells Not Reportable 09/23/20 12:43 Bite Cells Not Reportable 09/23/20 12:43 Crenated Cell Not Reportable 09/23/20 12:43 Elliptocytes Not Reportable 09/23/20 12:43 Acanthocytes (Spur) Not Reportable 09/23/20 12:43 Rouleaux Not Reportable 09/23/20 12:43 Hemoglobin C Crystals Not Reportable 09/23/20 12:43 Schistocytes Not Reportable 09/23/20 12:43 Malaria parasites Not Reportable 09/23/20 12:43 Dieter Bodies Not Reportable 09/23/20 12:43 Hem Pathologist Commnt No 09/23/20 12:43 PT 21.7 Sec. (12.2-14.9) H 09/23/20 14:45 INR 1.83 (0.87-1.13) H 09/23/20 14:45 APTT 37.0 Sec. (24.2-36.6) H 09/23/20 14:45 D-Dimer > 78940 ng/mlDDU (0-234) H 09/24/20 19:15 ABG pH 7.628 (7.320-7.450) H 09/24/20 04:01 POC ABG pCO2 28.7 mmHg (32.0-48.0) L 09/24/20 04:01 POC ABG pO2 65.7 mmHg (83-108) L 09/24/20 04:01 POC ABG HCO3 29.4 09/24/20 04:01 ABG O2 Saturation 95.3 (0-100) 09/24/20 04:01 POC ABG Base Excess 8.9 09/24/20 04:01 ABG Hemoglobin 15.8 (12.0-17.5) 09/24/20 04:01 ABG Oxyhemoglobin 93.5 (94-98) L 09/24/20 04:01 ABG Methemoglobin 0.3 (0.0-1.5) 09/24/20 04:01 ABG Sodium 135.1 mmol/L (136.0-145.0) L 09/24/20 04:01 ABG Potassium 3.1 mmol/L (3.40-4.50) L 09/24/20 04:01 ABG Chloride 98.0 mmol/L (98-107) 09/24/20 04:01 ABG Glucose 116 mg/dL (65-95) H 09/24/20 04:01 Carboxyhemoglobin 1.6 (0.5-1.5) H 09/24/20 04:01 FiO2 % 50.0 09/24/20 04:01 Sodium 143 mmol/L (137-145) 09/25/20 04:00 Potassium 3.2 mmol/L (3.6-5.0) L 09/25/20 04:00 Chloride 96.9 mmol/L (98-107) L 09/25/20 04:00 Carbon Dioxide 38 mmol/L (22-30) H 09/25/20 04:00 Anion Gap 11 mmol/L 09/25/20 04:00 BUN 40 mg/dL (7-17) H 09/25/20 04:00 Creatinine 1.0 mg/dL (0.6-1.2) 09/25/20 04:00 Estimated GFR > 60 ml/min 09/25/20 04:00 BUN/Creatinine Ratio 40 % 09/25/20 04:00 Glucose 84 mg/dL (65-100) 09/25/20 04:00 POC Glucose 124 mg/dL (70-105) H 09/25/20 13:13 Hemoglobin A1c 6.3 % (4-6) H 09/23/20 Unknown Calcium 8.6 mg/dL (8.4-10.2) 09/25/20 04:00 Phosphorus 4.10 mg/dL (2.5-4.5) 09/25/20 04:00 Magnesium 2.70 mg/dL (1.7-2.3) H 09/25/20 04:00 Ferritin 122.1 ng/mL (10.0-200.0) 09/24/20 12:57 Total Bilirubin 0.60 mg/dL (0.1-1.2) 09/25/20 04:00 AST 811 units/L (5-40) H 09/25/20 04:00 ALT 1042 units/L (7-56) H 09/25/20 04:00 Alkaline Phosphatase 72 units/L (35-129) 09/25/20 04:00 Ammonia 127.0 umol/L (25-60) H 09/23/20 12:43 Lactate Dehydrogenase 1357 units/L (91-180) H 09/24/20 05:11 Total Creatine Kinase 461 units/L (30-135) H 09/24/20 19:15 CK-MB (CK-2) 35.1 ng/mL (0.0-4.0) H 09/24/20 19:15 CK-MB (CK-2) Rel Index 7.6 (0-4) H 09/24/20 19:15 Troponin T 0.857 ng/mL (0.00-0.029) H* D 09/23/20 23:50 C-Reactive Protein 2.20 mg/dL (0.00-1.30) H 09/24/20 05:11 NT-Pro-B Natriuret Pep 26815 pg/mL (0-900) H 09/23/20 12:43 Total Protein 7.0 g/dL (6.3-8.2) 09/25/20 04:00 Albumin 3.0 g/dL (3.9-5) L 09/25/20 04:00 Albumin/Globulin Ratio 0.8 % 09/25/20 04:00 Triglycerides 119 mg/dL (2-149) 09/23/20 12:43 Cholesterol 129 mg/dL (50-199) 09/23/20 12:43 LDL Cholesterol Direct 90 mg/dL (50-130) 09/23/20 12:43 HDL Cholesterol 39 mg/dL (40-59) L 09/23/20 12:43 Cholesterol/HDL Ratio 3.30 % 09/23/20 12:43 Lipase 27 units/L (13-60) 09/24/20 15:14 Procalcitonin 2.76 ng/mL (<0.15) 09/23/20 19:44 TSH 3.460 mlU/mL (0.270-4.200) 09/23/20 12:43 Arterial Blood Glucose 116 mg/dL (65-95) H 09/24/20 04:01 Arterial Blood Ionized Calcium 4.2 mg/dL (4.6-5.3) L 09/24/20 04:01 Urine Color Yellow (Yellow) 09/23/20 15:47 Urine Turbidity Slightly-cloudy (Clear) 09/23/20 15:47 Urine pH 6.0 (5.0-7.0) 09/23/20 15:47 Ur Specific [place] 1.017 (1.003-1.030) 09/23/20 15:47 Urine Protein >500 mg/dL (Negative) 09/23/20 15:47 Urine Glucose (UA) Neg mg/dL (Negative) 09/23/20 15:47 Urine Ketones Neg mg/dL (Negative) 09/23/20 15:47 Urine Blood Sm (Negative) 09/23/20 15:47 Urine Nitrite Neg (Negative) 09/23/20 15:47 Urine Bilirubin Neg (Negative) 09/23/20 15:47 Urine Urobilinogen < 2.0 mg/dL (<2.0) 09/23/20 15:47 Ur Leukocyte Esterase Neg (Negative) 09/23/20 15:47 Urine WBC (Auto) 1.0 /HPF (0.0-6.0) 09/23/20 15:47 Urine RBC (Auto) < 1.0 /HPF (0.0-6.0) 09/23/20 15:47 U Epithel Cells (Auto) 4.0 /HPF (0-13.0) 09/23/20 15:47 Urine Bacteria (Auto) 1+ /HPF (Negative) 09/23/20 15:47 Hyaline Casts 3 /LPF 09/23/20 15:47 Urine Mucus Few /HPF 09/23/20 15:47 Urine Osmolality 539 Mosm/kg 09/24/20 16:52 Urine Creatinine 81.9 mg/dL (0.1-20.0) H 09/24/20 16:52 Urine Sodium 48 mmol/L 09/24/20 16:52 Salicylates < 0.3 mg/dL (2.8-20.0) L 09/23/20 12:43 Urine Opiates Screen Negative 09/23/20 15:47 Urine Methadone Screen Negative 09/23/20 15:47 Acetaminophen 5.0 ug/mL (10.0-30.0) L 09/23/20 12:43 Ur Barbiturates Screen Negative 09/23/20 15:47 Ur Phencyclidine Scrn Negative 09/23/20 15:47 Ur Amphetamines Screen Negative 09/23/20 15:47 U Benzodiazepines Scrn Negative 09/23/20 15:47 Urine Cocaine Screen Negative 09/23/20 15:47 U Marijuana (THC) Screen Negative 09/23/20 15:47 Drugs of Abuse Note Disclamer 09/23/20 15:47 Plasma/Serum Alcohol < 0.01 % (0-0.07) 09/23/20 12:43 Coronavirus (PCR) Negative (Negative) 09/23/20 Unknown Hepatitis A IgM Ab Non-reactive (NonReactive) 09/24/20 12:57 Hep Bs Antigen Nonreactive (Negative) 09/24/20 12:57 Hep B Core IgM Ab Non-reactive (NonReactive) 09/24/20 12:57 Hepatitis C Antibody Non-reactive (NonReactive) 09/24/20 12:57 Microbiology: Microbiology 09/23/20 Unknown Sputum - Endotracheal Wash Sputum Culture - Preliminary Mason/IV: Voiding Method Indwelling Catheter Active Medications - Current Medications Current Medications: Generic Name Dose Route Start Last Admin Trade Name Freq PRN Reason Stop Dose Admin Acetaminophen 650 mg 09/23/20 16:11 Acetaminophen 325 Mg Tab PO Q4H PRN Pain MILD(1-3)/Fever >100.5/BENITEZ Albuterol 2.5 mg 09/23/20 16:38 Albuterol 2.5 Mg/3 Ml Nebu IH Q3HRT PRN Wheezing Lipase/Protease/Amylase 1 each 09/24/20 11:30 Lipase 10,500/Protease 25,000/Amylase 43,750 (Units) Cap FEEDTUBE PRN PRN For Clogged Feeding Tube Famotidine 20 mg 09/24/20 10:00 09/25/20 09:43 Famotidine 20 Mg/2 Ml Inj IV 20 mg BID JIMI Administration Furosemide 40 mg 09/24/20 18:00 09/25/20 06:49 Furosemide 40 Mg/4 Ml Inj IV 40 mg 0600,1800 JIMI Administration Heparin Sodium (Porcine) 5,000 unit 09/24/20 22:00 09/25/20 15:48 Heparin 5,000 Unit/1 Ml Vial SUB-Q 5,000 unit Q8HR JIMI Administration Hydralazine HCl 10 mg 09/23/20 16:14 09/24/20 07:50 Hydralazine 20 Mg/1 Ml Inj IV 10 mg Q3H PRN Administration Hypertension Hydrophilic Ointment 1 applic 09/23/20 15:28 Lip Therapy Vaseline TP Q2HR PRN Dry Lips Losartan Potassium 25 mg 09/24/20 10:00 09/25/20 09:44 Losartan 25 Mg Tab PO Not Given QDAY JIMI Metoclopramide HCl 10 mg 09/23/20 16:11 Metoclopramide 10 Mg/2 Ml Inj IV Q6H PRN Nausea And Vomiting Multi-Ingred Cream/Lotion/Oil/Oint 1 applic 09/23/20 15:28 Mineral Oil/Petrolatum, White Ophth Oint 3.5 Gm OU Q4HR PRN Dry Eye(s) Nicotine 14 mg 09/24/20 10:00 09/25/20 09:43 Nicotine 14 Mg/24 Hr Patch TD 14 mg QDAY JIMI Administration Ondansetron HCl 4 mg 09/23/20 16:11 Ondansetron 4 Mg/2 Ml Inj IV Q8H PRN Nausea And Vomiting Potassium Chloride 40 meq 09/25/20 10:00 09/25/20 09:42 Potassium Chloride Er 20 Meq Tab PO 09/26/20 10:01 40 meq QDAY JIMI Administration Senna/Docusate Sodium 1 tab 09/23/20 22:00 09/25/20 09:43 Sennosides/Docusate Sodium 8.6/50 Mg Tab FEEDTUBE 1 tab BID JIMI Administration Simple Syrup 15 ml 09/24/20 11:30 Simple Syrup 15 Ml FEEDTUBE PRN PRN Hypoglycemia Simple Syrup 30 ml 09/24/20 11:30 Simple Syrup 15 Ml FEEDTUBE PRN PRN Hypoglycemia Sodium Bicarbonate 325 mg 09/24/20 11:30 Sodium Bicarbonate 325 Mg Tab FEEDTUBE PRN PRN For Clogged Feeding Tube Sodium Chloride 10 ml 09/23/20 22:00 09/25/20 09:43 Sodium Chloride 0.9% 10 Ml Flush Syringe IV 10 ml BID JIMI Administration Sodium Chloride 10 ml 09/23/20 16:11 Sodium Chloride 0.9% 10 Ml Flush Syringe IV PRN PRN LINE FLUSH Nutrition/Malnutrition Assess - Dietary Evaluation Nutrition/Malnutrition Findings: Nutrition Notes Start: 09/24/20 07 :40 Freq: Status: Active Protocol: Document 09/24/20 07:40 ADAMA (Rec: 09/24/20 07:51 ADAMA [id number]) Nutrition Notes Need for Assessment generated from: MD Order Initial or Follow up Assessment Current Diagnosis Acute Kidney Injury,COPD, Hypertension,Heart Failure, Respiratory Failure Other Pertinent Diagnosis NSTEMI, transaminitis, hepatic encephalopathy Current Diet No diet Labs/Tests K 3.2 BUN 47 Cr 1.7 AST 1860 ALT 1230 Pertinent Medications NS at 75 ml/hr Solu Medrol Norepinephrine Height 5 ft 6 in Weight 124.738 kg [place] Body Weight (kg) 59.09 BMI 44.4 Weight Status Morbidly Obese Subjective/Other Information MD consult to eval intakes and TF. Pt on vent. Burn Absent Trauma Absent Current % PO Negligible Minimum of two criteria No physical signs of malnutrition #1 Nutrition Diagnosis Inadequate oral intake Etiology ARF As Evidenced by Signs and Symptoms pt on vent and unable to consume PO Is patient on ventilator? Yes Is Patient Ambulatory and/or Out of Bed No REE-([place]-confined to bed) 2222.928 Kcal/Kg value to use for calculation 13 Approximate Energy Requirements Using 1622 kcal/Kg Calculation Used for Recommendations Kcal/kg Additional Notes Protein: (up to 2.5g/kg IBW) < 148g Fluid: 1 ml/kcal or per Nutrition Intervention Change Diet Order: Start TF Nutrition Support: Vital AF 1.2 at 55 ml/hr Flush 75 ml q4h or per MD Kcal 1,584 Protein (gm) 99 Carbohydrates (gm) 146 Fat (gm) 71 Fluid (mL) 1,071 Goal #1 Meet at least 75% of protein and energy needs via TF Anticipated Discharge Needs: Unable to determine at this time Follow-Up By: 09/27/20 Additional Comments F/u: TF start/tolerance
[2020-09-25] MEDS: ACETAMINOPHEN 325 MG TAB PO PRN (21:41)
[2020-09-26] MEDS: ACETAMINOPHEN 325 MG TAB PO PRN ×3 (04:27→20:33)
[2020-09-26] MEDS: FUROSEMIDE 40 MG/4 ML INJ IV SCH (06:30)
[2020-09-26] MEDS: HEPARIN 5,000 UNIT/1 ML VIAL SUB-Q SCH ×3 (06:30→22:01)
[2020-09-26 07:29] LABS: Basophils % (Auto) 0.2 % (0.0-1.8); Eosinophils % (Auto) 0.2 % (0.0-4.3); Hematocrit 44.3 % (30.3-42.9); Hemoglobin 13.8 gm/dl (10.1-14.3); Lymphocytes # (Auto) 1.4 K/mm3 (1.2-5.4); Lymphocytes % (Auto) 12.5 % (13.4-35.0); Mean Corpuscular HGB Conc 31 % (30-34); Mean Corpuscular Volume 87 fl (79-97); Monocytes # (Auto) 0.4 K/mm3 (0.0-0.8); Monocytes % (Auto) 3.6 % (0.0-7.3); Platelet Count 123 K/mm3 (140-440); Red Blood Count 5.07 M/mm3 (3.65-5.03); Red Cell Distribution Width 16.8 % (13.2-15.2)
[2020-09-26 07:49] LABS: Albumin 3.1 g/dL (3.9-5); Blood Urea Nitrogen 30 mg/dL (7-17); Calcium 9.2 mg/dL (8.4-10.2); Hemolysis Index 2
[2020-09-26 07:50] LABS: BUN/Creatinine Ratio 43
[2020-09-26 08:03] LABS: Alanine Aminotransferase 852 units/L (7-56)
--- NOTE | 2020-09-26 09:46 | Progress Note ---
Assessment and Plan 59 y/o morbidly obese female with acute respiratory failure, possibly secondary to hypercapnic respiratory failure from CHF exacerbation, ruling out COVID. : More alkalotic today. Would suggest going to Daily lasix therapy, maybe even oral therapy. Replace electrolytes. Needs outpatient PSG as well. Now that renal function has returned to normal can obtain CTA to rule out PE. Per echo no pulmonary HTN. Needs full PFT as outpatient as well. STable for floor transfer 09/25/20: COVID negative. Discontinue precautions. No sedatives. D-dimer and other markers checked given concern for covid. D-Dimer severly elevated. Unable to check CTA given renal function. Could obtain V/Q scan. Patient is stable and given COVID surge and need for ICU beds, may consider transfer tonight to accommodate a patient on the floor in need of ICU bed. 1. Follow up COVID testing 2. Stop all sedatives to assess mental state 3. Follow up cardiology recs 4. Stop steroids 5. Likely stop abx therapy 6. Renal numbers improving compared to yesterday, continue to trend Guarded prognosis. CCT 31 minutes. Subjective Date of service: 09/26/20 Principal diagnosis: encephalopathy, hypotension, Acute on chronic HFrEF, NICM Interval history: Down to 4 liters. Good sats. Dopplers negative. Echo shows dilated RV but normal systolic function. Diastolic dysfunction present with EF of 60-65% Objective Vital Signs - 12hr 09/25/20 09/25/20 09/25/20 22:00 22:41 23:00 Temperature Pulse Rate 96 H 93 H Pulse Rate [ From Monitor] Respiratory 21 20 19 Rate Blood Pressure 129/85 123/81 O2 Sat by Pulse 98 98 Oximetry 09/25/20 09/25/20 09/26/20 23:34 23:55 00:00 Temperature 98.1 F Pulse Rate 93 H 95 H Pulse Rate [ 95 H From Monitor] Respiratory 22 13 Rate Blood Pressure 123/81 127/82 O2 Sat by Pulse 99 99 Oximetry 09/26/20 09/26/20 09/26/20 00:09 01:00 02:00 Temperature Pulse Rate 89 90 Pulse Rate [ From Monitor] Respiratory 15 15 Rate Blood Pressure 127/82 125/85 O2 Sat by Pulse 98 100 99 Oximetry 09/26/20 09/26/20 09/26/20 03:00 04:00 04:20 Temperature 97.7 F Pulse Rate 98 H 91 H 93 H Pulse Rate [ From Monitor] Respiratory 14 13 Rate Blood Pressure 115/74 122/84 O2 Sat by Pulse 100 100 Oximetry 09/26/20 09/26/20 09/26/20 04:27 05:01 05:27 Temperature Pulse Rate 91 H Pulse Rate [ From Monitor] Respiratory 16 19 12 Rate Blood Pressure 105/83 O2 Sat by Pulse 96 Oximetry 09/26/20 09/26/20 09/26/20 06:00 07:00 08:00 Temperature Pulse Rate 85 86 90 Pulse Rate [ 89 From Monitor] Respiratory 13 12 13 Rate Blood Pressure 105/67 126/90 151/91 O2 Sat by Pulse 100 100 99 Oximetry 09/26/20 09/26/20 08:37 08:55 Temperature Pulse Rate Pulse Rate [ From Monitor] Respiratory 21 Rate Blood Pressure O2 Sat by Pulse 94 Oximetry Constitutional: comatose Eyes: non-icteric ENT: other (orally intubated and sedated.) Neck: supple Effort: normal Ascultation: Bilateral: diminished breath sounds Percussion: Bilateral: not dull Cardiovascular: regular rate and rhythm Gastrointestinal: normoactive bowel sounds, other (morbidly obese) CBC and BMP: 09/26/20 07:00 09/26/20 07:00 ABG, PT/INR, D-dimer: ABG ABG pH 7.628 (7.320-7.450) H 09/24/20 04:01 POC ABG pCO2 28.7 mmHg (32.0-48.0) L 09/24/20 04:01 POC ABG pO2 65.7 mmHg (83-108) L 09/24/20 04:01 POC ABG HCO3 29.4 09/24/20 04:01 ABG O2 Saturation 95.3 (0-100) 09/24/20 04:01 PT/INR, D-dimer PT 21.7 Sec. (12.2-14.9) H 09/23/20 14:45 INR 1.83 (0.87-1.13) H 09/23/20 14:45 D-Dimer > 90560 ng/mlDDU (0-234) H 09/24/20 19:15 Abnormal lab findings: Abnormal Labs 09/23/20 09/23/20 09/23/20 12:43 12:43 12:43 WBC RBC 5.85 H Hgb 16.1 H Hct 54.6 H MCH MCHC 29 L RDW 17.8 H Plt Count Lymph % (Auto) Lymph # (Auto) Seg Neutrophils % Seg Neuts % (Manual) 83.0 H Lymphocytes % (Manual) 13.0 L Nucleated RBC % 2.0 H Seg Neutrophils # Seg Neutrophils # Stanley 8.9 H PT INR APTT D-Dimer ABG pH POC ABG pCO2 POC ABG pO2 ABG Oxyhemoglobin ABG Sodium ABG Potassium ABG Chloride ABG Glucose Carboxyhemoglobin Potassium Chloride 88.5 L Carbon Dioxide BUN 38 H Creatinine 2.1 H Glucose POC Glucose Hemoglobin A1c Magnesium AST 342 H ALT 238 H Ammonia 127.0 H Lactate Dehydrogenase Total Creatine Kinase CK-MB (CK-2) CK-MB (CK-2) Rel Index Troponin T 0.810 H* C-Reactive Protein NT-Pro-B Natriuret Pep 50797 H Albumin 3.4 L HDL Cholesterol 39 L Arterial Blood Glucose Arterial Blood Ionized Calcium Urine Creatinine Salicylates Acetaminophen 09/23/20 09/23/20 09/23/20 12:43 12:43 14:45 WBC RBC Hgb Hct MCH MCHC RDW Plt Count Lymph % (Auto) Lymph # (Auto) Seg Neutrophils % Seg Neuts % (Manual) Lymphocytes % (Manual) Nucleated RBC % Seg Neutrophils # Seg Neutrophils # Stanley PT 21.7 H INR 1.83 H APTT 37.0 H D-Dimer ABG pH POC ABG pCO2 POC ABG pO2 ABG Oxyhemoglobin ABG Sodium ABG Potassium ABG Chloride ABG Glucose Carboxyhemoglobin Potassium Chloride Carbon Dioxide BUN Creatinine Glucose POC Glucose Hemoglobin A1c Magnesium AST ALT Ammonia Lactate Dehydrogenase Total Creatine Kinase CK-MB (CK-2) CK-MB (CK-2) Rel Index Troponin T C-Reactive Protein NT-Pro-B Natriuret Pep Albumin HDL Cholesterol Arterial Blood Glucose Arterial Blood Ionized Calcium Urine Creatinine Salicylates < 0.3 L Acetaminophen 5.0 L 09/23/20 09/23/20 09/23/20 14:56 15:34 17:14 WBC RBC Hgb Hct MCH MCHC RDW Plt Count Lymph % (Auto) Lymph # (Auto) Seg Neutrophils % Seg Neuts % (Manual) Lymphocytes % (Manual) Nucleated RBC % Seg Neutrophils # Seg Neutrophils # Man PT INR APTT D-Dimer ABG pH 7.062 L POC ABG pCO2 93.1 H POC ABG pO2 81.3 L ABG Oxyhemoglobin 92.2 L 93.5 L ABG Sodium 135.2 L ABG Potassium ABG Chloride 94.0 L 95.0 L ABG Glucose 109 H 114 H Carboxyhemoglobin 3.7 H 3.2 H Potassium Chloride Carbon Dioxide BUN Creatinine Glucose POC Glucose 114 H Hemoglobin A1c Magnesium AST ALT Ammonia Lactate Dehydrogenase Total Creatine Kinase CK-MB (CK-2) CK-MB (CK-2) Rel Index Troponin T C-Reactive Protein NT-Pro-B Natriuret Pep Albumin HDL Cholesterol Arterial Blood Glucose 109 H 114 H Arterial Blood Ionized Calcium Urine Creatinine Salicylates Acetaminophen 09/23/20 09/23/20 09/23/20 19:44 19:44 23:50 WBC RBC Hgb Hct MCH MCHC RDW Plt Count Lymph % (Auto) Lymph # (Auto) Seg Neutrophils % Seg Neuts % (Manual) Lymphocytes % (Manual) Nucleated RBC % Seg Neutrophils # Seg Neutrophils # Man PT INR APTT D-Dimer ABG pH POC ABG pCO2 POC ABG pO2 ABG Oxyhemoglobin ABG Sodium ABG Potassium ABG Chloride ABG Glucose Carboxyhemoglobin Potassium Chloride Carbon Dioxide BUN Creatinine Glucose POC Glucose Hemoglobin A1c Magnesium AST ALT Ammonia Lactate Dehydrogenase 1543 H Total Creatine Kinase CK-MB (CK-2) CK-MB (CK-2) Rel Index Troponin T 1.110 H* D 0.857 H* D C-Reactive Protein 2.10 H NT-Pro-B Natriuret Pep Albumin HDL Cholesterol Arterial Blood Glucose Arterial Blood Ionized Calcium Urine Creatinine Salicylates Acetaminophen 09/23/20 09/24/20 09/24/20 Unknown 04:01 05:11 WBC RBC 5.57 H Hgb 15.2 H Hct 47.0 H D MCH 27 L MCHC RDW 16.5 H Plt Count Lymph % (Auto) 13.1 L Lymph # (Auto) Seg Neutrophils % 84.1 H Seg Neuts % (Manual) Lymphocytes % (Manual) Nucleated RBC % Seg Neutrophils # 9.1 H Seg Neutrophils # Man PT INR APTT D-Dimer ABG pH 7.628 H POC ABG pCO2 28.7 L POC ABG pO2 65.7 L ABG Oxyhemoglobin 93.5 L ABG Sodium 135.1 L ABG Potassium 3.1 L ABG Chloride ABG Glucose 116 H Carboxyhemoglobin 1.6 H Potassium Chloride Carbon Dioxide BUN Creatinine Glucose POC Glucose Hemoglobin A1c 6.3 H Magnesium AST ALT Ammonia Lactate Dehydrogenase Total Creatine Kinase CK-MB (CK-2) CK-MB (CK-2) Rel Index Troponin T C-Reactive Protein NT-Pro-B Natriuret Pep Albumin HDL Cholesterol Arterial Blood Glucose 116 H Arterial Blood Ionized Calcium 4.2 L Urine Creatinine Salicylates Acetaminophen 09/24/20 09/24/20 09/24/20 05:11 05:11 05:11 WBC RBC Hgb Hct MCH MCHC RDW Plt Count Lymph % (Auto) Lymph # (Auto) Seg Neutrophils % Seg Neuts % (Manual) Lymphocytes % (Manual) Nucleated RBC % Seg Neutrophils # Seg Neutrophils # Man PT INR APTT D-Dimer ABG pH POC ABG pCO2 POC ABG pO2 ABG Oxyhemoglobin ABG Sodium ABG Potassium ABG Chloride ABG Glucose Carboxyhemoglobin Potassium 3.2 L Chloride 95.3 L Carbon Dioxide 32 H D BUN 47 H Creatinine 1.7 H Glucose 103 H POC Glucose Hemoglobin A1c Magnesium AST 1860 H ALT 1230 H Ammonia Lactate Dehydrogenase 1357 H Total Creatine Kinase 263 H CK-MB (CK-2) 72.8 H CK-MB (CK-2) Rel Index 27.6 H Troponin T C-Reactive Protein 2.20 H NT-Pro-B Natriuret Pep Albumin 3.3 L HDL Cholesterol Arterial Blood Glucose Arterial Blood Ionized Calcium Urine Creatinine Salicylates Acetaminophen 09/24/20 09/24/20 09/24/20 11:46 12:57 16:52 WBC RBC Hgb Hct MCH MCHC RDW Plt Count Lymph % (Auto) Lymph # (Auto) Seg Neutrophils % Seg Neuts % (Manual) Lymphocytes % (Manual) Nucleated RBC % Seg Neutrophils # Seg Neutrophils # Man PT INR APTT D-Dimer ABG pH POC ABG pCO2 POC ABG pO2 ABG Oxyhemoglobin ABG Sodium ABG Potassium ABG Chloride ABG Glucose Carboxyhemoglobin Potassium Chloride Carbon Dioxide BUN Creatinine Glucose POC Glucose 128 H Hemoglobin A1c Magnesium AST ALT Ammonia Lactate Dehydrogenase Total Creatine Kinase 438 H CK-MB (CK-2) 47.8 H CK-MB (CK-2) Rel Index 10.9 H Troponin T C-Reactive Protein NT-Pro-B Natriuret Pep Albumin HDL Cholesterol Arterial Blood Glucose Arterial Blood Ionized Calcium Urine Creatinine 81.9 H Salicylates Acetaminophen 09/24/20 09/24/20 09/24/20 17:32 19:15 19:15 WBC RBC Hgb Hct MCH MCHC RDW Plt Count Lymph % (Auto) Lymph # (Auto) Seg Neutrophils % Seg Neuts % (Manual) Lymphocytes % (Manual) Nucleated RBC % Seg Neutrophils # Seg Neutrophils # Man PT INR APTT D-Dimer > 24425 H ABG pH POC ABG pCO2 POC ABG pO2 ABG Oxyhemoglobin ABG Sodium ABG Potassium ABG Chloride ABG Glucose Carboxyhemoglobin Potassium Chloride Carbon Dioxide BUN Creatinine Glucose POC Glucose 113 H Hemoglobin A1c Magnesium AST ALT Ammonia Lactate Dehydrogenase Total Creatine Kinase 461 H CK-MB (CK-2) 35.1 H CK-MB (CK-2) Rel Index 7.6 H Troponin T C-Reactive Protein NT-Pro-B Natriuret Pep Albumin HDL Cholesterol Arterial Blood Glucose Arterial Blood Ionized Calcium Urine Creatinine Salicylates Acetaminophen 09/25/20 09/25/20 09/25/20 04:00 04:00 13:13 WBC 14.9 H RBC 5.18 H Hgb Hct 45.4 H MCH 27 L MCHC RDW 16.6 H Plt Count 124 L Lymph % (Auto) 6.3 L Lymph # (Auto) 0.9 L Seg Neutrophils % 89.3 H Seg Neuts % (Manual) Lymphocytes % (Manual) Nucleated RBC % Seg Neutrophils # 13.3 H Seg Neutrophils # Man PT INR APTT D-Dimer ABG pH POC ABG pCO2 POC ABG pO2 ABG Oxyhemoglobin ABG Sodium ABG Potassium ABG Chloride ABG Glucose Carboxyhemoglobin Potassium 3.2 L Chloride 96.9 L Carbon Dioxide 38 H BUN 40 H Creatinine Glucose POC Glucose 124 H Hemoglobin A1c Magnesium 2.70 H AST 811 H ALT 1042 H Ammonia Lactate Dehydrogenase Total Creatine Kinase CK-MB (CK-2) CK-MB (CK-2) Rel Index Troponin T C-Reactive Protein NT-Pro-B Natriuret Pep Albumin 3.0 L HDL Cholesterol Arterial Blood Glucose Arterial Blood Ionized Calcium Urine Creatinine Salicylates Acetaminophen 09/26/20 09/26/20 07:00 07:00 WBC 11.2 H RBC 5.07 H Hgb Hct 44.3 H MCH 27 L MCHC RDW 16.8 H Plt Count 123 L Lymph % (Auto) 12.5 L Lymph # (Auto) Seg Neutrophils % 83.5 H Seg Neuts % (Manual) Lymphocytes % (Manual) Nucleated RBC % Seg Neutrophils # 9.4 H Seg Neutrophils # Man PT INR APTT D-Dimer ABG pH POC ABG pCO2 POC ABG pO2 ABG Oxyhemoglobin ABG Sodium ABG Potassium ABG Chloride ABG Glucose Carboxyhemoglobin Potassium 3.1 L Chloride 94.7 L Carbon Dioxide 42 H* BUN 30 H Creatinine Glucose POC Glucose Hemoglobin A1c Magnesium AST 461 H ALT 852 H Ammonia Lactate Dehydrogenase Total Creatine Kinase CK-MB (CK-2) CK-MB (CK-2) Rel Index Troponin T C-Reactive Protein NT-Pro-B Natriuret Pep Albumin 3.1 L HDL Cholesterol Arterial Blood Glucose Arterial Blood Ionized Calcium Urine Creatinine Salicylates Acetaminophen Allied health notes reviewed: nursing
[2020-09-26] MEDS: LOSARTAN 25 MG TAB PO SCH (09:59)
[2020-09-26] MEDS: SENNOSIDES/DOCUSATE SODIUM 8.6/50 MG TAB FEEDTUBE SCH ×2 (10:00→22:01)
[2020-09-26] MEDS: POTASSIUM CHLORIDE ER 20 MEQ TAB PO SCH ×3 (10:00→17:33)
[2020-09-26] MEDS: NICOTINE 14 MG/24 HR PATCH TD SCH ×2 (10:00→10:04)
[2020-09-26] MEDS: FAMOTIDINE 20 MG/2 ML INJ IV SCH ×2 (10:01→22:01)
--- NOTE | 2020-09-26 11:20 | Progress Note ---
Assessment and Plan Although the patient has improved clinically, with elevated D-dimer and severely dilated RV, chest CTA will still be useful. Change lasix to PO daily and obtain BMP in am. - Patient Problems (1) Acute respiratory failure with hypoxia Current Visit: Yes Status: Resolved (2) Acute encephalopathy Current Visit: Yes Status: Resolved (3) Hypotension Current Visit: Yes Status: Acute Qualifiers: Hypotension type: unspecified hypotension type Qualified Code(s): I95.9 - Hypotension, unspecified (4) Acute on chronic heart failure with preserved ejection fraction (HFpEF) Current Visit: Yes Status: Acute (5) Right ventricular dilation Current Visit: Yes Status: Acute (6) ISIS (acute kidney injury) Current Visit: Yes Status: Acute (7) Elevated d-dimer Current Visit: Yes Status: Acute (8) H/O cardiomyopathy Current Visit: Yes Status: Acute (9) Elevated LFTs Current Visit: Yes Status: Acute (10) Non-STEMI (non-ST elevated myocardial infarction) Current Visit: Yes Status: Acute Subjective Date of service: 09/26/20 Principal diagnosis: encephalopathy, hypotension, Acute on chronic HFrEF, NICM Interval history: No complaint. Feels better. Echo showed severely dilated RV. RVSP may have been underestimated. Objective Vital Signs Last Vital Signs Temp 97.7 F 09/26/20 04:00 Pulse 89 09/26/20 09:59 Resp 21 09/26/20 08:37 BP 151/91 09/26/20 08:00 Pulse Ox 94 09/26/20 08:55 - Physical Examination General: No Apparent Distress HEENT: Positive: EOMI, Normocephaly, Mucus Membranes Moist Neck: Positive: neck supple, trachea midline Cardiac: Positive: Reg Rate and Rhythm Lungs: Positive: clear to auscultation Neuro: Positive: Grossly Intact, Other (intubated) Abdomen: Positive: Soft, Active Bowel Sounds. Negative: Tender Skin: Positive: Clear. Negative: Rash Extremities: Absent: edema (trace bilateral leg edema) - Labs and Meds Cardiac Enzymes 09/26/20 Range/Units 07:00 AST 461 H (5-40) units/L CBC 09/26/20 Range/Units 07:00 WBC 11.2 H (4.5-11.0) K/mm3 RBC 5.07 H (3.65-5.03) M/mm3 Hgb 13.8 (10.1-14.3) gm/dl Hct 44.3 H (30.3-42.9) % Plt Count 123 L (140-440) K/mm3 Lymph # (Auto) 1.4 (1.2-5.4) K/mm3 Garrett # (Auto) 0.4 (0.0-0.8) K/mm3 Eos # (Auto) 0.0 (0.0-0.4) K/mm3 Baso # (Auto) 0.0 (0.0-0.1) K/mm3 Comprehensive Metabolic Panel 09/26/20 Range/Units 07:00 Sodium 141 (137-145) mmol/L Potassium 3.1 L (3.6-5.0) mmol/L Chloride 94.7 L (98-107) mmol/L Carbon Dioxide 42 H* (22-30) mmol/L BUN 30 H (7-17) mg/dL Creatinine 0.7 (0.6-1.2) mg/dL Glucose 77 (65-100) mg/dL Calcium 9.2 (8.4-10.2) mg/dL AST 461 H (5-40) units/L ALT 852 H (7-56) units/L Alkaline Phosphatase 63 (35-129) units/L Total Protein 6.9 (6.3-8.2) g/dL Albumin 3.1 L (3.9-5) g/dL - Imaging and Cardiology Cardiac cath: report reviewed (01/2019 - normal coronaries, mod-severe LV dysfxn) - EKG Sinus rhythms and dysrhythmias: sinus rhythm Repolarization changes or abnormalities: nonspecific abnormality, ST segment, and/or T wave - Allied health notes Allied health notes reviewed: nursing
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
[2020-09-26] MEDS ORDERED: POTASSIUM CHLORIDE ER 20 MEQ TAB PO SCH (18:00)
[2020-09-27] MEDS: ACETAMINOPHEN 325 MG TAB PO PRN (05:21)
[2020-09-27] MEDS: HEPARIN 5,000 UNIT/1 ML VIAL SUB-Q SCH (05:21)
[2020-09-27] MEDS ORDERED: FUROSEMIDE 20 MG TAB PO SCH (06:00)
--- NOTE | 2020-09-27 07:57 | Discharge Summary ---
Providers - Providers Date of Admission: 09/23/20 14:20 Date of discharge: 09/27/20 Attending physician: ANAMARIA KRAMER MD 09/23/20 14:29 Consult to Cardiology [CONS] Routine Consulting Provider: MIGUEL STEPHENS Reason For Exam: NSTEMI, CHF 09/23/20 15:28 Consult to Dietitian/Nutrition [CONS] Routine Physician Instructions: tube feedings Reason For Exam: Reason for Consult: Evaluate nutritional intake 09/23/20 15:36 Consult to Physician [CONS] Routine Comment: Consulting Provider: SELMA ARITA Physician Instructions: Reason For Exam: ICU Management 09/24/20 13:11 Consult to PICC Line RN [CONS] Urgent Reason For Exam: likely will need retirement access Type Line:: PICC 09/26/20 15:20 Consult to Case Management [CONS] Routine Services Needed at Discharge: Home O2 Additional Physician Instructions: pt desaturated to 82% on RA at rest; done by physician Dr. Anamaria Kramer Primary care physician: WIRE COILER Hospitalization Reason for admission: Confusion, shortness of breath Condition: Fair Hospital course: History of present illness: 59-year-old -[place] female with history of obesity hypertension and CHF brought in by EMS because of unresponsiveness since a.m. Initial blood glucose was low work after D50 W blood glucose was 150 patient had some response to 2 mg in the: Narcan. Patient went to [facility] yesterday and was [facility] for gast[facility]. [facility] [place] [facility] that they were treated and discharged. In the ER because of persistent unresponsiveness and also hypoxia patient was intubated. Patient was also hypotensive initially. Intermittently was responsive but now patient intubated and sedated. Patient is agitated. No fever or chills. Around 6 AM this morning patient rolled out of bed and fell onto the ground. She was awake and conversive at that time but did not want to be lifted back into the bed. She received Brilinta and went back into bed and rested. Because of decreased responsiveness EMS was called. Around 10 AM. Patient is vaccinated against COVID-19 with 2 shots of 5 of series. Her cloud security architect is Dr. Stephens Assessement and Plan This is a 59-year-old female with CHF, HTN, hyperlipidemia ,current nicotine smoker, cardiomyopahty, OHS, s/p vaccination for COVID 19 who presents the emergency department for altered mental status and received narcan with some improvement to mental status. Neuro: Acute metabolic encephalopathy, hepatic encephalopathy -CT head completed, see report -Sedated with Versed-> changed to fentanyl and propofol as needed -RASS goal 0 to -1 -Avoid delirium -Reorientation as needed Cardiology: Acute on Chronic HFrEF, NSTEMI type II h/o cardiomyopathy, HTN, hyperlipidemia -Cardiology consulted, appreciate recommendations -Per cardiology: Echocardiogram 06/2018 with a EF of 20-25% and left heart cath 01/2019 with normal coronaries and moderate to severe left ventricular dysfunction -09/24 echocardiogram shows LVEF 65%, right ventricle severely dilated, right ventricular systolic function normal, flattened septum consistent with right ventricular volume and pressure overload, RVSP may be underestimated in the study which is calculated at 21 mmHg -Trend cardiac enzymes -Blood pressure monitor per protocol -Currently on Cozaar with amlodipine added this morning for persistent hypertension -s/p Levophed gtt for hypotension in the emergency department -Admit proBNP [id number] -Currently on IV Lasix -As needed hydralazine -Blood pressure monitoring per protocol Respiratory: Acute hypercarbic respiratory failure, current tobacco abuse, h/o ohs -S/p nonrebreather in the ED -Intubated in the emergency department on 09/23, extubated 09/24 -VAP bundle -Serial ABGs and CXR -Extubated to BiPAP/OptiFlow; weaned to salter today and eventually to nasal cannula -Continue SPO2 monitoring -nicotine patch -CXR reviewed GI: MO, transaminitis -Abdominal XR reviewed -Lipase 27 -Trend LFTs -Abdominal ultrasound.-See report : Acute kidney injury 2/2 VMN, hypokalemia -Replete potassium -Strict intake and output -Daily weights -Avoid nephrotoxic medications and renally dose medications -Trend CMP Endo: h/o DM -Hemoglobin A1c 6.3 -SSI -Accu-Cheks every 6 for now, AC at bedtime post extubation and when on diet -Avoid hypoglycemia ID: Covid-19 ruled out -COVID-19 PCR negative -Pulmonary hygiene -Was on azithromycin and ceftriaxone but d/c Heme: Elevated DDimer, Supratherapeutic INR, h/o ohs -Trend CBC and INR -Bilateral lower extremity ultrasound negative for DVT -VQ scan pending -See echocardiogram for results -Transfuse for hemoglobin less than 7 -SCDs to bilateral LE while in bed -Heparin subcu Hospital course to date: This is a 59-year-old female with CHF, HTN, hyperlipidemia ,current nicotine smoker, cardiomyopahty, OHS, s/p vaccination for COVID 19 who presents the emergency department for altered mental status and received narcan with some improvement to mental status. Per patient's she became increasingly confused throughout the day which prompted presentation and patient had mild improvement to responsiveness with Narcan. Patient was intubated for severe hypercapnia on ABG while on a nonrebreather. Work-up in the emergency department revealed acute kidney injury, transaminitis, hyperammonemia, elevated proBNP with elevated troponins. Patient was admitted to the hospitalist service as a COVID-19 PUI with elevated cardiac enzymes, acute on chronic CHF and acute hypercapnic respiratory failure. Consults were placed to cardiology and CCM. 09/24: Possible extubation today, Covid 19 PCR pending. Added amlodipine for htn. PICC line ordered today 09/25: VQ scan ordered today, bilateral lower extreme Doppler ultrasound also obtained which showed no DVT. Patient was able to be weaned down to high flow nasal cannula down to nasal cannula. Patient will be transferred to IMCU. 09/26: cannot completed v/q scan due to high patient bmi. CTA chest would be ill advised due to recent ISIS. Will work on home oxygen set up with CM and potential d/c tomorrow. downgrade to tele floor. 09/27: Awaiting home oxygen setup up by . patient will be discharged home with instructions to follow up with her outpatient cloud security architect and primary care doctor. She will need to be optimized on her heart failure medications. She was not discharged on a beta-sandra due to concern for precipitating hyp otension. She will be discharged with prescriptions for losartan and furosemide and instructions to continue her home metalozone and potassium supplementation. Should she need further work-up would recommend CT chest with contrast as an outpatient once cleared to do so and normalized kidney function. She will need follow up with a carpet jack outpatient as well. Disposition: HOME / SELF CARE / HOMELESS Final Discharge Diagnosis (Prints w/discharge instructions): Acute on chronic heart failure with reduced ejection fraction Time spent for discharge: 35 - Discharge Diagnoses (1) ISIS (acute kidney injury) Status: Acute (2) Acute on chronic HFrEF (heart failure with reduced ejection fraction) Status: Acute (3) Acute respiratory failure Status: Acute (4) COPD exacerbation Status: Acute (5) Elevated LFTs Status: Acute (6) Hypotension Status: Acute Qualifiers: Hypotension type: unspecified hypotension type Qualified Code(s): I95.9 - Hypotension, unspecified (7) NSTEMI (non-ST elevated myocardial infarction) Status: Acute (8) Transaminitis Status: Acute (9) Nicotine dependence with withdrawal Status: Acute Qualifiers: Nicotine product type: cigarettes Qualified Code(s): F17.213 - Nicotine dependence, cigarettes, with withdrawal (10) Cardiomyopathy Status: Chronic (11) Morbid obesity Status: Chronic Core Measure Documentation - Palliative Care Palliative Care/ Comfort Measures: Not Applicable - Core Measures Any of the following diagnoses?: heart failure - Heart Failure Discharge Requirements JOSE/ARB for LVSD if EF <40%: Yes Beta sandra at discharge: No Reason for no beta sandra on DC: Hypotension Exam - Constitutional Vitals: Temp Pulse Resp BP Pulse Ox 99.1 F 90 15 105/69 99 09/27/20 07:32 09/27/20 07:00 09/27/20 07:00 09/27/20 07:00 09/27/20 07:00 Plan Activity: no restrictions Weight Bearing Status: Weight Bear as Tolerated Diet: low fat, low cholesterol, low salt Durable Medical Equipment Needed Upon Discharge: Oxygen Follow up with: PRIMARY CARE, [Primary Care Provider] - 3-5 Days Prescriptions: Losartan [Cozaar] 25 mg PO QDAY #30 tablet Furosemide [Lasix TAB] 20 mg PO DAILY@0600 30 Days #30 tablet
[2020-09-27] MEDS: NICOTINE 14 MG/24 HR PATCH TD SCH (09:17)
[2020-09-27] MEDS: FAMOTIDINE 20 MG/2 ML INJ IV SCH (09:17)
[2020-09-27] MEDS: LOSARTAN 25 MG TAB PO SCH (09:17)
[2020-09-27] MEDS: SENNOSIDES/DOCUSATE SODIUM 8.6/50 MG TAB FEEDTUBE SCH (09:17)
[2020-09-27 11:09] VITALS: BP 114/61
--- NOTE | 2020-09-27 11:27 | Progress Note ---
Assessment and Plan HFrEF * Echo 09/24/2020- EF 60-65%, mild left ventricular hypertrophy, right ventricle severely dilated, right ventrcicular systolic function normal, right atrium moderately dilated, * No BB due to documented allergy. Continue home Losartan and Lasix. * Pt noted to have normal coronaries via cath 01/2019. NSTEMI TypeII * CE elevation appears consistent with NSTEMI Type 2. * Pt noted to have normal coronaries via cath 01/2019. * No reports of chest pain. ECG revealed no acute ischemic changes From a cardiac point of view patient is stable and may be discharged. Patient should follow up video appointment with Dr. Stephens, [facility], at 11:00am. Pt seen in conjunction with Dr. Soria, who agrees with the assessment and plan of care. Will see as needed - Patient Problems (1) ISIS (acute kidney injury) Current Visit: Yes Status: Acute (2) Acute on chronic heart failure with preserved ejection fraction (HFpEF) Current Visit: Yes Status: Acute (3) Acute respiratory failure Current Visit: Yes Status: Acute (4) COPD exacerbation Current Visit: Yes Status: Acute (5) NICM (nonischemic cardiomyopathy) Current Visit: Yes Status: Chronic (6) Obesity hypoventilation syndrome Current Visit: Yes Status: Chronic (7) Tobacco abuse Current Visit: Yes Status: Chronic (8) Acute respiratory failure with hypoxia Current Visit: Yes Status: Resolved (9) Morbid obesity Current Visit: No Status: Chronic Subjective Date of service: 09/27/20 Principal diagnosis: encephalopathy, hypotension, Acute on chronic HFrEF, NICM Interval history: Patient sitting in side of bed with no complaints. Sinus 90s on monitor Objective Last Vital Signs Temp 99.1 F 09/27/20 07:32 Pulse 98 H 09/27/20 11:10 Resp 20 09/27/20 11:10 BP 114/61 09/27/20 11:01 Pulse Ox 97 09/27/20 11:10 - Physical Examination General: No Apparent Distress HEENT: Positive: EOMI, Normocephaly, Mucus Membranes Moist Neck: Positive: neck supple, trachea midline Cardiac: Positive: Reg Rate and Rhythm Lungs: Positive: Normal Breath Sounds Neuro: Positive: Grossly Intact Abdomen: Positive: Soft, Active Bowel Sounds. Negative: Tender Skin: Positive: Clear. Negative: Rash Extremities: Present: upper extr. pulses, lower extr. pulses. Absent: edema (trace bilateral leg edema) - Imaging and Cardiology EKG: report reviewed Echo: report reviewed (06/2018 - EF 20-25%, mild LVH, restrictive diastolic filling, LA mod dilated, RV systolic fxn mod reduced, IVC dilated with < 50% resp change noted) Cardiac cath: report reviewed (01/2019 - normal coronaries, mod-severe LV dysfxn) - Telemetry EKG Rhythm: Sinus Rhythm - EKG Sinus rhythms and dysrhythmias: sinus rhythm Repolarization changes or abnormalities: nonspecific abnormality, ST segment, and/or T wave - Allied health notes Allied health notes reviewed: nursing
--- NOTE | 2020-09-27 12:06 | Progress Note ---
Assessment and Plan 59 y/o morbidly obese female with acute respiratory failure, possibly secondary to hypercapnic respiratory failure from CHF exacerbation, ruling out COVID. 09/27/20: SMoking cessation. Oxygen 04/09. Weight loss. Can benefit from KIRSTY screening. Daily diuretic therapy. No objection to discharge pulmonary fay. Can follow up with us if she chooses. : More alkalotic today. Would suggest going to Daily lasix therapy, maybe even oral therapy. Replace electrolytes. Needs outpatient PSG as well. Now that renal function has returned to normal can obtain CTA to rule out PE. Per echo no pulmonary HTN. Needs full PFT as outpatient as well. STable for floor transfer 09/25/20: COVID negative. Discontinue precautions. No sedatives. D-dimer and other markers checked given concern for covid. D-Dimer severly elevated. Unable to check CTA given renal function. Could obtain V/Q scan. Patient is stable and given COVID surge and need for ICU beds, may consider transfer tonight to accommodate a patient on the floor in need of ICU bed. 1. Follow up COVID testing 2. Stop all sedatives to assess mental state 3. Follow up cardiology recs 4. Stop steroids 5. Likely stop abx therapy 6. Renal numbers improving compared to yesterday, continue to trend Guarded prognosis. CCT 31 minutes. Subjective Date of service: 09/27/20 Principal diagnosis: encephalopathy, hypotension, Acute on chronic HFrEF, NICM Interval history: Patient qualifies for home O2. Objective Vital Signs - 12hr 09/27/20 09/27/20 09/27/20 00:31 01:00 02:00 Temperature Pulse Rate 90 87 86 Pulse Rate [ From Monitor] Respiratory 12 14 17 Rate Blood Pressure 114/67 105/74 118/87 O2 Sat by Pulse 99 97 100 Oximetry 09/27/20 09/27/20 09/27/20 03:00 04:00 04:01 Temperature 98.2 F Pulse Rate 89 90 Pulse Rate [ From Monitor] Respiratory 12 26 H Rate Blood Pressure 134/96 126/80 O2 Sat by Pulse 100 86 Oximetry 09/27/20 09/27/20 09/27/20 05:00 05:21 06:00 Temperature Pulse Rate 90 95 H Pulse Rate [ From Monitor] Respiratory 18 16 19 Rate Blood Pressure 125/87 122/78 O2 Sat by Pulse 97 99 Oximetry 09/27/20 09/27/20 09/27/20 06:21 07:00 07:32 Temperature 99.1 F Pulse Rate 90 Pulse Rate [ From Monitor] Respiratory 20 15 Rate Blood Pressure 105/69 O2 Sat by Pulse 99 Oximetry 09/27/20 09/27/20 09/27/20 08:00 09:00 09:17 Temperature Pulse Rate 91 H 84 85 Pulse Rate [ From Monitor] Respiratory 13 13 Rate Blood Pressure 136/90 136/87 136/87 O2 Sat by Pulse 100 100 Oximetry 09/27/20 09/27/20 09/27/20 10:01 11:01 11:10 Temperature Pulse Rate 87 90 Pulse Rate [ 98 H From Monitor] Respiratory 19 12 20 Rate Blood Pressure 136/87 114/61 O2 Sat by Pulse 99 91 97 Oximetry Constitutional: comatose Eyes: non-icteric ENT: other (orally intubated and sedated.) Neck: supple Effort: normal Ascultation: Bilateral: diminished breath sounds Percussion: Bilateral: not dull Cardiovascular: regular rate and rhythm Gastrointestinal: normoactive bowel sounds, other (morbidly obese) CBC and BMP: 09/26/20 07:00 09/26/20 07:00 ABG, PT/INR, D-dimer: ABG ABG pH 7.628 (7.320-7.450) H 09/24/20 04:01 POC ABG pCO2 28.7 mmHg (32.0-48.0) L 09/24/20 04:01 POC ABG pO2 65.7 mmHg (83-108) L 09/24/20 04:01 POC ABG HCO3 29.4 09/24/20 04:01 ABG O2 Saturation 95.3 (0-100) 09/24/20 04:01 PT/INR, D-dimer PT 21.7 Sec. (12.2-14.9) H 09/23/20 14:45 INR 1.83 (0.87-1.13) H 09/23/20 14:45 D-Dimer > 11434 ng/mlDDU (0-234) H 09/24/20 19:15 Abnormal lab findings: Abnormal Labs 09/23/20 09/23/20 09/23/20 12:43 12:43 12:43 WBC RBC 5.85 H Hgb 16.1 H Hct 54.6 H MCH MCHC 29 L RDW 17.8 H Plt Count Lymph % (Auto) Lymph # (Auto) Seg Neutrophils % Seg Neuts % (Manual) 83.0 H Lymphocytes % (Manual) 13.0 L Nucleated RBC % 2.0 H Seg Neutrophils # Seg Neutrophils # Man 8.9 H PT INR APTT D-Dimer ABG pH POC ABG pCO2 POC ABG pO2 ABG Oxyhemoglobin ABG Sodium ABG Potassium ABG Chloride ABG Glucose Carboxyhemoglobin Potassium Chloride 88.5 L Carbon Dioxide BUN 38 H Creatinine 2.1 H Glucose POC Glucose Hemoglobin A1c Magnesium AST 342 H ALT 238 H Ammonia 127.0 H Lactate Dehydrogenase Total Creatine Kinase CK-MB (CK-2) CK-MB (CK-2) Rel Index Troponin T 0.810 H* C-Reactive Protein NT-Pro-B Natriuret Pep 63606 H Albumin 3.4 L HDL Cholesterol 39 L Arterial Blood Glucose Arterial Blood Ionized Calcium Urine Creatinine Salicylates Acetaminophen 09/23/20 09/23/20 09/23/20 12:43 12:43 14:45 WBC RBC Hgb Hct MCH MCHC RDW Plt Count Lymph % (Auto) Lymph # (Auto) Seg Neutrophils % Seg Neuts % (Manual) Lymphocytes % (Manual) Nucleated RBC % Seg Neutrophils # Seg Neutrophils # Man PT 21.7 H INR 1.83 H APTT 37.0 H D-Dimer ABG pH POC ABG pCO2 POC ABG pO2 ABG Oxyhemoglobin ABG Sodium ABG Potassium ABG Chloride ABG Glucose Carboxyhemoglobin Potassium Chloride Carbon Dioxide BUN Creatinine Glucose POC Glucose Hemoglobin A1c Magnesium AST ALT Ammonia Lactate Dehydrogenase Total Creatine Kinase CK-MB (CK-2) CK-MB (CK-2) Rel Index Troponin T C-Reactive Protein NT-Pro-B Natriuret Pep Albumin HDL Cholesterol Arterial Blood Glucose Arterial Blood Ionized Calcium Urine Creatinine Salicylates < 0.3 L Acetaminophen 5.0 L 09/23/20 09/23/20 09/23/20 14:56 15:34 17:14 WBC RBC Hgb Hct MCH MCHC RDW Plt Count Lymph % (Auto) Lymph # (Auto) Seg Neutrophils % Seg Neuts % (Manual) Lymphocytes % (Manual) Nucleated RBC % Seg Neutrophils # Seg Neutrophils # Man PT INR APTT D-Dimer ABG pH 7.062 L POC ABG pCO2 93.1 H POC ABG pO2 81.3 L ABG Oxyhemoglobin 92.2 L 93.5 L ABG Sodium 135.2 L ABG Potassium ABG Chloride 94.0 L 95.0 L ABG Glucose 109 H 114 H Carboxyhemoglobin 3.7 H 3.2 H Potassium Chloride Carbon Dioxide BUN Creatinine Glucose POC Glucose 114 H Hemoglobin A1c Magnesium AST ALT Ammonia Lactate Dehydrogenase Total Creatine Kinase CK-MB (CK-2) CK-MB (CK-2) Rel Index Troponin T C-Reactive Protein NT-Pro-B Natriuret Pep Albumin HDL Cholesterol Arterial Blood Glucose 109 H 114 H Arterial Blood Ionized Calcium Urine Creatinine Salicylates Acetaminophen 09/23/20 09/23/20 09/23/20 19:44 19:44 23:50 WBC RBC Hgb Hct MCH MCHC RDW Plt Count Lymph % (Auto) Lymph # (Auto) Seg Neutrophils % Seg Neuts % (Manual) Lymphocytes % (Manual) Nucleated RBC % Seg Neutrophils # Seg Neutrophils # Man PT INR APTT D-Dimer ABG pH POC ABG pCO2 POC ABG pO2 ABG Oxyhemoglobin ABG Sodium ABG Potassium ABG Chloride ABG Glucose Carboxyhemoglobin Potassium Chloride Carbon Dioxide BUN Creatinine Glucose POC Glucose Hemoglobin A1c Magnesium AST ALT Ammonia Lactate Dehydrogenase 1543 H Total Creatine Kinase CK-MB (CK-2) CK-MB (CK-2) Rel Index Troponin T 1.110 H* D 0.857 H* D C-Reactive Protein 2.10 H NT-Pro-B Natriuret Pep Albumin HDL Cholesterol Arterial Blood Glucose Arterial Blood Ionized Calcium Urine Creatinine Salicylates Acetaminophen 09/23/20 09/24/20 09/24/20 Unknown 04:01 05:11 WBC RBC 5.57 H Hgb 15.2 H Hct 47.0 H D MCH 27 L MCHC RDW 16.5 H Plt Count Lymph % (Auto) 13.1 L Lymph # (Auto) Seg Neutrophils % 84.1 H Seg Neuts % (Manual) Lymphocytes % (Manual) Nucleated RBC % Seg Neutrophils # 9.1 H Seg Neutrophils # Man PT INR APTT D-Dimer ABG pH 7.628 H POC ABG pCO2 28.7 L POC ABG pO2 65.7 L ABG Oxyhemoglobin 93.5 L ABG Sodium 135.1 L ABG Potassium 3.1 L ABG Chloride ABG Glucose 116 H Carboxyhemoglobin 1.6 H Potassium Chloride Carbon Dioxide BUN Creatinine Glucose POC Glucose Hemoglobin A1c 6.3 H Magnesium AST ALT Ammonia Lactate Dehydrogenase Total Creatine Kinase CK-MB (CK-2) CK-MB (CK-2) Rel Index Troponin T C-Reactive Protein NT-Pro-B Natriuret Pep Albumin HDL Cholesterol Arterial Blood Glucose 116 H Arterial Blood Ionized Calcium 4.2 L Urine Creatinine Salicylates Acetaminophen 09/24/20 09/24/20 09/24/20 05:11 05:11 05:11 WBC RBC Hgb Hct MCH MCHC RDW Plt Count Lymph % (Auto) Lymph # (Auto) Seg Neutrophils % Seg Neuts % (Manual) Lymphocytes % (Manual) Nucleated RBC % Seg Neutrophils # Seg Neutrophils # Man PT INR APTT D-Dimer ABG pH POC ABG pCO2 POC ABG pO2 ABG Oxyhemoglobin ABG Sodium ABG Potassium ABG Chloride ABG Glucose Carboxyhemoglobin Potassium 3.2 L Chloride 95.3 L Carbon Dioxide 32 H D BUN 47 H Creatinine 1.7 H Glucose 103 H POC Glucose Hemoglobin A1c Magnesium AST 1860 H ALT 1230 H Ammonia Lactate Dehydrogenase 1357 H Total Creatine Kinase 263 H CK-MB (CK-2) 72.8 H CK-MB (CK-2) Rel Index 27.6 H Troponin T C-Reactive Protein 2.20 H NT-Pro-B Natriuret Pep Albumin 3.3 L HDL Cholesterol Arterial Blood Glucose Arterial Blood Ionized Calcium Urine Creatinine Salicylates Acetaminophen 09/24/20 09/24/20 09/24/20 11:46 12:57 16:52 WBC RBC Hgb Hct MCH MCHC RDW Plt Count Lymph % (Auto) Lymph # (Auto) Seg Neutrophils % Seg Neuts % (Manual) Lymphocytes % (Manual) Nucleated RBC % Seg Neutrophils # Seg Neutrophils # Man PT INR APTT D-Dimer ABG pH POC ABG pCO2 POC ABG pO2 ABG Oxyhemoglobin ABG Sodium ABG Potassium ABG Chloride ABG Glucose Carboxyhemoglobin Potassium Chloride Carbon Dioxide BUN Creatinine Glucose POC Glucose 128 H Hemoglobin A1c Magnesium AST ALT Ammonia Lactate Dehydrogenase Total Creatine Kinase 438 H CK-MB (CK-2) 47.8 H CK-MB (CK-2) Rel Index 10.9 H Troponin T C-Reactive Protein NT-Pro-B Natriuret Pep Albumin HDL Cholesterol Arterial Blood Glucose Arterial Blood Ionized Calcium Urine Creatinine 81.9 H Salicylates Acetaminophen 09/24/20 09/24/20 09/24/20 17:32 19:15 19:15 WBC RBC Hgb Hct MCH MCHC RDW Plt Count Lymph % (Auto) Lymph # (Auto) Seg Neutrophils % Seg Neuts % (Manual) Lymphocytes % (Manual) Nucleated RBC % Seg Neutrophils # Seg Neutrophils # Man PT INR APTT D-Dimer > 69946 H ABG pH POC ABG pCO2 POC ABG pO2 ABG Oxyhemoglobin ABG Sodium ABG Potassium ABG Chloride ABG Glucose Carboxyhemoglobin Potassium Chloride Carbon Dioxide BUN Creatinine Glucose POC Glucose 113 H Hemoglobin A1c Magnesium AST ALT Ammonia Lactate Dehydrogenase Total Creatine Kinase 461 H CK-MB (CK-2) 35.1 H CK-MB (CK-2) Rel Index 7.6 H Troponin T C-Reactive Protein NT-Pro-B Natriuret Pep Albumin HDL Cholesterol Arterial Blood Glucose Arterial Blood Ionized Calcium Urine Creatinine Salicylates Acetaminophen 09/25/20 09/25/20 09/25/20 04:00 04:00 13:13 WBC 14.9 H RBC 5.18 H Hgb Hct 45.4 H MCH 27 L MCHC RDW 16.6 H Plt Count 124 L Lymph % (Auto) 6.3 L Lymph # (Auto) 0.9 L Seg Neutrophils % 89.3 H Seg Neuts % (Manual) Lymphocytes % (Manual) Nucleated RBC % Seg Neutrophils # 13.3 H Seg Neutrophils # Man PT INR APTT D-Dimer ABG pH POC ABG pCO2 POC ABG pO2 ABG Oxyhemoglobin ABG Sodium ABG Potassium ABG Chloride ABG Glucose Carboxyhemoglobin Potassium 3.2 L Chloride 96.9 L Carbon Dioxide 38 H BUN 40 H Creatinine Glucose POC Glucose 124 H Hemoglobin A1c Magnesium 2.70 H AST 811 H ALT 1042 H Ammonia Lactate Dehydrogenase Total Creatine Kinase CK-MB (CK-2) CK-MB (CK-2) Rel Index Troponin T C-Reactive Protein NT-Pro-B Natriuret Pep Albumin 3.0 L HDL Cholesterol Arterial Blood Glucose Arterial Blood Ionized Calcium Urine Creatinine Salicylates Acetaminophen 09/26/20 09/26/20 07:00 07:00 WBC 11.2 H RBC 5.07 H Hgb Hct 44.3 H MCH 27 L MCHC RDW 16.8 H Plt Count 123 L Lymph % (Auto) 12.5 L Lymph # (Auto) Seg Neutrophils % 83.5 H Seg Neuts % (Manual) Lymphocytes % (Manual) Nucleated RBC % Seg Neutrophils # 9.4 H Seg Neutrophils # Man PT INR APTT D-Dimer ABG pH POC ABG pCO2 POC ABG pO2 ABG Oxyhemoglobin ABG Sodium ABG Potassium ABG Chloride ABG Glucose Carboxyhemoglobin Potassium 3.1 L Chloride 94.7 L Carbon Dioxide 42 H* BUN 30 H Creatinine Glucose POC Glucose Hemoglobin A1c Magnesium AST 461 H ALT 852 H Ammonia Lactate Dehydrogenase Total Creatine Kinase CK-MB (CK-2) CK-MB (CK-2) Rel Index Troponin T C-Reactive Protein NT-Pro-B Natriuret Pep Albumin 3.1 L HDL Cholesterol Arterial Blood Glucose Arterial Blood Ionized Calcium Urine Creatinine Salicylates Acetaminophen Allied health notes reviewed: nursing
[2020-09-27] MEDS ORDERED: FAMOTIDINE 20 MG TAB PO SCH (22:00)
== END 2020-09-27 15:34 | disposition home or self-care (01) | DRG 208 ==
LOC: ED 10:36 → IMCU 14:20 → CC1 16:15 → IMCU 09-25 14:59
PROVIDERS: ADMIT Internal Medicine; ATTEND Internal Medicine
PROC: 5A1945Z Respiratory Ventilation, 24-96 Consecutive Hours (ICD-10-PCS; principal; 2020-09-23)
PROC: 0BH17EZ Insertion of Endotracheal Airway into Trachea, Via Natural or Artificial Opening (ICD-10-PCS; 2020-09-23)
PROC: 06HM33Z Insertion of Infusion Device into Right Femoral Vein, Percutaneous Approach (ICD-10-PCS; 2020-09-23)
PROC: B54BZZA Ultrasonography of Right Lower Extremity Veins, Guidance (ICD-10-PCS; 2020-09-23)
PROC: 02HV33Z Insertion of Infusion Device into Superior Vena Cava, Percutaneous Approach (ICD-10-PCS; 2020-09-24)
DX: J96.01 Acute respiratory failure with hypoxia (principal); I50.23 Acute on chronic systolic (congestive) heart failure; G93.41 Metabolic encephalopathy; I21.A1 Myocardial infarction type 2; N17.0 Acute kidney failure with tubular necrosis; E66.2 Morbid (severe) obesity with alveolar hypoventilation; I42.8 Other cardiomyopathies; J44.1 Chronic obstructive pulmonary disease with (acute) exacerbation; F17.213 Nicotine dependence, cigarettes, with withdrawal; E72.20 Disorder of urea cycle metabolism, unspecified; Z68.41 Body mass index [BMI] 40.0-44.9, adult; K72.90 Hepatic failure, unspecified without coma; J96.02 Acute respiratory failure with hypercapnia; I11.0 Hypertensive heart disease with heart failure; R74.01 Elevation of levels of liver transaminase levels; I95.9 Hypotension, unspecified; Z20.822 Contact with and (suspected) exposure to COVID-19; E11.9 Type 2 diabetes mellitus without complications; E78.5 Hyperlipidemia, unspecified; Z83.49 Family history of other endocrine, nutritional and metabolic diseases; Z88.8 Allergy status to other drugs, medicaments and biological substances; Z91.040 Latex allergy status; Z91.19 Patient's noncompliance with other medical treatment and regimen; E87.6 Hypokalemia; Z71.6 Tobacco abuse counseling
CPT/HCPCS: 36415; 70450; 71045; 74019; 76705; 80053; 80061; 80074; 80307; 80320; 81001; 82140; 82550; 82553; 82570; 82728; 82805; 82962; 83036; 83615; 83690; 83735; 83880; 83935; 84100; 84145; 84300; 84443; 84484; 85007; 85025; 85027; 85379; 85610; 85730; 86140; 87070; 87205; 93005; 93306; 93970; 94002; 94003; 94640; 94760; G0378; G0480; J0360; J0456; J0696; J1644; J1650; J1940; J2250; J2704; J2930; J7030; U0003

== ENCOUNTER 2020-10-19 18:19 | Emergency (ER) | payer MEDICARE ==
--- NOTE | 2020-10-19 19:08 | Event Note ---
ED Screening Note ED Screening Note: Patient is a 59-year-old female presents emergency room complaints of left leg swelling that began 2 weeks ago She reports that she was diagnosed with cellulitis and given prescription for clindamycin States that her symptoms did not improve and she was started on levofloxacin She also has shortness of breath Patient has a history of CHF and is on 2 L home oxygen but did not bring her oxygen today Significant edema to the left lower extremity, no obvious increased warmth, no drainage This initial assessment/diagnostic orders/clinical plan/treatment(s) is/are subject to change based on patients health status, clinical progression and re- assessment by fellow clinical providers in the ED. Further treatment and workup at subsequent clinical providers discretion. Patient/guardian urged not to elope from the ED as their condition may be serious if not clinically assessed and managed. Initial orders include: Labs, x-ray, EKG, ultrasound MD to evaluate
[2020-10-19 19:53] LABS: Basophils % (Auto) 0.6 % (0.0-1.8); Eosinophils # (Auto) 0.4 K/mm3 (0.0-0.4); Eosinophils % (Auto) 7.1 % (0.0-4.3); Hematocrit 44.8 % (30.3-42.9); Hemoglobin 14.2 gm/dl (10.1-14.3); Lymphocytes # (Auto) 1.5 K/mm3 (1.2-5.4); Lymphocytes % (Auto) 29.6 % (13.4-35.0); Mean Corpuscular HGB Conc 32 % (30-34); Mean Corpuscular Volume 87 fl (79-97); Monocytes # (Auto) 0.5 K/mm3 (0.0-0.8); Monocytes % (Auto) 9.1 % (0.0-7.3); Platelet Count 223 K/mm3 (140-440); Red Blood Count 5.16 M/mm3 (3.65-5.03); Red Cell Distribution Width 17.4 % (13.2-15.2)
--- NOTE | 2020-10-19 20:27 | XRay Report ---
CHEST 2 VIEWS INDICATION: SOB. COMPARISON: 09/24/2020 FINDINGS: Support devices: None. Heart: Stable cardiomegaly. Lungs/Pleura: Mild vascular congestion. No localized infiltrate No significant pleural effusion. IMPRESSION: Cardiomegaly with mild vascular congestion. Signer Name: Fab Gallagher MD Signed: 10/19/2020 8:23 PM Workstation Name: [id number]
--- NOTE | 2020-10-19 20:37 | Vascular Lab Report ---
DUPLEX DOPPLER LOWER EXTREMITY VEINS, BILATERAL INDICATION: BLE edema, left greater than right. TECHNIQUE: Duplex doppler imaging was performed through the veins of both lower extremities using venous nancy domonique and other maneuvers. COMPARISON: None available. FINDINGS: Right Common femoral vein: Negative. Right Superficial femoral vein: Negative. Right Popliteal vein: Negative. Right Calf veins: Negative. Left Common femoral vein: Negative. Left Superficial femoral vein: Negative. Left Popliteal vein: Negative. Left Calf veins: Negative. Additional findings: None. IMPRESSION: Negative for DVT. Signer Name: Fab Gallagher MD Signed: 10/19/2020 8:33 PM Workstation Name: [id number]
[2020-10-19 20:44] LABS: Alanine Aminotransferase 15 units/L (7-56); Albumin 3.6 g/dL (3.9-5); Blood Urea Nitrogen 10 mg/dL (7-17); Calcium 9.5 mg/dL (8.4-10.2); Hemolysis Index 8
[2020-10-19 20:45] LABS: BUN/Creatinine Ratio 17
--- NOTE | 2020-10-19 21:36 | Emergency Department Report ---
ED Extremity Problem HPI - General Chief complaint: Skin Rash Stated complaint: CELLULITIS Time Seen by Provider: 10/19/20 21:16 Source: patient Mode of arrival: Ambulatory Limitations: No Limitations - History of Present Illness Initial comments: 59-year-old female, history of CHF (EF 20-25%), hypertension, obesity hypoventilation syndrome, presents to ED with report of left leg cellulitis. Patient states that she has cellulitis in the left leg. States it has been ongoing for approximately 2 weeks. Patient states it is like warm, more swollen than usual (patient states that baseline left leg is bigger than the right leg), and red. Patient reports baseline shortness of breath. States upon discharge from her last hospitalization on 09/27/2020 in which she was intubated for hypercapnic respiratory failure, patient was placed on 2 L O2 via nasal cannula. Patient reports she has had a cough since being extubated. Patient denies any fever. Patient reports she has received both doses of her Covid vaccine. Patient states she was placed on Levaquin by her PCP 4 days ago, but states she is unable to finish the 10-day course because she does not like how the medication makes her feel. She states the cellulitis is not improving. At [facility] today, patient's blood pressure is elevated O2 sats are 85% on room air. Patient states she wears O2 "as needed," and did not have it on at triage. Patient reports she did not take her blood pressure medication today, but she has the medication at home. Complaint: other -: week(s) (2) Location: left, lower extremity History of Same: Yes -: No fever, No associated dyspnea, No associated chest pain Severity scale (0 -10): 2 Consistency: constant Improves with: nothing Worsens with: nothing Associated Symptoms: denies: chest pain, shortness of breath, fever - Related Data Previous Rx's Medication Instructions Recorded Last Taken Type Furosemide [Lasix TAB] 40 mg PO BID #120 01/19/19 Unknown Rx Potassium Chloride [K-Dur] 40 meq PO QDAY #60 tablet 01/19/19 Unknown Rx metOLazone [Zaroxolyn] 5 mg PO 0530 #60 tablet 01/19/19 Unknown Rx Triamcinolone 0.5% [Kenalog 0.5% 1 applic TP BID #1 tube 01/20/19 Unknown Rx CREAM] Furosemide [Lasix TAB] 20 mg PO DAILY@0600 30 Days #30 09/27/20 Unknown Rx tablet Losartan [Cozaar] 25 mg PO QDAY #30 tablet 09/27/20 Unknown Rx Sulfamethoxazole/Trimethoprim 1 each PO BID #14 tablet 10/19/20 Unknown Rx [Bactrim DS TAB] cephALEXin [Keflex] 500 mg PO Q12HR #14 cap 10/19/20 Unknown Rx Allergies Allergy/AdvReac Type Severity Reaction Status Date / Time latex Allergy Rash Verified 08/12/18 09:10 lisinopril AdvReac Unknown Verified 01/08/19 09:45 ED Review of Systems ROS: Stated complaint: CELLULITIS Other details as noted in HPI Comment: All other systems reviewed and negative Constitutional: denies: fever Respiratory: cough, SOB with exertion Cardiovascular: denies: chest pain Skin: as per HPI ED Past Medical Hx - Past Medical History Previous Medical History?: No Hx Hypertension: Yes Hx Congestive Heart Failure: Yes Hx Diabetes: Yes Hx Deep Vein Thrombosis: No Hx Asthma: Yes Hx COPD: Yes - Surgical History Past Surgical History?: No Hx Coronary Stent: No Hx Pacemaker: No Hx Internal Defibrillator: No Hx Cholecystectomy: No Hx Appendectomy: No Hx Breast Surgery: No Additional Surgical History: knee surgery - Social History Smoking Status: Current Every Day Smoker - Medications Home Medications: Home Medications Medication Instructions Recorded Confirmed Last Taken Type Furosemide [Lasix TAB] 40 mg PO BID #120 01/19/19 09/25/20 Unknown Rx Potassium Chloride [K-Dur] 40 meq PO QDAY #60 tablet 01/19/19 09/25/20 Unknown Rx metOLazone [Zaroxolyn] 5 mg PO 0530 #60 tablet 01/19/19 09/25/20 Unknown Rx Triamcinolone 0.5% [Kenalog 0.5% 1 applic TP BID #1 tube 01/20/19 09/25/20 Unknown Rx CREAM] Furosemide [Lasix TAB] 20 mg PO DAILY@0600 30 Days #30 09/27/20 Unknown Rx tablet Losartan [Cozaar] 25 mg PO QDAY #30 tablet 09/27/20 Unknown Rx Sulfamethoxazole/Trimethoprim 1 each PO BID #14 tablet 10/19/20 Unknown Rx [Bactrim DS TAB] cephALEXin [Keflex] 500 mg PO Q12HR #14 cap 10/19/20 Unknown Rx ED Physical Exam - General Limitations: No Limitations General appearance: alert, in no apparent distress, obese - Head Head exam: Present: atraumatic, normocephalic - Eye Eye exam: Present: normal appearance - ENT ENT exam: Present: mucous membranes moist - Neck Neck exam: Present: normal inspection - Respiratory Respiratory exam: Present: normal lung sounds bilaterally. Absent: respiratory distress - Cardiovascular Cardiovascular Exam: Present: regular rate, normal rhythm - GI/Abdominal GI/Abdominal exam: Present: soft. Absent: distended, tenderness - Extremities Exam Extremities exam: Present: other (Slight erythema and edema noted to the left medial thigh and left lower leg) - Neurological Exam Neurological exam: Present: alert, oriented X3 - Psychiatric Psychiatric exam: Present: normal affect, normal mood - Skin Skin exam: Present: erythema (Slight erythema and noted to the left medial thigh and left lower leg) ED Course Vital Signs 10/19/20 10/19/20 10/19/20 18:58 21:22 21:52 Pulse Rate 98 H 122 H 102 H Respiratory 18 20 15 Rate Blood Pressure 192/134 167/100 Blood Pressure 173/108 [Left] O2 Sat by Pulse 85 95 95 Oximetry 10/19/20 21:54 Pulse Rate Respiratory Rate Blood Pressure Blood Pressure [Left] O2 Sat by Pulse 99 Oximetry ED Medical Decision Making - Lab Data Result diagrams: 10/19/20 19:29 10/19/20 19:29 - Radiology Data Radiology results: report reviewed, image reviewed - Medical Decision Making 59-year-old female with left lower extremity cellulitis. Labs are unremarkable. Ultrasound negative for DVT. Patient with normal O2 sats on her usual 2 L O2 via nasal cannula. Patient hypertensive, however states she did not take her BP meds today. Patient reports will take when she gets home. Will discharge with prescription for Bactrim and Keflex, as patient states that the current Levaquin that she is taking is causing generalized aching and does not seem to be helping with the cellulitis. Will discharge at this time. Outpatient follow-up a dvised, return precautions given. - Differential Diagnosis Cellulitis, DVT Critical care attestation.: If time is entered above; I have spent that time in minutes in the direct care of this critically ill patient, excluding procedure time. ED Disposition Clinical Impression: Cellulitis, Hypertension Disposition: HOME / SELF CARE / HOMELESS Is pt being admited?: No Condition: Stable Instructions: Cellulitis, Adult, [id number], Hypertension (ED) Prescriptions: Sulfamethoxazole/Trimethoprim [Bactrim DS TAB] 1 each PO BID #14 tablet cephALEXin [Keflex] 500 mg PO Q12HR #14 cap Referrals: PRIMARY CARE, [Referring] - 3-5 Days Time of Disposition: 21:58
[2020-10-19 21:56] VITALS: BP 167/100
== END 2020-10-19 22:11 | disposition home or self-care (01) ==
LOC: ED 18:19
DX: L03.116 Cellulitis of left lower limb (principal); I10 Essential (primary) hypertension; E11.8 Type 2 diabetes mellitus with unspecified complications; J44.9 Chronic obstructive pulmonary disease, unspecified; Z98.890 Other specified postprocedural states; F17.200 Nicotine dependence, unspecified, uncomplicated; Z88.8 Allergy status to other drugs, medicaments and biological substances; Z91.040 Latex allergy status
CPT/HCPCS: 36415; 71046; 80053; 82140; 83880; 84484; 85025; 87040; 93970; 99284

== ENCOUNTER 2020-10-30 12:14 | Emergency (ER) | payer MEDICARE ==
--- NOTE | 2020-10-30 13:42 | Emergency Department Report ---
<TIRSO ODELL J - Last Filed: 10/30/20 16:42> ED Extremity Problem HPI - General Chief complaint: Extremity Problem,Nontraumatic Stated complaint: CELLUITIS Time Seen by Provider: 10/30/20 13:15 - Related Data Previous Rx's Medication Instructions Recorded Last Taken Type Furosemide [Lasix TAB] 40 mg PO BID #120 01/19/19 Unknown Rx Potassium Chloride [K-Dur] 40 meq PO QDAY #60 tablet 01/19/19 Unknown Rx metOLazone [Zaroxolyn] 5 mg PO 0530 #60 tablet 01/19/19 Unknown Rx Triamcinolone 0.5% [Kenalog 0.5% 1 applic TP BID #1 tube 01/20/19 Unknown Rx CREAM] Furosemide [Lasix TAB] 20 mg PO DAILY@0600 30 Days #30 09/27/20 Unknown Rx tablet Losartan [Cozaar] 25 mg PO QDAY #30 tablet 09/27/20 Unknown Rx Sulfamethoxazole/Trimethoprim 1 each PO BID #14 tablet 10/19/20 Unknown Rx [Bactrim DS TAB] cephALEXin [Keflex] 500 mg PO Q12HR #14 cap 10/19/20 Unknown Rx Pantoprazole [Protonix] 40 mg PO BID #60 tablet 10/30/20 Unknown Rx Sulfamethoxazole/Trimethoprim 1 each PO BID #10 tablet 10/30/20 Unknown Rx [Bactrim 400-80 mg Tablet] Allergies Allergy/AdvReac Type Severity Reaction Status Date / Time latex Allergy Rash Verified 08/12/18 09:10 lisinopril AdvReac Unknown Verified 01/08/19 09:45 ED Past Medical Hx - Medications Home Medications: Home Medications Medication Instructions Recorded Confirmed Last Taken Type Furosemide [Lasix TAB] 40 mg PO BID #120 01/19/19 09/25/20 Unknown Rx Potassium Chloride [K-Dur] 40 meq PO QDAY #60 tablet 01/19/19 09/25/20 Unknown Rx metOLazone [Zaroxolyn] 5 mg PO 0530 #60 tablet 01/19/19 09/25/20 Unknown Rx Triamcinolone 0.5% [Kenalog 0.5% 1 applic TP BID #1 tube 01/20/19 09/25/20 Unknown Rx CREAM] Furosemide [Lasix TAB] 20 mg PO DAILY@0600 30 Days #30 09/27/20 Unknown Rx tablet Losartan [Cozaar] 25 mg PO QDAY #30 tablet 09/27/20 Unknown Rx Sulfamethoxazole/Trimethoprim 1 each PO BID #14 tablet 10/19/20 Unknown Rx [Bactrim DS TAB] cephALEXin [Keflex] 500 mg PO Q12HR #14 cap 10/19/20 Unknown Rx Pantoprazole [Protonix] 40 mg PO BID #60 tablet 10/30/20 Unknown Rx Sulfamethoxazole/Trimethoprim 1 each PO BID #10 tablet 10/30/20 Unknown Rx [Bactrim 400-80 mg Tablet] ED Medical Decision Making - Lab Data Result diagrams: 10/30/20 14:30 10/30/20 14:30 ED Disposition Clinical Impression: CHF exacerbation Disposition: ADMITTED INPATIENT Condition: Stable Prescriptions: Sulfamethoxazole/Trimethoprim [Bactrim 400-80 mg Tablet] 1 each PO BID #10 tab let Pantoprazole [Protonix] 40 mg PO BID #60 tablet Referrals: PRIMARY CARE, [Primary Care Provider] - 7 Days Forms: AMA Form <VIKTOR LOMAX - Last Filed: 10/30/20 21:28> ED Extremity Problem HPI - General Source: patient Mode of arrival: Ambulatory Limitations: No Limitations - History of Present Illness Initial comments: 89-year-old female with a past medical history of congestive heart failure (EF 20 - 25%), hypertension, obesity, and hypoventilation syndrome presents to the ER today with complaints of left lower extremity swelling and persistent cell ulitis. Patient states that about 3 weeks ago she started with swelling, redness and pain to her left lower leg. She was seen here on October 19, 2020. She had labs done as well as a venous Doppler which was negative for DVT. She was treated on outpatient basis with Keflex and Bactrim for cellulitis. Patient states that she completed the course of antibiotics but her symptoms have not improved and so a week later she called her primary care doctor who again called in another prescription for Keflex. Patient states that she has completed the Keflex but she states that the leg is not getting any better. She states that she now she has tight swelling into her posterior left thigh with associated redness and pain. Also noticed swelling into her right buttocks which is also a tight swelling with pain but no apparent erythema. Patient states that she has shortness of breath, but the shortness of breath was worse 3 weeks ago, she states that has since improved. She denies any chest pain. She denies any fever chills in the past 3 weeks. Patient states that she had similar symptoms of cellulitis back in 2019 when she was hospitalized and had to have IV antibiotics. She states that her doctor who recommended she come to the ER because she may need IV antibiotics again. MD Complaint: extremity pain, extremity swelling -: week(s) (3) ED Review of Systems ROS: Stated complaint: CELLUITIS Other details as noted in HPI Comment: All other systems reviewed and negative Constitutional: denies: chills, fever Eyes: denies: eye pain, eye discharge, vision change ENT: denies: ear pain, throat pain, dental pain, hearing loss, epistaxis, congestion Respiratory: shortness of breath, wheezing. denies: cough Cardiovascular: denies: chest pain, palpitations Gastrointestinal: denies: abdominal pain, nausea, vomiting, diarrhea, constipation, hematemesis, hematochezia Genitourinary: denies: urgency, dysuria, discharge Musculoskeletal: joint swelling. denies: back pain, arthralgia Skin: denies: rash, lesions, change in color, change in hair/nails, pruritus Neurological: denies: headache, weakness, paresthesias Psychiatric: denies: anxiety, depression, auditory hallucinations, visual oswald ucinations, homicidal thoughts, suicidal thoughts Hematological/Lymphatic: denies: easy bleeding, easy bruising, swollen glands ED Past Medical Hx - Past Medical History Previous Medical History?: Yes Hx Hypertension: Yes Hx Congestive Heart Failure: Yes Hx Diabetes: Yes Hx Deep Vein Thrombosis: No Hx Asthma: Yes Hx COPD: Yes - Surgical History Past Surgical History?: Yes Hx Coronary Stent: No Hx Pacemaker: No Hx Internal Defibrillator: No Hx Cholecystectomy: No Hx Appendectomy: No Hx Breast Surgery: No Additional Surgical History: knee surgery - Social History Smoking Status: Current Every Day Smoker ED Physical Exam - General Limitations: No Limitations General appearance: alert, in no apparent distress - Head Head exam: Present: atraumatic, normocephalic, normal inspection - Eye Eye exam: Present: normal appearance, PERRL, EOMI Pupils: Present: normal accommodation - ENT ENT exam: Present: normal exam, mucous membranes moist - Neck Neck exam: Present: normal inspection, full ROM - Respiratory Respiratory exam: Present: wheezes (Faint expiratory wheezing noted in the left upper lung vail). Absent: respiratory distress, rales, rhonchi - Cardiovascular Cardiovascular Exam: Present: regular rate, normal rhythm, normal heart sounds - GI/Abdominal GI/Abdominal exam: Present: soft. Absent: distended, tenderness, guarding, rebound - Expanded Lower Extremity Exam Left Upper Leg exam: Present: tenderness (Mild medial posterior left thigh), swelling (moderate edema, non pitting noted to medial posterior left thigh with mild erythema and mild warmth). Absent: abrasion, laceration, ecchymosis, deformity, crepidus, dislocation Lower Leg exam: Present: full ROM, swelling (tight, nonpitting edema noted diffusely to the left lower leg with mild erythema but no warmth; no apparent tenderness to palpation to the lower leg or calf tenderness). Absent: abrasion, laceration, ecchymosis, deformity, crepidus, dislocation, palpable cord Ankle exam: Present: full ROM, swelling. Absent: tenderness Foot/Toe exam: Present: full ROM, swelling. Absent: tenderness Neuro vascular tendon exam: Present: no vascular compromise. Absent: abnormal cap refill, motor deficit, sensory deficit - Neurological Exam Neurological exam: Present: alert, oriented X3, CN II-XII intact - Psychiatric Psychiatric exam: Present: normal affect, normal mood - Skin Skin exam: Present: intact ED Course Vital Signs 10/30/20 10/30/20 12:57 16:20 Temperature 98.1 F Pulse Rate 109 H 102 H Respiratory 16 18 Rate Blood Pressure 163/94 Blood Pressure 104/76 [Left] O2 Sat by Pulse 93 90 Oximetry ED Medical Decision Making - Lab Data Result diagrams: 10/30/20 14:30 10/30/20 14:30 - EKG Data EKG shows normal: sinus rhythm Rate: tachycardia (103) - Radiology Data Radiology results: report reviewed Patient: GENNY PADGETT MR#: [id number] : 1960 Acct:[id number] Age/Sex: 59 / F ADM Date: 10/30/20 Loc: ED Attending Dr: Ordering Physician: VIKTOR LOMAX Date of Service: 10/30/20 Procedure(s): VL venous duplex LE LT Accession Number(s): [id number] cc: VIKTOR LOMAX DUPLEX DOPPLER LOWER EXTREMITY VEINS, LEFT INDICATION: Left leg swelling. TECHNIQUE: Duplex doppler imaging was performed through the veins of the left lower extremity using venous compression and other maneuvers. COMPARISON: No relevant prior imaging study available. FINDINGS: Left Common femoral vein: Negative. Left Superficial femoral vein: Negative. Left Popliteal vein: Negative. Left Calf veins: Negative. Additional findings: None.. IMPRESSION: 1. No sonographic evidence for DVT in the left lower extremity. Signer Name: Steven Blas MD Signed: 10/30/2020 3:13 PM Workstation Name: [id number] Transcribed By: VIRGINIE Dictated By: Steven Blas MD Electronically Authenticated By: Steven Blas MD Signed Date/Time: 10/30/201512 DD/ 12 TD/TT: Patient: GENNY PADGETT MR#: [id number] : 1960 Acct:[id number] Age/Sex: 59 / F ADM Date: 10/30/20 Loc: ED Attending Dr: Ordering Physician: VIKTOR LOMAX Date of Service: 10/30/20 Procedure(s): XR chest 1V ap Accession Number(s): [id number] cc: VIKTOR LOMAX Fluoro Time In Minutes: . CHEST 1 VIEW INDICATION: wheezing/LE swelling/CHF. COMPARISON: 10/19/2020 FINDINGS: SUPPORT DEVICES: None. HEART: Stable moderate cardiomegaly. LUNGS/PLEURA: Mild interstitial edema. Left lung base is poorly visualized to assess for effusion but no right-sided effusion identified. ADDITIONAL FINDINGS: None. IMPRESSION: 1. Cardiomegaly with edema. Signer Name: Steven Blas MD Signed: 10/30/2020 2:02 PM Workstation Name: [id number] Transcribed By: VIRGINIE Dictated By: Steven Blas MD Electronically Authenticated By: Steven Blas MD Signed Date/Time: 10/30/20 140 DD/ 00 TD/TT: - Medical Decision Making 1609: All labs and imaging reviewed. Patient has a normal white count. Renal functions are normal. Her BNP did increase from 2596 on October 19 to 4379 today. Chest x-ray shows cardiomegaly with edema but slightly worse compared to when she had a chest x-ray on October 19. Venous Doppler again negative for DVT. I am suspecting that patient's remedy edema is related to CHF exacerbation. I do not think this is related to cellulitis. Discussed lab results with patient. She states that she did see her analyst microbiology lab Dr. Tee about a week ago and he decreased her Lasix from 40 mg twice a day to 40 mg daily. She states that she has been compliant with taking her Lasix. Repeat vital signs shows that patient O2 sat varies from 80 to 89% on room air. Patient does admit that she is on as needed O2 at home, 2 L. Repeat vital signs stable. cardiac monitor and O2 via nasal canular ordered. Discussed case with Dr Cabrera, recommend admitting patient to the hospital. Discussed case with Dr Odell, Hospitalist for admission, he will come see patient. Critical care attestation.: If time is entered above; I have spent that time in minutes in the direct care of this critically ill patient, excluding procedure time. ED Disposition Is pt being admited?: No
--- NOTE | 2020-10-30 14:06 | XRay Report ---
. CHEST 1 VIEW INDICATION: wheezing/LE swelling/CHF. COMPARISON: 10/19/2020 FINDINGS: SUPPORT DEVICES: None. HEART: Stable moderate cardiomegaly. LUNGS/PLEURA: Mild interstitial edema. Left lung base is poorly visualized to assess for effusion but no right-sided effusion identified. ADDITIONAL FINDINGS: None. IMPRESSION: 1. Cardiomegaly with edema. Signer Name: Steven Blas MD Signed: 10/30/2020 2:02 PM Workstation Name: [id number]
[2020-10-30 15:18] LABS: Alanine Aminotransferase 18 units/L (7-56); Albumin 3.4 g/dL (3.9-5); Blood Urea Nitrogen 13 mg/dL (7-17); Calcium 8.9 mg/dL (8.4-10.2); Hemolysis Index 113
--- NOTE | 2020-10-30 15:18 | Vascular Lab Report ---
DUPLEX DOPPLER LOWER EXTREMITY VEINS, LEFT INDICATION: Left leg swelling. TECHNIQUE: Duplex doppler imaging was performed through the veins of the left lower extremity using venous compr ession and other maneuvers. COMPARISON: No relevant prior imaging study available. FINDINGS: Left Common femoral vein: Negative. Left Superficial femoral vein: Negative. Left Popliteal vein: Negative. Left Calf veins: Negative. Additional findings: None.. IMPRESSION: 1. No sonographic evidence for DVT in the left lower extremity. Signer Name: Steven Blas MD Signed: 10/30/2020 3:13 PM Workstation Name: [id number]
[2020-10-30 15:27] LABS: BUN/Creatinine Ratio 19
[2020-10-30 15:55] LABS: Basophils # (Auto) 0.1 K/mm3 (0.0-0.1); Basophils % (Auto) 1.3 % (0.0-1.8); Eosinophils # (Auto) 0.4 K/mm3 (0.0-0.4); Eosinophils % (Auto) 8.8 % (0.0-4.3); Hemoglobin 14.2 gm/dl (10.1-14.3); Lymphocytes # (Auto) 1.3 K/mm3 (1.2-5.4); Lymphocytes % (Auto) 27.8 % (13.4-35.0); Mean Corpuscular HGB Conc 31 % (30-34); Mean Corpuscular Volume 87 fl (79-97); Monocytes # (Auto) 0.5 K/mm3 (0.0-0.8); Monocytes % (Auto) 9.4 % (0.0-7.3); Platelet Count 158 K/mm3 (140-440); Red Blood Count 5.19 M/mm3 (3.65-5.03); Red Cell Distribution Width 16.9 % (13.2-15.2)
[2020-10-30 16:22] VITALS: BP 163/94
[2020-10-30] MEDS ORDERED: FUROSEMIDE 40 MG/4 ML INJ IV ONE (16:29)
--- NOTE | 2020-10-30 16:35 | History and Physical Report ---
History of Present Illness History of present illness: 59 YO Female with Diastolic CHF, HTN, Obesity Hypoventilation Syndrome, DM, COPD, Asthma, Nicotine Dependence presents to ED for evaluation. year-old female with a past medical history of congestive heart failure (EF 20 - 25%), hypertension, obesity, and hypoventilation syndrome presents to the ER today with complaints of left lower extremity swelling and persistent cellulitis. Patient states that about 3 weeks ago she started with swelling, redness and pain to her left lower leg. She was seen here on October 19, 2020. She had labs done as well as a venous Doppler which was negative for DVT. She was treated on outpatient basis with Keflex and Bactrim for cellulitis. Patient states that she completed the course of antibiotics but her symptoms have not improved and so a week later she called her primary care doctor who again called in another prescription for Keflex. Patient states that she has completed the Keflex but she states that the leg is not getting any better. She states that she now she has tight swelling into her posterior left thigh with associated redness and pain. Also noticed swelling into her right buttocks which is also a tight swelling with pain but no apparent erythema. Patient states that she has shortness of breath, but the shortness of breath was worse 3 weeks ago, she states that has since improved. She denies any chest pain. She denies any fever chills in the past 3 weeks. Patient states that she had similar symptoms of cellulitis back in 2018 when she was hospitalized and had to have IV antibiotics. She states that her doctor who recommended she come to the ER because she may need IV antibiotics again. MD Complaint: extremity pain, extremity swelling -: week(s) (3) - Related Data Previous Rx's Medication Instructions Recorded Last Taken Type Furosemide [Lasix TAB] 40 mg PO BID #120 01/19/19 Unknown Rx Potassium Chloride [K-Dur] 40 meq PO QDAY #60 tablet 01/19/19 Unknown Rx metOLazone [Zaroxolyn] 5 mg PO 0530 #60 tablet 01/19/19 Unknown Rx Triamcinolone 0.5% [Kenalog 0.5% 1 applic TP BID #1 tube 01/20/19 Unknown Rx CREAM] Furosemide [Lasix TAB] 20 mg PO DAILY@0600 30 Days #30 09/27/20 Unknown Rx tablet Losartan [Cozaar] 25 mg PO QDAY #30 tablet 09/27/20 Unknown Rx Sulfamethoxazole/Trimethoprim 1 each PO BID #14 tablet 10/19/20 Unknown Rx [Bactrim DS TAB] cephALEXin [Keflex] 500 mg PO Q12HR #14 cap 10/19/20 Unknown Rx Allergies Allergy/AdvReac Type Severity Reaction Status Date / Time latex Allergy Rash Verified 08/12/18 09:10 lisinopril AdvReac Unknown Verified 01/08/19 09:45 ED Review of Systems Comment: All other systems reviewed and negative Constitutional: denies: chills, fever Eyes: denies: eye pain, eye discharge, vision change ENT: denies: ear pain, throat pain, dental pain, hearing loss, epistaxis, congestion Respiratory: shortness of breath, wheezing. denies: cough Cardiovascular: denies: chest pain, palpitations Gastrointestinal: denies: abdominal pain, nausea, vomiting, diarrhea, constipation, hematemesis, hematochezia Genitourinary: denies: urgency, dysuria, discharge Musculoskeletal: joint swelling. denies: back pain, arthralgia Skin: denies: rash, lesions, change in color, change in hair/nails, pruritus Neurological: denies: headache, weakness, paresthesias Psychiatric: denies: anxiety, depression, auditory hallucinations, visual hallucinations, homicidal thoughts, suicidal thoughts Hematological/Lymphatic: denies: easy bleeding, easy bruising, swollen glands ED Past Medical Hx - Past Medical History Previous Medical History?: Yes Hx Hypertension: Yes Hx Congestive Heart Failure: Yes Hx Diabetes: Yes Hx Deep Vein Thrombosis: No Hx Asthma: Yes Hx COPD: Yes - Surgical History Past Surgical History?: Yes Hx Coronary Stent: No Hx Pacemaker: No Hx Internal Defibrillator: No Hx Cholecystectomy: No Hx Appendectomy: No Hx Breast Surgery: No Additional Surgical History: knee surgery - Social History Smoking Status: Current Every Day Smoker - Medications Home Medications: Home Medications Medication Instructions Recorded Confirmed Last Taken Type Furosemide [Lasix TAB] 40 mg PO BID #120 01/19/19 09/25/20 Unknown Rx Potassium Chloride [K-Dur] 40 meq PO QDAY #60 tablet 01/19/19 09/25/20 Unknown Rx metOLazone [Zaroxolyn] 5 mg PO 0530 #60 tablet 01/19/19 09/25/20 Unknown Rx Triamcinolone 0.5% [Kenalog 0.5% 1 applic TP BID #1 tube 01/20/19 09/25/20 Unknown Rx CREAM] Furosemide [Lasix TAB] 20 mg PO DAILY@0600 30 Days #30 09/27/20 Unknown Rx tablet Losartan [Cozaar] 25 mg PO QDAY #30 tablet 09/27/20 Unknown Rx Sulfamethoxazole/Trimethoprim 1 each PO BID #14 tablet 10/19/20 Unknown Rx [Bactrim DS TAB] cephALEXin [Keflex] 500 mg PO Q12HR #14 cap 10/19/20 Unknown Rx ED Physical Exam - General Limitations: No Limitations General appearance: alert, in no apparent distress - Head Head exam: Present: atraumatic, normocephalic, normal inspection - Eye Eye exam: Present: normal appearance, PERRL, EOMI Pupils: Present: normal accommodation - ENT ENT exam: Present: normal exam, mucous membranes moist - Neck Neck exam: Present: normal inspection, full ROM - Respiratory Respiratory exam: Present: wheezes (Faint expiratory wheezing noted in the left upper lung vail). Absent: respiratory distress, rales, rhonchi - Cardiovascular Cardiovascular Exam: Present: regular rate, normal rhythm, normal heart sounds - GI/Abdominal GI/Abdominal exam: Present: soft. Absent: distended, tenderness, guarding, re bound - Expanded Lower Extremity Exam Left Upper Leg exam: Present: tenderness (Mild medial posterior left thigh), swelling (moderate edema, non pitting noted to medial posterior left thigh with mild erythema and mild warmth). Absent: abrasion, laceration, ecchymosis, deformity, crepidus, dislocation Lower Leg exam: Present: full ROM, swelling (tight, nonpitting edema noted diffusely to the left lower leg with mild erythema but no warmth; no apparent tenderness to palpation to the lower leg or calf tenderness). Absent: abrasion, laceration, ecchymosis, deformity, crepidus, dislocation, palpable cord Ankle exam: Present: full ROM, swelling. Absent: tenderness Foot/Toe exam: Present: full ROM, swelling. Absent: tenderness Neuro vascular tendon exam: Present: no vascular compromise. Absent: abnormal cap refill, motor deficit, sensory deficit - Neurological Exam Neurological exam: Present: alert, oriented X3, CN II-XII intact Medications and Allergies Allergies Allergy/AdvReac Type Severity Reaction Status Date / Time latex Allergy Rash Verified 08/12/18 09:10 lisinopril AdvReac Unknown Verified 01/08/19 09:45 Home Medications Medication Instructions Recorded Confirmed Last Taken Type Furosemide [Lasix TAB] 40 mg PO BID #120 01/19/19 09/25/20 Unknown Rx Potassium Chloride [K-Dur] 40 meq PO QDAY #60 tablet 01/19/19 09/25/20 Unknown Rx metOLazone [Zaroxolyn] 5 mg PO 0530 #60 tablet 01/19/19 09/25/20 Unknown Rx Triamcinolone 0.5% [Kenalog 0.5% 1 applic TP BID #1 tube 01/20/19 09/25/20 Unknown Rx CREAM] Furosemide [Lasix TAB] 20 mg PO DAILY@0600 30 Days #30 09/27/20 Unknown Rx tablet Losartan [Cozaar] 25 mg PO QDAY #30 tablet 09/27/20 Unknown Rx Sulfamethoxazole/Trimethoprim 1 each PO BID #14 tablet 10/19/20 Unknown Rx [Bactrim DS TAB] cephALEXin [Keflex] 500 mg PO Q12HR #14 cap 10/19/20 Unknown Rx Exam - Constitutional Vitals: Temp Pulse Resp BP Pulse Ox 98.1 F 102 H 18 163/94 90 10/30/20 12:57 10/30/20 16:20 10/30/20 16:20 10/30/20 16:20 10/30/20 16:20 Results - Labs CBC & Chem 7: 10/30/20 14:30 10/30/20 14:30 Labs: Abnormal lab results 10/30/20 10/30/20 Range/Units 14:30 14:30 RBC 5.19 H (3.65-5.03) M/mm3 Hct 45.0 H (30.3-42.9) % MCH 27 L (28-32) pg RDW 16.9 H (13.2-15.2) % [place] % (Auto) 9.4 H (0.0-7.3) % Eos % (Auto) 8.8 H (0.0-4.3) % Chloride 97.1 L (98-107) mmol/L Carbon Dioxide 34 H (22-30) mmol/L Glucose 101 H (65-100) mg/dL NT-Pro-B Natriuret Pep 4379 H (0-900) pg/mL Albumin 3.4 L (3.9-5) g/dL
[2020-10-30] MEDS ORDERED: HYDROmorphone 1 MG/1 ML INJ IV PRN (16:36)
[2020-10-30] MEDS ORDERED: oxyCODONE /ACETAMINOPHEN 5-325MG TAB PO PRN (16:36)
[2020-10-30] MEDS ORDERED: ACETAMINOPHEN 325 MG TAB PO PRN (16:36)
[2020-10-30] MEDS ORDERED: ONDANSETRON 4 MG/2 ML INJ IV PRN (16:36)
[2020-10-30] MEDS ORDERED: ALBUTEROL 2.5 MG/3 ML NEBU IH PRN (16:36)
--- NOTE | 2020-10-30 17:53 | Event Note ---
Date: 10/30/20 59-year-old female with diastolic CHF, hypertension, morbid obesity, obesity hypoventilation syndrome presents to ED for evaluation. Patient seen and evaluated in the emergency department. Patient presents for suspected left leg cellulitis. Patient seen and evaluated in the emergency department. Patient found to not have cellulitis. Patient knowledges noncompliance with submental oxygen as well as noncompliance with Lasix therapy. Patient treated with diuretic therapy with improvement in overall symptomatology. Patient states that she was treated with oral antibiotics as outpatient for lower extremity cellulitis. Patient counseled to continue home therapy. Patient medically optimized and back to usual state of health. Patient discharged home and instructed to follow-up with primary care physician in 3 to 5 days for reevaluation and to follow-up with bariatric surgery as outpatient for weight loss surgery. Patient knowledges understanding instructions. Patient instructed to follow-up with primary care physician regarding age-appropriate screening test. ED Physical Exam - General Limitations: No Limitations General appearance: alert, in no apparent distress - Head Head exam: Present: atraumatic, normocephalic, normal inspection - Eye Eye exam: Present: normal appearance, PERRL, EOMI Pupils: Present: normal accommodation - ENT ENT exam: Present: normal exam, mucous membranes moist - Neck Neck exam: Present: normal inspection, full ROM - Respiratory Respiratory exam: CTA bilaterally. Absent: respiratory distress, rales, rhonchi - Cardiovascular Cardiovascular Exam: Present: regular rate, normal rhythm, normal heart sounds - GI/Abdominal GI/Abdominal exam: Present: soft. Absent: distended, tenderness, guarding, rebound - Expanded Lower Extremity Exam Left Upper Leg exam: Present: tenderness (Mild induration due to chronic lymphedema. Absent: abrasion, laceration, ecchymosis, deformity, crepidus, dislocation Lower Leg exam: Present: full ROM, . Absent: abrasion, laceration, ecchymosis, deformity, crepidus, dislocation, palpable cord Ankle exam: Present: full ROM. Absent: tenderness Foot/Toe exam: Present: full ROM. Absent: tenderness Neuro vascular tendon exam: Present: no vascular compromise. Absent: abnormal cap refill, motor deficit, sensory deficit - Neurological Exam Neurological exam: Present: alert, oriented X3, CN II-XII intact - Psychiatric Psychiatric exam: Present: normal affect, normal mood - Skin Skin exam: Present: intact ED Course
[2020-10-30] MEDS ORDERED: FUROSEMIDE 40 MG/4 ML INJ IV SCH (18:00)
[2020-10-30] MEDS ORDERED: TRIAMCINOLONE 0.5% CREAM 15 GM TP SCH (22:00)
[2020-10-31] MEDS ORDERED: metOLazone 2.5 MG TAB PO SCH (05:30)
[2020-10-31] MEDS ORDERED: LOSARTAN 25 MG TAB PO SCH (10:00)
[2020-10-31] MEDS ORDERED: POTASSIUM CHLORIDE ER 20 MEQ TAB PO SCH (10:00)
--- NOTE | 2020-10-31 13:14 | Electrocardiograph Report ---
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
== END 2020-10-30 18:35 | disposition admitted as inpatient to this hospital (09) ==
LOC: ED 12:14 → UNDOADMIN 16:36 → 4A 16:36
DX: I11.0 Hypertensive heart disease with heart failure (principal); E11.8 Type 2 diabetes mellitus with unspecified complications; J44.9 Chronic obstructive pulmonary disease, unspecified; Z98.890 Other specified postprocedural states; F17.200 Nicotine dependence, unspecified, uncomplicated; Z88.8 Allergy status to other drugs, medicaments and biological substances; Z91.040 Latex allergy status
CPT/HCPCS: 36415; 71045; 80053; 83880; 85025; 93005; 99284